=== PATIENT | female | born 1970 | race Caucasian/White ===

== ENCOUNTER 2017-03-28 19:55 | Inpatient (IN) ==
[2017-03-28] MEDS ORDERED: FUROSEMIDE 100 MG/10 ML VIAL IV STA (23:43)
[2017-03-28] MEDS ORDERED: ALBUTEROL/IPRATROPIUM 3 ML NEB RESP TX STA (23:43)
[2017-03-28] MEDS ORDERED: methylPREDNISolone SOD SUC 125 MG/2 ML VIAL IV STA (23:43)
[2017-03-28] MEDS ORDERED: NITROGLYCERIN 2% OINT 1 INCH/GM PACK TOP STA (23:43)
[2017-03-28] MEDS ORDERED: ONDANSETRON 4 MG/2 ML VIAL IV STA (23:43)
[2017-03-28] MEDS ORDERED: VANCOMYCIN INJ 1,000 MG in SODIUM CHLORIDE 0.9% 250 ML IV STA (23:45)
[2017-03-28] MEDS ORDERED: VANCOMYCIN 1,000 MG VIAL ONE (23:50)
--- NOTE | 2017-03-29 00:44 | Emergency Department Note ---
Drew Wiseman [place], am scribing for, and in the presence of, Nolan Madrid MD 00:32. Julius Wiseman Charles R, MD, personally performed the services described in this documentation, ascribed by Sukhdev Russell in my presence, and it is both accurate and complete . Arrival - Arrival Chief Complaint: Chest Pain Stated Complaint: Pneumonia,SOB, chest pain,vomiting ED Nursing Triage Note: patient c/o N/V, dx with flu and PNA yesterday and is now having CP and SOB. patient currrently taking ABX and zofran for nausea without relief. Mode of Arrival: Wheelchair Limitations: No Limitations Source: Patient Time Seen by Provider: 03/28/17 23:39 - History of Present Illness HPI Narrative: This is a 46 y/o white female presenting to the ED with c/o nausea, vomiting, and diarrhea that onset yesterday. The pt was diagnosed with pneumonia and influenza. She is now c/o SOB and chest pain. Pt states she was diagnosed with a new strand of flu called influenza B per Dr. Nobles. She was not swabbed for this strand of flu because Dr. Nobles stated she had all the signs and symptoms of the flu. Pt did receive a chest xray. Pt is currently taking antibiotics and Zofran for nausea with no relief. Pt has ulcerative colitis and states it has been bothering her as well. She has experienced some lightheadedness, watery diarrhea, and states the right side of her chest hurts worse than the left. Pt denies hematochezia, back pain, dysuria, hematuria, and hemataemesis. Consistency: constant Severity: moderate Date of Last Menstrual Period: hyst Allergies/Adverse Reactions: Allergies Allergy/AdvReac Type Severity Reaction Status Date / Time penicillin G Allergy RASH Verified 03/28/17 20:06 Sulfa (Sulfonamide Allergy RASH Verified 03/28/17 20:06 Antibiotics) sulfamethoxazole Allergy RASH Verified 03/28/17 20:06 [From Bactrim] trimethoprim [From Bactrim] Allergy RASH Verified 03/28/17 20:06 oseltamivir [From Tamiflu] AdvReac Severe Vomiting Verified 03/28/17 20:06 levofloxacin [From Levaquin] AdvReac Vomiting Verified 03/28/17 20:06 morphine AdvReac Hallucinati Verified 03/28/17 20:06 ng Home Medications: Home Medications Medication Instructions Recorded Confirmed Type Atorvastatin [Lipitor] 20 mg PO DAILY 01/06/16 03/28/17 History Citalopram [CeleXA] 40 mg PO DAILY 01/06/16 03/28/17 History Furosemide Tab [Lasix Tab] 40 mg PO DAILY 01/06/16 03/28/17 History Glimepiride 2 mg PO BID 01/06/16 03/28/17 History LORazepam TAB [Ativan Tab] 1 mg PO TID PRN 01/06/16 03/28/17 History cloNIDine TAB [Catapres Tab] 0.3 mg PO BEDTIME 01/06/16 03/28/17 History Aspirin [Ecotrin] 81 mg PO DAILY 08/19/16 03/28/17 History Meclizine HCl 25 - 50 mg PO TID PRN 08/19/16 03/28/17 History hydrOXYzine HCL TAB [Atarax Tab] 25 mg PO Q6H PRN 08/19/16 03/28/17 History Zolpidem Tartrate [Ambien] 10 mg PO BEDTIME 01/30/17 03/28/17 History Insulin Regular, Human [Humulin R 75 unit SUBCUT QPM 03/28/17 03/28/17 History U-500 Kwikpen] Insulin Regular, Human [Humulin R 95 unit SUBCUT QAM 03/28/17 03/28/17 History U-500 Kwikpen] Levothyroxine Tab [Synthroid Tab] 25 mcg PO DAILY 03/28/17 03/28/17 History Losartan [Cozaar] 50 mg PO DAILY 03/28/17 03/28/17 History Metformin HCl 500 mg PO BID W/MEALS 03/28/17 03/28/17 History Metoprolol Succinate Xl [Toprol Xl] 50 mg PO DAILY 03/28/17 03/28/17 History Ondansetron Tab [Zofran Tab] 4 mg PO BID PRN 03/28/17 03/28/17 History Promethazine Tab [Phenergan Tab] 25 mg PO Q4H PRN 03/28/17 03/28/17 History Ropinirole HCl 2 mg PO 2000 03/28/17 03/28/17 History cefUROXime axetil [Cefuroxime] 500 mg PO BID 03/28/17 03/28/17 History Review of System - Review of System 12 point system: reviewed and no additional remarkable complaints except as stated - Review of System Constitutional: Present: fever (low grade ). Absent: weakness Eyes: Absent: vision change Head/Ears/Nose/Throat: Absent: nasal drainage, sore throat Respiratory: Present: cough. Absent: wheezing Cardiovascular: Present: chest pain Gastrointestinal: Present: nausea, vomiting, diarrhea (watery ). Absent: abdominal pain Genitourinary female: Absent: dysuria Musculoskeletal: Absent: arm pain, back pain, leg pain, neck pain Skin: Absent: rash Neurological: Present: weakness, other (lightheadedness ). Absent: headache, numbness, paresthesias, confusion, vertigo Psychiatric: Absent: anxiety Endocrine: Absent: fatigue Hematological/Lymphatic: Absent: easy bleeding Allergic/Immunologic: Absent: facial swelling Medical,Surgical,& Family Hx - Medical History Cardio: History of: Hypertension Psychological: No history of: Anxiety Disorders, Bipolar Disorder, Depression, Schizophrenia Neurology: History of: Migraine, Vertigo No history of: Seizures HEENT: History of: Eye Problem (blind left eye) Endocrine: History of: Diabetes Mellitus (IDDM), Dyslipidemia, Thyroid Disorder (Hypothyroid) Respiratory: History of: Bronchitis, Pneumonia Genitourinary: History of: Recurring Urinary Tract Infections (E-coli) Gastrointestinal: History of: Crohn's Disease Hematology: History of: Anemia Reproductive: No history of: Abnormal Pap Smear, Breast Cancer, Reproductive Cancer Other: History of: MRSA - Surgical History Cardiac Surgeries: Patient Denies: Cardiac Catheterization Thoracic Surgeries: Patient denies;: Organ Transplant HEENT Surgeries: Surgical HX of: Eye Surgery (Left) Patient denies: Thyroid Surgery, Tonsilectomy & Adenoidectomy Abdominal Surgeries: Surgical HX of: Abdominal Surgery, Appendectomy, Cholecystectomy, Colonoscopy Patient denies: Gastric Bypass Surgery, EGD, Hernia Repair Reproductive Surgeries: Surgical HX of;: Hysterectomy Patient denies;: Genitourinary Surgery - Family History Family History: Reports;: Family Cancer (Mother, Father), Family Heart Disease ( Mother, Father), Family Hypertension (Father) Denies;: Family Anesthesia Reaction, Family Diabetes, Family Psychiatric Problems, Family Stroke - Social History Smoking Status: Never smoker Frequency of Alcohol Use: None Type of Drug Use: None Exam Vital Signs: Vital Signs Temperature 99.8 F H 03/28/17 22:35 Pulse Rate 95 H 03/28/17 22:35 Respiratory Rate 16 03/29/17 01:39 Blood Pressure 159/87 03/28/17 22:35 O2 Sat by Pulse Oximetry 99 03/28/17 22:35 - General General appearance: alert, in no apparent distress - Head Head exam: Present: atraumatic, normocephalic, normal inspection - Eye Eye exam: Present: normal appearance, PERRL, EOMI - ENT ENT exam: Present: mucous membranes dry, TM's normal bilaterally, normal external ear exam. Absent: normal exam, normal oropharynx, mucous membranes moist - Neck Neck exam: Present: normal inspection, full ROM, trachea midline. Absent: tenderness - Chest Chest inspection: Present: normal inspection, symmetric chest wall rise. Absent : tenderness - Respiratory Respiratory exam: Present: rhonchi (more on the right side than left ). Absent : normal lung sounds bilaterally - Cardiovascular Cardiovascular exam: Present: regular rate, normal rhythm, normal heart sounds - Abdominal Exam Abdominal exam: Present: soft, tenderness (epigastric and midepigastric tenderness), hyperactive bowel sounds. Absent: distention - Rectal Exam Rectal exam: Present: heme (+) stool - Extremities Exam Extremities exam: Present: full ROM, normal capillary refill, pedal edema (+1 BLE ). Absent: normal inspection, tenderness, calf tenderness - Back Exam Back exam: Present: normal inspection, full ROM. Absent: tenderness - Neurological Exam Neurological exam: Present: alert, oriented X3, CN II-XII intact, normal gait, reflexes normal - Psychiatric Psychiatric exam: Present: normal affect, normal mood. Absent: depressed - Skin Skin exam: Present: warm, dry, intact, normal color. Absent: rash, diaphoresis Course - Reevaluation(s) Reevaluation #1: Patient still feeling sick nauseated cough and short of breath. Patient states she has taken Levaquin for IV that does not make her sick only takes by mouth. Patient does have slight anemia and Hemoccult-positive stool will admit patient Time: 01:59 - Consultations Consultation #1: Hospitalist will admit patient Time: 02:00 Results - Labs CBC & BMP: 03/29/17 00:48 03/29/17 00:48 Lab Results: I have reviewed the patients labs Disposition Clinical Impression: Atypical chest pain, Pneumonia, Leukocytosis, Fever, Lower GI bleed, Nausea & vomiting, Fatigue, Malaise and fatigue, Anemia, Bronchitis, Uncontrolled hypertension Case discussed with: patient, patient's family Disposition: Still a Patient Condition: Stable Time of Disposition: 02:01
[2017-03-29 01:03] LABS: Basophils % 0.2 % (0.0-0.8); Eosinophils # 0.1 10*3/uL (0.0-0.87); Eosinophils % 0.9 % (0.00-10.9); Hematocrit 26.8 VOL% (35.7-47.0); Hemoglobin 8.8 GM/DL (12.0-16.0); Immature Granulocytes % 0.6 %; Immature Granulocytes Absolute 0.09 #; Lymphocytes # 4.3 10*3/uL (1.4-4.0); Lymphocytes % 30.5 % (21.3-54.2); Mean Corpuscular HGB Conc 32.8 GM/DL (32-36); Mean Corpuscular Hemoglobin 24 PG (27-34); Mean Platelet Volume 10.2 FL (9.6-12.0); Monocytes # 0.8 10*3/uL (0.11-0.8); Monocytes % 5.9 % (1.7-12.7); Neutrophils # 8.7 10*3/uL (1.4-7.4); Neutrophils % 61.9 % (38.7-73.9); Platelet Count 340 T/CUMM (130-400); Red Blood Count 3.62 MC/CUMM (3.8-5.5); Red Cell Distribution Width 13.2 % (9.3-17.3)
[2017-03-29 01:26] LABS: Alanine Aminotransferase 13 U/L (13-56); Albumin 2.4 G/DL (3.4-5.0); Alkaline Phosphatase 120 U/L (45-117); Amylase 30 U/L (25-115); Aspartate Amino Transferase 11 U/L (0-37); Bilirubin,Total < 0.39 MG/DL (0.2-1.0); Blood Urea Nitrogen 26 MG/DL (7-18); Calcium 7.9 MG/DL (8.5-10.1); Glucose 418 MG/DL (74-106); Magnesium 2.2 MG/DL (1.8-2.4); Osmolality,Calculated 286.5 MOS/KG (273-304); Potassium 4.7 MMOL/L (3.5-5.1); Sodium 132 MMOL/L (136-145); Total Protein 6.3 G/DL (6.4-8.3); Troponin I Only < 0.015 NG/ML (0.00-0.045)
[2017-03-29] MEDS ORDERED: LABETALOL 20 MG/4 ML SYRINGE IV STA (01:30)
[2017-03-29] MEDS ORDERED: LABETALOL 20 MG/4 ML SYRINGE IV ONE (01:31)
[2017-03-29] MEDS ORDERED: FUROSEMIDE 40 MG/4 ML VIAL ONE (02:01)
[2017-03-29] MEDS ORDERED: ONDANSETRON 4 MG/2 ML VIAL ONE (02:01)
[2017-03-29] MEDS ORDERED: FUROSEMIDE 20 MG/2 ML VIAL ONE (02:01)
[2017-03-29] MEDS ORDERED: NITROGLYCERIN 2% OINT 1 INCH/GM PACK TOP ONE (02:01)
[2017-03-29] MEDS ORDERED: methylPREDNISolone SOD SUC 125 MG/2 ML VIAL ONE (02:02)
--- NOTE | 2017-03-29 02:43 | Hospitalist History & Physical ---
Assessment and Plan (1) Pneumonia Status: Acute Current Visit: Yes (2) Nausea & vomiting Status: Acute Current Visit: Yes (3) Malaise and fatigue Status: Acute Current Visit: Yes (4) Anemia Status: Acute Current Visit: Yes (5) Bronchitis Status: Acute Assessment and plan: Our plan for this patient will be admission to our service. She will be placed on IV antibiotics. She does have a history of Crohn's therefore not surprised about her heme positive stool. She says Dr. Gutierrez on outpatient basis. Would schedule breathing treatments continue home meds as appropriate. Robitussin as needed for cough. Current Visit: Yes History of Present Illness Chief complaint: Chest pain History of present illness: Ms. Healy is a 46 year old female with past medical history significant for hypertension diabetes neuropathy and Crohn's disease who was recently diagnosed with pneumonia and flu. She sees [place]. Lehman [place] [facility] She was placed on Ceftin and Zofran. She reports that she has been steadily coughing and make aggravating her chest pain. She decided to come up to our hospital for further evaluation I was consulted to admit her. Home Medications Medication Instructions Recorded Confirmed Type Atorvastatin [Lipitor] 20 mg PO DAILY 01/06/16 03/28/17 History Citalopram [CeleXA] 40 mg PO DAILY 01/06/16 03/28/17 History Furosemide Tab [Lasix Tab] 40 mg PO DAILY 01/06/16 03/28/17 History Glimepiride 2 mg PO BID 01/06/16 03/28/17 History LORazepam TAB [Ativan Tab] 1 mg PO TID PRN 01/06/16 03/28/17 History cloNIDine TAB [Catapres Tab] 0.3 mg PO BEDTIME 01/06/16 03/28/17 History Aspirin [Ecotrin] 81 mg PO DAILY 08/19/16 03/28/17 History Meclizine HCl 25 - 50 mg PO TID PRN 08/19/16 03/28/17 History hydrOXYzine HCL TAB [Atarax Tab] 25 mg PO Q6H PRN 08/19/16 03/28/17 History Zolpidem Tartrate [Ambien] 10 mg PO BEDTIME 01/30/17 03/28/17 History Insulin Regular, Human [Humulin R 75 unit SUBCUT QPM 03/28/17 03/28/17 History U-500 Kwikpen] Insulin Regular, Human [Humulin R 95 unit SUBCUT QAM 03/28/17 03/28/17 History U-500 Kwikpen] Levothyroxine Tab [Synthroid Tab] 25 mcg PO DAILY 03/28/17 03/28/17 History Losartan [Cozaar] 50 mg PO DAILY 03/28/17 03/28/17 History Metformin HCl 500 mg PO BID W/MEALS 03/28/17 03/28/17 History Metoprolol Succinate Xl [Toprol Xl] 50 mg PO DAILY 03/28/17 03/28/17 History Ondansetron Tab [Zofran Tab] 4 mg PO BID PRN 03/28/17 03/28/17 History Promethazine Tab [Phenergan Tab] 25 mg PO Q4H PRN 03/28/17 03/28/17 History Ropinirole HCl 2 mg PO 2000 03/28/17 03/28/17 History cefUROXime axetil [Cefuroxime] 500 mg PO BID 03/28/17 03/28/17 History Allergies Allergy/AdvReac Type Severity Reaction Status Date / Time penicillin G Allergy RASH Verified 03/28/17 20:06 Sulfa (Sulfonamide Allergy RASH Verified 03/28/17 20:06 Antibiotics) sulfamethoxazole Allergy RASH Verified 03/28/17 20:06 [From Bactrim] trimethoprim [From Bactrim] Allergy RASH Verified 03/28/17 20:06 oseltamivir [From Tamiflu] AdvReac Severe Vomiting Verified 03/28/17 20:06 levofloxacin [From Levaquin] AdvReac Vomiting Verified 03/28/17 20:06 morphine AdvReac Hallucinati Verified 03/28/17 20:06 ng Medical,Surgical,& Family Hx - Medical History Cardio: History of: Hypertension Psychological: No history of: Anxiety Disorders, Bipolar Disorder, Depression, Schizophrenia Neurology: History of: Migraine, Vertigo No history of: Seizures HEENT: History of: Eye Problem (blind left eye) Endocrine: History of: Diabetes Mellitus (IDDM), Dyslipidemia, Thyroid Disorder (Hypothyroid) Respiratory: History of: Bronchitis, Pneumonia Genitourinary: History of: Recurring Urinary Tract Infections (E-coli) Gastrointestinal: History of: Crohn's Disease Hematology: History of: Anemia Reproductive: No history of: Abnormal Pap Smear, Breast Cancer, Reproductive Cancer Other: History of: MRSA - Surgical History Cardiac Surgeries: Patient Denies: Cardiac Catheterization Thoracic Surgeries: Patient denies;: Organ Transplant HEENT Surgeries: Surgical HX of: Eye Surgery (Left) Patient denies: Thyroid Surgery, Tonsilectomy & Adenoidectomy Abdominal Surgeries: Surgical HX of: Abdominal Surgery, Appendectomy, Cholecystectomy, Colonoscopy Patient denies: Gastric Bypass Surgery, EGD, Hernia Repair Reproductive Surgeries: Surgical HX of;: Hysterectomy Patient denies;: Genitourinary Surgery - Family History Family History: Reports;: Family Cancer (Mother, Father), Family Heart Disease ( Mother, Father), Family Hypertension (Father) Denies;: Family Anesthesia Reaction, Family Diabetes, Family Psychiatric Problems, Family Stroke - Social History Smoking Status: Never smoker Frequency of Alcohol Use: None Type of Drug Use: None 12 point system: reviewed and no additional remarkable complaints except as stated Exam - Constitutional Vitals: - General General appearance: alert, in no apparent distress - Head Head exam: Present: atraumatic, normocephalic, normal inspection - Eye Eye exam: Present: normal appearance, PERRL, EOMI - ENT ENT exam: Present: mucous membranes dry, TM's normal bilaterally, normal external ear exam. - Neck Neck exam: Present: normal inspection, full ROM, trachea midline. - Chest Chest inspection: Present: normal inspection, symmetric chest wall rise. - Respiratory Respiratory exam: Present: rhonchi - Cardiovascular Cardiovascular exam: Present: regular rate, normal rhythm, normal heart sounds - Abdominal Exam Abdominal exam: Present: soft, tenderness (epigastric and midepigastric tenderness), hyperactive bowel sounds. Absent: distention - Rectal Exam Rectal exam: Present: heme (+) stool patient has history of Crohn's - Extremities Exam Extremities exam: Present: full ROM, normal capillary refill, pedal edema (+1 BLE ). Absent: normal inspection, tenderness, calf tenderness - Back Exam Back exam: Present: normal inspection, full ROM. Absent: tenderness - Neurological Exam Neurological exam: Present: alert, oriented X3, CN II-XII intact, normal gait, reflexes normal - Psychiatric Psychiatric exam: Present: normal affect, normal mood. Absent: depressed - Skin Skin exam: Present: warm, dry, intact, normal color. Absent: rash, diaphoresis Results - Labs CBC & BMP: 03/29/17 00:48 03/29/17 00:48
[2017-03-29] MEDS ORDERED: GLUCAGON 1 MG VIAL IM PRN (02:54)
[2017-03-29] MEDS ORDERED: LORazepam 1 MG TABLET PO PRN (02:54)
[2017-03-29] MEDS ORDERED: ONDANSETRON 4 MG TABLET PO PRN (02:54)
[2017-03-29] MEDS ORDERED: ACETAMINOPHEN 325 MG TABLET PO PRN (02:54)
[2017-03-29] MEDS ORDERED: ALBUTEROL/IPRATROPIUM 3 ML NEB RESP TX PRN (02:54)
[2017-03-29] MEDS ORDERED: PROMETHAZINE 25 MG TABLET PO PRN (02:54)
[2017-03-29] MEDS ORDERED: hydrOXYzine HCL 25 MG TABLET PO PRN (02:54)
[2017-03-29] MEDS ORDERED: ONDANSETRON 4 MG/2 ML VIAL IV PRN (02:54)
[2017-03-29] MEDS: SODIUM CHLORIDE 0.9% 1,000 ML IV SCH ×3 (03:09→20:42)
[2017-03-29] MEDS: INSULIN REGULAR 100 UNIT/ML SUBCUT SCH ×5 (03:25→21:34)
[2017-03-29] MEDS: DOXYCYCLINE HYCLATE INJ 100 MG in SODIUM CHLORIDE 0.9% 100 ML IV SCH ×2 (03:26→17:44)
[2017-03-29] MEDS: LEVOTHYROXINE 25 MCG TABLET PO SCH (06:46)
--- NOTE | 2017-03-29 06:57 | XRay Report ---
XR chest 1V portable Indication: SOB Comparison: Chest x-ray dated May 17, 2016 Technique: Single frontal view of the chest Findings: Cardiomediastinal silhouette is stable in configuration. Mild right basilar atelectasis. Osseous and surrounding soft tissue structures appear grossly unchanged. IMPRESSION: Mild right basilar atelectasis. Underlying infection would be difficult to exclude. PROCEDURE INTERPRETED AT [facility] DEPARTMENT OF RADIOLOGY Final Report Signed by: Dr Roland Szymanski
[2017-03-29 07:26] LABS: Basophils % 0.2 % (0.0-0.8); Eosinophils % 0.2 % (0.00-10.9); Hematocrit 25.4 VOL% (35.7-47.0); Hemoglobin 8.3 GM/DL (12.0-16.0); Immature Granulocytes % 1.1 %; Immature Granulocytes Absolute 0.13 #; Lymphocytes # 1.3 10*3/uL (1.4-4.0); Lymphocytes % 11.5 % (21.3-54.2); Mean Corpuscular HGB Conc 32.7 GM/DL (32-36); Mean Corpuscular Hemoglobin 24 PG (27-34); Mean Corpuscular Volume 74.1 FL (87-102); Mean Platelet Volume 10.4 FL (9.6-12.0); Monocytes # 0.1 10*3/uL (0.11-0.8); Monocytes % 1.2 % (1.7-12.7); Neutrophils # 9.8 10*3/uL (1.4-7.4); Neutrophils % 85.8 % (38.7-73.9); Platelet Count 329 T/CUMM (130-400); Red Blood Count 3.43 MC/CUMM (3.8-5.5); Red Cell Distribution Width 13.3 % (9.3-17.3); White Blood Count 11.5 T/CUMM (4-12)
--- NOTE | 2017-03-29 07:54 | XRay Report ---
XR chest 1V portable Indication: SOB Comparison: Chest x-ray dated March 28, 2017 Technique: Single frontal view of the chest Findings: Cardiomediastinal silhouette is stable in configuration. Interval improved right basilar atelectasis. No new focal consolidation, pleural effusion, or pneumothorax. Osseous and surrounding soft tissue structures appear grossly unchanged. IMPRESSION: As above. PROCEDURE INTERPRETED AT [facility] DEPARTMENT OF RADIOLOGY Final Report Signed by: Dr Roland Szymanski
[2017-03-29] MEDS ORDERED: INSULIN REGULAR ** CONC 500 UNIT/ML ** 20 ML VIAL SUBCUT SCH ×5 (08:00→19:00)
[2017-03-29 08:15] LABS: Albumin 2.4 G/DL (3.4-5.0); Bilirubin,Total 0.5 MG/DL (0.2-1.0); Calcium 8.2 MG/DL (8.5-10.1); Magnesium 2.3 MG/DL (1.8-2.4); Osmolality,Calculated 286.4 MOS/KG (273-304); Potassium 4.7 MMOL/L (3.5-5.1); Risk Ratio 2.8; Thyroid Stimulating Hormone 1.42 uIU/ml (0.358-3.74); Total Protein 6.3 G/DL (6.4-8.3)
--- NOTE | 2017-03-29 08:47 | EKG Report ---
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
[2017-03-29] MEDS: ATORVASTATIN 20 MG TABLET PO SCH (09:44)
[2017-03-29] MEDS: CITALOPRAM 40 MG TABLET PO SCH (09:44)
[2017-03-29] MEDS: LOSARTAN 50 MG TABLET PO SCH (09:44)
[2017-03-29] MEDS: METOPROLOL SUCCINATE XL 50 MG TABLET PO SCH (09:45)
[2017-03-29] MEDS: GLIMEPIRIDE 2 MG TABLET PO SCH ×2 (09:45→20:43)
[2017-03-29] MEDS: FUROSEMIDE 40 MG TABLET PO SCH (09:45)
[2017-03-29] MEDS: PANTOPRAZOLE 40 MG TABLET PO SCH (09:45)
[2017-03-29] MEDS: metFORMIN 500 MG TABLET PO SCH ×2 (09:45→17:44)
[2017-03-29] MEDS: ASPIRIN EC 81 MG TABLET PO SCH (09:45)
[2017-03-29] MEDS: CEFUROXIME 500 MG TABLET PO SCH ×2 (09:45→20:43)
[2017-03-29 18:26] LABS: Basophils % 0.1 % (0.0-0.8); Hemoglobin 8.3 GM/DL (12.0-16.0); Immature Granulocytes % 1.9 %; Immature Granulocytes Absolute 0.31 #; Lymphocytes # 1.8 10*3/uL (1.4-4.0); Lymphocytes % 11.5 % (21.3-54.2); Mean Corpuscular HGB Conc 33.2 GM/DL (32-36); Mean Corpuscular Hemoglobin 25 PG (27-34); Mean Corpuscular Volume 75.3 FL (87-102); Mean Platelet Volume 10.1 FL (9.6-12.0); Monocytes # 0.4 10*3/uL (0.11-0.8); Monocytes % 2.7 % (1.7-12.7); Neutrophils # 13.3 10*3/uL (1.4-7.4); Neutrophils % 83.8 % (38.7-73.9); Platelet Count 364 T/CUMM (130-400); Red Blood Count 3.32 MC/CUMM (3.8-5.5); Red Cell Distribution Width 13.2 % (9.3-17.3); White Blood Count 15.9 T/CUMM (4-12)
[2017-03-29 19:01] LABS: Folate 15.6 NG/ML (5.4-24.0); Vitamin B12 528 PG/ML (211-911)
[2017-03-29 19:31] LABS: Sedimentation Rate-Westergren 121 MM/HR (0-20)
[2017-03-29] MEDS: ZALEPLON 5 MG CAPSULE PO SCH (20:43)
[2017-03-29] MEDS: rOPINIRole 1 MG TABLET PO SCH (20:43)
[2017-03-30] MEDS: SODIUM CHLORIDE 0.9% 1,000 ML IV SCH ×4 (02:27→18:27)
[2017-03-30] MEDS: DOXYCYCLINE HYCLATE INJ 100 MG in SODIUM CHLORIDE 0.9% 100 ML IV SCH ×2 (03:50→16:01)
[2017-03-30] MEDS: LEVOTHYROXINE 25 MCG TABLET PO SCH (06:12)
[2017-03-30 07:11] LABS: Basophils % 0.1 % (0.0-0.8); Eosinophils % 0.2 % (0.00-10.9); Hematocrit 24.6 VOL% (35.7-47.0); Hemoglobin 7.9 GM/DL (12.0-16.0); Immature Granulocytes % 1.4 %; Immature Granulocytes Absolute 0.21 #; Lymphocytes # 3.1 10*3/uL (1.4-4.0); Lymphocytes % 21.6 % (21.3-54.2); Mean Corpuscular HGB Conc 32.1 GM/DL (32-36); Mean Corpuscular Hemoglobin 24 PG (27-34); Mean Corpuscular Volume 74.5 FL (87-102); Mean Platelet Volume 10.3 FL (9.6-12.0); Monocytes # 0.9 10*3/uL (0.11-0.8); Monocytes % 5.9 % (1.7-12.7); Neutrophils # 10.3 10*3/uL (1.4-7.4); Neutrophils % 70.8 % (38.7-73.9); Platelet Count 356 T/CUMM (130-400); Red Cell Distribution Width 13.2 % (9.3-17.3); White Blood Count 14.5 T/CUMM (4-12)
[2017-03-30 07:39] LABS: Calcium 8.3 MG/DL (8.5-10.1); Osmolality,Calculated 282.3 MOS/KG (273-304); Potassium 4.6 MMOL/L (3.5-5.1)
[2017-03-30] MEDS ORDERED: INSULIN REGULAR ** CONC 500 UNIT/ML ** 20 ML VIAL SUBCUT SCH (08:00)
[2017-03-30] MEDS: PANTOPRAZOLE 40 MG TABLET PO SCH (09:47)
[2017-03-30] MEDS: CITALOPRAM 40 MG TABLET PO SCH (09:47)
[2017-03-30] MEDS: CEFUROXIME 500 MG TABLET PO SCH ×2 (09:47→20:31)
[2017-03-30] MEDS: ATORVASTATIN 20 MG TABLET PO SCH (09:47)
[2017-03-30] MEDS: metFORMIN 500 MG TABLET PO SCH ×2 (09:47→17:25)
[2017-03-30] MEDS: ASPIRIN EC 81 MG TABLET PO SCH (09:47)
[2017-03-30] MEDS: LOSARTAN 50 MG TABLET PO SCH (09:47)
[2017-03-30] MEDS: GLIMEPIRIDE 2 MG TABLET PO SCH (09:47)
[2017-03-30] MEDS: METOPROLOL SUCCINATE XL 50 MG TABLET PO SCH (09:47)
[2017-03-30] MEDS: FUROSEMIDE 40 MG TABLET PO SCH (09:47)
[2017-03-30] MEDS: INSULIN REGULAR 100 UNIT/ML SUBCUT SCH ×4 (09:48→20:31)
[2017-03-30] MEDS: INSULIN REGULAR ** CONC 500 UNIT/ML ** 20 ML VIAL SUBCUT SCH ×2 (09:51→16:00)
[2017-03-30] MEDS: ENOXAPARIN 40 MG/0.4 ML SYRINGE SUBCUT SCH (11:49)
[2017-03-30 12:15] LABS: Apearance,Urine CLEAR (Clear); Bilirubin,Urine Negative (Negative); Blood, Urine Negative (Negative); Glucose,Urine (UA) 150 mg/dL (Negative); Ketones,Urine Negative (Negative); Nitrite,Urine Negative (Negative); Protein,Urine 100 MG/DL; RBC,Urine 2 /HPF (0-4); Squamous Epithelial Cell,Urine Occasional /HPF (0-10); Urine Color Straw (Yellow); Urine Specific Gravity 1.008 (1.001-1.035); Urine Urobilinogen < 2.0 EU/DL (0.2-1.0); WBC,Urine 1 /HPF (0-6)
[2017-03-30] MEDS: DEXTROSE 50% 25 GM/50 ML VIAL IV PRN ×2 (16:16→17:37)
--- NOTE | 2017-03-30 16:33 | Hospitalist Progress Note ---
Assessment and Plan (1) Pneumonia Status: Acute Assessment and plan: continue with IV antibiotics Current Visit: Yes (2) Nausea & vomiting Status: Acute Assessment and plan: has resolved Current Visit: Yes (3) Diabetes mellitus Status: Acute Assessment and plan: with hypoglycemic episodes. Will hold glimepiride for now, continue other regime HbA1c level Current Visit: Yes (4) HTN (hypertension) Status: Acute Assessment and plan: stable on current meds Current Visit: Yes (5) Hyperlipidemia Status: Acute Assessment and plan: continue with statins Current Visit: Yes (6) Hypothyroidism Status: Acute Assessment and plan: will get a TSH and continue with supplements. Current Visit: Yes Hospitalist: Subjective Interval history: Patient seen.She feels better. Her nausea and vomiting have resolved. Exam - Constitutional Vitals: Period Temp Pulse Resp BP Sys/Burgess Pulse Ox Last 24 Hr 96.5 F-98.2 F 70-98 16-20 133-150/65-79 92-99 General appearance: no acute distress - Head Head exam: Present: normal inspection - Respiratory Respiratory exam: Present: clear to auscultation bilaterally - Cardiovascular Cardiovascular exam: Present: regular rate and rhythm - GI/Abdominal GI/Abdominal exam: Present: normal bowel sounds - Extremities Exam Extremities exam: Present: normal inspection Results - Labs CBC & BMP: 03/30/17 06:38 03/30/17 06:38 Lab Results: I have reviewed the past 24 hour labs
[2017-03-30 17:05] LABS: Free T4 (Free Thyroxine) 1.3 NG/DL (0.76-1.46); Thyroid Stimulating Hormone 0.577 uIU/ml (0.358-3.74)
[2017-03-30] MEDS: rOPINIRole 1 MG TABLET PO SCH (20:31)
[2017-03-30] MEDS: ZALEPLON 5 MG CAPSULE PO SCH (20:31)
[2017-03-31] MEDS: SODIUM CHLORIDE 0.9% 1,000 ML IV SCH ×3 (02:54→11:10)
[2017-03-31] MEDS: DOXYCYCLINE HYCLATE INJ 100 MG in SODIUM CHLORIDE 0.9% 100 ML IV SCH ×2 (03:49→17:12)
[2017-03-31] MEDS: LEVOTHYROXINE 25 MCG TABLET PO SCH (06:02)
[2017-03-31] MEDS: INSULIN REGULAR 100 UNIT/ML SUBCUT SCH ×4 (07:57→21:47)
[2017-03-31] MEDS: LOSARTAN 50 MG TABLET PO SCH (08:18)
[2017-03-31] MEDS: ASPIRIN EC 81 MG TABLET PO SCH (08:18)
[2017-03-31] MEDS: PANTOPRAZOLE 40 MG TABLET PO SCH (08:18)
[2017-03-31] MEDS: CITALOPRAM 40 MG TABLET PO SCH (08:18)
[2017-03-31] MEDS: metFORMIN 500 MG TABLET PO SCH ×2 (08:19→18:10)
[2017-03-31] MEDS: CEFUROXIME 500 MG TABLET PO SCH ×2 (08:19→21:46)
[2017-03-31] MEDS: FUROSEMIDE 40 MG TABLET PO SCH (08:19)
[2017-03-31] MEDS: METOPROLOL SUCCINATE XL 50 MG TABLET PO SCH ×2 (08:19→21:46)
[2017-03-31] MEDS: ATORVASTATIN 20 MG TABLET PO SCH (08:19)
[2017-03-31] MEDS: INSULIN REGULAR ** CONC 500 UNIT/ML ** 20 ML VIAL SUBCUT SCH ×2 (08:24→18:10)
[2017-03-31] MEDS ORDERED: SODIUM CHLORIDE 0.9% 250 ML IV PRN (09:43)
[2017-03-31 10:06] LABS: Hematocrit 24.3 VOL% (35.7-47.0); Hemoglobin 7.7 GM/DL (12.0-16.0)
[2017-03-31] MEDS: ENOXAPARIN 40 MG/0.4 ML SYRINGE SUBCUT SCH (11:23)
[2017-03-31] MEDS: DEXTROSE 50% 25 GM/50 ML VIAL IV PRN (14:20)
--- NOTE | 2017-03-31 15:17 | Hospitalist Progress Note ---
Assessment and Plan (1) Pneumonia Status: Acute Assessment and plan: continue with IV antibiotics BC, Infleunza -negative Hopefully dc in am Current Visit: Yes (2) Nausea & vomiting Status: Acute Assessment and plan: resolved Current Visit: Yes (3) Diabetes mellitus Status: Acute Assessment and plan: with hypoglycemic episodes. continue to hold glimepiride for now, continue other regime HbA1c level-12.4 Current Visit: Yes (4) HTN (hypertension) Status: Acute Assessment and plan: increase metoprolol to 50mg bid, follow response. Current Visit: Yes (5) Hyperlipidemia Status: Acute Assessment and plan: continue with statins Current Visit: Yes (6) Hypothyroidism Status: Acute Assessment and plan: TSH- 0.5, continue with supplements. Current Visit: Yes Hospitalist: Subjective Interval history: Patient looked better, her H/H had dropped so she will be getting 2units of packed cells today. Exam - Constitutional Vitals: Period Temp Pulse Resp BP Sys/Burgess Pulse Ox Last 24 Hr 97.3 F-98.8 F 67-82 15-20 114-174/58-92 96-100 General appearance: no acute distress - Head Head exam: Present: normal inspection - Respiratory Respiratory exam: Present: clear to auscultation bilaterally - Cardiovascular Cardiovascular exam: Present: regular rate and rhythm - GI/Abdominal GI/Abdominal exam: Present: normal bowel sounds - Extremities Exam Extremities exam: Present: normal inspection Results - Labs CBC & BMP: 03/31/17 09:57 03/30/17 06:38 Lab Results: I have reviewed the past 24 hour labs
[2017-03-31 17:59] LABS: Hematocrit 30.8 VOL% (35.7-47.0); Hemoglobin 9.9 GM/DL (12.0-16.0)
[2017-03-31] MEDS: LEVOFLOXACIN 750 MG TABLET PO SCH (21:46)
[2017-03-31] MEDS: rOPINIRole 1 MG TABLET PO SCH (21:46)
[2017-03-31] MEDS: ZALEPLON 5 MG CAPSULE PO SCH (21:46)
[2017-04-01] MEDS: LEVOTHYROXINE 25 MCG TABLET PO SCH (06:04)
--- NOTE | 2017-04-01 06:43 | Physician Query Form ---
CLICK EDIT DOCUMENT TO SELECT QUERY ANSWER --> OK --> SIGN Nanette Lorenz RN, CCDS Certified Clinical Student Development Coordinator W) [phone] (f) [phone] [email or web address] PROVIDERS: Make your selection(s) from the choices in EACH section by typing an "x" and enter comments in the comment section. Please use your independent medical judgment in providing your response. This request does not imply that any particular answer is desired or expected. CLINICAL INDICATORS: (Providers should not edit this section) The medical record indicates that the patient was admitted with pneumonia, lower GI bleeding (hx of Crohn's disease), HH dropped to 7.7/ 24.3 and the patient was given blood. Based on the above, could you clarify which of the following conditions you are evaluating, treating, and/or monitoring? (x ) Blood loss anemia ( x) acute ( ) chronic ( ) acute on chronic ( ) Acute blood loss anemia on baseline chronic anemia ( ) Acute blood loss anemia as a complication of a procedure ( ) Iron deficiency anemia not associated with blood loss ( ) Dilutional anemia due to IV fluids ( ) Anemia due to chemotherapy ( ) Anemia due to neoplastic disease ( ) Anemia due to chronic kidney disease ( ) Pernicious anemia ( ) Aplastic anemia ( ) Hemolytic anemia ( ) immune ( ) non-immune - please specify cause: ( ) Anemia due to other condition, please specify: ( ) Clinically unable to determine COMMENTS: PLEASE ALSO DOCUMENT RESPONSE IN PROGRESS NOTES AND/OR DISCHARGE SUMMARY Use of terms such as suspected, likely, or probable (associated with a specific diagnosis that is being evaluated, monitored, or treated as if it exists) are acceptable and can be restated in the discharge summary if not ruled out. MTDD
[2017-04-01 07:02] LABS: Basophils % 0.2 % (0.0-0.8); Eosinophils # 0.2 10*3/uL (0.0-0.87); Eosinophils % 1.9 % (0.00-10.9); Hematocrit 27.5 VOL% (35.7-47.0); Hemoglobin 8.9 GM/DL (12.0-16.0); Immature Granulocytes Absolute 0.33 #; Lymphocytes # 3.3 10*3/uL (1.4-4.0); Lymphocytes % 29.9 % (21.3-54.2); Mean Corpuscular HGB Conc 32.4 GM/DL (32-36); Mean Corpuscular Hemoglobin 25 PG (27-34); Mean Corpuscular Volume 76.2 FL (87-102); Mean Platelet Volume 9.7 FL (9.6-12.0); Monocytes # 0.7 10*3/uL (0.11-0.8); Monocytes % 6.1 % (1.7-12.7); Neutrophils # 6.5 10*3/uL (1.4-7.4); Neutrophils % 58.9 % (38.7-73.9); Platelet Count 326 T/CUMM (130-400); Red Blood Count 3.61 MC/CUMM (3.8-5.5); Red Cell Distribution Width 13.5 % (9.3-17.3)
[2017-04-01 07:28] LABS: Calcium 7.9 MG/DL (8.5-10.1); Osmolality,Calculated 289.4 MOS/KG (273-304); Potassium 4.3 MMOL/L (3.5-5.1)
--- NOTE | 2017-04-01 09:10 | Discharge Summary ---
<Ivonne Callejasda - Last Filed: 04/01/17 09:24> Hospital Course - Hospital Course Hospital Course: This a very unfortunate 46 year old female that presented to the ED at [facility] on 03/29 for with a chief compliant of nausea, vomiting, and diarrhea. The patient has a very significant medical history positive for hypertension, hypothyroidism, Crohn's disease, hypertension, insulin-dependent diabetes mellitus, diabetic neuropathy, vision loss of left eye, dysplipidemia, bronchitis, and methicillin-resistant staphylococcus aureus. The patient is generally followed by Dr. Lehman at the [facility]. The patient was recently seen at the clinic and she was told that she had pneumonia and influenza. At the time of admission, the patient reported a continuous cough with chest pain that was very concerning to her. The patient was subsequently admitted to the hospitalist service for continuation of care. The patient was admitted and aggressive antibiotic therapy was initiated. Stools specimens were obtained; which were essentially negative. On 03/31; the patient experience a significant decline in her blood levels; her H/H was noted at 7.7/24.3. Blood products were administered and her blood levels improved to 8.9/27.5. Today, her condition is stable and we feel that she is appropriate for discharge home to follow-up with her PCP as directed. M Discharge Plan - Discharge Data Disposition: Disch To Home/Self Care - Discharge Medications New Acetaminophen Tab [Tylenol Tab] 325 mg PO Q4H PRN #0 tablet PRN Reason: fever, headache/body aches Levofloxacin Tab [Levaquin Tab] 750 mg PO DAILY #7 tablet Pantoprazole Tab [Protonix Tab] 40 mg PO DAILY #30 tablet guaiFENesin/DM LIQUID [Robitussin Dm] 10 ml PO Q4H PRN #7 PRN Reason: Cough Continue Atorvastatin [Lipitor] 20 mg PO DAILY LORazepam TAB [Ativan Tab] 1 mg PO TID PRN PRN Reason: Anxiety Citalopram [CeleXA] 40 mg PO DAILY cloNIDine TAB [Catapres Tab] 0.3 mg PO BEDTIME Furosemide Tab [Lasix Tab] 40 mg PO DAILY Aspirin [Ecotrin] 81 mg PO DAILY hydrOXYzine HCL TAB [Atarax Tab] 25 mg PO Q6H PRN PRN Reason: Itching Meclizine HCl 25 - 50 mg PO TID PRN PRN Reason: Dizziness Insulin Regular, Human [Humulin R U-500 Kwikpen] 75 unit SUBCUT QPM Insulin Regular, Human [Humulin R U-500 Kwikpen] 83 unit SUBCUT QAM Levothyroxine Tab [Synthroid Tab] 25 mcg PO DAILY Metformin HCl 500 mg PO BID W/MEALS Metoprolol Succinate Xl [Toprol Xl] 50 mg PO DAILY Ondansetron Tab [Zofran Tab] 4 mg PO BID PRN PRN Reason: Nausea/Vomiting Promethazine Tab [Phenergan Tab] 25 mg PO Q4H PRN PRN Reason: Nausea Zolpidem Tartrate [Ambien] 10 mg PO BEDTIME Losartan [Cozaar] 50 mg PO DAILY Ropinirole HCl 2 mg PO 1999 Discontinued Glimepiride 2 mg PO BID cefUROXime axetil [Cefuroxime] 500 mg PO BID Ketorolac Tab [Toradol Tab] 10 mg PO Q6H PRN PRN Reason: Pain Mild To Moderate (1-7) - Follow Up or Referral - Forms/Instructions Exam - Constitutional Vitals: Period Temp Pulse Resp BP Sys/Burgess Pulse Ox Last 24 Hr 97 F-98.3 F 65-77 16-20 130-174/66-97 93-98 Discharge Results Procedures and tests throughout hospitalization: Pending Orders 03/29/17 18:15 Anemia Profile Routine 03/30/17 11:30 Sputum Culture and Gram Stain Routine 03/30/17 17:42 Occult Blood, Stool Stat Labs on day of discharge: Labs from last 24 hours 04/01/17 04/01/17 04/01/17 07:15 06:46 06:46 WBC 11.0 RBC 3.61 L Hgb 8.9 L Hct 27.5 L MCV 76.2 L MCH 25 L MCHC 32.4 RDW 13.5 Plt Count 326 MPV 9.7 Neut % (Auto) 58.9 Lymph % (Auto) 29.9 [place] % (Auto) 6.1 Eos % (Auto) 1.9 Baso % (Auto) 0.2 Neut # (Auto) 6.5 Lymph # (Auto) 3.3 [place] # (Auto) 0.7 Eos # (Auto) 0.2 Baso # (Auto) 0.0 Immature Gran % 3.0 Nucleated RBC % 0.0 Immature Gran # 0.33 Nucleated RBCs # 0.00 Sodium 140 Potassium 4.3 Chloride 107 Carbon Dioxide 27 Anion Gap 10.3 BUN 17 Creatinine 0.90 GFR Calculation 95 BUN/Creatinine Ratio 18.00 Glucose 259 H POC Glucose 249 H Calculated Osmolality 289.4 Calcium 7.9 L Blood Type Antibody Screen Crossmatch 03/31/17 03/31/17 03/31/17 21:06 17:46 17:32 WBC RBC Hgb 9.9 L D Hct 30.8 L MCV MCH MCHC RDW Plt Count MPV Neut % (Auto) Lymph % (Auto) [place] % (Auto) Eos % (Auto) Baso % (Auto) Neut # (Auto) Lymph # (Auto) [place] # (Auto) Eos # (Auto) Baso # (Auto) Immature Gran % Nucleated RBC % Immature Gran # Nucleated RBCs # Sodium Potassium Chloride Carbon Dioxide Anion Gap BUN Creatinine GFR Calculation BUN/Creatinine Ratio Glucose POC Glucose 167 H 117 H Calculated Osmolality Calcium Blood Type Antibody Screen Crossmatch 03/31/17 03/31/17 03/31/17 14:19 14:11 13:44 WBC RBC Hgb Hct MCV MCH MCHC RDW Plt Count MPV Neut % (Auto) Lymph % (Auto) [place] % (Auto) Eos % (Auto) Baso % (Auto) Neut # (Auto) Lymph # (Auto) [place] # (Auto) Eos # (Auto) Baso # (Auto) Immature Gran % Nucleated RBC % Immature Gran # Nucleated RBCs # Sodium Potassium Chloride Carbon Dioxide Anion Gap BUN Creatinine GFR Calculation BUN/Creatinine Ratio Glucose POC Glucose 115 H 47 L* 76 Calculated Osmolality Calcium Blood Type Antibody Screen Crossmatch 03/31/17 03/31/17 13:16 09:57 WBC RBC Hgb Hct MCV MCH MCHC RDW Plt Count MPV Neut % (Auto) Lymph % (Auto) [place] % (Auto) Eos % (Auto) Baso % (Auto) Neut # (Auto) Lymph # (Auto) [place] # (Auto) Eos # (Auto) Baso # (Auto) Immature Gran % Nucleated RBC % Immature Gran # Nucleated RBCs # Sodium Potassium Chloride Carbon Dioxide Anion Gap BUN Creatinine GFR Calculation BUN/Creatinine Ratio Glucose POC Glucose 54 L Calculated Osmolality Calcium Blood Type O POSITIVE Antibody Screen Negative Crossmatch See Detail DS: Provider Date of admission: 03/29/17 02:02 Primary care physician: Keny Schwartz, Attending physician on admission: Jamie Aguilera MD Consults: 03/29/17 02:54 Consult to Case Mgmt/Social Srvs [CONS] Routine Reason for Case Mgmt/Social Srvs: Rehab Consult to [facility], Educator [CONS] Routine Reason for Workers' Compensation Hearings Officer: Diabetes Education 03/29/17 03:53 Consult to Dietitian [CONS] Routine Reason for Dietitian: Dietary Consult Discharging clinician: Eliza Callejas CNP <Kathy Byrnes - Last Filed: 04/01/17 11:23> Hospital Course - Hospital Course Hospital Course: Her repeat flu test was negative.Her vitals are stable and her symptoms have improved. Her Glimepiride was held due to episodes of hypoglycemia. This should be re-evaluated by her PCP. - Time spent with patient Time with patient DS: Greater than 30 minutes (Time spent-40mins) Diagnosis - Discharge Diagnosis (1) Pneumonia Status: Acute (2) Nausea & vomiting Status: Acute (3) Diabetes mellitus Status: Acute (4) HTN (hypertension) Status: Acute (5) Hyperlipidemia Status: Acute (6) Hypothyroidism Status: Acute Discharge Plan - Discharge Data Condition at Discharge: Stable Discharge Diet: diabetic diet Activity: resume usual activities as tolerated Exam - Constitutional General appearance: no acute distress - Head Head exam: Present: normal inspection - Respiratory Respiratory exam: Present: clear to auscultation bilaterally - Cardiovascular Cardiovascular exam: Present: regular rate and rhythm - GI/Abdominal GI/Abdominal exam: Present: normal bowel sounds - Extremities Exam Extremities exam: Present: normal inspection
[2017-04-01] MEDS: CEFUROXIME 500 MG TABLET PO SCH (09:40)
[2017-04-01] MEDS: CITALOPRAM 40 MG TABLET PO SCH (09:40)
[2017-04-01] MEDS: metFORMIN 500 MG TABLET PO SCH (09:40)
[2017-04-01] MEDS: INSULIN REGULAR 100 UNIT/ML SUBCUT SCH ×2 (09:40→11:49)
[2017-04-01] MEDS: ASPIRIN EC 81 MG TABLET PO SCH (09:41)
[2017-04-01] MEDS: LEVOFLOXACIN 750 MG TABLET PO SCH (09:41)
[2017-04-01] MEDS: METOPROLOL SUCCINATE XL 50 MG TABLET PO SCH (09:41)
[2017-04-01] MEDS: LOSARTAN 50 MG TABLET PO SCH (09:41)
[2017-04-01] MEDS: PANTOPRAZOLE 40 MG TABLET PO SCH (09:41)
[2017-04-01] MEDS: ATORVASTATIN 20 MG TABLET PO SCH (09:42)
[2017-04-01] MEDS: FUROSEMIDE 40 MG TABLET PO SCH (09:42)
[2017-04-01] MEDS: INSULIN REGULAR ** CONC 500 UNIT/ML ** 20 ML VIAL SUBCUT SCH (09:42)
[2017-04-01 11:06] LABS: Hemoglobin A1 (Alkaline) 97.4 % (96.5-98.5); Hemoglobin A2 (Alkaline) 2.6 % (1.5-3.5)
[2017-04-01] MEDS: ENOXAPARIN 40 MG/0.4 ML SYRINGE SUBCUT SCH (11:49)
[2017-04-01 12:19] VITALS: BP 157/82
== END 2017-04-01 14:55 | disposition home health service (06) | DRG 194 ==
LOC: N.ED 19:55 → N.EDINP 03-29 02:02 → SUATTDRO 03-29 02:02 → N.5E 03-29 02:30
PROVIDERS: ADMIT Internal Medicine; ATTEND Internal Medicine

== ENCOUNTER 2017-04-29 10:14 | Inpatient (IN) ==
--- NOTE | 2017-04-29 12:22 | Hospitalist History & Physical ---
Assessment and Plan - Time spent with patient Time spent with patient: Greater than 30 minutes (1) Nausea & vomiting Status: Acute Assessment and plan: Ms. Membreno is a 46-year-old white female with history of diabetes, hypertension, Crohn's disease, left eye blindness, hyperlipidemia, and hypothyroidism admitted by hospital medicine with 3 day history of nausea, vomiting, and cough. She was recently treated for pneumonia and discharged from the hospital approximately 3 weeks ago. We will go ahead and treat her symptoms and await chest x-ray and labs that are pending. We will go ahead and restart her home medicines and give her clear liquid diet since she has been nauseated. Dr. Madden to see and examine patient and further recommendations to follow. Current Visit: No (2) Fatigue Status: Acute Current Visit: No (3) Anemia Status: Acute Current Visit: No (4) Diabetes mellitus Status: Acute Current Visit: No (5) HTN (hypertension) Status: Acute Current Visit: No (6) Hyperlipidemia Status: Acute Current Visit: No (7) Hypothyroidism Status: Acute Current Visit: No History of Present Illness Chief complaint: Cough, nausea, vomiting History of present illness: Ms. Healy is a 46 year old white female with history of diabetes, hypertension, hypothyroidism, left eye blindness, dyslipidemia, and Crohn's disease admitted from Dr. Lehman's office with 3 day history of cough, congestion, and fever up to 101. Patient also states she has been nauseous and throwing up since yesterday and has not been able to take any of her medicines. Patient states she was discharged on 04/01/2017 after blood transfusion and treatment for pneumonia. Patient states she just has not felt well since then. Patient saw her tonsorial artist and some of her medicines were adjusted. She is also to see Dr. Albert at some time for iron transfusion. Patient denies headache, chest pain, abdominal pain, constipation or diarrhea, or lower extremity edema. Patient's blood sugar at Dr. Lehman's office was 483, UA was negative, WBCs mildly elevated at 12.6 with her H&H stable at 10.4/32.1. Patient's chest x-ray and further labs are pending at this time. Dr. Madden has admitted patient for further evaluation. Home Medications Medication Instructions Recorded Confirmed Type Atorvastatin [Lipitor] 20 mg PO DAILY 01/06/16 03/29/17 History Citalopram [CeleXA] 40 mg PO DAILY 01/06/16 03/29/17 History Furosemide Tab [Lasix Tab] 40 mg PO DAILY 01/06/16 03/29/17 History LORazepam TAB [Ativan Tab] 1 mg PO TID PRN 01/06/16 03/29/17 History cloNIDine TAB [Catapres Tab] 0.3 mg PO BEDTIME 01/06/16 03/29/17 History Aspirin [Ecotrin] 81 mg PO DAILY 08/19/16 03/29/17 History Meclizine HCl 25 - 50 mg PO TID PRN 08/19/16 03/29/17 History hydrOXYzine HCL TAB [Atarax Tab] 25 mg PO Q6H PRN 08/19/16 03/29/17 History Zolpidem Tartrate [Ambien] 10 mg PO BEDTIME 01/30/17 03/29/17 History Insulin Regular, Human [Humulin R 75 unit SUBCUT QPM 03/28/17 03/28/17 History U-500 Kwikpen] Insulin Regular, Human [Humulin R 83 unit SUBCUT QAM 03/28/17 03/29/17 History U-500 Kwikpen] Levothyroxine Tab [Synthroid Tab] 25 mcg PO DAILY 03/28/17 03/29/17 History Losartan [Cozaar] 50 mg PO DAILY 03/28/17 03/29/17 History Metformin HCl 500 mg PO BID W/MEALS 03/28/17 03/29/17 History Metoprolol Succinate Xl [Toprol Xl] 50 mg PO DAILY 03/28/17 03/29/17 History Ondansetron Tab [Zofran Tab] 4 mg PO BID PRN 03/28/17 03/29/17 History Promethazine Tab [Phenergan Tab] 25 mg PO Q4H PRN 03/28/17 03/29/17 History Ropinirole HCl 2 mg PO 2000 03/28/17 03/29/17 History Acetaminophen Tab [Tylenol Tab] 325 mg PO Q4H PRN #0 tablet 04/01/17 Rx Levofloxacin Tab [Levaquin Tab] 750 mg PO DAILY #7 tablet 04/01/17 Rx Pantoprazole Tab [Protonix Tab] 40 mg PO DAILY #30 tablet 04/01/17 Rx guaiFENesin/DM LIQUID [Robitussin 10 ml PO Q4H PRN #7 04/01/17 Rx Dm] Allergies Allergy/AdvReac Type Severity Reaction Status Date / Time penicillin G Allergy RASH Verified 04/29/17 10:56 Sulfa (Sulfonamide Allergy RASH Verified 04/29/17 10:56 Antibiotics) sulfamethoxazole Allergy RASH Verified 04/29/17 10:56 [From Bactrim] trimethoprim [From Bactrim] Allergy RASH Verified 04/29/17 10:56 oseltamivir [From Tamiflu] AdvReac Severe Vomiting Verified 04/29/17 10:56 levofloxacin [From Levaquin] AdvReac Vomiting Verified 04/29/17 10:56 morphine AdvReac Hallucinati Verified 04/29/17 10:56 ng Medical,Surgical,& Family Hx - Medical History Cardio: History of: Hypertension Psychological: No history of: Anxiety Disorders, Bipolar Disorder, Depression, Schizophrenia Neurology: History of: Migraine, Vertigo No history of: Seizures HEENT: History of: Eye Problem (blind left eye) Endocrine: History of: Diabetes Mellitus (IDDM), Dyslipidemia, Thyroid Disorder (Hypothyroid) Respiratory: History of: Bronchitis, Pneumonia Genitourinary: History of: Recurring Urinary Tract Infections (E-coli) Gastrointestinal: History of: Crohn's Disease Hematology: History of: Anemia Reproductive: No history of: Abnormal Pap Smear, Breast Cancer, Reproductive Cancer Other: History of: MRSA - Surgical History Cardiac Surgeries: Patient Denies: Cardiac Catheterization Thoracic Surgeries: Patient denies;: Organ Transplant HEENT Surgeries: Surgical HX of: Eye Surgery (Left) Patient denies: Thyroid Surgery, Tonsilectomy & Adenoidectomy Abdominal Surgeries: Surgical HX of: Abdominal Surgery, Appendectomy, Cholecystectomy, Colonoscopy Patient denies: Gastric Bypass Surgery, EGD, Hernia Repair Reproductive Surgeries: Surgical HX of;: Hysterectomy Patient denies;: Genitourinary Surgery - Family History Family History: Reports;: Family Cancer (Mother, Father), Family Heart Disease ( Mother, Father), Family Hypertension (Father) Denies;: Family Anesthesia Reaction, Family Diabetes, Family Psychiatric Problems, Family Stroke - Social History Smoking Status: Never smoker Frequency of Alcohol Use: None Type of Drug Use: None Marital Status: Single Lives With:: Alone Functional capacity: independent ambulation Review of systems: A complete 10 system review of systems was obtained and pertinent positives and negatives per HPI Exam - Constitutional Vitals: Period Temp Pulse Resp BP Sys/Burgess Pulse Ox Last 24 Hr 97.8 F 80 19-20 145/76 96 Exam: Constitutional System: No distress. No tremulousness. Head: Normocephalic, atraumatic. Ears, Nose and Throat System: No evidence of Otitis or Mastoiditis. No epistaxis or discharge Eyes System: Extraocular muscles intact, people on the right equal and reactive to light, left pupil cloudy Neck: Supple, without adenopathy, No jugular venous distention. No thyromegaly, neck mass, or prior surgery apparent. Respiratory System: Chest clear to auscultation. Cardiovascular System: Heart with regular rate and rhythm. No murmur. GI System: Abdomen soft, nontender. Normo active bowel sounds present. Musculoskeletal System: limbs with no pedal edema. Full distal pulses. Neurological System: No discernable sensory deficit. No aphasia Psychiatric System: Conversation is rational Results - Labs Lab Results: I have reviewed the past 24 hour labs - Diagnostic Findings Procedure: Chest x-ray: pending
[2017-04-29] MEDS ORDERED: guaiFENesin/DM ER 600-30 MG TABLET PO PRN (12:26)
[2017-04-29] MEDS ORDERED: ONDANSETRON 4 MG/2 ML VIAL IV PRN (12:26)
[2017-04-29] MEDS ORDERED: ACETAMINOPHEN 325 MG TABLET PO PRN ×2 (12:26)
[2017-04-29] MEDS ORDERED: diphenhydrAMINE CAP 25 MG CAPSULE PO PRN (12:26)
[2017-04-29] MEDS ORDERED: MORPHINE 2 MG/1 ML SYRINGE IV PRN (12:26)
[2017-04-29] MEDS ORDERED: PROMETHAZINE 25 MG/1 ML VIAL IM PRN (12:26)
[2017-04-29] MEDS ORDERED: DOCUSATE SODIUM 100 MG CAPSULE PO PRN (12:26)
[2017-04-29] MEDS: PANTOPRAZOLE 40 MG TABLET PO SCH (13:48)
[2017-04-29 14:07] LABS: Albumin 2.6 G/DL (3.4-5.0); Bilirubin,Total 0.4 MG/DL (0.2-1.0); Calcium 8.7 MG/DL (8.5-10.1); Total Protein 6.3 G/DL (6.4-8.3)
[2017-04-29 14:08] LABS: Osmolality,Calculated 278.7 MOS/KG (273-304); Potassium 4.7 MMOL/L (3.5-5.1)
[2017-04-29] MEDS: SODIUM CHLORIDE 0.9% 1,000 ML IV SCH ×2 (14:28→20:47)
[2017-04-29] MEDS: ENOXAPARIN 40 MG/0.4 ML SYRINGE SUBCUT SCH (14:28)
--- NOTE | 2017-04-29 15:34 | XRay Report ---
XR chest 2V Indication: Shortness of breath and cough. Chest 2 views: Comparison 03/29/2017. Borderline cardiomegaly, normal mediastinal contour and clear left lung are again shown. Patchy infiltrate is developing at the lateral right lung base somewhat posteriorly. Impression: Developing right basilar pneumonia. PROCEDURE INTERPRETED AT [facility] DEPARTMENT OF RADIOLOGY Final Report Signed by: Jamie Talavera M.D.
[2017-04-29] MEDS ORDERED: INSULIN REGULAR ** CONC 500 UNIT/ML ** 20 ML VIAL SUBCUT SCH (17:30)
[2017-04-29] MEDS: INSULIN REGULAR ** CONC 500 UNIT/ML ** 20 ML VIAL SUBCUT SCH (17:53)
[2017-04-29] MEDS: rOPINIRole 1 MG TABLET PO SCH (20:21)
[2017-04-30] MEDS: SODIUM CHLORIDE 0.9% 1,000 ML IV SCH ×2 (03:13→11:28)
[2017-04-30 07:10] LABS: Basophils % 0.3 % (0.0-0.8); Eosinophils # 0.1 10*3/uL (0.0-0.87); Hematocrit 30.1 VOL% (35.7-47.0); Hemoglobin 9.9 GM/DL (12.0-16.0); Immature Granulocytes % 0.6 %; Immature Granulocytes Absolute 0.06 #; Lymphocytes # 2.9 10*3/uL (1.4-4.0); Lymphocytes % 26.5 % (21.3-54.2); Mean Corpuscular HGB Conc 32.9 GM/DL (32-36); Mean Corpuscular Hemoglobin 24 PG (27-34); Mean Platelet Volume 10.8 FL (9.6-12.0); Monocytes # 0.6 10*3/uL (0.11-0.8); Monocytes % 5.4 % (1.7-12.7); Neutrophils # 7.2 10*3/uL (1.4-7.4); Neutrophils % 66.2 % (38.7-73.9); Platelet Count 270 T/CUMM (130-400); Red Blood Count 4.07 MC/CUMM (3.8-5.5); White Blood Count 10.9 T/CUMM (4-12)
[2017-04-30 07:40] LABS: Alanine Aminotransferase 15 U/L (13-56); Albumin 2.3 G/DL (3.4-5.0); Alkaline Phosphatase 85 U/L (45-117); Aspartate Amino Transferase 10 U/L (0-37); Bilirubin,Total < 0.39 MG/DL (0.2-1.0); Blood Urea Nitrogen 12 MG/DL (7-18); Calcium 8.2 MG/DL (8.5-10.1); Glucose 118 MG/DL (74-106); Magnesium 2.4 MG/DL (1.8-2.4); Osmolality,Calculated 277.5 MOS/KG (273-304); Platelet Estimate Adequate; Potassium 4.3 MMOL/L (3.5-5.1); Sodium 139 MMOL/L (136-145); Total Protein 5.9 G/DL (6.4-8.3)
[2017-04-30] MEDS: cefTRIAXone 1,000 MG in SODIUM CHLORIDE 0.9% 100 ML IV SCH (08:16)
[2017-04-30] MEDS: PANTOPRAZOLE 40 MG TABLET PO SCH (08:18)
[2017-04-30] MEDS: ATORVASTATIN 20 MG TABLET PO SCH (08:18)
[2017-04-30] MEDS: CITALOPRAM 40 MG TABLET PO SCH (08:18)
[2017-04-30] MEDS: ASPIRIN EC 81 MG TABLET PO SCH (08:18)
[2017-04-30] MEDS: LOSARTAN 50 MG TABLET PO SCH (08:18)
[2017-04-30] MEDS: LEVOTHYROXINE 25 MCG TABLET PO SCH (08:18)
[2017-04-30] MEDS: INSULIN REGULAR ** CONC 500 UNIT/ML ** 20 ML VIAL SUBCUT SCH ×4 (08:18→16:29)
--- NOTE | 2017-04-30 08:59 | Gastrointestinal Consult Note ---
Assessment and Plan (1) Nausea & vomiting Status: Acute Assessment and plan: 04/30-3 day history of vomiting with coughing episodes without abdominal pain. No coffee-ground or hematemesis. History of Crohn's reported to be well controlled at present time. Continue to monitor at this time. Plan an addendum to follow Dr. Brenda garcía Current Visit: No History of Present Illness Chief complaint: Vomiting History of present illness: Ms. Healy is a 46 year old female who was admitted to the hospital with complaints of 3 day history of cough, congestion, fever and vomiting episodes. Patient has a history of diabetes, hypertension, and Crohn's disease. Patient was admitted to the hospital last month with an episode of pneumonia and was discharged 3 weeks ago. She states since discharge she has had a chronic cough and has had days series of good days and bad days since this time. She also is noted to received a blood transfusion during that admission as well as treatment for her pneumonia. She was admitted with a hemoglobin of 8.8 last month and dropped to 7.7 and was transfused 2 units. Her stools were negative for blood and there was no overt bleeding during that time. She also had an anemia profile done which was unremarkable during that time. Patient states over the last 3 days she has felt increasingly worse and began running a fever of 101.3. She also states that every time that she coughs she would have a vomiting episode however this is basically dry heaves because she is not eating anything at present. She denies any coffee-ground emesis or hematemesis. She denies any melena or hematochezia. She denies any weight loss associated with this. She states that she feels like the vomiting episode is more of a trigger of her gag reflex than anything else at this time. She has a history of Crohn' s disease which is well controlled and managed at this time. Her last colonoscopy was done in January of this year for complaints of constipation with normal findings. Biopsy was taken at that time as well with reconfirmation of her diagnosis of Crohn's. On admission her hemoglobin was noted 9.9 with no reports of overt bleeding. Patient states that this close to her baseline reading. She denies any dysphagia, odynophagia, epigastric pain, NSAID use, or GERD symptoms. She states that her Crohn's symptoms have been managed well with no recent flares. Chest x-ray on admission shows developing right basilar pneumonia. Home Medications Medication Instructions Recorded Confirmed Type Atorvastatin [Lipitor] 20 mg PO DAILY 01/06/16 04/29/17 History Citalopram [CeleXA] 40 mg PO DAILY 01/06/16 04/29/17 History Furosemide Tab [Lasix Tab] 40 mg PO DAILY 01/06/16 04/29/17 History LORazepam TAB [Ativan Tab] 1 mg PO TID PRN 01/06/16 04/29/17 History cloNIDine TAB [Catapres Tab] 0.3 mg PO BEDTIME 01/06/16 04/29/17 History Aspirin [Ecotrin] 81 mg PO DAILY 08/19/16 04/29/17 History Meclizine HCl 25 - 50 mg PO TID PRN 08/19/16 04/29/17 History hydrOXYzine HCL TAB [Atarax Tab] 25 mg PO Q6H PRN 08/19/16 04/29/17 History Zolpidem Tartrate [Ambien] 10 mg PO BEDTIME 01/30/17 04/29/17 History Insulin Regular, Human [Humulin R 75 unit SUBCUT QPM 03/28/17 04/29/17 History U-500 Kwikpen] Insulin Regular, Human [Humulin R 83 unit SUBCUT QAM 03/28/17 04/29/17 History U-500 Kwikpen] Levothyroxine Tab [Synthroid Tab] 25 mcg PO DAILY 03/28/17 04/29/17 History Losartan [Cozaar] 50 mg PO DAILY 03/28/17 04/29/17 History Metformin HCl 500 mg PO BID W/MEALS 03/28/17 04/29/17 History Ondansetron Tab [Zofran Tab] 4 mg PO BID PRN 03/28/17 04/29/17 History Ropinirole HCl 2 mg PO 2000 03/28/17 04/29/17 History Acetaminophen Tab [Tylenol Tab] 325 mg PO Q4H PRN #0 tablet 04/01/17 04/29/17 Rx Metoprolol Succinate Xl [Toprol Xl] 50 mg PO DAILY 04/29/17 04/29/17 History Allergies Allergy/AdvReac Type Severity Reaction Status Date / Time penicillin G Allergy RASH Verified 04/29/17 10:56 Sulfa (Sulfonamide Allergy RASH Verified 04/29/17 10:56 Antibiotics) sulfamethoxazole Allergy RASH Verified 04/29/17 10:56 [From Bactrim] trimethoprim [From Bactrim] Allergy RASH Verified 04/29/17 10:56 oseltamivir [From Tamiflu] AdvReac Severe Vomiting Verified 04/29/17 10:56 levofloxacin [From Levaquin] AdvReac Vomiting Verified 04/29/17 10:56 morphine AdvReac Hallucinati Verified 04/29/17 10:56 ng Medical,Surgical,& Family Hx - Medical History Cardio: History of: Hypertension Psychological: No history of: Anxiety Disorders, Bipolar Disorder, Depression, Schizophrenia Neurology: History of: Migraine, Vertigo No history of: Seizures HEENT: History of: Eye Problem (blind left eye) Endocrine: History of: Diabetes Mellitus (IDDM), Dyslipidemia, Thyroid Disorder (Hypothyroid) Respiratory: History of: Bronchitis, Pneumonia Genitourinary: History of: Recurring Urinary Tract Infections (E-coli) Gastrointestinal: History of: Crohn's Disease Hematology: History of: Anemia Reproductive: No history of: Abnormal Pap Smear, Breast Cancer, Reproductive Cancer Other: History of: MRSA - Surgical History Cardiac Surgeries: Patient Denies: Cardiac Catheterization Thoracic Surgeries: Patient denies;: Organ Transplant HEENT Surgeries: Surgical HX of: Eye Surgery (Left) Patient denies: Thyroid Surgery, Tonsilectomy & Adenoidectomy Abdominal Surgeries: Surgical HX of: Abdominal Surgery, Appendectomy, Cholecystectomy, Colonoscopy Patient denies: Gastric Bypass Surgery, EGD, Hernia Repair Reproductive Surgeries: Surgical HX of;: Hysterectomy Patient denies;: Genitourinary Surgery - Family History Family History: Reports;: Family Cancer (Mother, Father), Family Heart Disease ( Mother, Father), Family Hypertension (Father) Denies;: Family Anesthesia Reaction, Family Diabetes, Family Psychiatric Problems, Family Stroke - Social History Smoking Status: Never smoker Frequency of Alcohol Use: None Type of Drug Use: None 12 point system: reviewed and no additional remarkable complaints except as stated - Constitutional Constitutional: Present: as per HPI - EENT Eyes: Present: as per HPI Ears: Present: as per HPI Nose, mouth and throat: Present: as per HPI - Cardiovascular Cardiovascular: Present: as per HPI - Respiratory Respiratory: Present: as per HPI, cough - Gastrointestinal Gastrointestinal: Present: as per HPI, vomiting - Genitourinary Genitourinary: Present: as per HPI - Musculoskeletal Musculoskeletal: Present: as per HPI - Neurological Neurological: Present: as per HPI - Psychiatric Psychiatric: Present: as per HPI - Endocrine Endocrine: Present: as per HPI - Hematologic/Lymphatic Hematologic/Lymphatic: Present: as per HPI Exam - Constitutional Vitals: Period Temp Pulse Resp BP Sys/Burgess Pulse Ox Last 24 Hr 97.8 F-99.0 F 79-95 18-20 132-160/63-86 95-98 General appearance: no acute distress, over weight - Head Head exam: Present: normal inspection, normocephalic - Eye Eye exam: Present: other (Lids and conjunctive are unremarkable). Absent: scleral icterus - ENT ENT exam: Present: normal exam, normal oropharynx - Neck Neck exam: Present: normal inspection - Respiratory Respiratory exam: Present: clear to auscultation bilaterally. Absent: rales, rhonchi, wheezes - Cardiovascular Cardiovascular exam: Present: regular rate and rhythm. Absent: diastolic murmur , JVD, systolic murmur - GI/Abdominal GI/Abdominal exam: Present: normal bowel sounds, soft. Absent: ascites, distended, mass, organomegaly, tenderness - Extremities Exam Extremities exam: Present: normal inspection, full ROM - Back Exam Back exam: Present: normal inspection - Neurological Exam Neurological exam: Present: alert, oriented X3 - Psychiatric Psychiatric exam: Present: normal affect, normal mood - Skin Skin exam: Present: normal color, warm, dry Results - Labs CBC & BMP: 04/30/17 06:59 04/30/17 06:59 Lab Results: I have reviewed the past 24 hour labs
[2017-04-30] MEDS ORDERED: METOPROLOL SUCCINATE XL 50 MG TABLET PO SCH (09:00)
--- NOTE | 2017-04-30 09:54 | Hospitalist Progress Note ---
Assessment and Plan (1) Pneumonia Status: Acute Assessment and plan: Right basilar pneumonia; afebrile; no leukocytosis; continue rocephin; check qtc ; if okay, azithromycin; continue current regimen; add nebs Current Visit: No (2) Nausea & vomiting Status: Acute Assessment and plan: resolving; continue to monitor; advance diet; appreciate help by GI Current Visit: No (3) Anemia Status: Acute Assessment and plan: patient with history of iron deficiency; check iron stores; monitor HCT Current Visit: No (4) Uncontrolled hypertension Status: Acute Assessment and plan: controlled; continue current therapy Current Visit: No (5) Diabetes mellitus Status: Acute Assessment and plan: sugars controlled; continue current regimen Current Visit: No Hospitalist: Subjective Interval history: Patient admitted for pneumonia. She states that her cough and SOB are better. She has not had any vomitting episodes. She continues to have nausea. She tolerated her clear diet today. She wants to advance her diet today. She denies any constipation/chest pain/diarrhea/fevers/chills. Exam - Constitutional Vitals: Period Temp Pulse Resp BP Sys/Burgess Pulse Ox Last 24 Hr 97.8 F-99.0 F 79-95 18-20 132-160/63-86 95-98 General appearance: no acute distress - Eye Eye exam: Present: EOMI Pupils: Present: MACIEJ - Respiratory Respiratory exam: Present: clear to auscultation bilaterally, decreased breath sounds (decreased breath sounds in the right base, otherwise clear) - Cardiovascular Cardiovascular exam: Present: regular rate and rhythm - GI/Abdominal GI/Abdominal exam: Present: normal bowel sounds - Extremities Exam Extremities exam: Present: edema (no edema) - Neurological Exam Neurological exam: Present: oriented X3 Results - Labs CBC & BMP: 04/30/17 06:59 04/30/17 06:59
[2017-04-30] MEDS ORDERED: ALBUTEROL/IPRATROPIUM 3 ML NEB RESP TX PRN (10:06)
--- NOTE | 2017-04-30 10:18 | EKG Report ---
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
[2017-04-30] MEDS: ENOXAPARIN 40 MG/0.4 ML SYRINGE SUBCUT SCH (13:33)
[2017-04-30] MEDS: rOPINIRole 1 MG TABLET PO SCH (20:53)
[2017-04-30] MEDS: DOXYCYCLINE HYCLATE INJ 100 MG in SODIUM CHLORIDE 0.9% 100 ML IV SCH (20:55)
[2017-05-01] MEDS: SODIUM CHLORIDE 0.9% 1,000 ML IV SCH ×2 (01:49→11:01)
[2017-05-01 05:46] LABS: Basophils % 0.3 % (0.0-0.8); Eosinophils # 0.2 10*3/uL (0.0-0.87); Eosinophils % 1.4 % (0.00-10.9); Hemoglobin 9.6 GM/DL (12.0-16.0); Immature Granulocytes % 0.9 %; Lymphocytes # 2.6 10*3/uL (1.4-4.0); Lymphocytes % 22.7 % (21.3-54.2); Mean Corpuscular Hemoglobin 24 PG (27-34); Mean Corpuscular Volume 74.8 FL (87-102); Mean Platelet Volume 10.6 FL (9.6-12.0); Monocytes # 0.8 10*3/uL (0.11-0.8); Monocytes % 6.6 % (1.7-12.7); Neutrophils # 7.8 10*3/uL (1.4-7.4); Neutrophils % 68.1 % (38.7-73.9); Platelet Count 369 T/CUMM (130-400); Red Blood Count 4.01 MC/CUMM (3.8-5.5); White Blood Count 11.5 T/CUMM (4-12)
[2017-05-01 06:26] LABS: % Iron Saturation 9.3 % (18-50); Calcium 8.1 MG/DL (8.5-10.1); Ferritin 46.3 ng/ml (8-252); Magnesium 2.2 MG/DL (1.8-2.4); Osmolality,Calculated 290.4 MOS/KG (273-304); Potassium 4.3 MMOL/L (3.5-5.1)
[2017-05-01] MEDS: CITALOPRAM 40 MG TABLET PO SCH (09:10)
[2017-05-01] MEDS: LOSARTAN 50 MG TABLET PO SCH (09:10)
[2017-05-01] MEDS: PANTOPRAZOLE 40 MG TABLET PO SCH (09:11)
[2017-05-01] MEDS: cefTRIAXone 1,000 MG in SODIUM CHLORIDE 0.9% 100 ML IV SCH (09:11)
[2017-05-01] MEDS: ASPIRIN EC 81 MG TABLET PO SCH (09:11)
[2017-05-01] MEDS: METOPROLOL TARTRATE 25 MG TABLET PO SCH ×2 (09:11→20:48)
[2017-05-01] MEDS: ATORVASTATIN 20 MG TABLET PO SCH (09:11)
[2017-05-01] MEDS: LEVOTHYROXINE 25 MCG TABLET PO SCH (09:11)
[2017-05-01] MEDS: INSULIN REGULAR ** CONC 500 UNIT/ML ** 20 ML VIAL SUBCUT SCH ×2 (09:12→16:54)
[2017-05-01] MEDS: DOXYCYCLINE HYCLATE INJ 100 MG in SODIUM CHLORIDE 0.9% 100 ML IV SCH ×2 (10:09→20:49)
[2017-05-01] MEDS: ENOXAPARIN 40 MG/0.4 ML SYRINGE SUBCUT SCH (14:33)
[2017-05-01] MEDS: BACITRACIN OINT 0.9 GM PACK TOP SCH (14:33)
--- NOTE | 2017-05-01 15:32 | Hospitalist Progress Note ---
Assessment and Plan (1) Pneumonia Status: Acute Assessment and plan: Right basilar pneumonia; continue with Rocephin, Doxycycline and nebs. Current Visit: No (2) Nausea & vomiting Status: Acute Assessment and plan: with a history of Crohn's. Resolving. GI has seen. No coffee-ground or hematemesis. Current Visit: No (3) Uncontrolled hypertension Status: Acute Assessment and plan: will resume home clonidine, continue with other regime Current Visit: No (4) Diabetes mellitus Status: Acute Assessment and plan: will resume her metformin, continue with Insulin therapy -will get HbA1c level Current Visit: No (5) Hyperlipidemia Status: Acute Assessment and plan: continue with meds Current Visit: No (6) Hypothyroidism Status: Acute Assessment and plan: will get TSH level, continue with supplements. Current Visit: No Hospitalist: Subjective Interval history: Patient seen, her blood pressure was high, patient staes she takes clonidine at home.She had some bruises on her right knee. Exam - Constitutional Vitals: Period Temp Pulse Resp BP Sys/Burgess Pulse Ox Last 24 Hr 97.6 F-98.7 F 82-100 18-20 156-204/75-93 94-98 General appearance: no acute distress - Head Head exam: Present: normal inspection - Respiratory Respiratory exam: Present: clear to auscultation bilaterally - Cardiovascular Cardiovascular exam: Present: regular rate and rhythm - GI/Abdominal GI/Abdominal exam: Present: normal bowel sounds - Extremities Exam Extremities exam: Present: other (bruises on her right knee) - Neurological Exam Neurological exam: Present: alert Results - Labs CBC & BMP: 05/01/17 05:06 05/01/17 05:06 Lab Results: I have reviewed the past 24 hour labs
[2017-05-01 16:45] LABS: Free T4 (Free Thyroxine) 1.27 NG/DL (0.76-1.46); Thyroid Stimulating Hormone 1.94 uIU/ml (0.358-3.74)
[2017-05-01] MEDS: metFORMIN 500 MG TABLET PO SCH (16:53)
[2017-05-01] MEDS: rOPINIRole 1 MG TABLET PO SCH (20:48)
[2017-05-02 00:28] LABS: Apearance,Urine CLEAR (Clear); Bilirubin,Urine Negative (Negative); Blood, Urine Small mg/dL (Negative); Glucose,Urine (UA) 50 mg/dL (Negative); Ketones,Urine Negative (Negative); Mucus,Urine Occasional /LPF (Occasional); Nitrite,Urine Negative (Negative); Protein,Urine >=500 MG/DL; RBC,Urine 4 /HPF (0-4); Urine Color Yellow (Yellow); Urine Specific Gravity 1.007 (1.001-1.035); Urine Urobilinogen < 2.0 EU/DL (0.2-1.0); WBC,Urine 1 /HPF (0-6)
--- NOTE | 2017-05-02 08:30 | Discharge Summary ---
<Preethi Jenkins - Last Filed: 05/02/17 08:27> Hospital Course - Hospital Course Hospital Course: Ms. Healy is a 46-year-old white female with history of diabetes, hypertension, Crohn's disease, left eye blindness, hyperlipidemia, and hypothyroidism admitted by hospital medicine on 04/29/2017 with a 3 day history of nausea, vomiting, and cough. She had recently been treated for pneumonia and discharged from the hospital 3 weeks prior to admission. Chest x-ray did show a right lobe pneumonia. She received antibiotics and breathing treatments. Dr. Gutierrez from GI was consulted for her nausea and vomiting with Crohn's. He felt this was unrelated to her GI tract and stated it should improve with her symptoms. Her nausea and vomiting has resolved and she is tolerating a regular diet. Her cough is improved and overall she is feeling much better. She is being discharged to home with antibiotics to finish out her course. Patient's case has been discussed with Dr. Byrnes the hospitalist , nursing and the patient. Case coordination, chart review, and discharge paperwork all took approximately 32 minutes Patient seen this am,vitals are stable, she will be dcd today - Time spent with patient Time with patient DS: Greater than 30 minutes Diagnosis - Discharge Diagnosis (1) Nausea & vomiting Status: Acute (2) Fatigue Status: Acute (3) Anemia Status: Acute (4) Diabetes mellitus Status: Acute (5) HTN (hypertension) Status: Acute (6) Hyperlipidemia Status: Acute (7) Hypothyroidism Status: Acute Discharge Plan - Discharge Data Disposition: Home Health Service - Discharge Medications New Albuterol/Ipratropium Neb [Duoneb] 3 ml RESP TX RT Q4H PRN PRN Reason: Shortness Of Breath/Wheezing Docusate Sodium Cap [Colace Cap] 100 mg PO BID PRN capsule PRN Reason: Constipation guaiFENesin/DM ER 600-30 [Mucinex Dm 600-30 MG] 1 tablet PO BID PRN #10 tablet PRN Reason: Congestion Metoprolol Tartrate Tab [Lopressor Tab] 25 mg PO BID #60 tablet Acetaminophen Tab [Tylenol Tab] 650 mg PO Q4H PRN tablet PRN Reason: Fever, Headache, Mild Pain cloNIDine TAB [Catapres Tab] 0.3 mg PO BEDTIME tablet Pantoprazole Tab [Protonix Tab] 40 mg PO DAILY #30 tablet Levofloxacin Tab [Levaquin Tab] 750 mg PO DAILY #7 tablet Continue Atorvastatin [Lipitor] 20 mg PO DAILY LORazepam TAB [Ativan Tab] 1 mg PO TID PRN PRN Reason: Anxiety Citalopram [CeleXA] 40 mg PO DAILY cloNIDine TAB [Catapres Tab] 0.3 mg PO BEDTIME Furosemide Tab [Lasix Tab] 40 mg PO DAILY Aspirin [Ecotrin] 81 mg PO DAILY hydrOXYzine HCL TAB [Atarax Tab] 25 mg PO Q6H PRN PRN Reason: Itching Meclizine HCl 25 - 50 mg PO TID PRN PRN Reason: Dizziness Insulin Regular, Human [Humulin R U-500 Kwikpen] 75 unit SUBCUT QPM Insulin Regular, Human [Humulin R U-500 Kwikpen] 83 unit SUBCUT QAM Levothyroxine Tab [Synthroid Tab] 25 mcg PO DAILY Metformin HCl 500 mg PO BID W/MEALS Ondansetron Tab [Zofran Tab] 4 mg PO BID PRN PRN Reason: Nausea/Vomiting Acetaminophen Tab [Tylenol Tab] 325 mg PO Q4H PRN #0 tablet PRN Reason: fever, headache/body aches Zolpidem Tartrate [Ambien] 10 mg PO BEDTIME Losartan [Cozaar] 50 mg PO DAILY Ropinirole HCl 2 mg PO 1999 Discontinued Metoprolol Succinate Xl [Toprol Xl] 50 mg PO DAILY - Follow Up or Referral - Forms/Instructions Exam - Constitutional Vitals: Period Temp Pulse Resp BP Sys/Burgess Pulse Ox Last 24 Hr 98.0 F-98.9 F 79-90 17-20 145-181/70-93 94-99 Discharge Results Labs on day of discharge: Labs from last 24 hours 05/01/17 05/01/17 05/01/17 22:30 19:56 16:42 POC Glucose 182 H 182 H Hemoglobin A1c Free T4 TSH 3rd Generation Urine Color Yellow Urine Appearance Clear Urine pH 5.0 Ur Specific [place] 1.007 Urine Protein >=500 Urine Glucose (UA) 50 Urine Ketones Negative Urine Blood Small Urine Nitrate Negative Urine Bilirubin Negative Urine Urobilinogen < 2.0 H Urine Leukocytes Negative Urine RBC 4 Urine WBC 1 Urine Mucus Occasional Ur Culture Indicated? Not indicated 05/01/17 05/01/17 05/01/17 16:24 16:24 10:56 POC Glucose 298 H Hemoglobin A1c 11.1 H Free T4 1.27 TSH 3rd Generation 1.940 Urine Color Urine Appearance Urine pH Ur Specific [place] Urine Protein Urine Glucose (UA) Urine Ketones Urine Blood Urine Nitrate Urine Bilirubin Urine Urobilinogen Urine Leukocytes Urine RBC Urine WBC Urine Mucus Ur Culture Indicated? 05/01/17 07:25 POC Glucose 338 H Hemoglobin A1c Free T4 TSH 3rd Generation Urine Color Urine Appearance Urine pH Ur Specific [place] Urine Protein Urine Glucose (UA) Urine Ketones Urine Blood Urine Nitrate Urine Bilirubin Urine Urobilinogen Urine Leukocytes Urine RBC Urine WBC Urine Mucus Ur Culture Indicated? 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 04/29/17 15:27 Consult to Physician [CONS] Routine Comment: Intractable nausea and vomiting-known to you Consulting Provider: Keny Gutierrez Consult to Specialist Group: Gastroenterology When should Consulting Provider be notified: In am Person Notified: Shirin Date Notified: 04/29/17 Time Notified: 15:58 Discharging clinician: KARSTEN English Expected date of discharge: 05/02/17 <Kathy Byrnes - Last Filed: 05/02/17 11:04> Hospital Course - Time spent with patient Time with patient DS: Greater than 30 minutes (time >32mins) Diagnosis - Discharge Diagnosis (1) Pneumonia Status: Acute (2) Nausea & vomiting Status: Acute (3) Uncontrolled hypertension Status: Acute (4) Diabetes mellitus Status: Acute (5) Hyperlipidemia Status: Acute (6) Hypothyroidism Status: Acute Discharge Plan - Discharge Data Condition at Discharge: Stable Discharge Diet: diabetic diet Activity: resume usual activities as tolerated - Forms/Instructions Additional Discharge Instructions: Follow with PCP in 1week Exam - Constitutional General appearance: no acute distress - Head Head exam: Present: normal inspection - Eye Eye exam: Present: EOMI - Respiratory Respiratory exam: Present: clear to auscultation bilaterally - Cardiovascular Cardiovascular exam: Present: regular rate and rhythm - GI/Abdominal GI/Abdominal exam: Present: normal bowel sounds - Extremities Exam Extremities exam: Present: normal inspection
[2017-05-02] MEDS: METOPROLOL TARTRATE 25 MG TABLET PO SCH (09:39)
[2017-05-02] MEDS: CITALOPRAM 40 MG TABLET PO SCH (09:39)
[2017-05-02] MEDS: cefTRIAXone 1,000 MG in SODIUM CHLORIDE 0.9% 100 ML IV SCH (09:39)
[2017-05-02] MEDS: ATORVASTATIN 20 MG TABLET PO SCH (09:39)
[2017-05-02] MEDS: LOSARTAN 50 MG TABLET PO SCH (09:39)
[2017-05-02] MEDS: INSULIN REGULAR ** CONC 500 UNIT/ML ** 20 ML VIAL SUBCUT SCH (09:39)
[2017-05-02] MEDS: ASPIRIN EC 81 MG TABLET PO SCH (09:39)
[2017-05-02] MEDS: metFORMIN 500 MG TABLET PO SCH (09:39)
[2017-05-02] MEDS: LEVOTHYROXINE 25 MCG TABLET PO SCH (09:39)
[2017-05-02] MEDS: BACITRACIN OINT 0.9 GM PACK TOP SCH (09:39)
[2017-05-02] MEDS: PANTOPRAZOLE 40 MG TABLET PO SCH (09:39)
[2017-05-02] MEDS: DOXYCYCLINE HYCLATE INJ 100 MG in SODIUM CHLORIDE 0.9% 100 ML IV SCH (09:43)
[2017-05-02 11:39] VITALS: BP 157/76
[2017-05-02] MEDS: ENOXAPARIN 40 MG/0.4 ML SYRINGE SUBCUT SCH (13:57)
[2017-05-02 15:15] LABS: HIV Antigen/Antibody Result Nonreactive (Nonreactive); Hepatitis B Surface Ag Quant < 0.10 Index; Hepatitis B Surface Ag Result Negative (Negative); Hepatitis C Virus Ab Quant < 0.02 Index; Hepatitis C Virus Ab Result Negative (Negative)
== END 2017-05-02 15:50 | disposition home health service (06) | DRG 194 ==
LOC: SUATTDRO 10:51 → N.5E 10:51
PROVIDERS: ADMIT Internal Medicine; ATTEND Internal Medicine

== ENCOUNTER 2017-06-18 16:28 | Inpatient (IN) ==
[2017-06-18] MEDS ORDERED: PANTOPRAZOLE 40 MG VIAL IV STA (16:52)
[2017-06-18] MEDS ORDERED: METOCLOPRAMIDE 10 MG/2 ML VIAL IV STA ×2 (16:52→18:55)
[2017-06-18] MEDS ORDERED: ONDANSETRON 4 MG/2 ML VIAL IV STA ×2 (16:52→18:55)
[2017-06-18] MEDS ORDERED: SODIUM CHLORIDE 0.9% 2,000 ML IV STA (16:52)
--- NOTE | 2017-06-18 16:59 | Emergency Department Note ---
Arrival - Arrival Chief Complaint: Non-Specific Stated Complaint: SENT BY DOCTOR FOR HIGH BLOOD SUGAR ED Nursing Triage Note: pt had labs drawn at pcp and was told blood sugar was 570 and bun and creatine are increaed. pt blood sugar is greater than 428 Mode of Arrival: Ambulatory Limitations: No Limitations Source: Patient Time Seen by Provider: 06/18/17 16:52 - History of Present Illness HPI Narrative: This 47-year-old white female presents with a history of several days of progressive nausea, vomiting, loose stools, and labile blood sugars. She denies chills, fever, dysuria, urgency, frequency current, chest pain, or shortness of breath. She does have a history of gastroparesis and does complain bitterly of heartburn, belching, and water brash. She presents on referral from her primary care office for elevated blood sugar and renal azotemia. Although nauseated, currently she is in no acute medical distress. Onset (ago): day(s) (Patient presents several days post onset of symptoms) Allergies/Adverse Reactions: Allergies Allergy/AdvReac Type Severity Reaction Status Date / Time levofloxacin [From Levaquin] Allergy Verified 06/05/17 10:49 penicillin G Allergy RASH Verified 05/14/17 22:38 Sulfa (Sulfonamide Allergy RASH Verified 05/14/17 22:38 Antibiotics) sulfamethoxazole Allergy RASH Verified 05/14/17 22:38 [From Bactrim] trimethoprim [From Bactrim] Allergy RASH Verified 05/14/17 22:38 oseltamivir [From Tamiflu] AdvReac Severe Vomiting Verified 05/14/17 22:38 morphine AdvReac Hallucinati Verified 05/14/17 22:38 ng Home Medications: Home Medications Medication Instructions Recorded Confirmed Type Atorvastatin [Lipitor] 20 mg PO DAILY 01/06/16 06/05/17 History Citalopram [CeleXA] 40 mg PO DAILY 01/06/16 06/05/17 History Furosemide Tab [Lasix Tab] 40 mg PO DAILY 01/06/16 06/05/17 History cloNIDine TAB [Catapres Tab] 0.3 mg PO BEDTIME 01/06/16 06/05/17 History Insulin Regular, Human [Humulin R 75 unit SUBCUT QPM 03/28/17 06/05/17 History U-500 Kwikpen] Insulin Regular, Human [Humulin R 140 unit SUBCUT QAM 03/28/17 06/05/17 History U-500 Kwikpen] Levothyroxine Tab [Synthroid Tab] 50 mcg PO DAILY 03/28/17 06/05/17 History Losartan [Cozaar] 50 mg PO DAILY 03/28/17 06/05/17 History Metformin HCl 500 mg PO BID W/MEALS 03/28/17 06/05/17 History Metoprolol Tartrate Tab [Lopressor 25 mg PO BID #60 tablet 05/02/17 06/05/17 Rx Tab] Aspirin EC Tab 81 mg PO DAILY 05/24/17 06/05/17 History Cranberry Conc/C/Bacill Coag 2 each PO DAILY 06/05/17 06/05/17 History [Cranberry Tablet] Linaclotide [Linzess] 145 mcg PO AC BREAKFAST 06/05/17 06/05/17 History LORazepam [Ativan] 1 mg PO BID 06/07/17 06/07/17 History Ropinirole HCl [Requip] 2 mg PO BEDTIME 06/07/17 06/07/17 History Zolpidem Tartrate [Ambien] 10 mg PO BEDTIME 06/07/17 06/07/17 History Review of System - Review of System 12 point system: reviewed and no additional remarkable complaints except as stated - Review of System Constitutional: Present: as per HPI Respiratory: Present: as per HPI Cardiovascular: Present: as per HPI Gastrointestinal: Present: as per HPI Genitourinary female: Present: as per HPI Medical,Surgical,& Family Hx - Medical History Cardio: History of: Hypertension No history of: MA, Pacemaker Psychological: No history of: Anxiety Disorders, Bipolar Disorder, Depression, Schizophrenia Neurology: History of: Migraine, Vertigo No history of: Seizures HEENT: History of: Eye Problem (blind left eye) Endocrine: History of: Diabetes Mellitus (IDDM), Dyslipidemia, Thyroid Disorder (Hypothyroid) Respiratory: History of: Bronchitis, Pneumonia (IN THE PAST) No history of: Obstructive Sleep Apnea Renal: No history of: Renal Problems Genitourinary: History of: Bladder Problem (RETENTION), Recurring Urinary Tract Infections (E-coli) No history of: Kidney Stones Gastrointestinal: History of: Crohn's Disease, Ulcerative Colitis, GI Problems ( GASTROPARESIS) Hematology: History of: Anemia Reproductive: No history of: Abnormal Pap Smear, Breast Cancer, Reproductive Cancer Other: History of: MRSA No history of: Anesthesia Reactions, Cancer - Surgical History Cardiac Surgeries: Patient Denies: Cardiac Catheterization Thoracic Surgeries: Patient denies;: Organ Transplant HEENT Surgeries: Surgical HX of: Eye Surgery (Left) Patient denies: Thyroid Surgery, Tonsilectomy & Adenoidectomy Abdominal Surgeries: Surgical HX of: Abdominal Surgery (C/S), Appendectomy, Cholecystectomy, Colonoscopy Patient denies: Gastric Bypass Surgery, EGD, Hernia Repair Reproductive Surgeries: Surgical HX of;: Hysterectomy Patient denies;: Genitourinary Surgery Orthopedic Surgeries: Patient denies;: Orthopedic Surgery - Family History Family History: Reports;: Family Cancer (Mother, Father), Family Heart Disease ( Mother, Father), Family Hypertension (Father) Denies;: Family Anesthesia Reaction, Family Diabetes, Family Psychiatric Problems, Family Stroke - Social History Smoking Status: Never smoker Frequency of Alcohol Use: None Type of Drug Use: None Exam Physical Examination: GENERAL: Obese white female in no acute distress. HEENT: Normocephalic. No trauma. Moist mucous membranes. EOMI. PERRLA. ENT NML NECK: Supple. No adenopathy. CARDIAC: Regular. No murmurs. Heart rate 75 CHEST: Clear to auscultation. No respiratory distress. O2 sat 90% ABDOMEN: Soft. Midepigastric tenderness with hyperactive bowel sounds. EXTREMITIES: No trauma. Normal ROM. No pedal edema. SKIN: No diaphoresis. No rash. NEURO: Alert. Neuro intact. No focal deficits. Vital Signs: Vital Signs Temperature 98.5 F 06/18/17 16:34 Pulse Rate 75 06/18/17 16:34 Respiratory Rate 18 06/18/17 16:34 Blood Pressure 107/73 06/18/17 16:34 O2 Sat by Pulse Oximetry 98 06/18/17 16:34 Results - Diagnostic Findings Procedure: Abdominal x-ray: image reviewed by me, report reviewed by me (Benign- appearing abdominal films.)
[2017-06-18] MEDS ORDERED: INSULIN REGULAR 100 UNIT/ML IV STA (17:00)
--- NOTE | 2017-06-18 17:12 | XRay Report ---
XR abdomen 2V Indication: Nausea vomiting and diarrhea. Comparison: None. Technique: Flat and erect images of the abdomen were performed. Findings: Lung bases are clear. No organomegaly suggested. The bowel gas pattern demonstrates no significant abnormality. Bony structures as well as soft tissues demonstrate no evidence of significant pathology. Prior cholecystectomy is demonstrated. Multiple injection granulomas are suggested bilaterally within the flanks. Impression: 1. No active process is suggested within the abdomen or pelvis. 06/18/2017 5:09 PM PROCEDURE INTERPRETED AT [facility] DEPARTMENT OF RADIOLOGY Final Report Signed by: Dr. Brent Lorenz
[2017-06-18] MEDS ORDERED: PANTOPRAZOLE 40 MG VIAL IV ONE (17:32)
[2017-06-18] MEDS ORDERED: METOCLOPRAMIDE 10 MG/2 ML VIAL ONE (17:32)
[2017-06-18] MEDS ORDERED: ONDANSETRON 4 MG/2 ML VIAL ONE (17:33)
[2017-06-18] MEDS ORDERED: INSULIN REGULAR 100 UNIT/ML ONE (17:34)
[2017-06-18 18:00] LABS: Basophils # 0.1 10*3/uL (0.0-0.2); Basophils % 0.4 % (0.0-0.8); Eosinophils # 0.2 10*3/uL (0.0-0.87); Eosinophils % 1.3 % (0.00-10.9); Hemoglobin 10.7 GM/DL (12.0-16.0); Immature Granulocytes Absolute 0.12 #; Lymphocytes # 3.7 10*3/uL (1.4-4.0); Lymphocytes % 31.3 % (21.3-54.2); Mean Corpuscular HGB Conc 34.5 GM/DL (32-36); Mean Corpuscular Hemoglobin 25 PG (27-34); Mean Corpuscular Volume 73.5 FL (87-102); Mean Platelet Volume 10.7 FL (9.6-12.0); Monocytes # 0.5 10*3/uL (0.11-0.8); Monocytes % 4.2 % (1.7-12.7); Neutrophils # 7.2 10*3/uL (1.4-7.4); Neutrophils % 61.8 % (38.7-73.9); Platelet Count 367 T/CUMM (130-400); Red Blood Count 4.22 MC/CUMM (3.8-5.5); Red Cell Distribution Width 14.1 % (9.3-17.3); White Blood Count 11.7 T/CUMM (4-12)
[2017-06-18 18:06] LABS: Apearance,Urine Slightly Hazy (Clear); Bacteria,Urine Occasional /HPF (Few); Bilirubin,Urine Negative (Negative); Blood, Urine Small mg/dL (Negative); Glucose,Urine (UA) >=500 mg/dL (Negative); Hyaline Casts,Urine 1 /LPF (0-3); Ketones,Urine Negative (Negative); Nitrite,Urine Negative (Negative); Protein,Urine 100 MG/DL; RBC,Urine 7 /HPF (0-4); Squamous Epithelial Cell,Urine Occasional /HPF (0-10); Urine Color Straw (Yellow); Urine Specific Gravity 1.018 (1.001-1.035); Urine Urobilinogen < 2.0 EU/DL (0.2-1.0); WBC,Urine 34 /HPF (0-6)
[2017-06-18 18:24] LABS: Alanine Aminotransferase 18 U/L (13-56); Alkaline Phosphatase 111 U/L (45-117); Amylase 29 U/L (25-115); Aspartate Amino Transferase 14 U/L (0-37); Blood Urea Nitrogen 25 MG/DL (7-18); Calcium 9.5 MG/DL (8.5-10.1); Glucose 269 MG/DL (74-106); Osmolality,Calculated 276.5 MOS/KG (273-304); Potassium 4.2 MMOL/L (3.5-5.1); Sodium 132 MMOL/L (136-145); Total Protein 6.8 G/DL (6.4-8.3); Troponin I Only < 0.015 NG/ML (0.00-0.045)
[2017-06-18] MEDS ORDERED: DOXYCYCLINE HYCLATE INJ 100 MG in SODIUM CHLORIDE 0.9% 100 ML IV STA (18:48)
[2017-06-18] MEDS ORDERED: DOXYCYCLINE HYCLATE 100 MG VIAL ONE (18:55)
[2017-06-18] MEDS ORDERED: DEXTROSE 50% 25 GM/50 ML SYRINGE IV PRN (21:52)
[2017-06-18] MEDS ORDERED: ONDANSETRON 4 MG/2 ML VIAL IV PRN (21:52)
[2017-06-18] MEDS ORDERED: ZALEPLON 5 MG CAPSULE PO PRN (21:52)
[2017-06-18] MEDS ORDERED: GLUCAGON 1 MG VIAL IM PRN (21:52)
[2017-06-18] MEDS ORDERED: ACETAMINOPHEN 325 MG TABLET PO PRN (21:52)
[2017-06-18] MEDS ORDERED: METOCLOPRAMIDE 10 MG/2 ML VIAL IV PRN (23:14)
[2017-06-18] MEDS: INSULIN REGULAR 100 UNIT/ML SUBCUT SCH (23:19)
[2017-06-18] MEDS: SODIUM CHLORIDE 0.9% 1,000 ML IV SCH (23:38)
[2017-06-18] MEDS: ZALEPLON 5 MG CAPSULE PO SCH (23:38)
--- NOTE | 2017-06-19 01:16 | Hospitalist History & Physical ---
Assessment and Plan (1) Gastroenteritis Status: Acute Current Visit: Yes (2) Hyperglycemia Status: Acute Current Visit: Yes (3) HTN (hypertension) Status: Acute Assessment and plan: Our plan for this patient will be admitting her to our service.. Going to need to monitor her Accu-Cheks. She has been given adequate fluids resuscitation in the emergency room. We need to recheck labs in the morning. We will continue home meds as appropriate. Will have to hold her morning insulin secondary to her being mildly hypoglycemic in the emergency room but this might need to be restarted in the morning I left a message to caregiver. Current Visit: No History of Present Illness Chief complaint: Nausea vomiting History of present illness: Ms. Healy is a 47 year old female with past medical history significant for diabetes, gastroparesis, anemia, hypertension and left eye blindness he went to Dr. Lehman's office today. They wilfred labs and found her sugar to be accelerated 570. They said her sodium was low and her creatinine was increased. She was given 100 units of Humulin R at home and was given 10 units IV in the ER. She sees small business consultant in [place] for her diabetes controlled is on a heavy insulin doses. Patient reports that she had been previously having nausea vomiting diarrhea. Labs drawn in the emergency room and I was consulted to admit her. Patient's currently having a little hypoglycemia. Home Medications Medication Instructions Recorded Confirmed Type Atorvastatin [Lipitor] 20 mg PO DAILY 01/06/16 06/18/17 History Citalopram [CeleXA] 40 mg PO DAILY 01/06/16 06/18/17 History Furosemide Tab [Lasix Tab] 40 mg PO DAILY 01/06/16 06/18/17 History cloNIDine TAB [Catapres Tab] 0.3 mg PO BEDTIME 01/06/16 06/18/17 History Insulin Regular, Human [Humulin R 75 unit SUBCUT QPM 03/28/17 06/18/17 History U-500 Kwikpen] Insulin Regular, Human [Humulin R 100 unit SUBCUT QAM 03/28/17 06/18/17 History U-500 Kwikpen] Levothyroxine Tab [Synthroid Tab] 50 mcg PO DAILY 03/28/17 06/18/17 History Losartan [Cozaar] 50 mg PO DAILY 03/28/17 06/18/17 History Metoprolol Tartrate Tab [Lopressor 25 mg PO BID #60 tablet 05/02/17 06/18/17 Rx Tab] Aspirin EC Tab 81 mg PO DAILY 05/24/17 06/18/17 History Cranberry Conc/C/Bacill Coag 2 each PO DAILY 06/05/17 06/18/17 History [Cranberry Tablet] Linaclotide [Linzess] 145 mcg PO AC BREAKFAST 06/05/17 06/18/17 History Ropinirole HCl [Requip] 2 mg PO BEDTIME 06/07/17 06/18/17 History Zolpidem Tartrate [Ambien] 10 mg PO BEDTIME 06/07/17 06/18/17 History Cyanocobalamin Inj [Vitamin B12 1,000 mcg IM Q14D 06/18/17 06/18/17 History Inj] LORazepam TAB [Ativan Tab] 1 mg PO BID 06/18/17 06/18/17 History Allergies Allergy/AdvReac Type Severity Reaction Status Date / Time levofloxacin [From Levaquin] Allergy Verified 06/05/17 10:49 penicillin G Allergy RASH Verified 05/14/17 22:38 Sulfa (Sulfonamide Allergy RASH Verified 05/14/17 22:38 Antibiotics) sulfamethoxazole Allergy RASH Verified 05/14/17 22:38 [From Bactrim] trimethoprim [From Bactrim] Allergy RASH Verified 05/14/17 22:38 oseltamivir [From Tamiflu] AdvReac Severe Vomiting Verified 05/14/17 22:38 morphine AdvReac Hallucinati Verified 05/14/17 22:38 ng Medical,Surgical,& Family Hx - Medical History Cardio: History of: Hypertension No history of: ID, Pacemaker Psychological: No history of: Anxiety Disorders, Bipolar Disorder, Depression, Schizophrenia Neurology: History of: Migraine, Vertigo No history of: Seizures HEENT: History of: Eye Problem (blind left eye) Endocrine: History of: Diabetes Mellitus (IDDM), Dyslipidemia, Thyroid Disorder (Hypothyroid) Respiratory: History of: Bronchitis, Pneumonia (IN THE PAST) No history of: Obstructive Sleep Apnea Renal: No history of: Renal Problems Genitourinary: History of: Bladder Problem (RETENTION), Recurring Urinary Tract Infections (E-coli) No history of: Kidney Stones Gastrointestinal: History of: Crohn's Disease, Ulcerative Colitis, GI Problems ( GASTROPARESIS) Hematology: History of: Anemia Reproductive: No history of: Abnormal Pap Smear, Breast Cancer, Reproductive Cancer Other: History of: MRSA No history of: Anesthesia Reactions, Cancer - Surgical History Cardiac Surgeries: Patient Denies: Cardiac Catheterization Thoracic Surgeries: Patient denies;: Organ Transplant HEENT Surgeries: Surgical HX of: Eye Surgery (Left) Patient denies: Thyroid Surgery, Tonsilectomy & Adenoidectomy Abdominal Surgeries: Surgical HX of: Abdominal Surgery (C/S), Appendectomy, Cholecystectomy, Colonoscopy Patient denies: Gastric Bypass Surgery, EGD, Hernia Repair Reproductive Surgeries: Surgical HX of;: Hysterectomy Patient denies;: Genitourinary Surgery Orthopedic Surgeries: Patient denies;: Orthopedic Surgery - Family History Family History: Reports;: Family Cancer (Mother, Father), Family Heart Disease ( Mother, Father), Family Hypertension (Father) Denies;: Family Anesthesia Reaction, Family Diabetes, Family Hematology, Family Psychiatric Problems, Family Stroke, Additional Family History - Social History Smoking Status: Never smoker Frequency of Alcohol Use: None Type of Drug Use: None 12 point system: reviewed and no additional remarkable complaints except as stated Exam - Constitutional Vitals: Period Temp Pulse Resp BP Sys/Burgess Pulse Ox Last 24 Hr 97.6 F-98.5 F 70-75 18-20 93-161/48-80 97-99 General appearance: morbidly obese - Head Head exam: Present: normal inspection - Eye Eye exam: Present: EOMI Pupils: Present: MACIEJ - ENT ENT exam: Present: normal exam - Neck Neck exam: Present: normal inspection - Respiratory Respiratory exam: Present: clear to auscultation bilaterally - Cardiovascular Cardiovascular exam: Present: regular rate and rhythm - GI/Abdominal GI/Abdominal exam: Present: normal bowel sounds - Extremities Exam Extremities exam: Present: normal inspection - Back Exam Back exam: Present: normal inspection - Neurological Exam Neurological exam: Present: alert - Psychiatric Psychiatric exam: Present: depressed - Skin Skin exam: Present: normal color Results - Labs CBC & BMP: 06/18/17 17:44 06/18/17 17:44
[2017-06-19] MEDS: INSULIN REGULAR 100 UNIT/ML SUBCUT SCH ×5 (01:54→20:14)
[2017-06-19] MEDS: LEVOTHYROXINE 50 MCG TABLET PO SCH (06:06)
[2017-06-19 07:08] LABS: Basophils % 0.3 % (0.0-0.8); Eosinophils # 0.1 10*3/uL (0.0-0.87); Hematocrit 31.2 VOL% (35.7-47.0); Hemoglobin 10.5 GM/DL (12.0-16.0); Immature Granulocytes % 0.6 %; Immature Granulocytes Absolute 0.07 #; Lymphocytes # 3.2 10*3/uL (1.4-4.0); Lymphocytes % 28.3 % (21.3-54.2); Mean Corpuscular HGB Conc 33.7 GM/DL (32-36); Mean Corpuscular Hemoglobin 25 PG (27-34); Mean Corpuscular Volume 74.1 FL (87-102); Mean Platelet Volume 11.1 FL (9.6-12.0); Monocytes # 0.4 10*3/uL (0.11-0.8); Monocytes % 3.7 % (1.7-12.7); Neutrophils # 7.5 10*3/uL (1.4-7.4); Neutrophils % 66.1 % (38.7-73.9); Platelet Count 288 T/CUMM (130-400); Red Blood Count 4.21 MC/CUMM (3.8-5.5); Red Cell Distribution Width 14.3 % (9.3-17.3); White Blood Count 11.4 T/CUMM (4-12)
[2017-06-19 07:37] LABS: Calcium 8.3 MG/DL (8.5-10.1); Osmolality,Calculated 278.7 MOS/KG (273-304); Potassium 4.4 MMOL/L (3.5-5.1)
[2017-06-19 07:47] LABS: Hypochromasia 1+
[2017-06-19] MEDS: LORazepam 1 MG TABLET PO SCH ×2 (08:08→21:16)
[2017-06-19] MEDS: CITALOPRAM 40 MG TABLET PO SCH (08:08)
[2017-06-19] MEDS: SODIUM CHLORIDE 0.9% 1,000 ML IV SCH ×2 (08:09→17:59)
[2017-06-19] MEDS: LINACLOTIDE 145 MCG CAPSULE PO SCH (08:09)
[2017-06-19] MEDS: PANTOPRAZOLE 40 MG TABLET PO SCH (08:09)
[2017-06-19] MEDS: ASPIRIN EC 81 MG TABLET PO SCH (08:09)
[2017-06-19] MEDS: FUROSEMIDE 40 MG TABLET PO SCH (08:09)
[2017-06-19] MEDS: ATORVASTATIN 20 MG TABLET PO SCH (08:09)
[2017-06-19] MEDS: ENOXAPARIN 40 MG/0.4 ML SYRINGE SUBCUT SCH (08:10)
[2017-06-19] MEDS: DOXYCYCLINE HYCLATE INJ 100 MG in SODIUM CHLORIDE 0.9% 100 ML IV SCH ×2 (08:10→21:15)
[2017-06-19] MEDS ORDERED: [UNRECOGNIZED DRUG - OTHER] PO SCH (09:00)
[2017-06-19] MEDS ORDERED: INSULIN REGULAR 100 UNIT/ML SUBCUT SCH ×2 (12:15→19:00)
[2017-06-19] MEDS ORDERED: INSULIN REGULAR ** CONC 500 UNIT/ML ** 20 ML VIAL SUBCUT SCH (16:30)
[2017-06-19] MEDS ORDERED: [UNRECOGNIZED DRUG - OTHER] SUBCUT SCH (19:00)
[2017-06-19] MEDS ORDERED: HUMULIN U SUBCUT SCH (19:00)
[2017-06-19] MEDS ORDERED: rOPINIRole 1 MG TABLET PO SCH (21:00)
[2017-06-19] MEDS: ZALEPLON 5 MG CAPSULE PO SCH (21:15)
[2017-06-19] MEDS: METOPROLOL TARTRATE 25 MG TABLET PO SCH (21:16)
[2017-06-20] MEDS: INSULIN REGULAR 100 UNIT/ML SUBCUT SCH ×4 (00:43→12:33)
[2017-06-20] MEDS: SODIUM CHLORIDE 0.9% 1,000 ML IV SCH ×2 (01:28→10:07)
[2017-06-20] MEDS: LEVOTHYROXINE 50 MCG TABLET PO SCH (06:44)
[2017-06-20] MEDS: LINACLOTIDE 145 MCG CAPSULE PO SCH (06:44)
--- NOTE | 2017-06-20 06:52 | Physician Query Form ---
CLICK EDIT DOCUMENT TO SELECT QUERY ANSWER --> OK --> SIGN Nanette Lorenz RN, CCDS Certified Clinical Tack Cleaner W) [phone] (f) [phone] [email or web address] PROVIDERS: Make your selection(s) from the choices in EACH section by typing an "x" and enter comments in the comment section. Please use your independent medical judgment in providing your response. This request does not imply that any particular answer is desired or expected. CLINICAL INDICATORS: (Providers should not edit this section) The medical record indicates that the patient was admitted with hyperglycemia, Urine Leukocytes "Moderate H", Urine WBC of 34# and the patient is on Doxycycline. Urine CS is only 20,000-30,000 gram negative rods Based on the above, could you clarify the appropriate diagnosis, if significant , that supports the above abnormalities and additional evaluation, monitoring, and/or treatment rendered: ( x) Patient is being treated or monitored for an UTI ( ) Patient is not being treated or monitored for an UTI ( ) Other, please specify: ( ) Clinically unable to determine COMMENTS: PLEASE ALSO DOCUMENT RESPONSE IN PROGRESS NOTES AND/OR DISCHARGE SUMMARY Use of terms such as suspected, likely, or probable (associated with a specific diagnosis that is being evaluated, monitored, or treated as if it exists) are acceptable and can be restated in the discharge summary if not ruled out. MTDD
[2017-06-20 07:46] LABS: Calcium 7.5 MG/DL (8.5-10.1); Osmolality,Calculated 284.7 MOS/KG (273-304); Potassium 4.6 MMOL/L (3.5-5.1)
[2017-06-20] MEDS: ATORVASTATIN 20 MG TABLET PO SCH (08:20)
[2017-06-20] MEDS: ASPIRIN EC 81 MG TABLET PO SCH (08:20)
[2017-06-20] MEDS: CITALOPRAM 40 MG TABLET PO SCH (08:20)
[2017-06-20] MEDS: FUROSEMIDE 40 MG TABLET PO SCH (08:20)
[2017-06-20] MEDS: PANTOPRAZOLE 40 MG TABLET PO SCH (08:21)
[2017-06-20] MEDS: LORazepam 1 MG TABLET PO SCH (08:21)
[2017-06-20] MEDS: METOPROLOL TARTRATE 25 MG TABLET PO SCH (08:21)
[2017-06-20] MEDS: ENOXAPARIN 40 MG/0.4 ML SYRINGE SUBCUT SCH (08:23)
[2017-06-20] MEDS: DOXYCYCLINE HYCLATE INJ 100 MG in SODIUM CHLORIDE 0.9% 100 ML IV SCH (08:25)
[2017-06-20] MEDS ORDERED: LOSARTAN 50 MG TABLET PO SCH (09:00)
[2017-06-20] MEDS ORDERED: INSULIN REGULAR ** CONC 500 UNIT/ML ** 20 ML VIAL SUBCUT SCH (09:00)
[2017-06-20] MEDS ORDERED: INSULIN REGULAR SUBCUT SCH (09:00)
--- NOTE | 2017-06-20 10:55 | Discharge Summary ---
<Jose Angel Eason - Last Filed: 06/20/17 10:40> Hospital Course - Hospital Course Hospital Course: Ms. Membreno is a 47 year old female who was admitted to our service on 2016 with gastroenteritis and hyperglycemia in DM. Her hospital course was uncomplicated as it was highlighted by management of her diabetes. She continued her home medications with scheduled Accu-cheks. Lab values remain stable this morning. Patient did have a urinalysis that showed infection and a UCx which grew gram negative rods. Patient has been treated with doxycycline. At this time she has reached maximum benefit from hospitalization and is stable for discharge. 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 - Time spent with patient Time with patient DS: Greater than 30 minutes Discharge Plan - Discharge Data Disposition: Disch To Home/Self Care - Discharge Medications New Cefdinir 300 mg PO BID #10 capsule Continue Atorvastatin [Lipitor] 20 mg PO DAILY Citalopram [CeleXA] 40 mg PO DAILY cloNIDine TAB [Catapres Tab] 0.3 mg PO BEDTIME Furosemide Tab [Lasix Tab] 40 mg PO DAILY Insulin Regular, Human [Humulin R U-500 Kwikpen] 75 unit SUBCUT QPM Insulin Regular, Human [Humulin R U-500 Kwikpen] 100 unit SUBCUT QAM Levothyroxine Tab [Synthroid Tab] 50 mcg PO DAILY Metoprolol Tartrate Tab [Lopressor Tab] 25 mg PO BID #60 tablet Aspirin EC Tab 81 mg PO DAILY Linaclotide [Linzess] 145 mcg PO AC BREAKFAST Cranberry Conc/C/Bacill Coag [Cranberry Tablet] 2 each PO DAILY LORazepam TAB [Ativan Tab] 1 mg PO BID Losartan [Cozaar] 50 mg PO DAILY Zolpidem Tartrate [Ambien] 10 mg PO BEDTIME Ropinirole HCl [Requip] 2 mg PO BEDTIME Cyanocobalamin Inj [Vitamin B12 Inj] 1,000 mcg IM Q14D - Follow Up or Referral - Forms/Instructions Exam - Constitutional Vitals: Period Temp Pulse Resp BP Sys/Burgess Pulse Ox Last 24 Hr 96.8 F-98.9 F 73-90 16-20 126-171/55-92 95-99 Discharge Results Procedures and tests throughout hospitalization: Pending Orders 06/18/17 17:32 Blood Culture Stat Labs on day of discharge: Labs from last 24 hours 06/20/17 06/20/17 06/20/17 11:20 06:58 05:49 Sodium 138 Potassium 4.6 Chloride 107 Carbon Dioxide 27 Anion Gap 8.6 BUN 15 Creatinine 0.80 GFR Calculation 112 BUN/Creatinine Ratio 18.00 Glucose 266 H POC Glucose 102 298 H Calculated Osmolality 284.7 Calcium 7.5 L 06/20/17 06/20/17 06/19/17 04:56 00:42 19:36 Sodium Potassium Chloride Carbon Dioxide Anion Gap BUN Creatinine GFR Calculation BUN/Creatinine Ratio Glucose POC Glucose 270 H 277 H 203 H Calculated Osmolality Calcium 06/19/17 16:15 Sodium Potassium Chloride Carbon Dioxide Anion Gap BUN Creatinine GFR Calculation BUN/Creatinine Ratio Glucose POC Glucose 78 Calculated Osmolality Calcium Preliminary micro results at discharge 06/18/17 17:32 Blood Culture - Preliminary Blood No growth at 1 day 06/18/17 17:32 Blood Culture - Preliminary Blood No growth at 1 day DS: Provider Date of admission: 06/18/17 21:52 Primary care physician: Keny Schwartz, Attending physician on admission: Jamie Aguilera MD Discharging clinician: Jose Angel SHELLEY Expected date of discharge: 06/20/17 <Bianka Gonzalez - Last Filed: 06/20/17 13:37> Hospital Course - Time spent with patient Time with patient DS: Greater than 30 minutes (35) Diagnosis - Discharge Diagnosis (1) Urinary tract infection Status: Resolved (2) Diabetes mellitus Status: Chronic (3) HTN (hypertension) Status: Chronic (4) Hyperglycemia Status: Resolved Discharge Plan - Discharge Data Condition at Discharge: Stable Discharge Diet: diabetic diet Activity: increase activity as tolerated Hygiene: no restrictions Weight Bearing at Discharge: weight bear as tolerated Contact your physician if you experience:: Nausea/Vomiting Exam - Constitutional General appearance: over weight - Head Head exam: Present: normocephalic, atraumatic - Eye Eye exam: Present: EOMI Pupils: Present: MACIEJ - ENT ENT exam: Present: normal exam - Neck Neck exam: Present: normal inspection - Respiratory Respiratory exam: Present: clear to auscultation bilaterally. Absent: rhonchi, wheezes - Cardiovascular Cardiovascular exam: Present: regular rate and rhythm - GI/Abdominal GI/Abdominal exam: Present: normal bowel sounds, soft. Absent: tenderness, rebound - Extremities Exam Extremities exam: Present: normal inspection - Back Exam Back exam: Present: normal inspection - Neurological Exam Neurological exam: Present: alert, oriented X3 - Psychiatric Psychiatric exam: Present: normal affect, normal mood - Skin Skin exam: Present: warm, intact
[2017-06-20 12:06] VITALS: BP 126/67
[2017-06-22] MEDS ORDERED: CYANOCOBALAMIN 1000 MCG/1 ML VIAL IM SCH (09:00)
== END 2017-06-20 14:58 | disposition home health service (06) | DRG 638 ==
LOC: N.ED 16:28 → SUATTDRO 21:52 → N.EDINP 21:52 → N.5E 22:50
PROVIDERS: ADMIT Internal Medicine; ATTEND Internal Medicine

== ENCOUNTER 2017-12-21 19:08 | Inpatient (IN) ==
[2017-12-21] MEDS ORDERED: IBUPROFEN 100 MG/5 ML UDCUP PO STA (20:16)
[2017-12-21] MEDS ORDERED: IBUPROFEN 100 MG/5 ML UDCUP ONE (20:22)
[2017-12-21] MEDS ORDERED: VANCOMYCIN INJ 1,500 MG in SODIUM CHLORIDE 0.9% 250 ML IV STA (22:46)
[2017-12-21] MEDS ORDERED: CEFEPIME 2,000 MG in SODIUM CHLORIDE 0.9% 100 ML IV STA (22:46)
[2017-12-21] MEDS ORDERED: SODIUM CHLORIDE 0.9% 2,000 ML IV STA (22:46)
[2017-12-21] MEDS ORDERED: KETOROLAC 30 MG/1 ML VIAL IV STA (22:48)
[2017-12-21] MEDS ORDERED: LIDOCAINE 1%/EPI INJ 20 ML VIAL INFILTRAT STA (22:57)
[2017-12-21] MEDS ORDERED: LIDOCAINE 2%/EPI 20 ML VIAL ONE (22:59)
[2017-12-21] MEDS ORDERED: CEFEPIME 2,000 MG VIAL ONE (23:35)
[2017-12-21] MEDS ORDERED: KETOROLAC 30 MG/1 ML VIAL ONE (23:35)
[2017-12-21] MEDS ORDERED: VANCOMYCIN 1,000 MG VIAL ONE (23:35)
[2017-12-21 23:43] LABS: Basophils % 0.2 % (0.0-0.8); Eosinophils % 0.1 % (0.00-10.9); Hemoglobin 11.8 GM/DL (12.0-16.0); Immature Granulocytes % 0.4 %; Immature Granulocytes Absolute 0.06 #; Lymphocytes # 2.2 10*3/uL (1.4-4.0); Lymphocytes % 15.5 % (21.3-54.2); Mean Corpuscular HGB Conc 33.7 GM/DL (32-36); Mean Corpuscular Hemoglobin 28 PG (27-34); Mean Corpuscular Volume 82.4 FL (87-102); Mean Platelet Volume 11.1 FL (9.6-12.0); Monocytes # 1.3 10*3/uL (0.11-0.8); Monocytes % 9.2 % (1.7-12.7); Neutrophils # 10.4 10*3/uL (1.4-7.4); Neutrophils % 74.6 % (38.7-73.9); Platelet Count 256 T/CUMM (130-400); Red Blood Count 4.25 MC/CUMM (3.8-5.5); Red Cell Distribution Width 12.5 % (9.3-17.3)
[2017-12-22 00:01] LABS: Alanine Aminotransferase 20 U/L (13-56); Albumin 2.1 G/DL (3.4-5.0); Alkaline Phosphatase 84 U/L (45-117); Aspartate Amino Transferase 18 U/L (0-37); Bilirubin,Total < 0.39 MG/DL (0.2-1.0); Blood Urea Nitrogen 25 MG/DL (7-18); Calcium 8.2 MG/DL (8.5-10.1); Glucose 123 MG/DL (74-106); Osmolality,Calculated 277.8 MOS/KG (273-304); Potassium 3.5 MMOL/L (3.5-5.1); Sodium 137 MMOL/L (136-145); Total Protein 5.5 G/DL (6.4-8.3)
[2017-12-22 00:06] LABS: Band Neutrophils 5 % (0-10); Lymphocytes 24 % (20-55); Platelet Estimate Normal; Segmented Neutrophils 66 % (50-85); Total Cells Counted 100
[2017-12-22 00:39] LABS: Sedimentation Rate-Westergren 107 MM/HR (0-20)
[2017-12-22] MEDS ORDERED: DEXTROSE 50% 25 GM/50 ML VIAL IV PRN (01:59)
[2017-12-22] MEDS ORDERED: ONDANSETRON 4 MG/2 ML VIAL IV PRN (01:59)
[2017-12-22] MEDS ORDERED: GLUCAGON 1 MG VIAL IM PRN (01:59)
[2017-12-22] MEDS ORDERED: ALBUTEROL 2.5 MG/3 ML NEB RESP TX PRN (01:59)
[2017-12-22] MEDS ORDERED: ACETAMINOPHEN 325 MG TABLET PO PRN (01:59)
[2017-12-22 02:57] LABS: VBG Base Excess 0.4 MEQ/L (0-4); VBG HCO3 24.6 MEQ/L (24-28); VBG Oxygen Saturation 98.8 %; VBG PCO2 38.1 MMHG (41-51); VBG PH 7.428; VBG PO2 217.3 MMHG (17-40)
[2017-12-22] MEDS: SODIUM CHLORIDE 0.9% 1,000 ML IV SCH ×3 (04:41→20:15)
[2017-12-22 07:00] LABS: Basophils % 0.3 % (0.0-0.8); Eosinophils % 0.2 % (0.00-10.9); Hemoglobin 10.3 GM/DL (12.0-16.0); Immature Granulocytes % 0.5 %; Immature Granulocytes Absolute 0.05 #; Lymphocytes # 2.7 10*3/uL (1.4-4.0); Lymphocytes % 25.1 % (21.3-54.2); Mean Corpuscular HGB Conc 33.2 GM/DL (32-36); Mean Corpuscular Hemoglobin 28 PG (27-34); Mean Corpuscular Volume 83.6 FL (87-102); Mean Platelet Volume 11.4 FL (9.6-12.0); Monocytes % 9.1 % (1.7-12.7); Neutrophils % 64.8 % (38.7-73.9); Platelet Count 230 T/CUMM (130-400); Red Blood Count 3.71 MC/CUMM (3.8-5.5); Red Cell Distribution Width 12.7 % (9.3-17.3); White Blood Count 10.7 T/CUMM (4-12)
[2017-12-22 07:08] LABS: INR 0.9; PT Patient Result 9.9 SECS
[2017-12-22] MEDS: ALBUTEROL/IPRATROPIUM 3 ML NEB RESP TX SCH ×3 (07:38→20:31)
[2017-12-22 07:42] LABS: Calcium 7.3 MG/DL (8.5-10.1); Osmolality,Calculated 280.5 MOS/KG (273-304); Potassium 3.5 MMOL/L (3.5-5.1)
[2017-12-22] MEDS: INSULIN LISPRO 100 UNIT/ML SUBCUT SCH ×4 (07:56→21:18)
[2017-12-22 08:06] LABS: Band Neutrophils 6 % (0-10); Giant Platelets Few; Hypochromasia 1+; Lymphocytes 14 % (20-55); Microcytosis Slight; Platelet Estimate Adequate; Segmented Neutrophils 74 % (50-85); Total Cells Counted 100
[2017-12-22] MEDS ORDERED: LORazepam 0.5 MG TABLET PO PRN (08:42)
[2017-12-22] MEDS: ENOXAPARIN 40 MG/0.4 ML SYRINGE SUBCUT SCH (09:44)
[2017-12-22] MEDS: LEVOTHYROXINE 75 MCG TABLET PO SCH (09:44)
[2017-12-22] MEDS: PANTOPRAZOLE 40 MG TABLET PO SCH (09:44)
[2017-12-22] MEDS: CITALOPRAM 40 MG TABLET PO SCH (09:44)
[2017-12-22] MEDS: CEFEPIME 2,000 MG in SYRINGE 1 EACH IV SCH ×2 (09:45→21:14)
[2017-12-22] MEDS: rOPINIRole 1 MG TABLET PO SCH (22:57)
[2017-12-22] MEDS: VANCOMYCIN INJ 1,500 MG in SODIUM CHLORIDE 0.9% 500 ML IV SCH (22:58)
[2017-12-22] MEDS: ZALEPLON 5 MG CAPSULE PO SCH (22:58)
[2017-12-23] MEDS: ALBUTEROL/IPRATROPIUM 3 ML NEB RESP TX SCH ×4 (01:03→20:56)
[2017-12-23 05:52] LABS: Basophils % 0.4 % (0.0-0.8); Eosinophils % 0.2 % (0.00-10.9); Hematocrit 31.3 VOL% (35.7-47.0); Hemoglobin 10.1 GM/DL (12.0-16.0); Immature Granulocytes % 1.5 %; Immature Granulocytes Absolute 0.16 #; Lymphocytes # 1.9 10*3/uL (1.4-4.0); Lymphocytes % 17.1 % (21.3-54.2); Mean Corpuscular HGB Conc 32.3 GM/DL (32-36); Mean Corpuscular Hemoglobin 27 PG (27-34); Mean Corpuscular Volume 84.8 FL (87-102); Mean Platelet Volume 10.7 FL (9.6-12.0); Monocytes # 0.7 10*3/uL (0.11-0.8); Monocytes % 6.8 % (1.7-12.7); Neutrophils # 8.1 10*3/uL (1.4-7.4); Platelet Count 235 T/CUMM (130-400); Red Blood Count 3.69 MC/CUMM (3.8-5.5); Red Cell Distribution Width 12.7 % (9.3-17.3); White Blood Count 10.9 T/CUMM (4-12)
[2017-12-23] MEDS: hydrALAZINE 20 MG/1 ML VIAL IV PRN (06:00)
[2017-12-23] MEDS: SODIUM CHLORIDE 0.9% 1,000 ML IV SCH ×2 (06:04→12:06)
[2017-12-23 06:23] LABS: Albumin 1.6 G/DL (3.4-5.0); Bilirubin,Total 0.4 MG/DL (0.2-1.0); Calcium 7.5 MG/DL (8.5-10.1); Osmolality,Calculated 291.4 MOS/KG (273-304); Potassium 3.7 MMOL/L (3.5-5.1); Total Protein 4.8 G/DL (6.4-8.3)
[2017-12-23 06:39] LABS: Hypochromasia 2+; Microcytosis 2+
[2017-12-23] MEDS: METOPROLOL TARTRATE 50 MG TABLET PO SCH (09:07)
[2017-12-23] MEDS: PANTOPRAZOLE 40 MG TABLET PO SCH (09:07)
[2017-12-23] MEDS: LEVOTHYROXINE 75 MCG TABLET PO SCH (09:07)
[2017-12-23] MEDS: ENOXAPARIN 40 MG/0.4 ML SYRINGE SUBCUT SCH (09:07)
[2017-12-23] MEDS: CITALOPRAM 40 MG TABLET PO SCH (09:07)
[2017-12-23] MEDS: CEFEPIME 2,000 MG in SYRINGE 1 EACH IV SCH ×2 (09:07→21:52)
[2017-12-23] MEDS: INSULIN LISPRO 100 UNIT/ML SUBCUT SCH ×4 (09:48→20:28)
[2017-12-23] MEDS: INSULIN REGULAR 100 UNIT/ML SUBCUT SCH ×2 (16:54→17:20)
[2017-12-23] MEDS: LOSARTAN 50 MG TABLET PO SCH (16:54)
[2017-12-23] MEDS: ZALEPLON 5 MG CAPSULE PO SCH (20:43)
[2017-12-23] MEDS: rOPINIRole 1 MG TABLET PO SCH (20:44)
[2017-12-23] MEDS: guaiFENesin/CODEINE 5 ML LIQUID PO PRN (20:47)
[2017-12-23] MEDS: VANCOMYCIN INJ 1,500 MG in SODIUM CHLORIDE 0.9% 500 ML IV SCH (21:56)
[2017-12-24] MEDS: ALBUTEROL/IPRATROPIUM 3 ML NEB RESP TX SCH ×4 (01:19→21:01)
[2017-12-24] MEDS: SODIUM CHLORIDE 0.9% 1,000 ML IV SCH ×3 (03:00→16:27)
[2017-12-24 07:17] LABS: Basophils % 0.4 % (0.0-0.8); Eosinophils # 0.2 10*3/uL (0.0-0.87); Eosinophils % 1.6 % (0.00-10.9); Hematocrit 28.5 VOL% (35.7-47.0); Hemoglobin 9.5 GM/DL (12.0-16.0); Immature Granulocytes % 3.3 %; Immature Granulocytes Absolute 0.34 #; Lymphocytes # 2.6 10*3/uL (1.4-4.0); Lymphocytes % 25.9 % (21.3-54.2); Mean Corpuscular HGB Conc 33.3 GM/DL (32-36); Mean Corpuscular Hemoglobin 28 PG (27-34); Mean Corpuscular Volume 82.8 FL (87-102); Mean Platelet Volume 10.4 FL (9.6-12.0); Monocytes # 0.8 10*3/uL (0.11-0.8); Neutrophils # 6.2 10*3/uL (1.4-7.4); Neutrophils % 60.8 % (38.7-73.9); Platelet Count 249 T/CUMM (130-400); Red Blood Count 3.44 MC/CUMM (3.8-5.5); White Blood Count 10.2 T/CUMM (4-12)
[2017-12-24] MEDS ORDERED: LINACLOTIDE 145 MCG CAPSULE PO SCH (07:30)
[2017-12-24] MEDS: INSULIN LISPRO 100 UNIT/ML SUBCUT SCH ×4 (07:36→20:26)
[2017-12-24 07:42] LABS: Lymphocytes 26 % (20-55); Segmented Neutrophils 71 % (50-85); Total Cells Counted 100
[2017-12-24 07:43] LABS: Hypochromasia 2+; Microcytosis 1+; Platelet Estimate Adequate
[2017-12-24 07:45] LABS: Calcium 7.4 MG/DL (8.5-10.1); Potassium 3.3 MMOL/L (3.5-5.1)
[2017-12-24] MEDS: METOPROLOL TARTRATE 50 MG TABLET PO SCH (08:09)
[2017-12-24] MEDS: LOSARTAN 50 MG TABLET PO SCH (08:09)
[2017-12-24] MEDS: LEVOTHYROXINE 75 MCG TABLET PO SCH (08:09)
[2017-12-24] MEDS: CITALOPRAM 40 MG TABLET PO SCH (08:09)
[2017-12-24] MEDS: FUROSEMIDE 40 MG TABLET PO SCH (08:10)
[2017-12-24] MEDS: PANTOPRAZOLE 40 MG TABLET PO SCH (08:10)
[2017-12-24] MEDS: CEFEPIME 2,000 MG in SYRINGE 1 EACH IV SCH ×2 (08:50→20:26)
[2017-12-24] MEDS: ENOXAPARIN 40 MG/0.4 ML SYRINGE SUBCUT SCH (08:51)
[2017-12-24] MEDS ORDERED: CYANOCOBALAMIN 1000 MCG/1 ML VIAL IM SCH (09:00)
[2017-12-24] MEDS ORDERED: LINZESS 72 MCG PO SCH (09:00)
[2017-12-24] MEDS ORDERED: POTASSIUM CHLORIDE 20 MEQ TABLET PO PRN (13:16)
[2017-12-24] MEDS ORDERED: INSULIN REGULAR HUMAN SUBCUT SCH (17:00)
[2017-12-24] MEDS: hydrALAZINE 20 MG/1 ML VIAL IV PRN (20:26)
[2017-12-24] MEDS: guaiFENesin/CODEINE 5 ML LIQUID PO PRN (21:42)
[2017-12-24] MEDS: rOPINIRole 1 MG TABLET PO SCH (21:43)
[2017-12-24] MEDS: ZALEPLON 5 MG CAPSULE PO SCH (21:43)
[2017-12-24] MEDS: VANCOMYCIN INJ 1,500 MG in SODIUM CHLORIDE 0.9% 500 ML IV SCH (23:40)
[2017-12-25] MEDS: ALBUTEROL/IPRATROPIUM 3 ML NEB RESP TX SCH ×2 (01:53→07:35)
[2017-12-25 06:50] LABS: Basophils % 0.4 % (0.0-0.8); Eosinophils # 0.2 10*3/uL (0.0-0.87); Eosinophils % 1.8 % (0.00-10.9); Hematocrit 26.9 VOL% (35.7-47.0); Hemoglobin 9.3 GM/DL (12.0-16.0); Immature Granulocytes % 4.8 %; Immature Granulocytes Absolute 0.49 #; Lymphocytes # 1.8 10*3/uL (1.4-4.0); Lymphocytes % 17.3 % (21.3-54.2); Mean Corpuscular HGB Conc 34.6 GM/DL (32-36); Mean Corpuscular Hemoglobin 28 PG (27-34); Mean Platelet Volume 10.1 FL (9.6-12.0); Monocytes # 0.6 10*3/uL (0.11-0.8); Monocytes % 5.8 % (1.7-12.7); NRBC # 0.02 10*3/uL; Neutrophils # 7.1 10*3/uL (1.4-7.4); Neutrophils % 69.9 % (38.7-73.9); Platelet Count 245 T/CUMM (130-400); Red Blood Count 3.28 MC/CUMM (3.8-5.5); Red Cell Distribution Width 12.9 % (9.3-17.3); White Blood Count 10.2 T/CUMM (4-12)
[2017-12-25 07:19] LABS: Calcium 7.5 MG/DL (8.5-10.1); Osmolality,Calculated 282.1 MOS/KG (273-304); Potassium 3.2 MMOL/L (3.5-5.1)
[2017-12-25 08:12] VITALS: BP 192/99
[2017-12-25] MEDS: SODIUM CHLORIDE 0.9% 1,000 ML IV SCH (08:48)
[2017-12-25] MEDS: ENOXAPARIN 40 MG/0.4 ML SYRINGE SUBCUT SCH (08:49)
[2017-12-25] MEDS: PANTOPRAZOLE 40 MG TABLET PO SCH (08:50)
[2017-12-25] MEDS: CITALOPRAM 40 MG TABLET PO SCH (08:50)
[2017-12-25] MEDS: LOSARTAN 50 MG TABLET PO SCH (08:50)
[2017-12-25] MEDS: METOPROLOL TARTRATE 50 MG TABLET PO SCH (08:50)
[2017-12-25] MEDS: LEVOTHYROXINE 75 MCG TABLET PO SCH (08:50)
[2017-12-25] MEDS: FUROSEMIDE 40 MG TABLET PO SCH (08:51)
[2017-12-25] MEDS: CEFEPIME 2,000 MG in SYRINGE 1 EACH IV SCH (08:51)
[2017-12-25] MEDS ORDERED: POTASSIUM CHLORIDE 20 MEQ TABLET PO ONE (09:00)
[2017-12-25] MEDS ORDERED: VANCOMYCIN INJ 1,500 MG in SODIUM CHLORIDE 0.9% 500 ML IV SCH (10:00)
[2017-12-25] MEDS: INSULIN LISPRO 100 UNIT/ML SUBCUT SCH (10:18)
== END 2017-12-25 11:25 | disposition home health service (06) | DRG 871 ==
LOC: N.ED 19:08 → SUATTDRO 12-22 01:39 → N.EDINP 12-22 01:39 → N.2E 12-22 04:00
PROVIDERS: ADMIT Internal Medicine; ATTEND Internal Medicine

== ENCOUNTER 2018-02-06 10:41 | Inpatient (IN) ==
[2018-02-06] MEDS ORDERED: GLUCAGON 1 MG VIAL IM PRN ×2 (10:54)
[2018-02-06] MEDS ORDERED: ALBUTEROL/IPRATROPIUM 3 ML NEB RESP TX PRN (10:54)
[2018-02-06] MEDS ORDERED: DEXTROSE 50% 25 GM/50 ML VIAL IV PRN ×2 (10:54)
[2018-02-06] MEDS ORDERED: BENZONATATE 100 MG CAPSULE PO PRN (10:59)
[2018-02-06] MEDS: ALBUTEROL/IPRATROPIUM 3 ML NEB RESP TX SCH ×3 (11:26→19:16)
[2018-02-06] MEDS ORDERED: INSULIN LISPRO 100 UNIT/ML SUBCUT SCH (11:30)
[2018-02-06] MEDS: MEROPENEM 500 MG in SYRINGE 1 EACH IV SCH ×2 (13:00→20:05)
[2018-02-06] MEDS: CLINDAMYCIN INJ 300 MG in PREMIX 1 EACH IV SCH ×2 (13:02→20:09)
[2018-02-06] MEDS: INSULIN LISPRO 100 UNIT/ML SUBCUT SCH ×3 (14:11→21:10)
[2018-02-06 14:31] LABS: Thyroid Stimulating Hormone 2.47 uIU/ml (0.358-3.74)
[2018-02-06] MEDS ORDERED: PROMETHAZINE 25 MG/1 ML VIAL IM ONE (14:58)
[2018-02-06] MEDS ORDERED: PROMETHAZINE 25 MG TABLET PO PRN (15:01)
[2018-02-06 16:03] LABS: Apearance,Urine CLOUDY (Clear); Bacteria,Urine Few /HPF (Few); Bilirubin,Urine Negative (Negative); Blood, Urine Small mg/dL (Negative); Glucose,Urine (UA) >=500 mg/dL (Negative); Hyaline Casts,Urine 3 /LPF (0-3); Ketones,Urine Negative (Negative); Mucus,Urine Occasional /LPF (Occasional); Nitrite,Urine Positive (Negative); Protein,Urine >=500 MG/DL; RBC,Urine 11 /HPF (0-4); Squamous Epithelial Cell,Urine Occasional /HPF (0-10); Urine Color Yellow (Yellow); Urine Specific Gravity 1.014 (1.001-1.035); Urine Urobilinogen < 2.0 EU/DL (0.2-1.0); WBC,Urine 542 /HPF (0-6)
[2018-02-06] MEDS ORDERED: LORazepam 1 MG TABLET PO PRN (16:08)
[2018-02-06] MEDS ORDERED: CYANOCOBALAMIN 1000 MCG/1 ML VIAL IM SCH (16:30)
[2018-02-06] MEDS: INSULIN REGULAR HUMAN 30 UNIT SUBCUT SCH (17:42)
[2018-02-06] MEDS: DORNASE ALFA 2.5 MG/2.5 ML VIAL RESP TX SCH (19:16)
[2018-02-06 19:22] LABS: Basophils % 0.3 % (0.0-0.8); Eosinophils # 0.1 10*3/uL (0.0-0.87); Eosinophils % 0.5 % (0.00-10.9); Hematocrit 29.3 VOL% (35.7-47.0); Hemoglobin 9.9 GM/DL (12.0-16.0); Immature Granulocytes % 0.6 %; Immature Granulocytes Absolute 0.09 #; Lymphocytes # 2.2 10*3/uL (1.4-4.0); Lymphocytes % 15.3 % (21.3-54.2); Mean Corpuscular HGB Conc 33.8 GM/DL (32-36); Mean Corpuscular Hemoglobin 28 PG (27-34); Mean Corpuscular Volume 82.5 FL (87-102); Monocytes # 1.1 10*3/uL (0.11-0.8); Monocytes % 7.5 % (1.7-12.7); Neutrophils % 75.8 % (38.7-73.9); Platelet Count 242 T/CUMM (130-400); Red Blood Count 3.55 MC/CUMM (3.8-5.5); White Blood Count 14.5 T/CUMM (4-12)
[2018-02-06 19:43] LABS: Alanine Aminotransferase 15 U/L (13-56); Albumin 1.8 G/DL (3.4-5.0); Alkaline Phosphatase 85 U/L (45-117); Aspartate Amino Transferase 11 U/L (0-37); Bilirubin,Total < 0.39 MG/DL (0.2-1.0); Blood Urea Nitrogen 30 MG/DL (7-18); Glucose 223 MG/DL (74-106); Osmolality,Calculated 270.9 MOS/KG (273-304); Potassium 3.5 MMOL/L (3.5-5.1); Sodium 129 MMOL/L (136-145); Total Protein 5.1 G/DL (6.4-8.3)
[2018-02-06] MEDS ORDERED: AMINOPHYLLINE 250 MG in SODIUM CHLORIDE 0.9% 100 ML IV ONE (20:00)
[2018-02-06] MEDS ORDERED: SODIUM CHLORIDE 0.9% 1,000 ML IV SCH (20:00)
[2018-02-06] MEDS: MECLIZINE 25 MG TABLET PO PRN (20:04)
[2018-02-06] MEDS: rOPINIRole 1 MG TABLET PO SCH (21:06)
[2018-02-06] MEDS: MONTELUKAST 10 MG TABLET PO SCH (21:07)
[2018-02-06] MEDS: ZALEPLON 5 MG CAPSULE PO SCH (21:07)
[2018-02-06] MEDS: SODIUM CHLOR 0.9% KCL 20 MEQ 20 MEQ/1,000 ML BAG IV SCH (21:39)
[2018-02-07] MEDS: AMINOPHYLLINE 500 MG in SODIUM CHLORIDE 0.9% 480 ML IV SCH (00:45)
[2018-02-07] MEDS: MEROPENEM 500 MG in SYRINGE 1 EACH IV SCH ×3 (03:35→21:12)
[2018-02-07] MEDS: CLINDAMYCIN INJ 300 MG in PREMIX 1 EACH IV SCH ×3 (03:38→21:16)
[2018-02-07] MEDS: LEVOTHYROXINE 75 MCG TABLET PO SCH (06:27)
[2018-02-07 06:41] LABS: Basophils % 0.2 % (0.0-0.8); Eosinophils # 0.1 10*3/uL (0.0-0.87); Eosinophils % 1.1 % (0.00-10.9); Hematocrit 27.3 VOL% (35.7-47.0); Hemoglobin 9.3 GM/DL (12.0-16.0); Immature Granulocytes % 0.5 %; Immature Granulocytes Absolute 0.06 #; Lymphocytes # 3.1 10*3/uL (1.4-4.0); Lymphocytes % 25.8 % (21.3-54.2); Mean Corpuscular HGB Conc 34.1 GM/DL (32-36); Mean Corpuscular Hemoglobin 28 PG (27-34); Mean Corpuscular Volume 81.3 FL (87-102); Mean Platelet Volume 11.6 FL (9.6-12.0); Monocytes # 0.9 10*3/uL (0.11-0.8); Monocytes % 7.5 % (1.7-12.7); Neutrophils # 7.8 10*3/uL (1.4-7.4); Neutrophils % 64.9 % (38.7-73.9); Platelet Count 235 T/CUMM (130-400); Red Blood Count 3.36 MC/CUMM (3.8-5.5); Red Cell Distribution Width 12.9 % (9.3-17.3); White Blood Count 11.9 T/CUMM (4-12)
[2018-02-07] MEDS: ALBUTEROL/IPRATROPIUM 3 ML NEB RESP TX SCH ×4 (07:07→19:05)
[2018-02-07] MEDS: DORNASE ALFA 2.5 MG/2.5 ML VIAL RESP TX SCH ×2 (07:07→19:05)
[2018-02-07 07:20] LABS: Albumin 1.7 G/DL (3.4-5.0); Bilirubin,Total 0.7 MG/DL (0.2-1.0); Calcium 7.8 MG/DL (8.5-10.1); Osmolality,Calculated 278.5 MOS/KG (273-304); Potassium 3.5 MMOL/L (3.5-5.1); Total Protein 4.8 G/DL (6.4-8.3)
[2018-02-07] MEDS ORDERED: NON-FORMULARY MEDICATION (Linaclotide [Linzess] 72 MCG) PO SCH (09:00)
[2018-02-07] MEDS: CITALOPRAM 40 MG TABLET PO SCH (09:23)
[2018-02-07] MEDS: METOPROLOL TARTRATE 50 MG TABLET PO SCH (09:23)
[2018-02-07] MEDS: INSULIN REGULAR HUMAN SUBCUT SCH (09:23)
[2018-02-07] MEDS: PANTOPRAZOLE 40 MG TABLET PO SCH (09:24)
[2018-02-07] MEDS: FUROSEMIDE 40 MG TABLET PO SCH (09:24)
[2018-02-07] MEDS: LOSARTAN 50 MG TABLET PO SCH (09:25)
[2018-02-07] MEDS: ATORVASTATIN 40 MG TABLET PO SCH (09:25)
[2018-02-07] MEDS: MONTELUKAST 10 MG TABLET PO SCH ×2 (09:25→21:12)
[2018-02-07] MEDS: INSULIN LISPRO 100 UNIT/ML SUBCUT SCH ×4 (09:26→21:13)
[2018-02-07] MEDS: MECLIZINE 25 MG TABLET PO PRN (11:26)
[2018-02-07] MEDS: SODIUM CHLOR 0.9% KCL 20 MEQ 20 MEQ/1,000 ML BAG IV SCH (11:29)
[2018-02-07] MEDS: INSULIN REGULAR HUMAN 30 UNIT SUBCUT SCH (17:03)
[2018-02-07] MEDS: ZALEPLON 5 MG CAPSULE PO SCH (21:12)
[2018-02-07] MEDS: rOPINIRole 1 MG TABLET PO SCH (21:12)
[2018-02-08] MEDS: SODIUM CHLOR 0.9% KCL 20 MEQ 20 MEQ/1,000 ML BAG IV SCH ×3 (01:52→18:39)
[2018-02-08] MEDS: AMINOPHYLLINE 500 MG in SODIUM CHLORIDE 0.9% 480 ML IV SCH (01:53)
[2018-02-08] MEDS: MEROPENEM 500 MG in SYRINGE 1 EACH IV SCH ×3 (04:30→20:51)
[2018-02-08] MEDS: CLINDAMYCIN INJ 300 MG in PREMIX 1 EACH IV SCH ×3 (04:32→20:52)
[2018-02-08 05:35] LABS: Basophils % 0.4 % (0.0-0.8); Eosinophils # 0.2 10*3/uL (0.0-0.87); Eosinophils % 1.8 % (0.00-10.9); Hematocrit 29.4 VOL% (35.7-47.0); Hemoglobin 9.5 GM/DL (12.0-16.0); Immature Granulocytes % 0.4 %; Immature Granulocytes Absolute 0.04 #; Lymphocytes # 2.2 10*3/uL (1.4-4.0); Lymphocytes % 22.3 % (21.3-54.2); Mean Corpuscular HGB Conc 32.3 GM/DL (32-36); Mean Corpuscular Hemoglobin 27 PG (27-34); Mean Corpuscular Volume 83.5 FL (87-102); Mean Platelet Volume 10.8 FL (9.6-12.0); Monocytes # 0.6 10*3/uL (0.11-0.8); Monocytes % 6.1 % (1.7-12.7); Neutrophils # 6.6 10*3/uL (1.4-7.4); Platelet Count 240 T/CUMM (130-400); Red Blood Count 3.52 MC/CUMM (3.8-5.5); White Blood Count 9.6 T/CUMM (4-12)
[2018-02-08 06:09] LABS: Calcium 7.6 MG/DL (8.5-10.1); Osmolality,Calculated 282.7 MOS/KG (273-304); Potassium 3.8 MMOL/L (3.5-5.1)
[2018-02-08] MEDS: LEVOTHYROXINE 75 MCG TABLET PO SCH (06:20)
[2018-02-08] MEDS: DORNASE ALFA 2.5 MG/2.5 ML VIAL RESP TX SCH ×2 (07:13→19:29)
[2018-02-08] MEDS: ALBUTEROL/IPRATROPIUM 3 ML NEB RESP TX SCH ×4 (07:13→19:29)
[2018-02-08] MEDS: INSULIN REGULAR HUMAN SUBCUT SCH (10:56)
[2018-02-08] MEDS: LOSARTAN 50 MG TABLET PO SCH (10:57)
[2018-02-08] MEDS: MONTELUKAST 10 MG TABLET PO SCH ×2 (10:58→20:53)
[2018-02-08] MEDS: METOPROLOL TARTRATE 50 MG TABLET PO SCH (10:58)
[2018-02-08] MEDS: CITALOPRAM 40 MG TABLET PO SCH (10:58)
[2018-02-08] MEDS: FUROSEMIDE 40 MG TABLET PO SCH (10:58)
[2018-02-08] MEDS: PANTOPRAZOLE 40 MG TABLET PO SCH (10:58)
[2018-02-08] MEDS: INSULIN LISPRO 100 UNIT/ML SUBCUT SCH ×4 (10:59→20:54)
[2018-02-08] MEDS: ATORVASTATIN 40 MG TABLET PO SCH (10:59)
[2018-02-08] MEDS: INSULIN REGULAR HUMAN 30 UNIT SUBCUT SCH (17:50)
[2018-02-08] MEDS: MECLIZINE 25 MG TABLET PO PRN (20:52)
[2018-02-08] MEDS: ZALEPLON 5 MG CAPSULE PO SCH (20:53)
[2018-02-08] MEDS: rOPINIRole 1 MG TABLET PO SCH (20:53)
[2018-02-09] MEDS: AMINOPHYLLINE 500 MG in SODIUM CHLORIDE 0.9% 480 ML IV SCH ×3 (00:37→23:06)
[2018-02-09] MEDS: CLINDAMYCIN INJ 300 MG in PREMIX 1 EACH IV SCH ×3 (03:19→20:28)
[2018-02-09] MEDS: MEROPENEM 500 MG in SYRINGE 1 EACH IV SCH ×3 (03:19→20:28)
[2018-02-09 05:58] LABS: Basophils % 0.3 % (0.0-0.8); Eosinophils # 0.2 10*3/uL (0.0-0.87); Eosinophils % 2.4 % (0.00-10.9); Hematocrit 26.8 VOL% (35.7-47.0); Immature Granulocytes % 0.9 %; Immature Granulocytes Absolute 0.08 #; Lymphocytes # 2.4 10*3/uL (1.4-4.0); Lymphocytes % 26.6 % (21.3-54.2); Mean Corpuscular HGB Conc 33.6 GM/DL (32-36); Mean Corpuscular Hemoglobin 28 PG (27-34); Mean Platelet Volume 10.5 FL (9.6-12.0); Monocytes # 0.7 10*3/uL (0.11-0.8); Monocytes % 8.2 % (1.7-12.7); Neutrophils # 5.5 10*3/uL (1.4-7.4); Neutrophils % 61.6 % (38.7-73.9); Platelet Count 316 T/CUMM (130-400); Red Blood Count 3.27 MC/CUMM (3.8-5.5); White Blood Count 8.9 T/CUMM (4-12)
[2018-02-09] MEDS: LEVOTHYROXINE 75 MCG TABLET PO SCH (06:14)
[2018-02-09 06:28] LABS: Calcium 7.6 MG/DL (8.5-10.1); Osmolality,Calculated 284.7 MOS/KG (273-304); Potassium 4.6 MMOL/L (3.5-5.1)
[2018-02-09] MEDS: ALBUTEROL/IPRATROPIUM 3 ML NEB RESP TX SCH ×4 (07:23→19:55)
[2018-02-09] MEDS: DORNASE ALFA 2.5 MG/2.5 ML VIAL RESP TX SCH ×2 (07:23→19:55)
[2018-02-09] MEDS: INSULIN REGULAR HUMAN SUBCUT SCH ×2 (09:19→20:39)
[2018-02-09] MEDS: SODIUM CHLOR 0.9% KCL 20 MEQ 20 MEQ/1,000 ML BAG IV SCH ×2 (09:19→20:29)
[2018-02-09] MEDS: INSULIN LISPRO 100 UNIT/ML SUBCUT SCH ×4 (09:20→20:30)
[2018-02-09] MEDS: PANTOPRAZOLE 40 MG TABLET PO SCH (09:21)
[2018-02-09] MEDS: CITALOPRAM 40 MG TABLET PO SCH (09:21)
[2018-02-09] MEDS: LOSARTAN 50 MG TABLET PO SCH (09:21)
[2018-02-09] MEDS: METOPROLOL TARTRATE 50 MG TABLET PO SCH (09:21)
[2018-02-09] MEDS: MONTELUKAST 10 MG TABLET PO SCH ×2 (09:21→20:30)
[2018-02-09] MEDS: FUROSEMIDE 40 MG TABLET PO SCH (09:21)
[2018-02-09] MEDS: ATORVASTATIN 40 MG TABLET PO SCH (09:22)
[2018-02-09] MEDS: INSULIN REGULAR HUMAN 30 UNIT SUBCUT SCH (16:56)
[2018-02-09] MEDS: ZALEPLON 5 MG CAPSULE PO SCH (20:30)
[2018-02-09] MEDS: rOPINIRole 1 MG TABLET PO SCH (20:30)
[2018-02-10] MEDS: MEROPENEM 500 MG in SYRINGE 1 EACH IV SCH ×3 (05:38→22:22)
[2018-02-10] MEDS: LEVOTHYROXINE 75 MCG TABLET PO SCH (05:38)
[2018-02-10] MEDS: CLINDAMYCIN INJ 300 MG in PREMIX 1 EACH IV SCH ×3 (05:39→22:19)
[2018-02-10 07:10] LABS: Calcium 7.6 MG/DL (8.5-10.1); Osmolality,Calculated 283.3 MOS/KG (273-304); Potassium 4.7 MMOL/L (3.5-5.1)
[2018-02-10] MEDS: ALBUTEROL/IPRATROPIUM 3 ML NEB RESP TX SCH ×4 (07:52→19:48)
[2018-02-10] MEDS: DORNASE ALFA 2.5 MG/2.5 ML VIAL RESP TX SCH ×2 (07:56→19:58)
[2018-02-10] MEDS: INSULIN LISPRO 100 UNIT/ML SUBCUT SCH ×5 (08:44→22:33)
[2018-02-10] MEDS: LOSARTAN 50 MG TABLET PO SCH (08:49)
[2018-02-10] MEDS: CITALOPRAM 40 MG TABLET PO SCH (08:50)
[2018-02-10] MEDS: ATORVASTATIN 40 MG TABLET PO SCH (08:50)
[2018-02-10] MEDS: PANTOPRAZOLE 40 MG TABLET PO SCH (08:50)
[2018-02-10] MEDS: MONTELUKAST 10 MG TABLET PO SCH ×2 (08:50→22:23)
[2018-02-10] MEDS: FUROSEMIDE 40 MG TABLET PO SCH (08:50)
[2018-02-10] MEDS: METOPROLOL TARTRATE 50 MG TABLET PO SCH (08:50)
[2018-02-10] MEDS: INSULIN REGULAR HUMAN SUBCUT SCH (08:52)
[2018-02-10 10:26] LABS: % Iron Saturation 15.2 % (18-50)
[2018-02-10 11:34] LABS: Folate 5.9 NG/ML (5.4-24.0)
[2018-02-10 12:38] LABS: Apearance,Urine CLEAR (Clear); Bilirubin,Urine Negative (Negative); Blood, Urine Small mg/dL (Negative); Glucose,Urine (UA) >=500 mg/dL (Negative); Ketones,Urine Negative (Negative); Mucus,Urine Occasional /LPF (Occasional); Nitrite,Urine Negative (Negative); Protein,Urine >=500 MG/DL; RBC,Urine 2 /HPF (0-4); Urine Color Amber (Yellow); Urine Specific Gravity 1.005 (1.001-1.035); Urine Urobilinogen < 2.0 EU/DL (0.2-1.0); WBC,Urine 3 /HPF (0-6)
[2018-02-10] MEDS: SODIUM CHLOR 0.9% KCL 20 MEQ 20 MEQ/1,000 ML BAG IV SCH (13:53)
[2018-02-10] MEDS: INSULIN REGULAR HUMAN 30 UNIT SUBCUT SCH (17:42)
[2018-02-10] MEDS: rOPINIRole 1 MG TABLET PO SCH (22:21)
[2018-02-10] MEDS: ZALEPLON 5 MG CAPSULE PO SCH (22:23)
[2018-02-11] MEDS: AMINOPHYLLINE 500 MG in SODIUM CHLORIDE 0.9% 480 ML IV SCH (00:46)
[2018-02-11] MEDS: SODIUM CHLOR 0.9% KCL 20 MEQ 20 MEQ/1,000 ML BAG IV SCH (00:47)
[2018-02-11] MEDS: CLINDAMYCIN INJ 300 MG in PREMIX 1 EACH IV SCH (04:48)
[2018-02-11] MEDS: MEROPENEM 500 MG in SYRINGE 1 EACH IV SCH (04:49)
[2018-02-11] MEDS: LEVOTHYROXINE 75 MCG TABLET PO SCH (06:16)
[2018-02-11] MEDS: DORNASE ALFA 2.5 MG/2.5 ML VIAL RESP TX SCH (07:46)
[2018-02-11] MEDS: ALBUTEROL/IPRATROPIUM 3 ML NEB RESP TX SCH (07:46)
[2018-02-11] MEDS: INSULIN REGULAR HUMAN SUBCUT SCH (09:53)
[2018-02-11] MEDS: INSULIN LISPRO 100 UNIT/ML SUBCUT SCH ×2 (09:53→12:49)
[2018-02-11] MEDS: CITALOPRAM 40 MG TABLET PO SCH (09:54)
[2018-02-11] MEDS: FUROSEMIDE 40 MG TABLET PO SCH (09:54)
[2018-02-11] MEDS: MONTELUKAST 10 MG TABLET PO SCH (09:54)
[2018-02-11] MEDS: METOPROLOL TARTRATE 50 MG TABLET PO SCH (09:54)
[2018-02-11] MEDS: PANTOPRAZOLE 40 MG TABLET PO SCH (09:54)
[2018-02-11] MEDS: LOSARTAN 50 MG TABLET PO SCH (09:54)
[2018-02-11] MEDS: ATORVASTATIN 40 MG TABLET PO SCH (09:55)
[2018-02-11 11:10] VITALS: BP 150/80
[2018-02-11] MEDS ORDERED: THEOPHYLLINE ER (24 HR) 200 MG CAPSULE PO SCH (12:03)
[2018-02-11] MEDS ORDERED: FOLIC ACID 0.4 MG TABLET PO SCH (12:30)
[2018-02-11] MEDS ORDERED: FERROUS SULFATE 325 MG TABLET PO SCH (12:30)
== END 2018-02-11 14:32 | disposition home or self-care (01) | DRG 178 ==
LOC: N.5E 11:08
PROVIDERS: ADMIT Internal Medicine Pulmonary Disease; ATTEND Internal Medicine Pulmonary Disease

== ENCOUNTER 2018-04-22 10:05 | Inpatient (IN) ==
[2018-04-22 11:12] LABS: Basophils % 0.3 % (0.0-0.8); Eosinophils # 0.1 10*3/uL (0.0-0.87); Eosinophils % 0.7 % (0.00-10.9); Hematocrit 34.5 VOL% (35.7-47.0); Hemoglobin 11.8 GM/DL (12.0-16.0); Immature Granulocytes % 0.5 %; Immature Granulocytes Absolute 0.07 #; Lymphocytes # 1.8 10*3/uL (1.4-4.0); Lymphocytes % 13.1 % (21.3-54.2); Mean Corpuscular HGB Conc 34.2 GM/DL (32-36); Mean Corpuscular Hemoglobin 28 PG (27-34); Mean Corpuscular Volume 80.6 FL (87-102); Mean Platelet Volume 11.5 FL (9.6-12.0); Monocytes # 0.8 10*3/uL (0.11-0.8); Monocytes % 5.8 % (1.7-12.7); Neutrophils % 79.6 % (38.7-73.9); Platelet Count 234 T/CUMM (130-400); Red Blood Count 4.28 MC/CUMM (3.8-5.5); Red Cell Distribution Width 13.2 % (9.3-17.3); White Blood Count 13.8 T/CUMM (4-12)
[2018-04-22 11:48] LABS: Albumin 2.1 G/DL (3.4-5.0); Bilirubin,Total 0.6 MG/DL (0.2-1.0); Calcium 8.7 MG/DL (8.5-10.1); Osmolality,Calculated 283.5 MOS/KG (273-304); Potassium 3.3 MMOL/L (3.5-5.1); Total Protein 6.7 G/DL (6.4-8.3)
[2018-04-22] MEDS ORDERED: SODIUM CHLORIDE 0.9% 1,000 ML IV STA (11:59)
[2018-04-22 12:49] LABS: Apearance,Urine CLEAR (Clear); Bacteria,Urine Occasional /HPF (Few); Bilirubin,Urine Negative (Negative); Blood, Urine Small mg/dL (Negative); Glucose,Urine (UA) >=500 mg/dL (Negative); Granular Casts,Urine 3 /LPF (0-1); Hyaline Casts,Urine 3 /LPF (0-3); Ketones,Urine 5 mg/dL (Negative); Nitrite,Urine Negative (Negative); Protein,Urine >=500 MG/DL; RBC,Urine 3 /HPF (0-4); Squamous Epithelial Cell,Urine Occasional /HPF (0-10); Urine Color Yellow (Yellow); Urine Specific Gravity 1.014 (1.001-1.035); Urine Urobilinogen < 2.0 EU/DL (0.2-1.0); WBC,Urine 2 /HPF (0-6)
[2018-04-22] MEDS ORDERED: ONDANSETRON 4 MG/2 ML VIAL IV STA (14:25)
[2018-04-22] MEDS ORDERED: ONDANSETRON 4 MG/2 ML VIAL ONE (14:27)
[2018-04-22] MEDS ORDERED: ACETAMINOPHEN 325 MG TABLET PO PRN (16:46)
[2018-04-22] MEDS ORDERED: LACTULOSE 20 GM/30 ML UDCUP PO PRN (16:46)
[2018-04-22] MEDS ORDERED: DEXTROSE 50% 25 GM/50 ML VIAL IV PRN (16:46)
[2018-04-22] MEDS ORDERED: DOCUSATE SODIUM 100 MG CAPSULE PO PRN (16:46)
[2018-04-22] MEDS ORDERED: ALBUTEROL/IPRATROPIUM 3 ML NEB RESP TX PRN (16:46)
[2018-04-22] MEDS ORDERED: GLUCAGON 1 MG VIAL IM PRN ×2 (16:46)
[2018-04-22] MEDS ORDERED: CYANOCOBALAMIN 1000 MCG/1 ML VIAL IM SCH (17:00)
[2018-04-22] MEDS: SODIUM CHLORIDE 0.9% 1,000 ML IV SCH (18:26)
[2018-04-22] MEDS: AZTREONAM 2,000 MG in SYRINGE 1 EACH IV SCH ×2 (18:49→23:37)
[2018-04-22] MEDS: THEOPHYLLINE ER 100 MG TABLET PO SCH (19:05)
[2018-04-22] MEDS: ATORVASTATIN 20 MG TABLET PO SCH (20:47)
[2018-04-22] MEDS: CITALOPRAM 40 MG TABLET PO SCH (20:47)
[2018-04-22] MEDS: INSULIN LISPRO 100 UNIT/ML SUBCUT SCH (20:51)
[2018-04-22] MEDS: guaiFENesin/DM ER 600-30 MG TABLET PO SCH (20:51)
[2018-04-22] MEDS: INSULIN REGULAR HUMAN SUBCUT SCH (21:27)
[2018-04-22] MEDS: ZALEPLON 5 MG CAPSULE PO PRN (22:42)
[2018-04-22] MEDS: rOPINIRole 1 MG TABLET PO SCH (23:37)
[2018-04-23] MEDS: SODIUM CHLORIDE 0.9% 1,000 ML IV SCH ×2 (03:25→12:34)
[2018-04-23] MEDS: AZTREONAM 2,000 MG in SYRINGE 1 EACH IV SCH ×3 (06:08→17:04)
[2018-04-23] MEDS: LEVOTHYROXINE 75 MCG TABLET PO SCH (06:09)
[2018-04-23 06:45] LABS: Basophils % 0.2 % (0.0-0.8); Eosinophils # 0.2 10*3/uL (0.0-0.87); Eosinophils % 1.4 % (0.00-10.9); Hematocrit 28.9 VOL% (35.7-47.0); Hemoglobin 10.1 GM/DL (12.0-16.0); Immature Granulocytes % 0.5 %; Immature Granulocytes Absolute 0.06 #; Lymphocytes # 2.7 10*3/uL (1.4-4.0); Lymphocytes % 21.9 % (21.3-54.2); Mean Corpuscular HGB Conc 34.9 GM/DL (32-36); Mean Corpuscular Hemoglobin 28 PG (27-34); Mean Corpuscular Volume 80.5 FL (87-102); Monocytes # 1.1 10*3/uL (0.11-0.8); Monocytes % 9.1 % (1.7-12.7); Neutrophils # 8.2 10*3/uL (1.4-7.4); Neutrophils % 66.9 % (38.7-73.9); Platelet Count 220 T/CUMM (130-400); Red Blood Count 3.59 MC/CUMM (3.8-5.5); Red Cell Distribution Width 13.2 % (9.3-17.3); White Blood Count 12.3 T/CUMM (4-12)
[2018-04-23 07:19] LABS: Calcium 7.7 MG/DL (8.5-10.1); Potassium 3.4 MMOL/L (3.5-5.1); Risk Ratio 3.4; Thyroid Stimulating Hormone 2.24 uIU/ml (0.358-3.74); VLDL CHOLESTEROL 36.6 MG/DL
[2018-04-23] MEDS: INSULIN LISPRO 100 UNIT/ML SUBCUT SCH ×4 (08:13→21:02)
[2018-04-23] MEDS: THEOPHYLLINE ER 100 MG TABLET PO SCH (08:13)
[2018-04-23] MEDS: INSULIN REGULAR HUMAN SUBCUT SCH ×3 (08:13→16:54)
[2018-04-23] MEDS ORDERED: CYANOCOBALAMIN 1000 MCG/1 ML VIAL IM SCH (09:00)
[2018-04-23] MEDS: FOLIC ACID 0.4 MG TABLET PO SCH (09:40)
[2018-04-23] MEDS: LOSARTAN 50 MG TABLET PO SCH (09:40)
[2018-04-23] MEDS: LINACLOTIDE 145 MCG CAPSULE PO SCH (09:40)
[2018-04-23] MEDS: amLODIPine 5 MG TABLET PO SCH (09:41)
[2018-04-23] MEDS: PANTOPRAZOLE 40 MG TABLET PO SCH (09:41)
[2018-04-23] MEDS: guaiFENesin/DM ER 600-30 MG TABLET PO SCH ×2 (09:41→21:00)
[2018-04-23] MEDS: METOPROLOL SUCCINATE XL 50 MG TABLET PO SCH (09:41)
[2018-04-23] MEDS: FUROSEMIDE 40 MG TABLET PO SCH (09:41)
[2018-04-23] MEDS: ONDANSETRON 4 MG/2 ML VIAL IV PRN (16:54)
[2018-04-23] MEDS: ATORVASTATIN 20 MG TABLET PO SCH (20:29)
[2018-04-23] MEDS: CITALOPRAM 40 MG TABLET PO SCH (20:29)
[2018-04-23] MEDS: rOPINIRole 1 MG TABLET PO SCH (20:29)
[2018-04-23] MEDS: ZALEPLON 5 MG CAPSULE PO PRN (20:34)
[2018-04-23] MEDS: DEXTROSE 50% 25 GM/50 ML VIAL IV PRN (21:12)
[2018-04-24] MEDS: AZTREONAM 2,000 MG in SYRINGE 1 EACH IV SCH ×5 (00:20→23:24)
[2018-04-24] MEDS: SODIUM CHLORIDE 0.9% 1,000 ML IV SCH ×2 (03:39→18:42)
[2018-04-24 06:08] LABS: Basophils % 0.3 % (0.0-0.8); Eosinophils # 0.2 10*3/uL (0.0-0.87); Eosinophils % 1.9 % (0.00-10.9); Hematocrit 28.5 VOL% (35.7-47.0); Immature Granulocytes % 0.6 %; Immature Granulocytes Absolute 0.06 #; Lymphocytes # 2.2 10*3/uL (1.4-4.0); Lymphocytes % 20.9 % (21.3-54.2); Mean Corpuscular HGB Conc 35.1 GM/DL (32-36); Mean Corpuscular Hemoglobin 28 PG (27-34); Mean Corpuscular Volume 80.5 FL (87-102); Mean Platelet Volume 11.4 FL (9.6-12.0); Monocytes # 0.8 10*3/uL (0.11-0.8); Monocytes % 7.9 % (1.7-12.7); Neutrophils # 7.1 10*3/uL (1.4-7.4); Neutrophils % 68.4 % (38.7-73.9); Platelet Count 243 T/CUMM (130-400); Red Blood Count 3.54 MC/CUMM (3.8-5.5); Red Cell Distribution Width 13.1 % (9.3-17.3); White Blood Count 10.4 T/CUMM (4-12)
[2018-04-24] MEDS: LEVOTHYROXINE 75 MCG TABLET PO SCH (06:15)
[2018-04-24 06:20] LABS: Calcium 7.7 MG/DL (8.5-10.1); Osmolality,Calculated 277.8 MOS/KG (273-304); Potassium 3.6 MMOL/L (3.5-5.1)
[2018-04-24] MEDS: INSULIN LISPRO 100 UNIT/ML SUBCUT SCH ×4 (07:34→19:13)
[2018-04-24] MEDS: INSULIN REGULAR HUMAN SUBCUT SCH ×3 (07:35→16:39)
[2018-04-24] MEDS: THEOPHYLLINE ER (24 HR) 200 MG CAPSULE PO SCH (08:13)
[2018-04-24] MEDS: PANTOPRAZOLE 40 MG TABLET PO SCH (08:13)
[2018-04-24] MEDS: LOSARTAN 50 MG TABLET PO SCH (08:13)
[2018-04-24] MEDS: LINACLOTIDE 145 MCG CAPSULE PO SCH (08:14)
[2018-04-24] MEDS: FUROSEMIDE 40 MG TABLET PO SCH (08:14)
[2018-04-24] MEDS: amLODIPine 5 MG TABLET PO SCH (08:14)
[2018-04-24] MEDS: FOLIC ACID 0.4 MG TABLET PO SCH (08:14)
[2018-04-24] MEDS: METOPROLOL SUCCINATE XL 50 MG TABLET PO SCH (08:14)
[2018-04-24] MEDS: guaiFENesin/DM ER 600-30 MG TABLET PO SCH ×2 (08:15→20:44)
[2018-04-24] MEDS: AZITHROMYCIN INJ 250 MG in SODIUM CHLORIDE 0.9% 250 ML IV SCH (12:27)
[2018-04-24] MEDS: rOPINIRole 1 MG TABLET PO SCH (20:38)
[2018-04-24] MEDS: ZALEPLON 5 MG CAPSULE PO PRN (20:38)
[2018-04-24] MEDS: ATORVASTATIN 20 MG TABLET PO SCH (20:44)
[2018-04-24] MEDS: CITALOPRAM 40 MG TABLET PO SCH (20:44)
[2018-04-24] MEDS: ONDANSETRON 4 MG/2 ML VIAL IV PRN (21:34)
[2018-04-25] MEDS: ONDANSETRON 4 MG/2 ML VIAL IV PRN ×3 (01:55→21:19)
[2018-04-25] MEDS: DEXTROSE 50% 25 GM/50 ML VIAL IV PRN (02:00)
[2018-04-25] MEDS: LEVOTHYROXINE 75 MCG TABLET PO SCH (05:50)
[2018-04-25] MEDS: AZTREONAM 2,000 MG in SYRINGE 1 EACH IV SCH ×4 (05:58→23:44)
[2018-04-25] MEDS: SODIUM CHLORIDE 0.9% 1,000 ML IV SCH ×2 (05:58→19:21)
[2018-04-25] MEDS: LINACLOTIDE 145 MCG CAPSULE PO SCH (08:09)
[2018-04-25] MEDS: INSULIN LISPRO 100 UNIT/ML SUBCUT SCH ×4 (08:09→20:17)
[2018-04-25] MEDS: FUROSEMIDE 40 MG TABLET PO SCH (08:10)
[2018-04-25] MEDS: LOSARTAN 50 MG TABLET PO SCH (08:11)
[2018-04-25] MEDS: METOPROLOL SUCCINATE XL 50 MG TABLET PO SCH (08:11)
[2018-04-25] MEDS: FOLIC ACID 0.4 MG TABLET PO SCH (08:11)
[2018-04-25] MEDS: amLODIPine 5 MG TABLET PO SCH (08:11)
[2018-04-25] MEDS: THEOPHYLLINE ER (24 HR) 200 MG CAPSULE PO SCH (08:11)
[2018-04-25] MEDS: PANTOPRAZOLE 40 MG TABLET PO SCH (08:11)
[2018-04-25] MEDS: INSULIN REGULAR HUMAN SUBCUT SCH ×3 (08:12→16:17)
[2018-04-25] MEDS: guaiFENesin/DM ER 600-30 MG TABLET PO SCH (08:13)
[2018-04-25 08:54] LABS: Basophils % 0.3 % (0.0-0.8); Eosinophils # 0.3 10*3/uL (0.0-0.87); Eosinophils % 2.5 % (0.00-10.9); Hematocrit 28.9 VOL% (35.7-47.0); Hemoglobin 9.6 GM/DL (12.0-16.0); Immature Granulocytes % 0.9 %; Immature Granulocytes Absolute 0.09 #; Lymphocytes # 2.2 10*3/uL (1.4-4.0); Lymphocytes % 21.9 % (21.3-54.2); Mean Corpuscular HGB Conc 33.2 GM/DL (32-36); Mean Corpuscular Hemoglobin 28 PG (27-34); Mean Corpuscular Volume 83.5 FL (87-102); Mean Platelet Volume 11.6 FL (9.6-12.0); Monocytes # 0.7 10*3/uL (0.11-0.8); Monocytes % 6.5 % (1.7-12.7); Neutrophils # 6.7 10*3/uL (1.4-7.4); Neutrophils % 67.9 % (38.7-73.9); Platelet Count 269 T/CUMM (130-400); Red Blood Count 3.46 MC/CUMM (3.8-5.5); Red Cell Distribution Width 13.2 % (9.3-17.3); White Blood Count 9.9 T/CUMM (4-12)
[2018-04-25 09:25] LABS: Calcium 7.6 MG/DL (8.5-10.1); Osmolality,Calculated 283.7 MOS/KG (273-304); T4 (Thyroxine) 6.8 UG/DL (4.7-13.3)
[2018-04-25] MEDS: AZITHROMYCIN INJ 250 MG in SODIUM CHLORIDE 0.9% 250 ML IV SCH (11:09)
[2018-04-25] MEDS ORDERED: guaiFENesin 200 MG/10 ML UDCUP PO PRN (17:50)
[2018-04-25] MEDS: rOPINIRole 1 MG TABLET PO SCH (20:17)
[2018-04-25] MEDS: CITALOPRAM 40 MG TABLET PO SCH (20:18)
[2018-04-25] MEDS: ATORVASTATIN 20 MG TABLET PO SCH (20:18)
[2018-04-25] MEDS: ZALEPLON 5 MG CAPSULE PO PRN (22:45)
[2018-04-26 06:27] LABS: Calcium 7.5 MG/DL (8.5-10.1); Osmolality,Calculated 283.8 MOS/KG (273-304); Potassium 3.9 MMOL/L (3.5-5.1)
[2018-04-26] MEDS: AZTREONAM 2,000 MG in SYRINGE 1 EACH IV SCH ×2 (06:49→12:34)
[2018-04-26] MEDS: LEVOTHYROXINE 75 MCG TABLET PO SCH (06:49)
[2018-04-26] MEDS: SODIUM CHLORIDE 0.9% 1,000 ML IV SCH ×2 (06:55→09:13)
[2018-04-26 08:27] VITALS: BP 157/81
[2018-04-26] MEDS: FUROSEMIDE 40 MG TABLET PO SCH (09:09)
[2018-04-26] MEDS: METOPROLOL SUCCINATE XL 50 MG TABLET PO SCH (09:09)
[2018-04-26] MEDS: PANTOPRAZOLE 40 MG TABLET PO SCH (09:09)
[2018-04-26] MEDS: amLODIPine 5 MG TABLET PO SCH (09:09)
[2018-04-26] MEDS: FOLIC ACID 0.4 MG TABLET PO SCH (09:09)
[2018-04-26] MEDS: LINACLOTIDE 145 MCG CAPSULE PO SCH (09:09)
[2018-04-26] MEDS: THEOPHYLLINE ER (24 HR) 200 MG CAPSULE PO SCH (09:09)
[2018-04-26] MEDS: LOSARTAN 50 MG TABLET PO SCH (09:09)
[2018-04-26] MEDS: INSULIN LISPRO 100 UNIT/ML SUBCUT SCH ×2 (09:10→12:33)
[2018-04-26] MEDS: INSULIN REGULAR HUMAN SUBCUT SCH ×2 (09:12→12:36)
[2018-04-26] MEDS ORDERED: HEPARIN LOCK FLUSH 500 UNIT/5 ML SYRINGE IV PRN (12:18)
[2018-04-26] MEDS ORDERED: HEPARIN LOCK FLUSH 500 UNIT/5 ML SYRINGE IV SCH (12:30)
[2018-04-26] MEDS: AZITHROMYCIN INJ 250 MG in SODIUM CHLORIDE 0.9% 250 ML IV SCH (12:33)
== END 2018-04-26 12:37 | disposition home or self-care (01) | DRG 194 ==
LOC: N.EDINP 10:05 → N.ED 10:05 → N.2E 16:20

== ENCOUNTER 2018-11-24 16:05 | Observation (INO) ==
[2018-11-24] MEDS ORDERED: ONDANSETRON 4 MG/2 ML VIAL IV STA (17:41)
[2018-11-24] MEDS ORDERED: VANCOMYCIN INJ 1,000 MG in SODIUM CHLORIDE 0.9% 250 ML IV STA (17:41)
[2018-11-24] MEDS ORDERED: METOCLOPRAMIDE 10 MG/2 ML VIAL IV STA (17:41)
[2018-11-24] MEDS ORDERED: SODIUM CHLORIDE 0.9% 1,000 ML IV STA (17:41)
[2018-11-24] MEDS ORDERED: PANTOPRAZOLE 40 MG VIAL IV STA (17:41)
[2018-11-24 19:10] LABS: Basophils # 0.1 10*3/uL (0.0-0.2); Basophils % 0.4 % (0.0-0.8); Eosinophils # 0.5 10*3/uL (0.0-0.87); Eosinophils % 4.1 % (0.00-10.9); Hematocrit 29.8 VOL% (35.7-47.0); Hemoglobin 10.1 GM/DL (12.0-16.0); Immature Granulocytes % 0.7 %; Immature Granulocytes Absolute 0.08 #; Lymphocytes # 2.6 10*3/uL (1.4-4.0); Lymphocytes % 22.8 % (21.3-54.2); Mean Corpuscular HGB Conc 33.9 GM/DL (32-36); Mean Corpuscular Hemoglobin 27 PG (27-34); Monocytes # 0.9 10*3/uL (0.11-0.8); Monocytes % 7.4 % (1.7-12.7); Neutrophils # 7.5 10*3/uL (1.4-7.4); Neutrophils % 64.6 % (38.7-73.9); Platelet Count 272 T/CUMM (130-400); Red Blood Count 3.77 MC/CUMM (3.8-5.5); Red Cell Distribution Width 12.5 % (9.3-17.3); White Blood Count 11.6 T/CUMM (4-12)
[2018-11-24 19:30] LABS: INR 0.9; PT Patient Result 10.3 SECS; Partial Thromboplastin Time 32.2 SECS (0-40)
[2018-11-24 19:34] LABS: Alanine Aminotransferase 27 U/L (13-56); Albumin 2.1 G/DL (3.4-5.0); Alkaline Phosphatase 82 U/L (45-117); Aspartate Amino Transferase 24 U/L (0-37); Bilirubin,Total < 0.39 MG/DL (0.2-1.0); Blood Urea Nitrogen 22 MG/DL (7-18); Calcium 7.7 MG/DL (8.5-10.1); Glucose 115 MG/DL (74-106); Osmolality,Calculated 273.1 MOS/KG (273-304); Potassium 2.9 MMOL/L (3.5-5.1); Sodium 135 MMOL/L (136-145); Total Protein 6.3 G/DL (6.4-8.3)
[2018-11-24 20:56] LABS: Apearance,Urine Slightly Hazy (Clear); Bacteria,Urine Occasional /HPF (Few); Bilirubin,Urine Negative (Negative); Blood, Urine Moderate mg/dL (Negative); Glucose,Urine (UA) >=500 mg/dL (Negative); Hyaline Casts,Urine 7 /LPF (0-3); Ketones,Urine Negative (Negative); Mucus,Urine Occasional /LPF (Occasional); Nitrite,Urine Negative (Negative); Protein,Urine >=500 MG/DL; RBC,Urine 1 /HPF (0-4); Squamous Epithelial Cell,Urine Occasional /HPF (0-10); Urine Color Yellow (Yellow); Urine Specific Gravity 1.008 (1.001-1.035); Urine Urobilinogen < 2.0 EU/DL (0.2-1.0); WBC,Urine 2 /HPF (0-6)
[2018-11-24] MEDS ORDERED: MORPHINE 4 MG/1 ML VIAL IV PRN (22:12)
[2018-11-24] MEDS ORDERED: diphenhydrAMINE CAP 25 MG CAPSULE PO PRN (22:12)
[2018-11-24] MEDS ORDERED: ACETAMINOPHEN 325 MG TABLET PO PRN (22:12)
[2018-11-24] MEDS ORDERED: ONDANSETRON 4 MG/2 ML VIAL IV PRN (22:12)
[2018-11-24] MEDS ORDERED: BISACODYL 5 MG TABLET PO PRN (22:12)
[2018-11-24] MEDS ORDERED: GLUCAGON 1 MG VIAL IM PRN (22:12)
[2018-11-24] MEDS ORDERED: DEXTROSE 50% 25 GM/50 ML VIAL IV ONE (22:19)
[2018-11-24] MEDS ORDERED: LORazepam 1 MG TABLET PO PRN (22:35)
[2018-11-25] MEDS: KETOCONAZOLE 2% CREAM 30 GM TUBE TOP SCH ×2 (00:24→09:30)
[2018-11-25] MEDS ORDERED: INSULIN REGULAR 100 UNIT/ML SUBCUT SCH ×2 (02:00→08:00)
[2018-11-25] MEDS ORDERED: LEVOTHYROXINE 75 MCG TABLET PO SCH (06:30)
[2018-11-25 06:38] LABS: Basophils % 0.3 % (0.0-0.8); Eosinophils # 0.2 10*3/uL (0.0-0.87); Eosinophils % 1.4 % (0.00-10.9); Hematocrit 32.1 VOL% (35.7-47.0); Hemoglobin 10.5 GM/DL (12.0-16.0); Immature Granulocytes % 0.6 %; Immature Granulocytes Absolute 0.07 #; Lymphocytes # 2.5 10*3/uL (1.4-4.0); Lymphocytes % 21.4 % (21.3-54.2); Mean Corpuscular HGB Conc 32.7 GM/DL (32-36); Mean Corpuscular Hemoglobin 26 PG (27-34); Mean Corpuscular Volume 79.5 FL (87-102); Mean Platelet Volume 12.2 FL (9.6-12.0); Monocytes # 0.5 10*3/uL (0.11-0.8); Monocytes % 3.8 % (1.7-12.7); Neutrophils # 8.6 10*3/uL (1.4-7.4); Neutrophils % 72.5 % (38.7-73.9); Platelet Count 286 T/CUMM (130-400); Red Blood Count 4.04 MC/CUMM (3.8-5.5); Red Cell Distribution Width 12.6 % (9.3-17.3); White Blood Count 11.9 T/CUMM (4-12)
[2018-11-25 06:57] LABS: Alanine Aminotransferase 23 U/L (13-56); Alkaline Phosphatase 64 U/L (45-117); Aspartate Amino Transferase 20 U/L (0-37); Bilirubin,Total < 0.39 MG/DL (0.2-1.0); Blood Urea Nitrogen 20 MG/DL (7-18); Calcium 7.7 MG/DL (8.5-10.1); Glucose 141 MG/DL (74-106); Potassium 3.3 MMOL/L (3.5-5.1); Sodium 136 MMOL/L (136-145); Total Protein 5.9 G/DL (6.4-8.3)
[2018-11-25] MEDS ORDERED: THEOPHYLLINE ER 100 MG TABLET PO SCH (08:00)
[2018-11-25] MEDS ORDERED: CARVEDILOL 25 MG TABLET PO SCH (08:00)
[2018-11-25] MEDS ORDERED: FUROSEMIDE 40 MG TABLET PO SCH (09:00)
[2018-11-25] MEDS ORDERED: NON-FORMULARY MEDICATION (Linaclotide [Linzess] 72 MCG) PO SCH (09:00)
[2018-11-25] MEDS ORDERED: LOSARTAN 50 MG TABLET PO SCH (09:00)
[2018-11-25] MEDS ORDERED: ECONAZOLE NITRATE TOP SCH (09:00)
[2018-11-25] MEDS ORDERED: FERROUS SULFATE 325 MG TABLET PO SCH (09:00)
[2018-11-25] MEDS ORDERED: VILAZODONE HCL 20 MG PO SCH (09:00)
[2018-11-25] MEDS ORDERED: PANTOPRAZOLE 40 MG TABLET PO SCH (09:00)
[2018-11-25] MEDS ORDERED: FOLIC ACID 0.4 MG TABLET PO SCH (09:00)
[2018-11-25] MEDS ORDERED: ROSUVASTATIN 20 MG TABLET PO SCH (09:00)
[2018-11-25 11:25] VITALS: BP 148/79
[2018-11-25] MEDS ORDERED: CITALOPRAM 20 MG TABLET PO SCH (21:00)
[2018-11-25] MEDS ORDERED: HydrOXYzine PAMOATE 25 MG CAPSULE PO SCH (21:00)
[2018-11-25] MEDS ORDERED: EZETIMIBE 10 MG TABLET PO SCH (21:00)
[2018-11-25] MEDS ORDERED: rOPINIRole 1 MG TABLET PO SCH (21:00)
== END 2018-11-25 12:21 | disposition home or self-care (01) ==
LOC: N.ED 16:05 → N.EDINP 16:05 → N.2E 22:17
PROVIDERS: ADMIT Internal Medicine; ATTEND Internal Medicine

== ENCOUNTER 2018-11-27 05:49 | Inpatient (IN) ==
[2018-11-24 11:44] LABS: Basophils # 0.1 10*3/uL (0.0-0.2); Basophils % 0.6 % (0.0-0.8); Eosinophils # 0.4 10*3/uL (0.0-0.87); Eosinophils % 3.4 % (0.00-10.9); Hematocrit 37.1 VOL% (35.7-47.0); Hemoglobin 12.1 GM/DL (12.0-16.0); Immature Granulocytes % 0.5 %; Immature Granulocytes Absolute 0.06 #; Lymphocytes # 2.4 10*3/uL (1.4-4.0); Lymphocytes % 19.5 % (21.3-54.2); Mean Corpuscular HGB Conc 32.6 GM/DL (32-36); Mean Corpuscular Hemoglobin 27 PG (27-34); Mean Corpuscular Volume 81.2 FL (87-102); Mean Platelet Volume 11.4 FL (9.6-12.0); Monocytes # 0.7 10*3/uL (0.11-0.8); Monocytes % 5.5 % (1.7-12.7); Neutrophils # 8.5 10*3/uL (1.4-7.4); Neutrophils % 70.5 % (38.7-73.9); Platelet Count 311 T/CUMM (130-400); Red Blood Count 4.57 MC/CUMM (3.8-5.5); Red Cell Distribution Width 12.7 % (9.3-17.3); White Blood Count 12.1 T/CUMM (4-12)
[2018-11-24 12:02] LABS: Osmolality,Calculated 293.8 MOS/KG (273-304); Potassium 3.9 MMOL/L (3.5-5.1)
[2018-11-27] MEDS ORDERED: ceFAZolin 1,000 MG VIAL ONE (06:29)
[2018-11-27] MEDS ORDERED: LIDOCAINE 1%/EPI INJ 20 ML VIAL ONE (06:38)
[2018-11-27] MEDS: LACTATED RINGERS 1,000 ML IV SCH ×4 (06:55→22:17)
[2018-11-27] MEDS ORDERED: PROPOFOL 200 MG/20 ML VIAL IV ONE (09:16)
[2018-11-27] MEDS ORDERED: GLYCOPYRROLATE 0.4 MG/2 ML VIAL ONE ×2 (09:17)
[2018-11-27] MEDS ORDERED: ROCURONIUM 100 MG/10 ML VIAL IV ONE (09:17)
[2018-11-27] MEDS ORDERED: ONDANSETRON 4 MG/2 ML VIAL ONE (09:17)
[2018-11-27] MEDS ORDERED: PHENYLEPHRINE 1 MG/10 ML SYRINGE IV ONE (09:17)
[2018-11-27] MEDS ORDERED: NEOSTIGMINE 10 MG/10 ML VIAL ONE (09:18)
[2018-11-27] MEDS ORDERED: MIDAZOLAM 2 MG/2 ML VIAL ONE (09:19)
[2018-11-27] MEDS ORDERED: SEVOFLURANE 1 UNIT/15 MINUTE INH ONE (09:19)
[2018-11-27] MEDS ORDERED: ACETAMINOPHEN 325 MG TABLET PO PRN (09:24)
[2018-11-27] MEDS ORDERED: ALBUTEROL/IPRATROPIUM 3 ML NEB RESP TX PRN (09:24)
[2018-11-27] MEDS ORDERED: PROMETHAZINE 25 MG/1 ML VIAL IM PRN (09:24)
[2018-11-27] MEDS ORDERED: ONDANSETRON 4 MG/2 ML VIAL IV PRN ×2 (09:24)
[2018-11-27] MEDS ORDERED: MEPERIDINE 50 MG TABLET PO PRN (09:28)
[2018-11-27] MEDS ORDERED: MEPERIDINE 25 MG/1 ML VIAL IV PRN (09:28)
[2018-11-27] MEDS ORDERED: MEPERIDINE 50 MG/1 ML VIAL IV PRN (09:28)
[2018-11-27] MEDS ORDERED: LORazepam 1 MG TABLET PO PRN (09:29)
[2018-11-27] MEDS ORDERED: CYANOCOBALAMIN 1000 MCG/1 ML VIAL IM SCH (09:30)
[2018-11-27] MEDS ORDERED: DEXTROSE 50% 25 GM/50 ML VIAL IV PRN (09:30)
[2018-11-27] MEDS ORDERED: GLUCAGON 1 MG VIAL IM PRN (09:30)
[2018-11-27] MEDS: MEPERIDINE 50 MG TABLET PO PRN ×2 (10:28→18:03)
[2018-11-27] MEDS: INSULIN LISPRO 100 UNIT/ML SUBCUT SCH ×2 (12:39→18:03)
[2018-11-27] MEDS: VANCOMYCIN INJ 1,000 MG in SODIUM CHLORIDE 0.9% 250 ML IV SCH ×2 (12:39→22:16)
[2018-11-27] MEDS ORDERED: ECONAZOLE NITRATE TOP SCH (21:00)
[2018-11-27] MEDS ORDERED: rOPINIRole 1 MG TABLET PO SCH (21:00)
[2018-11-27] MEDS ORDERED: EZETIMIBE 10 MG TABLET PO SCH (21:00)
[2018-11-27] MEDS ORDERED: CITALOPRAM 40 MG TABLET PO SCH (21:00)
[2018-11-27] MEDS ORDERED: HydrOXYzine PAMOATE 50 MG CAPSULE PO SCH (21:00)
[2018-11-27] MEDS: CARVEDILOL 25 MG TABLET PO SCH (22:15)
[2018-11-27] MEDS: MUPIROCIN 2% OINT 22 GM TUBE TOP SCH (22:20)
[2018-11-27] MEDS: KETOCONAZOLE 2% CREAM 30 GM TUBE TOP SCH (22:20)
[2018-11-28 01:52] LABS: Basophils % 0.3 % (0.0-0.8); Eosinophils # 0.5 10*3/uL (0.0-0.87); Eosinophils % 3.4 % (0.00-10.9); Hematocrit 28.6 VOL% (35.7-47.0); Hemoglobin 9.2 GM/DL (12.0-16.0); Immature Granulocytes % 0.5 %; Immature Granulocytes Absolute 0.06 #; Lymphocytes # 3.2 10*3/uL (1.4-4.0); Lymphocytes % 24.3 % (21.3-54.2); Mean Corpuscular HGB Conc 32.2 GM/DL (32-36); Mean Corpuscular Hemoglobin 27 PG (27-34); Mean Corpuscular Volume 83.1 FL (87-102); Mean Platelet Volume 11.5 FL (9.6-12.0); Monocytes % 7.7 % (1.7-12.7); Neutrophils # 8.4 10*3/uL (1.4-7.4); Neutrophils % 63.8 % (38.7-73.9); Platelet Count 251 T/CUMM (130-400); Red Blood Count 3.44 MC/CUMM (3.8-5.5); Red Cell Distribution Width 13.6 % (9.3-17.3); White Blood Count 13.2 T/CUMM (4-12)
[2018-11-28 02:18] LABS: Calcium 7.5 MG/DL (8.5-10.1); Osmolality,Calculated 283.7 MOS/KG (273-304); Potassium 3.5 MMOL/L (3.5-5.1)
[2018-11-28] MEDS ORDERED: LEVOTHYROXINE 75 MCG TABLET PO SCH (07:00)
[2018-11-28] MEDS ORDERED: CHOLECALCIFEROL 1,000 UNIT TABLET PO SCH (09:00)
[2018-11-28] MEDS ORDERED: FOLIC ACID 0.4 MG TABLET PO SCH (09:00)
[2018-11-28] MEDS ORDERED: ROSUVASTATIN 20 MG TABLET PO SCH (09:00)
[2018-11-28] MEDS ORDERED: NON-FORMULARY MEDICATION (Linaclotide [Linzess] 72 MCG) PO SCH (09:00)
[2018-11-28] MEDS ORDERED: LOSARTAN 50 MG TABLET PO SCH (09:00)
[2018-11-28] MEDS ORDERED: PANTOPRAZOLE 40 MG TABLET PO SCH (09:00)
[2018-11-28] MEDS ORDERED: VILAZODONE HCL 20 MG PO SCH (09:00)
[2018-11-28] MEDS: INSULIN LISPRO 100 UNIT/ML SUBCUT SCH ×2 (09:21→12:27)
[2018-11-28] MEDS: MUPIROCIN 2% OINT 22 GM TUBE TOP SCH (09:22)
[2018-11-28] MEDS: CARVEDILOL 25 MG TABLET PO SCH (09:22)
[2018-11-28] MEDS: KETOCONAZOLE 2% CREAM 30 GM TUBE TOP SCH (09:23)
[2018-11-28 11:51] VITALS: BP 133/93
== END 2018-11-28 12:30 | disposition home or self-care (01) | DRG 41 ==
LOC: N.OR 05:49 → N.SDSINP 05:49 → N.3E 09:24
PROVIDERS: ADMIT Surgery; ATTEND Surgery

== ENCOUNTER 2019-08-31 21:01 | Inpatient (IN) ==
[2019-08-31] MEDS ORDERED: cefTRIAXone 1,000 MG in SODIUM CHLORIDE 0.9% 100 ML IV STA (21:36)
[2019-08-31] MEDS ORDERED: SODIUM CHLORIDE 0.9% 500 ML IV STA (21:36)
[2019-08-31 22:39] LABS: Basophils # 0.1 10*3/uL (0.0-0.2); Basophils % 0.5 % (0.0-0.8); Eosinophils # 0.6 10*3/uL (0.0-0.87); Eosinophils % 4.9 % (0.00-10.9); Hematocrit 27.4 VOL% (35.7-47.0); Hemoglobin 8.8 GM/DL (12.0-16.0); Immature Granulocytes % 1.3 %; Immature Granulocytes Absolute 0.17 #; Lymphocytes % 22.9 % (21.3-54.2); Mean Corpuscular HGB Conc 32.1 GM/DL (32-36); Mean Corpuscular Volume 81.1 FL (87-102); Mean Platelet Volume 10.8 FL (9.6-12.0); Monocytes % 5.8 % (1.7-12.7); Neutrophils % 64.6 % (38.7-73.9); Platelet Count 375 T/CUMM (130-400); Red Blood Count 3.38 MC/CUMM (3.8-5.5); Red Cell Distribution Width 13.8 % (9.3-17.3); White Blood Count 13.1 T/CUMM (4-12)
[2019-08-31 22:46] LABS: INR 0.9; PT Patient Result 9.6 SECS (9.6-12.2)
[2019-08-31 23:08] LABS: Alanine Aminotransferase 14 U/L (13-56); Albumin 1.5 G/DL (3.4-5.0); Alkaline Phosphatase 84 U/L (45-117); Aspartate Amino Transferase 20 U/L (0-37); Bilirubin,Total < 0.39 MG/DL (0.2-1.0); Blood Urea Nitrogen 42 MG/DL (7-18); Calcium 7.9 MG/DL (8.5-10.1); Estimated Glom Filtration Rate 18 ML/MIN; Glucose 58 MG/DL (74-106); Osmolality,Calculated 289.3 MOS/KG (273-304); Total Protein 5.9 G/DL (6.4-8.3); Troponin I < 0.015 NG/ML (0.00-0.045)
[2019-08-31] MEDS ORDERED: DEXTROSE 50% 25 GM/50 ML VIAL IV STA ×2 (23:11→23:55)
[2019-08-31] MEDS ORDERED: DEXTROSE 50% 25 GM/50 ML SYRINGE IV ONE ×2 (23:12→23:53)
[2019-08-31] MEDS ORDERED: hydrALAZINE 20 MG/1 ML VIAL IV STA (23:42)
[2019-09-01 00:31] LABS: Apearance,Urine CLOUDY (Clear); Bacteria,Urine Few /HPF (Few); Bilirubin,Urine Negative (Negative); Blood, Urine Small mg/dL (Negative); Glucose,Urine (UA) >=500 mg/dL (Negative); Ketones,Urine Negative (Negative); Nitrite,Urine Negative (Negative); Protein,Urine >=500 MG/DL; Squamous Epithelial Cell,Urine Occasional /HPF (0-10); Urine Color Yellow (Yellow); Urine Specific Gravity 1.012 (1.001-1.035); Urine Urobilinogen < 2.0 EU/DL (0.2-1.0); WBC,Urine 30 /HPF (0-6)
[2019-09-01] MEDS ORDERED: hydrALAZINE 20 MG/1 ML VIAL IV STA (00:58)
[2019-09-01] MEDS ORDERED: PROMETHAZINE 25 MG TABLET PO PRN (01:42)
[2019-09-01] MEDS ORDERED: DEXTROSE 50% 25 GM/50 ML VIAL IV PRN (01:42)
[2019-09-01] MEDS ORDERED: ACETAMINOPHEN 325 MG TABLET PO PRN (01:42)
[2019-09-01] MEDS ORDERED: NITROGLYCERIN SL 0.4 MG TABLET SL PRN (01:42)
[2019-09-01] MEDS ORDERED: LORazepam 1 MG TABLET PO PRN (01:42)
[2019-09-01] MEDS ORDERED: ONDANSETRON 4 MG/2 ML VIAL IV PRN (01:42)
[2019-09-01] MEDS ORDERED: MECLIZINE 25 MG TABLET PO PRN (01:42)
[2019-09-01] MEDS ORDERED: GLUCAGON 1 MG VIAL IM PRN (01:42)
[2019-09-01] MEDS: SODIUM CHLORIDE 0.9% 1,000 ML IV SCH ×2 (02:28→17:41)
[2019-09-01] MEDS ORDERED: BUTALBITAL/ACETAMIN/CAFFEINE 50-325-40 MG TABLET PO SCH (06:00)
[2019-09-01 06:55] LABS: Basophils # 0.1 10*3/uL (0.0-0.2); Basophils % 0.4 % (0.0-0.8); Eosinophils # 0.5 10*3/uL (0.0-0.87); Eosinophils % 3.4 % (0.00-10.9); Hematocrit 24.8 VOL% (35.7-47.0); Hemoglobin 7.9 GM/DL (12.0-16.0); Immature Granulocytes Absolute 0.29 #; Lymphocytes # 2.7 10*3/uL (1.4-4.0); Lymphocytes % 19.2 % (21.3-54.2); Mean Corpuscular HGB Conc 31.9 GM/DL (32-36); Mean Corpuscular Volume 82.1 FL (87-102); Mean Platelet Volume 11.3 FL (9.6-12.0); Monocytes % 5.4 % (1.7-12.7); Neutrophils % 69.6 % (38.7-73.9); Platelet Count 347 T/CUMM (130-400); Red Blood Count 3.02 MC/CUMM (3.8-5.5); White Blood Count 14.2 T/CUMM (4-12)
[2019-09-01] MEDS: INSULIN REGULAR 100 UNIT/ML SUBCUT SCH ×3 (06:57→18:04)
[2019-09-01] MEDS: LEVOTHYROXINE 100 MCG TABLET PO SCH (07:01)
[2019-09-01 07:24] LABS: Alanine Aminotransferase 11 U/L (13-56); Albumin 1.5 G/DL (3.4-5.0); Alkaline Phosphatase 71 U/L (45-117); Aspartate Amino Transferase 15 U/L (0-37); Bilirubin,Total < 0.39 MG/DL (0.2-1.0); Blood Urea Nitrogen 43 MG/DL (7-18); Calcium 7.9 MG/DL (8.5-10.1); Estimated Glom Filtration Rate 19 ML/MIN; Glucose 172 MG/DL (74-106); HDL Cholesterol 39 MG/DL (40-60); Osmolality,Calculated 297.1 MOS/KG (273-304); Risk Ratio 8.13; Total Protein 5.6 G/DL (6.4-8.3); Triglycerides 242 MG/DL (2-150); VLDL CHOLESTEROL 48.4 MG/DL
[2019-09-01] MEDS: DOCUSATE SODIUM 100 MG CAPSULE PO SCH ×2 (08:36→21:42)
[2019-09-01] MEDS: GABAPENTIN 300 MG CAPSULE PO SCH ×3 (08:36→21:42)
[2019-09-01] MEDS: ASPIRIN 325 MG TABLET PO SCH (08:36)
[2019-09-01] MEDS: FERROUS SULFATE 325 MG TABLET PO SCH ×2 (08:37→21:42)
[2019-09-01] MEDS: FOLIC ACID 0.4 MG TABLET PO SCH (08:37)
[2019-09-01] MEDS: PANTOPRAZOLE 40 MG TABLET PO SCH (08:37)
[2019-09-01] MEDS: carvediloL 25 MG TABLET PO SCH ×2 (08:37→21:42)
[2019-09-01] MEDS: CHOLECALCIFEROL 1,000 UNIT TABLET PO SCH (08:37)
[2019-09-01] MEDS: VILAZODONE 20 MG PO SCH (08:38)
[2019-09-01] MEDS ORDERED: INSULIN REGULAR HUM U SUBCUT SCH (09:00)
[2019-09-01 12:42] LABS: Basophils # 0.1 10*3/uL (0.0-0.2); Basophils % 0.5 % (0.0-0.8); Eosinophils # 0.5 10*3/uL (0.0-0.87); Eosinophils % 3.8 % (0.00-10.9); Hemoglobin 7.8 GM/DL (12.0-16.0); Immature Granulocytes % 1.8 %; Immature Granulocytes Absolute 0.22 #; Lymphocytes # 2.6 10*3/uL (1.4-4.0); Lymphocytes % 22.2 % (21.3-54.2); Mean Corpuscular HGB Conc 31.2 GM/DL (32-36); Mean Corpuscular Volume 83.6 FL (87-102); Mean Platelet Volume 11.1 FL (9.6-12.0); Monocytes % 5.6 % (1.7-12.7); Neutrophils % 66.1 % (38.7-73.9); Platelet Count 324 T/CUMM (130-400); Red Blood Count 2.99 MC/CUMM (3.8-5.5); Red Cell Distribution Width 14.2 % (9.3-17.3); White Blood Count 11.9 T/CUMM (4-12)
[2019-09-01 13:09] LABS: % Iron Saturation 18.2 % (18-50)
[2019-09-01 13:32] LABS: Folate 11.4 NG/ML (5.4-24.0); Vitamin B12 1511 PG/ML (211-911)
[2019-09-01 13:46] LABS: Sedimentation Rate-Westergren 127 MM/HR (0-20)
[2019-09-01] MEDS ORDERED: INSULIN DEGLUDEC 15 UNIT SUBCUT SCH (21:00)
[2019-09-01] MEDS: rOPINIRole 1 MG TABLET PO SCH (21:42)
[2019-09-01] MEDS: HydrOXYzine PAMOATE 50 MG CAPSULE PO SCH (21:42)
[2019-09-01] MEDS: ROSUVASTATIN 20 MG TABLET PO SCH (21:42)
[2019-09-01] MEDS ORDERED: cefTRIAXone 1,000 MG in SYRINGE 1 EACH IV SCH (23:00)
[2019-09-02] MEDS: INSULIN REGULAR 100 UNIT/ML SUBCUT SCH ×5 (00:15→23:33)
[2019-09-02] MEDS: LEVOTHYROXINE 100 MCG TABLET PO SCH (05:49)
[2019-09-02 06:08] LABS: Basophils # 0.1 10*3/uL (0.0-0.2); Basophils % 0.4 % (0.0-0.8); Eosinophils # 0.5 10*3/uL (0.0-0.87); Eosinophils % 4.5 % (0.00-10.9); Hematocrit 25.1 VOL% (35.7-47.0); Hemoglobin 7.8 GM/DL (12.0-16.0); Immature Granulocytes % 2.1 %; Immature Granulocytes Absolute 0.24 #; Lymphocytes # 2.8 10*3/uL (1.4-4.0); Lymphocytes % 24.3 % (21.3-54.2); Mean Corpuscular HGB Conc 31.1 GM/DL (32-36); Mean Corpuscular Volume 83.1 FL (87-102); Mean Platelet Volume 11.2 FL (9.6-12.0); Monocytes % 5.9 % (1.7-12.7); Neutrophils % 62.8 % (38.7-73.9); Platelet Count 323 T/CUMM (130-400); Red Blood Count 3.02 MC/CUMM (3.8-5.5); Red Cell Distribution Width 14.1 % (9.3-17.3); White Blood Count 11.3 T/CUMM (4-12)
[2019-09-02 06:42] LABS: Calcium 7.7 MG/DL (8.5-10.1); Osmolality,Calculated 293.7 MOS/KG (273-304)
[2019-09-02 07:22] LABS: Hemoglobin A1 (Alkaline) 97.2 % (96.5-98.5); Hemoglobin A2 (Alkaline) 2.8 % (1.5-3.5)
[2019-09-02] MEDS: DOCUSATE SODIUM 100 MG CAPSULE PO SCH ×2 (08:19→21:16)
[2019-09-02] MEDS: carvediloL 25 MG TABLET PO SCH ×2 (08:19→21:16)
[2019-09-02] MEDS: ASPIRIN 325 MG TABLET PO SCH (08:19)
[2019-09-02] MEDS: CHOLECALCIFEROL 1,000 UNIT TABLET PO SCH (08:19)
[2019-09-02] MEDS: FOLIC ACID 0.4 MG TABLET PO SCH (08:19)
[2019-09-02] MEDS: PANTOPRAZOLE 40 MG TABLET PO SCH (08:19)
[2019-09-02] MEDS: FERROUS SULFATE 325 MG TABLET PO SCH ×2 (08:19→21:16)
[2019-09-02] MEDS: GABAPENTIN 300 MG CAPSULE PO SCH ×3 (08:19→21:16)
[2019-09-02] MEDS: VILAZODONE 20 MG PO SCH (08:19)
[2019-09-02] MEDS: IRON SUCROSE 200 MG in SODIUM CHLORIDE 0.9% 100 ML IV SCH (08:58)
[2019-09-02] MEDS: SODIUM CHLORIDE 0.9% 1,000 ML IV SCH (10:54)
[2019-09-02] MEDS ORDERED: ceFAZolin 2,000 MG in PREMIX 1 EACH IV SCH (15:00)
[2019-09-02] MEDS: FUROSEMIDE 40 MG TABLET PO SCH (16:27)
[2019-09-02] MEDS: ROSUVASTATIN 20 MG TABLET PO SCH (21:16)
[2019-09-02] MEDS: HydrOXYzine PAMOATE 50 MG CAPSULE PO SCH (21:16)
[2019-09-02] MEDS: rOPINIRole 1 MG TABLET PO SCH (21:16)
[2019-09-02] MEDS: INSULIN GLARGINE 100 UNIT/ML SUBCUT SCH (21:16)
[2019-09-02] MEDS: HEPARIN 5,000 UNIT/1 ML VIAL SUBCUT SCH (21:21)
[2019-09-03] MEDS ORDERED: ceFAZolin 1,000 MG in SYRINGE 1 EACH IV SCH (03:00)
[2019-09-03] MEDS: LEVOTHYROXINE 100 MCG TABLET PO SCH (05:40)
[2019-09-03] MEDS: HEPARIN 5,000 UNIT/1 ML VIAL SUBCUT SCH ×3 (05:41→22:02)
[2019-09-03] MEDS: INSULIN REGULAR 100 UNIT/ML SUBCUT SCH ×3 (05:46→17:15)
[2019-09-03] MEDS: SODIUM CHLORIDE 0.9% 1,000 ML IV SCH ×2 (05:47→20:20)
[2019-09-03] MEDS: FERROUS SULFATE 325 MG TABLET PO SCH ×2 (08:37→20:31)
[2019-09-03] MEDS: DOCUSATE SODIUM 100 MG CAPSULE PO SCH ×2 (08:37→20:32)
[2019-09-03] MEDS: FUROSEMIDE 40 MG TABLET PO SCH ×2 (08:37→17:10)
[2019-09-03] MEDS: PANTOPRAZOLE 40 MG TABLET PO SCH (08:37)
[2019-09-03] MEDS: FOLIC ACID 0.4 MG TABLET PO SCH (08:37)
[2019-09-03] MEDS: carvediloL 25 MG TABLET PO SCH ×2 (08:38→20:32)
[2019-09-03] MEDS: GABAPENTIN 300 MG CAPSULE PO SCH ×3 (08:38→20:32)
[2019-09-03] MEDS: VILAZODONE 20 MG PO SCH (08:38)
[2019-09-03] MEDS: ASPIRIN 325 MG TABLET PO SCH (08:38)
[2019-09-03] MEDS: CHOLECALCIFEROL 1,000 UNIT TABLET PO SCH (08:38)
[2019-09-03] MEDS: IRON SUCROSE 200 MG in SODIUM CHLORIDE 0.9% 100 ML IV SCH (08:42)
[2019-09-03] MEDS ORDERED: EPOETIN ALFA 10,000 UNIT/1 ML VIAL SUBCUT ONE (09:13)
[2019-09-03] MEDS ORDERED: ERGOCALCIFEROL 50,000 UNIT CAPSULE PO ONE (09:19)
[2019-09-03] MEDS: CLINDAMYCIN INJ 600 MG in PREMIX 1 EACH IV SCH ×2 (17:10→22:02)
[2019-09-03] MEDS: ROSUVASTATIN 20 MG TABLET PO SCH (20:31)
[2019-09-03] MEDS: rOPINIRole 1 MG TABLET PO SCH (20:31)
[2019-09-03] MEDS: INSULIN GLARGINE 100 UNIT/ML SUBCUT SCH (20:32)
[2019-09-03] MEDS: HydrOXYzine PAMOATE 50 MG CAPSULE PO SCH (20:32)
[2019-09-04] MEDS: INSULIN REGULAR 100 UNIT/ML SUBCUT SCH ×2 (00:26→06:13)
[2019-09-04 04:50] LABS: Basophils # 0.1 10*3/uL (0.0-0.2); Basophils % 0.4 % (0.0-0.8); Eosinophils # 0.6 10*3/uL (0.0-0.87); Hematocrit 24.6 VOL% (35.7-47.0); Hemoglobin 7.6 GM/DL (12.0-16.0); Immature Granulocytes % 3.3 %; Immature Granulocytes Absolute 0.37 #; Lymphocytes # 2.5 10*3/uL (1.4-4.0); Lymphocytes % 22.1 % (21.3-54.2); Mean Corpuscular HGB Conc 30.9 GM/DL (32-36); Mean Corpuscular Volume 84.5 FL (87-102); Mean Platelet Volume 11.6 FL (9.6-12.0); Neutrophils % 64.2 % (38.7-73.9); Platelet Count 302 T/CUMM (130-400); Red Blood Count 2.91 MC/CUMM (3.8-5.5); Red Cell Distribution Width 14.2 % (9.3-17.3); White Blood Count 11.2 T/CUMM (4-12)
[2019-09-04 05:07] LABS: Calcium 7.9 MG/DL (8.5-10.1)
[2019-09-04] MEDS: HEPARIN 5,000 UNIT/1 ML VIAL SUBCUT SCH (06:10)
[2019-09-04] MEDS: CLINDAMYCIN INJ 600 MG in PREMIX 1 EACH IV SCH (06:10)
[2019-09-04] MEDS: LEVOTHYROXINE 100 MCG TABLET PO SCH (06:26)
[2019-09-04] MEDS ORDERED: CHOLECALCIFEROL 1,000 UNIT TABLET PO SCH (09:00)
[2019-09-04] MEDS: FOLIC ACID 0.4 MG TABLET PO SCH (09:04)
[2019-09-04] MEDS: VILAZODONE 20 MG PO SCH (09:04)
[2019-09-04] MEDS: ASPIRIN 325 MG TABLET PO SCH (09:04)
[2019-09-04] MEDS: PANTOPRAZOLE 40 MG TABLET PO SCH (09:04)
[2019-09-04] MEDS: FERROUS SULFATE 325 MG TABLET PO SCH (09:04)
[2019-09-04] MEDS: DOCUSATE SODIUM 100 MG CAPSULE PO SCH (09:04)
[2019-09-04] MEDS: GABAPENTIN 300 MG CAPSULE PO SCH (09:04)
[2019-09-04] MEDS: FUROSEMIDE 40 MG TABLET PO SCH (09:04)
[2019-09-04] MEDS: carvediloL 25 MG TABLET PO SCH (09:04)
[2019-09-04] MEDS: IRON SUCROSE 200 MG in SODIUM CHLORIDE 0.9% 100 ML IV SCH (09:09)
[2019-09-04 10:43] VITALS: BP 128/61
[2019-09-04] MEDS ORDERED: HEPARIN LOCK FLUSH 500 UNIT/5 ML SYRINGE IV ONE (11:13)
[2019-09-04] MEDS ORDERED: CLINDAMYCIN 150 MG CAPSULE PO SCH (14:00)
[2019-09-22] MEDS ORDERED: CYANOCOBALAMIN 1000 MCG/1 ML VIAL IM SCH (09:00)
== END 2019-09-04 11:45 | disposition home health service (06) | DRG 602 ==
LOC: N.EDINP 21:01 → N.ED 21:01 → SUATTDRO 09-01 00:33 → N.5E 09-01 01:07
PROVIDERS: ADMIT Internal Medicine; ATTEND Hospitalist

== ENCOUNTER 2019-09-05 16:19 | Inpatient (IN) ==
[2019-09-05] MEDS ORDERED: CLINDAMYCIN INJ 900 MG in PREMIX 1 EACH IV STA (17:27)
[2019-09-05 18:19] LABS: Basophils # 0.1 10*3/uL (0.0-0.2); Basophils % 0.5 % (0.0-0.8); Eosinophils # 0.6 10*3/uL (0.0-0.87); Eosinophils % 3.1 % (0.00-10.9); Hematocrit 24.9 VOL% (35.7-47.0); Hemoglobin 7.5 GM/DL (12.0-16.0); Immature Granulocytes % 4.6 %; Immature Granulocytes Absolute 0.82 #; Lymphocytes # 3.9 10*3/uL (1.4-4.0); Lymphocytes % 21.7 % (21.3-54.2); Mean Corpuscular HGB Conc 30.1 GM/DL (32-36); Mean Corpuscular Volume 86.2 FL (87-102); Mean Platelet Volume 10.8 FL (9.6-12.0); Monocytes % 5.8 % (1.7-12.7); NRBC # 0.03 10*3/uL; Neutrophils % 64.3 % (38.7-73.9); Platelet Count 306 T/CUMM (130-400); Red Blood Count 2.89 MC/CUMM (3.8-5.5); White Blood Count 17.9 T/CUMM (4-12)
[2019-09-05 18:29] LABS: INR 0.9; PT Patient Result 9.8 SECS (9.6-12.2); Partial Thromboplastin Time 28.2 SECS (20.8-36.0)
[2019-09-05 18:38] LABS: Apearance,Urine CLOUDY (Clear); Bilirubin,Urine Negative (Negative); Blood, Urine Small mg/dL (Negative); Glucose,Urine (UA) >=500 mg/dL (Negative); Ketones,Urine Negative (Negative); Nitrite,Urine Negative (Negative); Protein,Urine >=500 MG/DL; Urine Color Yellow (Yellow); Urine Specific Gravity 1.012 (1.001-1.035); Urine Urobilinogen < 2.0 EU/DL (0.2-1.0); WBC,Urine 4 /HPF (0-6)
[2019-09-05 18:39] LABS: Alanine Aminotransferase < 6 U/L (13-56); Albumin 1.8 G/DL (3.4-5.0); Alkaline Phosphatase 78 U/L (45-117); Aspartate Amino Transferase 13 U/L (0-37); Bilirubin,Total < 0.39 MG/DL (0.2-1.0); Blood Urea Nitrogen 54 MG/DL (7-18); Estimated Glom Filtration Rate 15 ML/MIN; Glucose 92 MG/DL (74-106); Osmolality,Calculated 302.7 MOS/KG (273-304); Total Protein 5.3 G/DL (6.4-8.3)
[2019-09-05 18:41] LABS: Band Neutrophils 1 % (0-10); Eosinophils 3 % (0-10); Lymphocytes 21 % (20-55); Platelet Estimate Normal; Segmented Neutrophils 70 % (50-85); Total Cells Counted 100
[2019-09-05 18:43] LABS: Anisocytosis 1+; Hypochromasia 1+; Microcytosis 1+; Ovalocytes Slight; Poikilocytosis 1+
[2019-09-05 18:45] LABS: Free T4 (Free Thyroxine) 0.85 NG/DL (0.76-1.46); Troponin I < 0.015 NG/ML (0.00-0.045)
[2019-09-05 19:01] LABS: Barbiturates Screen,Urine Positive (Negative); Benzodiazepines Screen,Urine Negative (Negative); Cannabinoid Screen,Urine Negative (Negative); Opiate Screen,Urine Negative (Negative); Phencyclidine Screen,Urine Negative (Negative)
[2019-09-05] MEDS ORDERED: DOCUSATE SODIUM 100 MG CAPSULE PO PRN (19:32)
[2019-09-05] MEDS ORDERED: DEXTROSE 50% 25 GM/50 ML VIAL IV PRN (19:32)
[2019-09-05] MEDS ORDERED: ONDANSETRON 4 MG/2 ML VIAL IV PRN (19:32)
[2019-09-05] MEDS ORDERED: GLUCAGON 1 MG VIAL IM PRN (19:32)
[2019-09-05] MEDS ORDERED: LACTULOSE 20 GM/30 ML UDCUP PO PRN (19:32)
[2019-09-05] MEDS ORDERED: NITROGLYCERIN SL 0.4 MG TABLET SL PRN (19:46)
[2019-09-05] MEDS: SODIUM CHLORIDE 0.45% 1,000 ML IV SCH (22:25)
[2019-09-05] MEDS: CEFTAROLINE 300 MG in SODIUM CHLORIDE 0.9% 100 ML IV SCH (22:26)
[2019-09-05] MEDS: INSULIN REGULAR 100 UNIT/ML SUBCUT SCH (22:26)
[2019-09-05] MEDS: carvediloL 25 MG TABLET PO SCH (22:26)
[2019-09-05] MEDS: HEPARIN 5,000 UNIT/1 ML VIAL SUBCUT SCH (22:26)
[2019-09-06] MEDS: HEPARIN 5,000 UNIT/1 ML VIAL SUBCUT SCH ×3 (04:32→22:00)
[2019-09-06 04:44] LABS: Basophils # 0.1 10*3/uL (0.0-0.2); Basophils % 0.5 % (0.0-0.8); Eosinophils # 0.5 10*3/uL (0.0-0.87); Eosinophils % 2.8 % (0.00-10.9); Hematocrit 26.2 VOL% (35.7-47.0); Immature Granulocytes % 4.9 %; Lymphocytes # 3.2 10*3/uL (1.4-4.0); Lymphocytes % 17.2 % (21.3-54.2); Mean Corpuscular HGB Conc 30.5 GM/DL (32-36); Mean Corpuscular Volume 84.5 FL (87-102); Mean Platelet Volume 11.5 FL (9.6-12.0); Monocytes % 4.7 % (1.7-12.7); NRBC # 0.03 10*3/uL; Neutrophils % 69.9 % (38.7-73.9); Platelet Count 317 T/CUMM (130-400); White Blood Count 18.3 T/CUMM (4-12)
[2019-09-06 04:56] LABS: Calcium 8.3 MG/DL (8.5-10.1); Osmolality,Calculated 303.1 MOS/KG (273-304)
[2019-09-06] MEDS: LEVOTHYROXINE 100 MCG TABLET PO SCH (06:39)
[2019-09-06 07:21] LABS: Eosinophils 4 % (0-10); Lymphocytes 16 % (20-55); Metamyelocytes 2 %; Myelocytes 2 %; Segmented Neutrophils 72 % (50-85); Total Cells Counted 100
[2019-09-06 07:29] LABS: Platelet Estimate Normal
[2019-09-06] MEDS ORDERED: HUMULIN R U-500 KWIKPEN SUBCUT SCH (09:00)
[2019-09-06] MEDS: INSULIN REGULAR 100 UNIT/ML SUBCUT SCH ×4 (09:09→21:33)
[2019-09-06] MEDS: PANTOPRAZOLE 40 MG TABLET PO SCH (09:10)
[2019-09-06] MEDS: CEFTAROLINE 300 MG in SODIUM CHLORIDE 0.9% 100 ML IV SCH ×2 (09:10→22:18)
[2019-09-06] MEDS: carvediloL 25 MG TABLET PO SCH ×2 (09:10→17:02)
[2019-09-06] MEDS: CHOLECALCIFEROL 1,000 UNIT TABLET PO SCH (13:08)
[2019-09-06] MEDS: ROSUVASTATIN 20 MG TABLET PO SCH (13:08)
[2019-09-06] MEDS: DOCUSATE SODIUM 100 MG CAPSULE PO SCH ×2 (13:09→22:01)
[2019-09-06] MEDS: SODIUM CHLORIDE 0.45% 1,000 ML IV SCH (13:09)
[2019-09-06] MEDS: HUMULIN R U-500 KWIKPEN SUBCUT SCH (16:46)
[2019-09-06] MEDS ORDERED: GABAPENTIN 300 MG CAPSULE PO ONE (21:43)
[2019-09-06] MEDS: FOLIC ACID 1 MG TABLET PO SCH (22:00)
[2019-09-06] MEDS: rOPINIRole 1 MG TABLET PO SCH (22:00)
[2019-09-07] MEDS: SODIUM CHLORIDE 0.45% 1,000 ML IV SCH ×2 (04:26→20:21)
[2019-09-07] MEDS: HEPARIN 5,000 UNIT/1 ML VIAL SUBCUT SCH ×3 (04:27→20:22)
[2019-09-07 05:02] LABS: Basophils # 0.1 10*3/uL (0.0-0.2); Basophils % 0.5 % (0.0-0.8); Eosinophils # 0.6 10*3/uL (0.0-0.87); Eosinophils % 3.7 % (0.00-10.9); Hematocrit 24.7 VOL% (35.7-47.0); Hemoglobin 7.4 GM/DL (12.0-16.0); Immature Granulocytes % 4.9 %; Immature Granulocytes Absolute 0.77 #; Lymphocytes # 3.2 10*3/uL (1.4-4.0); Lymphocytes % 20.4 % (21.3-54.2); Mean Corpuscular Volume 84.9 FL (87-102); Mean Platelet Volume 11.4 FL (9.6-12.0); NRBC # 0.06 10*3/uL; Neutrophils % 64.5 % (38.7-73.9); Platelet Count 299 T/CUMM (130-400); Red Blood Count 2.91 MC/CUMM (3.8-5.5); Red Cell Distribution Width 14.8 % (9.3-17.3); White Blood Count 15.7 T/CUMM (4-12)
[2019-09-07 05:19] LABS: Calcium 8.3 MG/DL (8.5-10.1); Osmolality,Calculated 302.8 MOS/KG (273-304)
[2019-09-07 05:32] LABS: Eosinophils 3 % (0-10); Hypochromasia 1+; Lymphocytes 17 % (20-55); Metamyelocytes 1 %; Myelocytes 1 %; Segmented Neutrophils 76 % (50-85); Total Cells Counted 100
[2019-09-07 05:33] LABS: Microcytosis 1+; Platelet Estimate Normal
[2019-09-07] MEDS: LEVOTHYROXINE 100 MCG TABLET PO SCH (06:08)
[2019-09-07] MEDS: INSULIN REGULAR 100 UNIT/ML SUBCUT SCH ×4 (08:30→20:23)
[2019-09-07] MEDS: carvediloL 25 MG TABLET PO SCH ×2 (09:27→16:41)
[2019-09-07] MEDS: DOCUSATE SODIUM 100 MG CAPSULE PO SCH ×2 (09:27→20:23)
[2019-09-07] MEDS: ROSUVASTATIN 20 MG TABLET PO SCH (09:27)
[2019-09-07] MEDS: GABAPENTIN 100 MG CAPSULE PO SCH ×3 (09:27→20:23)
[2019-09-07] MEDS: PANTOPRAZOLE 40 MG TABLET PO SCH (09:27)
[2019-09-07] MEDS: HUMULIN R U-500 KWIKPEN SUBCUT SCH ×2 (09:27→17:52)
[2019-09-07] MEDS: hydrALAZINE 25 MG TABLET PO SCH ×2 (09:28→20:23)
[2019-09-07] MEDS: CEFTAROLINE 300 MG in SODIUM CHLORIDE 0.9% 100 ML IV SCH ×2 (09:28→20:21)
[2019-09-07] MEDS: CHOLECALCIFEROL 1,000 UNIT TABLET PO SCH (11:57)
[2019-09-07] MEDS: rOPINIRole 1 MG TABLET PO SCH (20:22)
[2019-09-07] MEDS: FOLIC ACID 1 MG TABLET PO SCH (20:23)
[2019-09-08] MEDS: HEPARIN 5,000 UNIT/1 ML VIAL SUBCUT SCH ×2 (03:26→12:06)
[2019-09-08 04:53] LABS: Basophils # 0.1 10*3/uL (0.0-0.2); Basophils % 0.4 % (0.0-0.8); Eosinophils # 0.5 10*3/uL (0.0-0.87); Eosinophils % 3.6 % (0.00-10.9); Hematocrit 24.6 VOL% (35.7-47.0); Hemoglobin 7.6 GM/DL (12.0-16.0); Immature Granulocytes % 3.9 %; Immature Granulocytes Absolute 0.57 #; Lymphocytes # 2.6 10*3/uL (1.4-4.0); Lymphocytes % 17.5 % (21.3-54.2); Mean Corpuscular HGB Conc 30.9 GM/DL (32-36); Mean Platelet Volume 11.4 FL (9.6-12.0); Monocytes % 5.6 % (1.7-12.7); NRBC # 0.02 10*3/uL; Platelet Count 307 T/CUMM (130-400); Red Blood Count 2.93 MC/CUMM (3.8-5.5); Red Cell Distribution Width 14.9 % (9.3-17.3); White Blood Count 14.8 T/CUMM (4-12)
[2019-09-08 05:24] LABS: Calcium 8.4 MG/DL (8.5-10.1); Eosinophils 1 % (0-10); Lymphocytes 18 % (20-55); Myelocytes 1 %; Osmolality,Calculated 295.1 MOS/KG (273-304); Platelet Estimate Normal; Polychromasia Slight; Segmented Neutrophils 75 % (50-85); Total Cells Counted 100
[2019-09-08 05:25] LABS: % Iron Saturation 15.2 % (18-50)
[2019-09-08] MEDS: SODIUM CHLORIDE 0.45% 1,000 ML IV SCH ×2 (06:19→15:35)
[2019-09-08] MEDS: LEVOTHYROXINE 100 MCG TABLET PO SCH (06:21)
[2019-09-08 06:50] LABS: Hepatitis B Core IgM Quant 0.08 Index; Hepatitis B Surface Ag Quant < 0.10 Index; Hepatitis B Surface Ag Result Negative (Negative); Hepatitis C Virus Ab Quant < 0.02 Index; Hepatitis C Virus Ab Result Negative (Negative)
[2019-09-08] MEDS: HUMULIN R U-500 KWIKPEN SUBCUT SCH ×2 (07:30→17:05)
[2019-09-08] MEDS: INSULIN REGULAR 100 UNIT/ML SUBCUT SCH ×3 (07:56→17:04)
[2019-09-08] MEDS ORDERED: LACTATED RINGERS 1,000 ML IV SCH (08:00)
[2019-09-08] MEDS ORDERED: PROPOFOL 200 MG/20 ML VIAL IV ONE (10:00)
[2019-09-08] MEDS ORDERED: LIDOCAINE 2% 5 ML VIAL ONE (10:00)
[2019-09-08 10:24] LABS: Double Stranded DNA Antibodies < 25.0 IU/ML
[2019-09-08] MEDS ORDERED: GLUCAGON 1 MG VIAL IM PRN (11:01)
[2019-09-08] MEDS ORDERED: DEXTROSE 50% 25 GM/50 ML VIAL IV PRN (11:01)
[2019-09-08] MEDS: DOCUSATE SODIUM 100 MG CAPSULE PO SCH (12:05)
[2019-09-08] MEDS: GABAPENTIN 100 MG CAPSULE PO SCH ×2 (12:05→15:34)
[2019-09-08] MEDS: hydrALAZINE 25 MG TABLET PO SCH (12:05)
[2019-09-08] MEDS: CHOLECALCIFEROL 1,000 UNIT TABLET PO SCH (12:06)
[2019-09-08] MEDS: carvediloL 25 MG TABLET PO SCH ×2 (12:06→17:06)
[2019-09-08] MEDS: ROSUVASTATIN 20 MG TABLET PO SCH (12:06)
[2019-09-08] MEDS: PANTOPRAZOLE 40 MG TABLET PO SCH (12:06)
[2019-09-08] MEDS: CEFTAROLINE 300 MG in SODIUM CHLORIDE 0.9% 100 ML IV SCH (12:07)
[2019-09-08] MEDS ORDERED: VILAZODONE 20 MG PO SCH (15:00)
[2019-09-08 15:36] VITALS: BP 151/61
[2019-09-09 14:07] LABS: Glomerular Basement Membrane A < 0.2 U; Myeloperoxidase Antibody < 0.2 U
== END 2019-09-08 17:25 | disposition home or self-care (01) | DRG 71 ==
LOC: N.ED 16:19 → N.EDINP 19:32 → N.5E 20:02
PROVIDERS: ADMIT Hospitalist; ATTEND Hospitalist

== ENCOUNTER 2019-10-05 11:47 | Observation (INO) ==
[2019-10-05] MEDS ORDERED: DEXTROSE 10% 250 ML BAG IV PRN (16:58)
[2019-10-05] MEDS ORDERED: GLUCAGON 1 MG VIAL IM PRN (16:58)
[2019-10-05 19:34] LABS: Basophils % 0.3 % (0.0-0.8); Eosinophils # 0.3 10*3/uL (0.0-0.87); Eosinophils % 2.9 % (0.00-10.9); Hematocrit 27.9 VOL% (35.7-47.0); Hemoglobin 8.7 GM/DL (12.0-16.0); Immature Granulocytes % 1.2 %; Immature Granulocytes Absolute 0.12 #; Lymphocytes # 2.2 10*3/uL (1.4-4.0); Lymphocytes % 23.2 % (21.3-54.2); Mean Corpuscular HGB Conc 31.2 GM/DL (32-36); Mean Corpuscular Volume 82.3 FL (87-102); Mean Platelet Volume 11.5 FL (9.6-12.0); Monocytes % 7.5 % (1.7-12.7); Neutrophils % 64.9 % (38.7-73.9); Platelet Count 262 T/CUMM (130-400); Red Blood Count 3.39 MC/CUMM (3.8-5.5); Red Cell Distribution Width 14.7 % (9.3-17.3); White Blood Count 9.6 T/CUMM (4-12)
[2019-10-05 19:57] LABS: Alanine Aminotransferase 15 U/L (13-56); Albumin 2.1 G/DL (3.4-5.0); Alkaline Phosphatase 62 U/L (45-117); Aspartate Amino Transferase 21 U/L (0-37); Bilirubin,Total < 0.39 MG/DL (0.2-1.0); Blood Urea Nitrogen 34 MG/DL (7-18); Calcium 8.2 MG/DL (8.5-10.1); Estimated Glom Filtration Rate 15 ML/MIN; Glucose 142 MG/DL (74-106); Osmolality,Calculated 288.4 MOS/KG (273-304)
[2019-10-05] MEDS: FERROUS SULFATE 325 MG TABLET PO SCH (20:49)
[2019-10-05] MEDS: INSULIN LISPRO 100 UNIT/ML SUBCUT SCH (20:49)
[2019-10-05] MEDS: hydrALAZINE 25 MG TABLET PO SCH (20:49)
[2019-10-05] MEDS: carvediloL 25 MG TABLET PO SCH (20:49)
[2019-10-05] MEDS: guaiFENesin/DM ER 600-30 MG TABLET PO SCH (20:58)
[2019-10-05] MEDS ORDERED: rOPINIRole 1 MG TABLET PO SCH (21:00)
[2019-10-05] MEDS: ALBUTEROL/IPRATROPIUM 3 ML NEB RESP TX PRN (21:28)
[2019-10-06] MEDS: ALBUTEROL/IPRATROPIUM 3 ML NEB RESP TX PRN (03:41)
[2019-10-06 03:42] LABS: Calcium 7.8 MG/DL (8.5-10.1); Osmolality,Calculated 283.7 MOS/KG (273-304)
[2019-10-06 03:43] LABS: Basophils # 0.1 10*3/uL (0.0-0.2); Basophils % 0.5 % (0.0-0.8); Eosinophils # 0.3 10*3/uL (0.0-0.87); Eosinophils % 3.1 % (0.00-10.9); Hematocrit 25.7 VOL% (35.7-47.0); Hemoglobin 7.9 GM/DL (12.0-16.0); Immature Granulocytes % 0.8 %; Immature Granulocytes Absolute 0.08 #; Lymphocytes # 3.2 10*3/uL (1.4-4.0); Lymphocytes % 31.8 % (21.3-54.2); Mean Corpuscular HGB Conc 30.7 GM/DL (32-36); Mean Corpuscular Volume 83.7 FL (87-102); Monocytes % 7.7 % (1.7-12.7); Neutrophils % 56.1 % (38.7-73.9); Platelet Count 248 T/CUMM (130-400); Red Blood Count 3.07 MC/CUMM (3.8-5.5); Red Cell Distribution Width 14.8 % (9.3-17.3)
[2019-10-06] MEDS ORDERED: LEVOTHYROXINE 100 MCG TABLET PO SCH (06:30)
[2019-10-06] MEDS: INSULIN LISPRO 100 UNIT/ML SUBCUT SCH ×2 (08:13→11:17)
[2019-10-06] MEDS: hydrALAZINE 25 MG TABLET PO SCH (08:59)
[2019-10-06] MEDS: FERROUS SULFATE 325 MG TABLET PO SCH (08:59)
[2019-10-06] MEDS: carvediloL 25 MG TABLET PO SCH (08:59)
[2019-10-06] MEDS ORDERED: FUROSEMIDE 40 MG TABLET PO SCH (09:00)
[2019-10-06] MEDS: guaiFENesin/DM ER 600-30 MG TABLET PO SCH (09:00)
[2019-10-06 11:31] VITALS: BP 173/71
== END 2019-10-06 14:25 | disposition home or self-care (01) ==
LOC: N.2W → SUATTDRO 12:19
PROVIDERS: ADMIT Internal Medicine; ATTEND Internal Medicine

== ENCOUNTER 2020-01-14 12:08 | Inpatient (IN) ==
[2020-01-14] MEDS ORDERED: ONDANSETRON 4 MG/2 ML VIAL IV PRN (15:18)
[2020-01-14] MEDS ORDERED: ACETAMINOPHEN 325 MG TABLET PO PRN (15:18)
[2020-01-14] MEDS ORDERED: GABAPENTIN 100 MG CAPSULE PO PRN (15:20)
[2020-01-14] MEDS ORDERED: NITROGLYCERIN SL 0.4 MG TABLET SL PRN (15:20)
[2020-01-14] MEDS ORDERED: DEXTROSE 10% 250 ML BAG IV PRN (15:24)
[2020-01-14] MEDS ORDERED: GLUCAGON 1 MG VIAL IM PRN (15:24)
[2020-01-14 16:50] LABS: Basophils % 0.4 % (0.0-0.8); Eosinophils # 0.5 10*3/uL (0.0-0.87); Eosinophils % 4.6 % (0.00-10.9); Hematocrit 22.4 VOL% (35.7-47.0); Hemoglobin 6.6 GM/DL (12.0-16.0); Immature Granulocytes % 0.6 %; Immature Granulocytes Absolute 0.06 #; Lymphocytes # 1.5 10*3/uL (1.4-4.0); Lymphocytes % 14.6 % (21.3-54.2); Mean Corpuscular HGB Conc 29.5 GM/DL (32-36); Mean Corpuscular Volume 82.7 FL (87-102); Monocytes % 6.1 % (1.7-12.7); Neutrophils % 73.7 % (38.7-73.9); Platelet Count 199 T/CUMM (130-400); Red Blood Count 2.71 MC/CUMM (3.8-5.5); Red Cell Distribution Width 14.9 % (9.3-17.3)
[2020-01-14 17:10] LABS: Partial Thromboplastin Time 30.1 SECS (20.8-36.0)
[2020-01-14 17:14] LABS: Alanine Aminotransferase 14 U/L (13-56); Albumin 2.2 G/DL (3.4-5.0); Alkaline Phosphatase 70 U/L (45-117); Aspartate Amino Transferase 18 U/L (0-37); Bilirubin,Total < 0.39 MG/DL (0.2-1.0); Blood Urea Nitrogen 81 MG/DL (7-18); Calcium 7.7 MG/DL (8.5-10.1); Estimated Glom Filtration Rate 5 ML/MIN; Glucose 107 MG/DL (74-106); Osmolality,Calculated 302.4 MOS/KG (273-304); Total Protein 6.4 G/DL (6.4-8.3)
[2020-01-14 17:19] LABS: Risk Ratio 2.9; Thyroid Stimulating Hormone 4.36 uIU/ml (0.358-3.74); VLDL CHOLESTEROL 30.8 MG/DL
[2020-01-14] MEDS: INSULIN REGULAR 100 UNIT/ML SUBCUT SCH ×2 (18:02→20:44)
[2020-01-14 18:23] LABS: % Iron Saturation 7.6 % (18-50)
[2020-01-14 19:31] LABS: Hepatitis B Core IgM Quant 0.08 Index; Hepatitis B Surface Ag Quant < 0.10 Index; Hepatitis B Surface Ag Result Negative (Negative); Hepatitis C Virus Ab Quant 0.07 Index; Hepatitis C Virus Ab Result Negative (Negative)
[2020-01-14] MEDS: hydrALAZINE 25 MG TABLET PO SCH (20:35)
[2020-01-14] MEDS: traZODone 50 MG TABLET PO SCH (20:35)
[2020-01-14] MEDS: carvediloL 25 MG TABLET PO SCH (20:35)
[2020-01-14] MEDS ORDERED: INSULIN GLARGINE 100 UNIT/ML SUBCUT SCH (21:00)
[2020-01-15] MEDS: LEVOTHYROXINE 100 MCG TABLET PO SCH (05:40)
[2020-01-15] MEDS ORDERED: HEPARIN 5,000 UNIT/1 ML VIAL ONE (06:34)
[2020-01-15] MEDS ORDERED: BUPIVACAINE MPF 0.25% 30 ML VIAL ONE (06:34)
[2020-01-15] MEDS ORDERED: LIDOCAINE 1%/EPI INJ 20 ML VIAL ONE (06:34)
[2020-01-15] MEDS ORDERED: SODIUM CHLORIDE 0.9% 250 ML IV SCH (07:00)
[2020-01-15] MEDS: carvediloL 25 MG TABLET PO SCH ×2 (07:59→21:28)
[2020-01-15] MEDS: FERROUS SULFATE 325 MG TABLET PO SCH (07:59)
[2020-01-15] MEDS: hydrALAZINE 25 MG TABLET PO SCH ×2 (07:59→21:28)
[2020-01-15] MEDS: INSULIN REGULAR 100 UNIT/ML SUBCUT SCH ×4 (07:59→21:29)
[2020-01-15] MEDS: DOXAZOSIN 4 MG TABLET PO SCH (07:59)
[2020-01-15] MEDS: CHOLECALCIFEROL 1,000 UNIT TABLET PO SCH (08:00)
[2020-01-15] MEDS ORDERED: CLINDAMYCIN INJ 50 ML IV ONE (08:12)
[2020-01-15] MEDS ORDERED: SODIUM CHLORIDE 0.9% 1,000 ML IV PRN (08:41)
[2020-01-15] MEDS ORDERED: propofoL 200 MG/20 ML VIAL IV ONE (08:44)
[2020-01-15] MEDS ORDERED: LIDOCAINE 2% 5 ML VIAL ONE (08:44)
[2020-01-15] MEDS ORDERED: fentaNYL 100 MCG/2 ML VIAL ONE (08:45)
[2020-01-15] MEDS ORDERED: KETAMINE 500 MG/10 ML VIAL ONE (08:45)
[2020-01-15] MEDS ORDERED: MIDAZOLAM 2 MG/2 ML VIAL ONE (08:45)
[2020-01-15] MEDS ORDERED: VILAZODONE 20 MG PO SCH (09:00)
[2020-01-15] MEDS ORDERED: VILAZODONE 40 MG PO SCH (09:00)
[2020-01-15] MEDS: Vilazodone [Viibryd] 40 MG PO SCH (10:36)
[2020-01-15] MEDS ORDERED: EPOETIN ALFA 10,000 UNIT/1 ML VIAL IV PRN (13:06)
[2020-01-15 13:18] LABS: Basophils % 0.3 % (0.0-0.8); Eosinophils # 0.2 10*3/uL (0.0-0.87); Eosinophils % 2.3 % (0.00-10.9); Hematocrit 22.1 VOL% (35.7-47.0); Hemoglobin 6.7 GM/DL (12.0-16.0); Immature Granulocytes % 0.6 %; Immature Granulocytes Absolute 0.05 #; Lymphocytes % 12.2 % (21.3-54.2); Mean Corpuscular HGB Conc 30.3 GM/DL (32-36); Mean Corpuscular Volume 81.9 FL (87-102); Mean Platelet Volume 11.7 FL (9.6-12.0); Monocytes % 3.9 % (1.7-12.7); Neutrophils % 80.7 % (38.7-73.9); Platelet Count 208 T/CUMM (130-400); Red Cell Distribution Width 15.3 % (9.3-17.3); White Blood Count 7.8 T/CUMM (4-12)
[2020-01-15 13:45] LABS: Calcium 7.6 MG/DL (8.5-10.1); Osmolality,Calculated 294.5 MOS/KG (273-304)
[2020-01-15] MEDS ORDERED: HEPARIN 10,000 UNIT/10 ML VIAL IV SCH (14:00)
[2020-01-15] MEDS: FERRIC GLUCONATE COMPLEX 125 MG in SODIUM CHLORIDE 0.9% 100 ML IV SCH (16:43)
[2020-01-15] MEDS: traZODone 50 MG TABLET PO SCH (21:28)
[2020-01-15] MEDS: LEVEMIR 100 UNIT/ML SUBCUT SCH (21:29)
[2020-01-16 06:13] LABS: Basophils # 0.1 10*3/uL (0.0-0.2); Basophils % 0.5 % (0.0-0.8); Eosinophils # 0.3 10*3/uL (0.0-0.87); Eosinophils % 3.3 % (0.00-10.9); Hemoglobin 8.5 GM/DL (12.0-16.0); Immature Granulocytes % 1.1 %; Immature Granulocytes Absolute 0.11 #; Lymphocytes # 1.5 10*3/uL (1.4-4.0); Lymphocytes % 14.7 % (21.3-54.2); Mean Corpuscular HGB Conc 31.5 GM/DL (32-36); Mean Corpuscular Volume 81.6 FL (87-102); Mean Platelet Volume 11.5 FL (9.6-12.0); Monocytes % 7.7 % (1.7-12.7); Neutrophils % 72.7 % (38.7-73.9); Platelet Count 204 T/CUMM (130-400); Red Blood Count 3.31 MC/CUMM (3.8-5.5); Red Cell Distribution Width 15.7 % (9.3-17.3); White Blood Count 10.4 T/CUMM (4-12)
[2020-01-16] MEDS: LEVOTHYROXINE 100 MCG TABLET PO SCH (06:25)
[2020-01-16 06:33] LABS: Calcium 7.6 MG/DL (8.5-10.1); Osmolality,Calculated 293.5 MOS/KG (273-304)
[2020-01-16] MEDS: INSULIN REGULAR 100 UNIT/ML SUBCUT SCH ×5 (07:50→21:15)
[2020-01-16] MEDS: Vilazodone [Viibryd] 40 MG PO SCH ×2 (07:50→09:00)
[2020-01-16] MEDS: DOXAZOSIN 4 MG TABLET PO SCH ×2 (07:50→09:00)
[2020-01-16] MEDS: CHOLECALCIFEROL 1,000 UNIT TABLET PO SCH ×2 (07:51→09:00)
[2020-01-16] MEDS: hydrALAZINE 25 MG TABLET PO SCH ×2 (07:51→09:00)
[2020-01-16] MEDS: carvediloL 25 MG TABLET PO SCH ×3 (07:51→21:14)
[2020-01-16] MEDS ORDERED: hydrALAZINE 20 MG/1 ML VIAL IV PRN (12:29)
[2020-01-16] MEDS: FERRIC GLUCONATE COMPLEX 125 MG in SODIUM CHLORIDE 0.9% 100 ML IV SCH (17:35)
[2020-01-16] MEDS: traZODone 50 MG TABLET PO SCH (21:14)
[2020-01-16] MEDS: LEVEMIR 100 UNIT/ML SUBCUT SCH (21:15)
[2020-01-17] MEDS: LEVOTHYROXINE 100 MCG TABLET PO SCH (05:53)
[2020-01-17 06:23] LABS: Basophils # 0.1 10*3/uL (0.0-0.2); Basophils % 0.5 % (0.0-0.8); Eosinophils # 0.4 10*3/uL (0.0-0.87); Eosinophils % 3.4 % (0.00-10.9); Hematocrit 28.2 VOL% (35.7-47.0); Hemoglobin 8.5 GM/DL (12.0-16.0); Immature Granulocytes % 2.2 %; Immature Granulocytes Absolute 0.24 #; Lymphocytes # 1.6 10*3/uL (1.4-4.0); Lymphocytes % 14.2 % (21.3-54.2); Mean Corpuscular HGB Conc 30.1 GM/DL (32-36); Mean Corpuscular Volume 84.9 FL (87-102); Mean Platelet Volume 10.8 FL (9.6-12.0); Monocytes % 7.8 % (1.7-12.7); Neutrophils % 71.9 % (38.7-73.9); Platelet Count 206 T/CUMM (130-400); Red Blood Count 3.32 MC/CUMM (3.8-5.5); Red Cell Distribution Width 15.4 % (9.3-17.3)
[2020-01-17 06:35] LABS: Calcium 7.7 MG/DL (8.5-10.1); Osmolality,Calculated 289.3 MOS/KG (273-304)
[2020-01-17] MEDS: INSULIN REGULAR 100 UNIT/ML SUBCUT SCH ×4 (08:27→22:44)
[2020-01-17] MEDS ORDERED: POTASSIUM CHLORIDE 20 MEQ/15 ML UDCUP PO ONE (08:30)
[2020-01-17] MEDS: carvediloL 25 MG TABLET PO SCH ×2 (09:53→22:43)
[2020-01-17] MEDS: Vilazodone [Viibryd] 40 MG PO SCH (09:53)
[2020-01-17] MEDS: DOXAZOSIN 4 MG TABLET PO SCH (09:53)
[2020-01-17] MEDS: CHOLECALCIFEROL 1,000 UNIT TABLET PO SCH (09:54)
[2020-01-17] MEDS ORDERED: hydrALAZINE 25 MG TABLET ONE (22:38)
[2020-01-17] MEDS: traZODone 50 MG TABLET PO SCH (22:43)
[2020-01-17] MEDS: LEVEMIR 100 UNIT/ML SUBCUT SCH (22:44)
[2020-01-18] MEDS: LEVOTHYROXINE 100 MCG TABLET PO SCH (05:33)
[2020-01-18 06:07] LABS: Basophils % 0.4 % (0.0-0.8); Eosinophils # 0.5 10*3/uL (0.0-0.87); Eosinophils % 4.2 % (0.00-10.9); Hematocrit 28.3 VOL% (35.7-47.0); Hemoglobin 8.4 GM/DL (12.0-16.0); Immature Granulocytes % 1.7 %; Immature Granulocytes Absolute 0.19 #; Lymphocytes # 1.9 10*3/uL (1.4-4.0); Mean Corpuscular HGB Conc 29.7 GM/DL (32-36); Mean Corpuscular Volume 85.5 FL (87-102); Mean Platelet Volume 11.3 FL (9.6-12.0); Monocytes % 6.9 % (1.7-12.7); Neutrophils % 69.8 % (38.7-73.9); Platelet Count 215 T/CUMM (130-400); Red Blood Count 3.31 MC/CUMM (3.8-5.5); Red Cell Distribution Width 15.7 % (9.3-17.3)
[2020-01-18 06:34] LABS: Calcium 7.9 MG/DL (8.5-10.1); Osmolality,Calculated 289.3 MOS/KG (273-304)
[2020-01-18] MEDS ORDERED: EPOETIN ALFA-EPBX 10,000 UNIT/ML VIAL IV ONE (09:00)
[2020-01-18] MEDS ORDERED: HEPARIN LOCK FLUSH 500 UNIT/5 ML SYRINGE IV PRN (13:45)
[2020-01-18] MEDS: FERRIC GLUCONATE COMPLEX 125 MG in SODIUM CHLORIDE 0.9% 100 ML IV SCH (14:23)
[2020-01-18] MEDS: FERROUS SULFATE 325 MG TABLET PO SCH (14:24)
[2020-01-18] MEDS: Vilazodone [Viibryd] 40 MG PO SCH (14:24)
[2020-01-18] MEDS: carvediloL 25 MG TABLET PO SCH (14:26)
[2020-01-18] MEDS: DOXAZOSIN 4 MG TABLET PO SCH (14:26)
[2020-01-18] MEDS: INSULIN REGULAR 100 UNIT/ML SUBCUT SCH ×2 (14:26→14:27)
[2020-01-18] MEDS: CHOLECALCIFEROL 1,000 UNIT TABLET PO SCH (14:30)
[2020-01-18 14:40] VITALS: BP 152/65
== END 2020-01-18 15:45 | disposition home or self-care (01) | DRG 673 ==
LOC: N.5E → OBSVTOIN 13:29
PROVIDERS: ADMIT Internal Medicine; ATTEND Internal Medicine

== ENCOUNTER 2020-01-21 10:05 | Observation (INO) ==
[2020-01-21] MEDS ORDERED: SODIUM CHLORIDE 0.9% 500 ML IV STA (10:43)
[2020-01-21] MEDS ORDERED: ONDANSETRON 4 MG/2 ML VIAL IV STA ×2 (10:43→12:50)
[2020-01-21 11:15] LABS: Basophils % 0.4 % (0.0-0.8); Eosinophils # 0.3 10*3/uL (0.0-0.87); Eosinophils % 2.9 % (0.00-10.9); Hematocrit 32.9 VOL% (35.7-47.0); Hemoglobin 9.9 GM/DL (12.0-16.0); Immature Granulocytes % 0.8 %; Immature Granulocytes Absolute 0.09 #; Lymphocytes # 1.9 10*3/uL (1.4-4.0); Lymphocytes % 17.2 % (21.3-54.2); Mean Corpuscular HGB Conc 30.1 GM/DL (32-36); Mean Corpuscular Volume 85.9 FL (87-102); Mean Platelet Volume 10.4 FL (9.6-12.0); Monocytes % 7.3 % (1.7-12.7); Neutrophils % 71.4 % (38.7-73.9); Platelet Count 256 T/CUMM (130-400); Red Blood Count 3.83 MC/CUMM (3.8-5.5); Red Cell Distribution Width 15.7 % (9.3-17.3); White Blood Count 11.1 T/CUMM (4-12)
[2020-01-21 11:40] LABS: Albumin 2.2 G/DL (3.4-5.0); Bilirubin,Total 0.5 MG/DL (0.2-1.0); Calcium 8.5 MG/DL (8.5-10.1); Osmolality,Calculated 280.5 MOS/KG (273-304); Total Protein 6.8 G/DL (6.4-8.3)
[2020-01-21] MEDS ORDERED: PROMETHAZINE 25 MG/1 ML VIAL IM STA (13:12)
[2020-01-21] MEDS ORDERED: POTASSIUM CHLORIDE 20 MEQ TABLET PO STA (13:12)
[2020-01-21] MEDS ORDERED: hydrALAZINE 20 MG/1 ML VIAL IV STA (13:15)
[2020-01-21] MEDS ORDERED: PROCHLORPERAZINE 10 MG TABLET PO STA (13:16)
[2020-01-21] MEDS ORDERED: ACETAMINOPHEN 325 MG TABLET PO PRN (13:50)
[2020-01-21] MEDS ORDERED: GLUCAGON 1 MG VIAL IM PRN (14:51)
[2020-01-21] MEDS ORDERED: DEXTROSE 50% 25 GM/50 ML VIAL IV PRN (14:51)
[2020-01-21] MEDS ORDERED: MECLIZINE 25 MG TABLET PO PRN (14:52)
[2020-01-21] MEDS ORDERED: NITROGLYCERIN SL 0.4 MG TABLET SL PRN (14:52)
[2020-01-21] MEDS ORDERED: NON-FORMULARY MEDICATION (Insulin Regular Hum U-500 Conc [Humulin R U-500 (Conc) Kwikpen] SUBCUT PRN (14:52)
[2020-01-21] MEDS ORDERED: LORazepam 0.5 MG TABLET PO PRN (14:52)
[2020-01-21] MEDS: INSULIN REGULAR 100 UNIT/ML SUBCUT SCH ×2 (18:09→23:31)
[2020-01-21] MEDS ORDERED: GABAPENTIN 100 MG CAPSULE PO SCH (21:00)
[2020-01-21] MEDS ORDERED: traZODone 50 MG TABLET PO SCH (21:00)
[2020-01-21] MEDS ORDERED: rOPINIRole 4 MG TABLET PO SCH (21:00)
[2020-01-21] MEDS ORDERED: INSULIN GLARGINE 100 UNIT/ML SUBCUT SCH (21:00)
[2020-01-21] MEDS: FERROUS SULFATE 325 MG TABLET PO SCH (21:49)
[2020-01-21] MEDS: PROMETHAZINE 25 MG/1 ML VIAL IM PRN (23:08)
[2020-01-22] MEDS: INSULIN REGULAR 100 UNIT/ML SUBCUT SCH (06:05)
[2020-01-22 06:12] LABS: Calcium 8.2 MG/DL (8.5-10.1); Osmolality,Calculated 272.1 MOS/KG (273-304)
[2020-01-22] MEDS ORDERED: LEVOTHYROXINE 100 MCG TABLET PO SCH (06:30)
[2020-01-22] MEDS: FERROUS SULFATE 325 MG TABLET PO SCH (08:35)
[2020-01-22] MEDS: PROMETHAZINE 25 MG/1 ML VIAL IM PRN (08:36)
[2020-01-22] MEDS ORDERED: PANTOPRAZOLE 40 MG TABLET PO SCH (09:00)
[2020-01-22] MEDS ORDERED: CHOLECALCIFEROL 1,000 UNIT TABLET PO SCH (09:00)
[2020-01-22] MEDS ORDERED: ROSUVASTATIN 20 MG TABLET PO SCH (09:00)
[2020-01-22] MEDS ORDERED: CYANOCOBALAMIN 1000 MCG/1 ML VIAL IM SCH (09:00)
[2020-01-22] MEDS ORDERED: VILAZODONE 40 MG PO SCH (09:00)
[2020-01-22 12:50] VITALS: BP 132/88
== END 2020-01-22 13:24 | disposition home or self-care (01) ==
LOC: N.EDINP 10:05 → N.ED 10:05 → N.2W 16:49
PROVIDERS: ADMIT Internal Medicine; ATTEND Internal Medicine

== ENCOUNTER 2020-07-04 09:08 | Inpatient (IN) ==
[2020-07-04 11:07] LABS: Basophils # 0.1 10*3/uL (0.0-0.2); Basophils % 0.5 % (0.0-0.8); Eosinophils # 0.4 10*3/uL (0.0-0.87); Eosinophils % 3.2 % (0.00-10.9); Hematocrit 31.3 VOL% (35.7-47.0); Hemoglobin 10.3 GM/DL (12.0-16.0); Immature Granulocytes Absolute 0.12 #; Lymphocytes # 2.8 10*3/uL (1.4-4.0); Lymphocytes % 22.5 % (21.3-54.2); Mean Corpuscular HGB Conc 32.9 GM/DL (32-36); Mean Corpuscular Volume 90.5 FL (87-102); Mean Platelet Volume 10.3 FL (9.6-12.0); Monocytes % 4.6 % (1.7-12.7); Neutrophils % 68.2 % (38.7-73.9); Platelet Count 272 T/CUMM (130-400); Red Blood Count 3.46 MC/CUMM (3.8-5.5); Red Cell Distribution Width 13.8 % (9.3-17.3); White Blood Count 12.5 T/CUMM (4-12)
[2020-07-04] MEDS ORDERED: ONDANSETRON 4 MG/2 ML VIAL IV PRN (11:14)
[2020-07-04] MEDS ORDERED: ALBUTEROL/IPRATROPIUM 3 ML NEB RESP TX PRN (11:14)
[2020-07-04] MEDS ORDERED: HYDROmorphone 2 MG/1 ML VIAL IV PRN (11:14)
[2020-07-04] MEDS ORDERED: BISACODYL 5 MG TABLET PO PRN (11:14)
[2020-07-04] MEDS ORDERED: KETOROLAC 15 MG/1 ML VIAL IV PRN (11:14)
[2020-07-04] MEDS ORDERED: ACETAMINOPHEN 325 MG TABLET PO PRN (11:14)
[2020-07-04] MEDS ORDERED: DEXTROSE 50% 25 GM/50 ML VIAL IV PRN (11:18)
[2020-07-04] MEDS ORDERED: GLUCAGON 1 MG VIAL IM PRN (11:18)
[2020-07-04 11:21] LABS: Calcium 9.3 MG/DL (8.5-10.1); Osmolality,Calculated 294.2 MOS/KG (273-304)
[2020-07-04] MEDS ORDERED: VANCOMYCIN INJ 750 MG in SODIUM CHLORIDE 0.9% 250 ML IV PRN (11:33)
[2020-07-04] MEDS: COLLAGENASE OINT 30 GM TUBE TOP SCH (11:51)
[2020-07-04] MEDS: SODIUM HYPOCHLORITE 0.25% IRRIG 473 ML BOTTLE TOP SCH (11:51)
[2020-07-04] MEDS: INSULIN LISPRO 100 UNIT/ML SUBCUT SCH ×2 (13:03→17:48)
[2020-07-04] MEDS ORDERED: NITROGLYCERIN SL 0.4 MG TABLET SL PRN (14:59)
[2020-07-04] MEDS ORDERED: LORazepam 0.5 MG TABLET PO PRN (14:59)
[2020-07-04] MEDS ORDERED: SEVELAMER CARBONATE 800 MG TABLET PO SCH (15:00)
[2020-07-04] MEDS ORDERED: HEPARIN 10,000 UNIT/10 ML VIAL IV SCH (15:30)
[2020-07-04] MEDS ORDERED: INSULIN REGULAR ** CONC 500 UNIT/ML ** 20 ML VIAL SUBCUT SCH (17:00)
[2020-07-04] MEDS ORDERED: VANCOMYCIN INJ 2,000 MG in SODIUM CHLORIDE 0.9% 500 ML IV ONE (17:00)
[2020-07-04] MEDS: SEVELAMER CARBONATE 800 MG TABLET PO SCH (18:11)
[2020-07-04] MEDS ORDERED: HUMULIN R U-500 KWIKPEN SUBCUT SCH (19:00)
[2020-07-04] MEDS: rOPINIRole 1 MG TABLET PO SCH (20:24)
[2020-07-04] MEDS: carvediloL 25 MG TABLET PO SCH (20:24)
[2020-07-04] MEDS: INSULIN GLARGINE 100 UNIT/ML SUBCUT SCH (20:24)
[2020-07-04] MEDS: GABAPENTIN 100 MG CAPSULE PO SCH (20:24)
[2020-07-05] MEDS: LEVOTHYROXINE 100 MCG TABLET PO SCH (05:47)
[2020-07-05] MEDS ORDERED: ENOXAPARIN 40 MG/0.4 ML SYRINGE SUBCUT SCH (06:00)
[2020-07-05] MEDS ORDERED: INSULIN REGULAR ** CONC 500 UNIT/ML ** 20 ML VIAL SUBCUT SCH (07:30)
[2020-07-05] MEDS: MULTIVITAMIN (BEROCCA) TABLET PO SCH (08:48)
[2020-07-05] MEDS: CHOLECALCIFEROL 1,000 UNIT TABLET PO SCH (08:49)
[2020-07-05] MEDS: carvediloL 25 MG TABLET PO SCH ×2 (08:49→20:50)
[2020-07-05] MEDS: PANTOPRAZOLE 40 MG TABLET PO SCH (08:49)
[2020-07-05] MEDS: ROSUVASTATIN 20 MG TABLET PO SCH (08:49)
[2020-07-05] MEDS: SEVELAMER CARBONATE 800 MG TABLET PO SCH ×3 (08:57→17:04)
[2020-07-05] MEDS ORDERED: COLLAGENASE OINT 30 GM TUBE TOP SCH (09:00)
[2020-07-05] MEDS ORDERED: SODIUM HYPOCHLORITE 0.25% IRRIG 473 ML BOTTLE TOP SCH (09:00)
[2020-07-05] MEDS: INSULIN LISPRO 100 UNIT/ML SUBCUT SCH ×3 (09:25→17:04)
[2020-07-05] MEDS: SODIUM HYPOCHLORITE 0.25% IRRIG 473 ML BOTTLE TOP SCH (11:04)
[2020-07-05] MEDS: COLLAGENASE OINT 30 GM TUBE TOP SCH (11:05)
[2020-07-05] MEDS: HUMULIN R U-500 KWIKPEN SUBCUT SCH ×2 (12:50→18:02)
[2020-07-05] MEDS: VILAZODONE 40 MG PO SCH (13:20)
[2020-07-05] MEDS: GABAPENTIN 100 MG CAPSULE PO SCH (20:50)
[2020-07-05] MEDS: rOPINIRole 1 MG TABLET PO SCH (20:50)
[2020-07-05] MEDS: INSULIN GLARGINE 100 UNIT/ML SUBCUT SCH (20:50)
[2020-07-06 05:34] LABS: Basophils % 0.4 % (0.0-0.8); Eosinophils # 0.4 10*3/uL (0.0-0.87); Hematocrit 26.2 VOL% (35.7-47.0); Hemoglobin 8.3 GM/DL (12.0-16.0); Immature Granulocytes Absolute 0.09 #; Lymphocytes # 3.1 10*3/uL (1.4-4.0); Lymphocytes % 32.9 % (21.3-54.2); Mean Corpuscular HGB Conc 31.7 GM/DL (32-36); Mean Corpuscular Volume 92.9 FL (87-102); Mean Platelet Volume 10.4 FL (9.6-12.0); Monocytes % 5.6 % (1.7-12.7); Neutrophils % 56.1 % (38.7-73.9); Platelet Count 224 T/CUMM (130-400); Red Blood Count 2.82 MC/CUMM (3.8-5.5); Red Cell Distribution Width 13.8 % (9.3-17.3); White Blood Count 9.3 T/CUMM (4-12)
[2020-07-06] MEDS: LEVOTHYROXINE 100 MCG TABLET PO SCH (05:42)
[2020-07-06 05:57] LABS: Calcium 8.2 MG/DL (8.5-10.1); Osmolality,Calculated 290.2 MOS/KG (273-304)
[2020-07-06] MEDS ORDERED: SODIUM CHLORIDE 0.9% 250 ML IV SCH (07:30)
[2020-07-06] MEDS ORDERED: LIDOCAINE 1%/EPI INJ 20 ML VIAL ONE (07:43)
[2020-07-06] MEDS: SEVELAMER CARBONATE 800 MG TABLET PO SCH ×3 (08:00→17:29)
[2020-07-06] MEDS: HUMULIN R U-500 KWIKPEN SUBCUT SCH ×2 (08:00→16:58)
[2020-07-06] MEDS ORDERED: COLLAGENASE OINT 30 GM TUBE TOP ONE (08:19)
[2020-07-06] MEDS ORDERED: MIDAZOLAM 2 MG/2 ML VIAL ONE (08:36)
[2020-07-06] MEDS ORDERED: fentaNYL 100 MCG/2 ML VIAL ONE (08:36)
[2020-07-06] MEDS ORDERED: ONDANSETRON 4 MG/2 ML VIAL ONE (08:36)
[2020-07-06] MEDS ORDERED: DEXMEDETOMIDINE 200 MCG/2 ML VIAL ONE (08:36)
[2020-07-06] MEDS ORDERED: hydrALAZINE 20 MG/1 ML VIAL ONE (08:36)
[2020-07-06] MEDS ORDERED: LABETALOL 100 MG/20 ML VIAL IV ONE (08:36)
[2020-07-06] MEDS: INSULIN LISPRO 100 UNIT/ML SUBCUT SCH ×3 (10:43→17:00)
[2020-07-06] MEDS: SODIUM HYPOCHLORITE 0.25% IRRIG 473 ML BOTTLE TOP SCH (10:44)
[2020-07-06] MEDS: COLLAGENASE OINT 30 GM TUBE TOP SCH (10:44)
[2020-07-06] MEDS: ROSUVASTATIN 20 MG TABLET PO SCH (14:34)
[2020-07-06] MEDS: CHOLECALCIFEROL 1,000 UNIT TABLET PO SCH (14:34)
[2020-07-06] MEDS: PANTOPRAZOLE 40 MG TABLET PO SCH (14:35)
[2020-07-06] MEDS: MULTIVITAMIN (BEROCCA) TABLET PO SCH (14:35)
[2020-07-06] MEDS: carvediloL 25 MG TABLET PO SCH ×2 (14:35→20:45)
[2020-07-06] MEDS: VILAZODONE 40 MG PO SCH (14:38)
[2020-07-06] MEDS ORDERED: VANCOMYCIN INJ 750 MG in SODIUM CHLORIDE 0.9% 250 ML IV ONE (17:00)
[2020-07-06] MEDS: rOPINIRole 1 MG TABLET PO SCH (20:45)
[2020-07-06] MEDS: GABAPENTIN 100 MG CAPSULE PO SCH (20:45)
[2020-07-06] MEDS: INSULIN GLARGINE 100 UNIT/ML SUBCUT SCH (20:45)
[2020-07-07] MEDS: LEVOTHYROXINE 100 MCG TABLET PO SCH (05:43)
[2020-07-07 08:34] VITALS: BP 163/57
[2020-07-07] MEDS: MULTIVITAMIN (BEROCCA) TABLET PO SCH (09:05)
[2020-07-07] MEDS: SEVELAMER CARBONATE 800 MG TABLET PO SCH (09:06)
[2020-07-07] MEDS: ROSUVASTATIN 20 MG TABLET PO SCH (09:06)
[2020-07-07] MEDS: carvediloL 25 MG TABLET PO SCH (09:06)
[2020-07-07] MEDS: PANTOPRAZOLE 40 MG TABLET PO SCH (09:06)
[2020-07-07] MEDS: HUMULIN R U-500 KWIKPEN SUBCUT SCH (09:40)
[2020-07-07] MEDS: INSULIN LISPRO 100 UNIT/ML SUBCUT SCH (09:40)
[2020-07-07] MEDS: VILAZODONE 40 MG PO SCH (09:47)
[2020-07-07] MEDS: CHOLECALCIFEROL 1,000 UNIT TABLET PO SCH (09:55)
[2020-07-07] MEDS: SODIUM HYPOCHLORITE 0.25% IRRIG 473 ML BOTTLE TOP SCH (10:57)
[2020-07-07] MEDS: COLLAGENASE OINT 30 GM TUBE TOP SCH (10:57)
== END 2020-07-07 11:36 | disposition home health service (06) | DRG 264 ==
LOC: N.3E 09:35
PROVIDERS: ADMIT Surgery; ATTEND Surgery

== ENCOUNTER 2021-05-16 10:36 | Inpatient (IN) ==
[2021-05-16] MEDS ORDERED: PROMETHAZINE 25 MG/1 ML VIAL IM PRN (12:40)
[2021-05-16] MEDS ORDERED: ONDANSETRON 4 MG/2 ML VIAL IV PRN (12:40)
[2021-05-16] MEDS ORDERED: GLUCAGON 1 MG VIAL IM PRN (12:45)
[2021-05-16] MEDS ORDERED: DEXTROSE 50% 25 GM/50 ML VIAL IV PRN (12:45)
[2021-05-16] MEDS ORDERED: ERYTHROMYCIN INJ 250 MG in SODIUM CHLORIDE 0.9% 100 ML IV SCH (13:00)
[2021-05-16] MEDS: INSULIN LISPRO 100 UNIT/ML SUBCUT SCH ×2 (18:34→21:21)
[2021-05-16] MEDS: SODIUM CHLORIDE 0.9% 1,000 ML IV SCH (18:36)
[2021-05-16] MEDS ORDERED: cloNIDine 0.1 MG TABLET PO ONE (19:08)
[2021-05-16] MEDS: DOCUSATE SODIUM 100 MG CAPSULE PO SCH (21:20)
[2021-05-16 22:44] LABS: Bacteria,Urine Occasional /HPF (Few); Bilirubin,Urine Negative (Negative); Blood, Urine Negative (Negative); Glucose,Urine (UA) >=500 mg/dL (Negative); Ketones,Urine Negative (Negative); Mucus,Urine Occasional /LPF (Occasional); Nitrite,Urine Negative (Negative); Protein,Urine >=500 MG/DL; RBC,Urine 2 /HPF (0-4); Squamous Epithelial Cell,Urine Occasional /HPF (0-10); Urine Appearance CLEAR (Clear); Urine Color Yellow (Yellow); Urine Specific Gravity 1.014 (1.001-1.035); Urine Urobilinogen < 2.0 EU/DL (0.2-1.0)
[2021-05-17] MEDS: ENOXAPARIN 30 MG/0.3 ML SYRINGE SUBCUT SCH (00:18)
[2021-05-17] MEDS: SODIUM CHLORIDE 0.9% 1,000 ML IV SCH ×2 (00:26→08:35)
[2021-05-17 05:30] LABS: Basophils % 0.3 % (0.0-0.8); Eosinophils # 0.3 10*3/uL (0.0-0.87); Eosinophils % 4.2 % (0.00-10.9); Hematocrit 28.1 VOL% (35.7-47.0); Hemoglobin 8.8 GM/DL (12.0-16.0); Immature Granulocytes % 0.4 %; Immature Granulocytes Absolute 0.03 #; Lymphocytes # 1.6 10*3/uL (1.4-4.0); Lymphocytes % 23.1 % (21.3-54.2); Mean Corpuscular HGB Conc 31.3 GM/DL (32-36); Mean Corpuscular Volume 88.4 FL (87-102); Mean Platelet Volume 11.1 FL (9.6-12.0); Monocytes % 4.7 % (1.7-12.7); Neutrophils % 67.3 % (38.7-73.9); Platelet Count 237 T/CUMM (130-400); Red Blood Count 3.18 MC/CUMM (3.8-5.5); Red Cell Distribution Width 16.2 % (9.3-17.3)
[2021-05-17 05:42] LABS: Calcium 8.1 MG/DL (8.5-10.1); Osmolality,Calculated 283.7 MOS/KG (273-304); Potassium 3.2 MMOL/L (3.5-5.1)
[2021-05-17] MEDS: PANTOPRAZOLE 40 MG TABLET PO SCH (06:00)
[2021-05-17] MEDS: INSULIN LISPRO 100 UNIT/ML SUBCUT SCH ×4 (07:30→20:26)
[2021-05-17] MEDS: DOCUSATE SODIUM 100 MG CAPSULE PO SCH ×2 (08:18→20:25)
[2021-05-17] MEDS: ACETAMINOPHEN 325 MG TABLET PO PRN ×2 (08:18→20:28)
[2021-05-17] MEDS ORDERED: HEPARIN LOCK FLUSH 500 UNIT/5 ML SYRINGE IV PRN (13:40)
[2021-05-17] MEDS: HEPARIN LOCK FLUSH 500 UNIT/5 ML SYRINGE IV SCH (17:24)
[2021-05-18] MEDS: ENOXAPARIN 30 MG/0.3 ML SYRINGE SUBCUT SCH ×2 (00:03→22:35)
[2021-05-18] MEDS: HEPARIN LOCK FLUSH 500 UNIT/5 ML SYRINGE IV SCH ×2 (02:02→22:35)
[2021-05-18 04:34] LABS: Basophils % 0.3 % (0.0-0.8); Eosinophils # 0.4 10*3/uL (0.0-0.87); Eosinophils % 7.1 % (0.00-10.9); Hematocrit 29.9 VOL% (35.7-47.0); Hemoglobin 9.3 GM/DL (12.0-16.0); Immature Granulocytes % 0.2 %; Immature Granulocytes Absolute 0.01 #; Lymphocytes # 2.4 10*3/uL (1.4-4.0); Lymphocytes % 40.1 % (21.3-54.2); Mean Corpuscular HGB Conc 31.1 GM/DL (32-36); Mean Corpuscular Volume 89.3 FL (87-102); Mean Platelet Volume 10.8 FL (9.6-12.0); Monocytes % 6.1 % (1.7-12.7); Neutrophils % 46.2 % (38.7-73.9); Platelet Count 245 T/CUMM (130-400); Red Blood Count 3.35 MC/CUMM (3.8-5.5); Red Cell Distribution Width 16.1 % (9.3-17.3); White Blood Count 5.9 T/CUMM (4-12)
[2021-05-18 04:57] LABS: Calcium 7.8 MG/DL (8.5-10.1); Potassium 3.1 MMOL/L (3.5-5.1)
[2021-05-18] MEDS: PANTOPRAZOLE 40 MG TABLET PO SCH (05:49)
[2021-05-18] MEDS: INSULIN LISPRO 100 UNIT/ML SUBCUT SCH ×4 (07:00→22:36)
[2021-05-18] MEDS: DOCUSATE SODIUM 100 MG CAPSULE PO SCH ×2 (08:37→22:35)
[2021-05-18] MEDS: ACETAMINOPHEN 325 MG TABLET PO PRN (08:37)
[2021-05-19 06:57] LABS: Basophils % 0.5 % (0.0-0.8); Eosinophils # 0.4 10*3/uL (0.0-0.87); Eosinophils % 6.7 % (0.00-10.9); Hemoglobin 9.4 GM/DL (12.0-16.0); Immature Granulocytes % 0.3 %; Immature Granulocytes Absolute 0.02 #; Lymphocytes # 1.7 10*3/uL (1.4-4.0); Lymphocytes % 28.4 % (21.3-54.2); Mean Corpuscular HGB Conc 31.3 GM/DL (32-36); Mean Corpuscular Volume 87.7 FL (87-102); Mean Platelet Volume 10.8 FL (9.6-12.0); Monocytes % 7.4 % (1.7-12.7); Neutrophils % 56.7 % (38.7-73.9); Platelet Count 254 T/CUMM (130-400); Red Blood Count 3.42 MC/CUMM (3.8-5.5); Red Cell Distribution Width 15.9 % (9.3-17.3); White Blood Count 5.8 T/CUMM (4-12)
[2021-05-19] MEDS: PANTOPRAZOLE 40 MG TABLET PO SCH (07:19)
[2021-05-19 07:32] LABS: Osmolality,Calculated 276.4 MOS/KG (273-304); Potassium 3.3 MMOL/L (3.5-5.1)
[2021-05-19] MEDS: INSULIN LISPRO 100 UNIT/ML SUBCUT SCH ×4 (10:21→21:53)
[2021-05-19] MEDS: DOCUSATE SODIUM 100 MG CAPSULE PO SCH ×2 (10:22→21:51)
[2021-05-19] MEDS: HEPARIN LOCK FLUSH 500 UNIT/5 ML SYRINGE IV SCH ×3 (10:22→21:53)
[2021-05-19] MEDS ORDERED: LORazepam 0.5 MG TABLET PO PRN (11:53)
[2021-05-19] MEDS ORDERED: ONDANSETRON 4 MG TABLET PO PRN (11:53)
[2021-05-19] MEDS ORDERED: PROMETHAZINE 25 MG TABLET PO PRN (11:53)
[2021-05-19] MEDS ORDERED: MECLIZINE 25 MG TABLET PO PRN (11:53)
[2021-05-19] MEDS ORDERED: NITROGLYCERIN SL 0.4 MG TABLET SL PRN (11:53)
[2021-05-19] MEDS ORDERED: INSULIN REGULAR ** CONC 500 UNIT/ML ** 20 ML VIAL SUBCUT PRN ×2 (11:53)
[2021-05-19] MEDS ORDERED: amLODIPine 5 MG TABLET PO ONE (12:00)
[2021-05-19] MEDS ORDERED: cloNIDine 0.1 MG TABLET PO SCH (13:00)
[2021-05-19] MEDS ORDERED: cloNIDine 0.1 MG TABLET PO PRN (16:00)
[2021-05-19] MEDS: SEVELAMER CARBONATE 800 MG TABLET PO SCH (16:52)
[2021-05-19 19:21] LABS: CDT Result Positive (Negative); CDT Specimen Source STOOL
[2021-05-19] MEDS ORDERED: GABAPENTIN 300 MG CAPSULE PO SCH (21:00)
[2021-05-19] MEDS ORDERED: rOPINIRole 4 MG TABLET PO SCH (21:00)
[2021-05-19] MEDS ORDERED: INSULIN GLARGINE 100 UNIT/ML SUBCUT SCH (21:00)
[2021-05-19] MEDS ORDERED: rOPINIRole 1 MG TABLET PO SCH (21:00)
[2021-05-19] MEDS: ENOXAPARIN 30 MG/0.3 ML SYRINGE SUBCUT SCH (21:52)
[2021-05-20] MEDS: PANTOPRAZOLE 40 MG TABLET PO SCH (05:53)
[2021-05-20] MEDS ORDERED: LEVOTHYROXINE 100 MCG TABLET PO SCH (06:30)
[2021-05-20] MEDS ORDERED: ROSUVASTATIN 20 MG TABLET PO SCH (09:00)
[2021-05-20] MEDS ORDERED: amLODIPine 5 MG TABLET PO SCH (09:00)
[2021-05-20] MEDS ORDERED: VILAZODONE PO SCH (09:00)
[2021-05-20] MEDS: HEPARIN LOCK FLUSH 500 UNIT/5 ML SYRINGE IV SCH (09:22)
[2021-05-20] MEDS: INSULIN LISPRO 100 UNIT/ML SUBCUT SCH ×2 (09:22→12:22)
[2021-05-20] MEDS: SEVELAMER CARBONATE 800 MG TABLET PO SCH ×2 (09:23→12:23)
[2021-05-20] MEDS: DOCUSATE SODIUM 100 MG CAPSULE PO SCH (10:41)
[2021-05-20 12:19] VITALS: BP 169/59
== END 2021-05-20 13:30 | disposition home health service (06) | DRG 73 ==
LOC: N.5E 13:37
PROVIDERS: ADMIT Internal Medicine; ATTEND Internal Medicine

== ENCOUNTER 2021-05-31 13:28 | Observation (INO) ==
[2021-05-31 15:04] LABS: Basophils % 0.4 % (0.0-0.8); Eosinophils # 0.3 10*3/uL (0.0-0.87); Eosinophils % 3.3 % (0.00-10.9); Hematocrit 26.6 VOL% (35.7-47.0); Hemoglobin 8.5 GM/DL (12.0-16.0); Immature Granulocytes % 0.7 %; Immature Granulocytes Absolute 0.06 #; Lymphocytes # 1.8 10*3/uL (1.4-4.0); Lymphocytes % 20.9 % (21.3-54.2); Mean Corpuscular Volume 87.8 FL (87-102); Mean Platelet Volume 10.8 FL (9.6-12.0); Monocytes % 5.2 % (1.7-12.7); Neutrophils % 69.5 % (38.7-73.9); Platelet Count 291 T/CUMM (130-400); Red Blood Count 3.03 MC/CUMM (3.8-5.5); Red Cell Distribution Width 14.9 % (9.3-17.3); White Blood Count 8.5 T/CUMM (4-12)
[2021-05-31 15:26] LABS: % Iron Saturation 24.2 % (18-50); Ferritin 522.9 ng/ml (8-252)
[2021-05-31] MEDS ORDERED: diphenhydrAMINE 50 MG/1 ML VIAL IV STA (16:21)
[2021-05-31 16:41] LABS: Alanine Aminotransferase 15 U/L (13-56); Albumin 2.6 G/DL (3.4-5.0); Alkaline Phosphatase 94 U/L (45-117); Aspartate Amino Transferase 14 U/L (0-37); Bilirubin,Total < 0.39 MG/DL (0.20-1.00); Blood Urea Nitrogen 12 MG/DL (7-18); Carbon Dioxide 29 MMOL/L (21-32); Estimated Glom Filtration Rate 21 ML/MIN; Glucose 427 MG/DL (74-106); Osmolality,Calculated 285.2 MOS/KG (273-304); Potassium 3.7 MMOL/L (3.5-5.1); Sodium 134 MMOL/L (136-145); Total Protein 6.5 G/DL (6.4-8.2)
[2021-05-31] MEDS ORDERED: ONDANSETRON 4 MG/2 ML VIAL IV PRN (16:54)
[2021-05-31] MEDS ORDERED: ACETAMINOPHEN 325 MG TABLET PO PRN (16:54)
[2021-05-31 17:56] LABS: Folate 10.62 NG/ML (5.38-24.0)
[2021-05-31] MEDS: DOCUSATE SODIUM 100 MG CAPSULE PO SCH (21:24)
[2021-06-01] MEDS ORDERED: diphenhydrAMINE CAP 50 MG CAPSULE PO PRN (03:45)
[2021-06-01] MEDS ORDERED: GLUCAGON 1 MG VIAL IM PRN (08:03)
[2021-06-01] MEDS ORDERED: DEXTROSE 50% 25 GM/50 ML VIAL IV PRN (08:03)
[2021-06-01] MEDS: PANTOPRAZOLE 40 MG TABLET PO SCH (08:07)
[2021-06-01] MEDS: DOCUSATE SODIUM 100 MG CAPSULE PO SCH ×2 (08:07→21:37)
[2021-06-01] MEDS ORDERED: ONDANSETRON 4 MG TABLET PO PRN (08:38)
[2021-06-01] MEDS ORDERED: MECLIZINE 25 MG TABLET PO PRN (08:38)
[2021-06-01] MEDS ORDERED: NITROGLYCERIN SL 0.4 MG TABLET SL PRN (08:38)
[2021-06-01 08:58] LABS: Basophils % 0.3 % (0.0-0.8); Eosinophils # 0.4 10*3/uL (0.0-0.87); Eosinophils % 3.2 % (0.00-10.9); Hematocrit 26.4 VOL% (35.7-47.0); Hemoglobin 8.5 GM/DL (12.0-16.0); Immature Granulocytes % 0.7 %; Immature Granulocytes Absolute 0.08 #; Lymphocytes % 18.5 % (21.3-54.2); Mean Corpuscular HGB Conc 32.2 GM/DL (32-36); Mean Corpuscular Volume 88.3 FL (87-102); Mean Platelet Volume 10.9 FL (9.6-12.0); Monocytes % 5.6 % (1.7-12.7); Neutrophils % 71.7 % (38.7-73.9); Platelet Count 291 T/CUMM (130-400); Red Blood Count 2.99 MC/CUMM (3.8-5.5); Red Cell Distribution Width 14.9 % (9.3-17.3); White Blood Count 10.9 T/CUMM (4-12)
[2021-06-01 09:15] LABS: Calcium 7.8 MG/DL (8.5-10.1); Osmolality,Calculated 285.1 MOS/KG (273-304); Potassium 4.1 MMOL/L (3.5-5.1)
[2021-06-01] MEDS: LORazepam 0.5 MG TABLET PO SCH ×3 (10:02→21:37)
[2021-06-01] MEDS: MULTIVITAMIN (BEROCCA) TABLET PO SCH (10:02)
[2021-06-01] MEDS: amLODIPine 5 MG TABLET PO SCH (10:02)
[2021-06-01] MEDS: ROSUVASTATIN 20 MG TABLET PO SCH (10:02)
[2021-06-01] MEDS: CHOLECALCIFEROL 1,000 UNIT TABLET PO SCH (10:02)
[2021-06-01] MEDS: INSULIN LISPRO 100 UNIT/ML SUBCUT SCH ×3 (11:52→21:38)
[2021-06-01] MEDS ORDERED: INSULIN REGULAR ** CONC 500 UNIT/ML ** 20 ML VIAL SUBCUT SCH (12:00)
[2021-06-01] MEDS: INSULIN REGULAR ** CONC 500 UNIT/ML ** 20 ML VIAL SUBCUT SCH (16:43)
[2021-06-01] MEDS ORDERED: INSULIN GLARGINE 100 UNIT/ML SUBCUT SCH (21:00)
[2021-06-01] MEDS ORDERED: rOPINIRole 1 MG TABLET PO SCH (21:00)
[2021-06-01] MEDS ORDERED: traZODone 50 MG TABLET PO SCH (21:00)
[2021-06-01] MEDS ORDERED: GABAPENTIN 300 MG CAPSULE PO SCH (21:00)
[2021-06-02 06:06] LABS: Basophils % 0.5 % (0.0-0.8); Eosinophils # 0.4 10*3/uL (0.0-0.87); Eosinophils % 4.6 % (0.00-10.9); Hematocrit 24.2 VOL% (35.7-47.0); Immature Granulocytes % 1.2 %; Lymphocytes # 2.3 10*3/uL (1.4-4.0); Lymphocytes % 28.7 % (21.3-54.2); Mean Corpuscular HGB Conc 33.1 GM/DL (32-36); Mean Corpuscular Volume 86.4 FL (87-102); Monocytes % 3.7 % (1.7-12.7); Neutrophils % 61.3 % (38.7-73.9); Platelet Count 251 T/CUMM (130-400); Red Cell Distribution Width 14.6 % (9.3-17.3); White Blood Count 8.1 T/CUMM (4-12)
[2021-06-02] MEDS ORDERED: LEVOTHYROXINE 100 MCG TABLET PO SCH (06:30)
[2021-06-02] MEDS ORDERED: SODIUM CHLORIDE 0.9% 1,000 ML IV PRN (07:55)
[2021-06-02] MEDS: PANTOPRAZOLE 40 MG TABLET PO SCH (08:08)
[2021-06-02] MEDS: LORazepam 0.5 MG TABLET PO SCH (08:08)
[2021-06-02] MEDS: ROSUVASTATIN 20 MG TABLET PO SCH (08:08)
[2021-06-02] MEDS: INSULIN REGULAR ** CONC 500 UNIT/ML ** 20 ML VIAL SUBCUT SCH (08:08)
[2021-06-02] MEDS: MULTIVITAMIN (BEROCCA) TABLET PO SCH (08:08)
[2021-06-02] MEDS: INSULIN LISPRO 100 UNIT/ML SUBCUT SCH (08:08)
[2021-06-02] MEDS: DOCUSATE SODIUM 100 MG CAPSULE PO SCH (08:09)
[2021-06-02] MEDS: amLODIPine 5 MG TABLET PO SCH (08:09)
[2021-06-02] MEDS: CHOLECALCIFEROL 1,000 UNIT TABLET PO SCH (08:09)
[2021-06-02 09:18] VITALS: BP 169/57
[2021-06-18] MEDS ORDERED: CYANOCOBALAMIN 1000 MCG/1 ML VIAL IM SCH (09:00)
== END 2021-06-02 17:14 | disposition home health service (06) ==
LOC: N.ED 13:28 → INTOOBSV 16:54 → N.EDINP 16:54 → N.5E 17:28
PROVIDERS: ADMIT Internal Medicine; ATTEND Internal Medicine

== ENCOUNTER 2021-08-07 18:33 | Inpatient (IN) ==
[2021-08-07 20:30] LABS: Basophils % 0.4 % (0.0-0.8); Eosinophils # 0.5 10*3/uL (0.0-0.87); Hematocrit 32.8 VOL% (35.7-47.0); Hemoglobin 10.3 GM/DL (12.0-16.0); Immature Granulocytes % 0.4 %; Immature Granulocytes Absolute 0.03 #; Lymphocytes # 1.5 10*3/uL (1.4-4.0); Lymphocytes % 19.1 % (21.3-54.2); Mean Corpuscular HGB Conc 31.4 GM/DL (32-36); Mean Corpuscular Volume 87.9 FL (87-102); Mean Platelet Volume 11.3 FL (9.6-12.0); Monocytes % 6.1 % (1.7-12.7); Platelet Count 182 T/CUMM (130-400); Red Blood Count 3.73 MC/CUMM (3.8-5.5); White Blood Count 7.7 T/CUMM (4-12)
[2021-08-07] MEDS ORDERED: cloNIDine 0.1 MG TABLET PO STA (20:43)
[2021-08-07 20:48] LABS: Albumin 2.5 G/DL (3.4-5.0); Bilirubin,Total 0.5 MG/DL (0.20-1.00); Calcium 8.1 MG/DL (8.5-10.1); Potassium 3.3 MMOL/L (3.5-5.1); Total Protein 6.9 G/DL (6.4-8.2)
[2021-08-07] MEDS ORDERED: ALBUTEROL/IPRATROPIUM 3 ML NEB RESP TX STA (21:28)
[2021-08-07] MEDS ORDERED: cefTRIAXone 1,000 MG in SODIUM CHLORIDE 0.9% 100 ML IV STA (21:28)
[2021-08-07] MEDS ORDERED: methylPREDNISolone SOD SUC 125 MG/2 ML VIAL IV STA (21:28)
[2021-08-08] MEDS ORDERED: ALBUTEROL/IPRATROPIUM 3 ML NEB RESP TX STA (01:08)
[2021-08-08] MEDS ORDERED: DEXTROSE 50% 25 GM/50 ML VIAL IV PRN (01:08)
[2021-08-08] MEDS ORDERED: ONDANSETRON 4 MG/2 ML VIAL IV PRN (01:08)
[2021-08-08] MEDS ORDERED: GLUCAGON 1 MG VIAL IM PRN (01:08)
[2021-08-08] MEDS ORDERED: amLODIPine 5 MG TABLET PO ONE (04:26)
[2021-08-08] MEDS ORDERED: cloNIDine 0.1 MG TABLET PO ONE (04:26)
[2021-08-08] MEDS ORDERED: hydrALAZINE 10 MG TABLET PO ONE (05:00)
[2021-08-08] MEDS ORDERED: methylPREDNISolone SOD SUC 125 MG/2 ML VIAL IV SCH (06:00)
[2021-08-08] MEDS: ACETAMINOPHEN 325 MG TABLET PO PRN ×2 (07:35→13:36)
[2021-08-08] MEDS ORDERED: ALBUTEROL/IPRATROPIUM 3 ML NEB RESP TX PRN (08:16)
[2021-08-08] MEDS ORDERED: POTASSIUM CHLORIDE 20 MEQ TABLET PO ONE (08:17)
[2021-08-08] MEDS ORDERED: MECLIZINE 25 MG TABLET PO PRN (08:33)
[2021-08-08] MEDS ORDERED: LORazepam 0.5 MG TABLET PO PRN (08:33)
[2021-08-08] MEDS ORDERED: ONDANSETRON 4 MG TABLET PO PRN (08:33)
[2021-08-08] MEDS ORDERED: NITROGLYCERIN SL 0.4 MG TABLET SL PRN (08:33)
[2021-08-08] MEDS ORDERED: INSULIN REGULAR ** CONC 500 UNIT/ML ** 20 ML VIAL SUBCUT PRN ×2 (08:45→08:47)
[2021-08-08] MEDS ORDERED: CYANOCOBALAMIN 1000 MCG/1 ML VIAL IM SCH (09:00)
[2021-08-08] MEDS: ROSUVASTATIN 20 MG TABLET PO SCH (09:04)
[2021-08-08] MEDS: INSULIN REGULAR 100 UNIT/ML SUBCUT SCH ×4 (09:04→21:00)
[2021-08-08] MEDS: MULTIVITAMIN (BEROCCA) TABLET PO SCH (09:05)
[2021-08-08] MEDS: PANTOPRAZOLE 40 MG TABLET PO SCH (09:05)
[2021-08-08] MEDS: DOCUSATE SODIUM 100 MG CAPSULE PO SCH ×2 (09:05→20:59)
[2021-08-08] MEDS: LEVOTHYROXINE 100 MCG TABLET PO SCH (09:05)
[2021-08-08] MEDS: cloNIDine 0.1 MG TABLET PO SCH ×2 (09:05→20:58)
[2021-08-08] MEDS: hydrALAZINE 10 MG TABLET PO SCH ×2 (09:17→20:58)
[2021-08-08] MEDS: VILAZODONE 20 MG PO SCH (09:26)
[2021-08-08] MEDS: INSULIN REGULAR ** CONC 500 UNIT/ML ** 20 ML VIAL SUBCUT SCH ×3 (14:58→17:35)
[2021-08-08] MEDS: cloNIDine 0.1 MG TABLET PO PRN (16:40)
[2021-08-08] MEDS: NYSTATIN POWDER 15 GM BOTTLE TOP SCH ×2 (16:42→21:03)
[2021-08-08] MEDS: methylPREDNISolone SOD SUC 40 MG/1 ML VIAL IV SCH ×2 (17:35→22:59)
[2021-08-08] MEDS: NORTRIPTYLINE 10 MG PO SCH (18:41)
[2021-08-08] MEDS: ALBUTEROL/IPRATROPIUM 3 ML NEB RESP TX SCH (20:25)
[2021-08-08] MEDS: GABAPENTIN 100 MG CAPSULE PO SCH (20:58)
[2021-08-08] MEDS: rOPINIRole 1 MG TABLET PO SCH (20:58)
[2021-08-08] MEDS: traZODone 50 MG TABLET PO SCH (20:59)
[2021-08-08] MEDS: INSULIN GLARGINE 100 UNIT/ML SUBCUT SCH (21:00)
[2021-08-08] MEDS: cefTRIAXone 1,000 MG in SODIUM CHLORIDE 0.9% 100 ML IV SCH (22:59)
[2021-08-09] MEDS: ALBUTEROL/IPRATROPIUM 3 ML NEB RESP TX SCH ×5 (01:37→21:00)
[2021-08-09] MEDS: methylPREDNISolone SOD SUC 40 MG/1 ML VIAL IV SCH ×3 (06:15→21:15)
[2021-08-09] MEDS: INSULIN REGULAR ** CONC 500 UNIT/ML ** 20 ML VIAL SUBCUT SCH ×3 (08:19→17:24)
[2021-08-09] MEDS: NYSTATIN POWDER 15 GM BOTTLE TOP SCH ×2 (08:19→21:14)
[2021-08-09] MEDS: INSULIN REGULAR 100 UNIT/ML SUBCUT SCH ×4 (08:19→21:14)
[2021-08-09] MEDS: cloNIDine 0.1 MG TABLET PO SCH ×2 (08:20→21:13)
[2021-08-09] MEDS: ROSUVASTATIN 20 MG TABLET PO SCH (08:20)
[2021-08-09] MEDS: LEVOTHYROXINE 100 MCG TABLET PO SCH (08:20)
[2021-08-09] MEDS: MULTIVITAMIN (BEROCCA) TABLET PO SCH (08:20)
[2021-08-09] MEDS: amLODIPine 5 MG TABLET PO SCH (08:20)
[2021-08-09] MEDS: PANTOPRAZOLE 40 MG TABLET PO SCH (08:21)
[2021-08-09] MEDS: CHOLECALCIFEROL 1,000 UNIT TABLET PO SCH (08:21)
[2021-08-09] MEDS: hydrALAZINE 10 MG TABLET PO SCH ×2 (08:21→21:13)
[2021-08-09] MEDS: VILAZODONE 20 MG PO SCH (08:21)
[2021-08-09] MEDS: DOCUSATE SODIUM 100 MG CAPSULE PO SCH ×2 (09:44→21:14)
[2021-08-09] MEDS: DOXYCYCLINE HYCLATE 100 MG CAPSULE PO SCH ×2 (09:44→21:15)
[2021-08-09] MEDS: NORTRIPTYLINE 10 MG PO SCH (21:13)
[2021-08-09] MEDS: GABAPENTIN 100 MG CAPSULE PO SCH (21:14)
[2021-08-09] MEDS: traZODone 50 MG TABLET PO SCH (21:14)
[2021-08-09] MEDS: INSULIN GLARGINE 100 UNIT/ML SUBCUT SCH (21:14)
[2021-08-09] MEDS: ENOXAPARIN 30 MG/0.3 ML SYRINGE SUBCUT SCH (21:14)
[2021-08-09] MEDS: cefTRIAXone 1,000 MG in SODIUM CHLORIDE 0.9% 100 ML IV SCH (21:15)
[2021-08-09] MEDS: rOPINIRole 1 MG TABLET PO SCH (21:15)
[2021-08-10] MEDS: methylPREDNISolone SOD SUC 40 MG/1 ML VIAL IV SCH ×3 (06:10→21:07)
[2021-08-10] MEDS: ALBUTEROL/IPRATROPIUM 3 ML NEB RESP TX SCH ×5 (07:05→19:47)
[2021-08-10] MEDS: ROSUVASTATIN 20 MG TABLET PO SCH (08:13)
[2021-08-10] MEDS: hydrALAZINE 10 MG TABLET PO SCH ×4 (08:13→21:08)
[2021-08-10] MEDS: DOCUSATE SODIUM 100 MG CAPSULE PO SCH ×2 (08:13→21:08)
[2021-08-10] MEDS: cloNIDine 0.1 MG TABLET PO SCH ×2 (08:14→21:08)
[2021-08-10] MEDS: DOXYCYCLINE HYCLATE 100 MG CAPSULE PO SCH ×2 (08:14→21:07)
[2021-08-10] MEDS: NYSTATIN POWDER 15 GM BOTTLE TOP SCH ×2 (08:14→21:10)
[2021-08-10] MEDS: MULTIVITAMIN (BEROCCA) TABLET PO SCH (08:14)
[2021-08-10] MEDS: PANTOPRAZOLE 40 MG TABLET PO SCH (08:14)
[2021-08-10] MEDS: INSULIN REGULAR 100 UNIT/ML SUBCUT SCH ×4 (08:15→21:06)
[2021-08-10] MEDS: VILAZODONE 20 MG PO SCH (08:16)
[2021-08-10] MEDS: amLODIPine 5 MG TABLET PO SCH (08:19)
[2021-08-10] MEDS: LEVOTHYROXINE 100 MCG TABLET PO SCH (08:19)
[2021-08-10] MEDS: INSULIN REGULAR ** CONC 500 UNIT/ML ** 20 ML VIAL SUBCUT SCH ×3 (08:37→16:17)
[2021-08-10] MEDS: NORTRIPTYLINE 10 MG PO SCH (18:03)
[2021-08-10] MEDS: ENOXAPARIN 30 MG/0.3 ML SYRINGE SUBCUT SCH (21:05)
[2021-08-10] MEDS: INSULIN GLARGINE 100 UNIT/ML SUBCUT SCH (21:06)
[2021-08-10] MEDS: rOPINIRole 1 MG TABLET PO SCH (21:07)
[2021-08-10] MEDS: GABAPENTIN 100 MG CAPSULE PO SCH (21:08)
[2021-08-10] MEDS: traZODone 50 MG TABLET PO SCH (21:08)
[2021-08-10] MEDS: cefTRIAXone 1,000 MG in SODIUM CHLORIDE 0.9% 100 ML IV SCH (22:38)
[2021-08-11 05:44] LABS: Basophils % 0.2 % (0.0-0.8); Hematocrit 32.5 VOL% (35.7-47.0); Hemoglobin 10.1 GM/DL (12.0-16.0); Immature Granulocytes Absolute 0.43 #; Lymphocytes # 0.8 10*3/uL (1.4-4.0); Lymphocytes % 7.3 % (21.3-54.2); Mean Corpuscular HGB Conc 31.1 GM/DL (32-36); Mean Corpuscular Volume 89.8 FL (87-102); Mean Platelet Volume 11.8 FL (9.6-12.0); Monocytes % 2.8 % (1.7-12.7); Neutrophils % 85.7 % (38.7-73.9); Platelet Count 183 T/CUMM (130-400); Red Blood Count 3.62 MC/CUMM (3.8-5.5); Red Cell Distribution Width 14.4 % (9.3-17.3); White Blood Count 10.8 T/CUMM (4-12)
[2021-08-11 05:46] LABS: Calcium 7.7 MG/DL (8.5-10.1); Osmolality,Calculated 280.2 MOS/KG (273-304); Potassium 4.3 MMOL/L (3.5-5.1)
[2021-08-11] MEDS: ALBUTEROL/IPRATROPIUM 3 ML NEB RESP TX SCH ×4 (07:25→19:23)
[2021-08-11] MEDS: ROSUVASTATIN 20 MG TABLET PO SCH (08:46)
[2021-08-11] MEDS: INSULIN REGULAR 100 UNIT/ML SUBCUT SCH ×4 (08:46→21:16)
[2021-08-11] MEDS: methylPREDNISolone SOD SUC 40 MG/1 ML VIAL IV SCH (08:46)
[2021-08-11] MEDS: hydrALAZINE 10 MG TABLET PO SCH ×3 (08:47→21:18)
[2021-08-11] MEDS: MULTIVITAMIN (BEROCCA) TABLET PO SCH (08:47)
[2021-08-11] MEDS: cloNIDine 0.1 MG TABLET PO SCH ×2 (08:47→21:18)
[2021-08-11] MEDS: PANTOPRAZOLE 40 MG TABLET PO SCH (08:47)
[2021-08-11] MEDS: DOCUSATE SODIUM 100 MG CAPSULE PO SCH ×2 (08:47→21:18)
[2021-08-11] MEDS: DOXYCYCLINE HYCLATE 100 MG CAPSULE PO SCH ×2 (08:47→21:18)
[2021-08-11] MEDS: CHOLECALCIFEROL 1,000 UNIT TABLET PO SCH (08:47)
[2021-08-11] MEDS: LEVOTHYROXINE 100 MCG TABLET PO SCH (08:48)
[2021-08-11] MEDS: amLODIPine 5 MG TABLET PO SCH (08:48)
[2021-08-11] MEDS: NYSTATIN POWDER 15 GM BOTTLE TOP SCH ×2 (08:48→21:22)
[2021-08-11] MEDS: INSULIN REGULAR ** CONC 500 UNIT/ML ** 20 ML VIAL SUBCUT SCH ×3 (08:57→17:48)
[2021-08-11] MEDS: VILAZODONE 20 MG PO SCH (08:57)
[2021-08-11] MEDS: NORTRIPTYLINE 10 MG PO SCH (18:39)
[2021-08-11] MEDS: INSULIN GLARGINE 100 UNIT/ML SUBCUT SCH (21:16)
[2021-08-11] MEDS: ENOXAPARIN 30 MG/0.3 ML SYRINGE SUBCUT SCH (21:17)
[2021-08-11] MEDS: traZODone 50 MG TABLET PO SCH (21:18)
[2021-08-11] MEDS: GABAPENTIN 100 MG CAPSULE PO SCH (21:18)
[2021-08-11] MEDS: rOPINIRole 1 MG TABLET PO SCH (21:22)
[2021-08-11] MEDS: cefTRIAXone 1,000 MG in SODIUM CHLORIDE 0.9% 100 ML IV SCH (21:23)
[2021-08-12] MEDS: ALBUTEROL/IPRATROPIUM 3 ML NEB RESP TX SCH ×4 (07:05→19:50)
[2021-08-12] MEDS: INSULIN REGULAR 100 UNIT/ML SUBCUT SCH ×4 (07:46→21:10)
[2021-08-12] MEDS: methylPREDNISolone SOD SUC 40 MG/1 ML VIAL IV SCH (08:48)
[2021-08-12] MEDS: PANTOPRAZOLE 40 MG TABLET PO SCH (08:49)
[2021-08-12] MEDS: ROSUVASTATIN 20 MG TABLET PO SCH (08:49)
[2021-08-12] MEDS: DOCUSATE SODIUM 100 MG CAPSULE PO SCH ×2 (08:49→21:11)
[2021-08-12] MEDS: MULTIVITAMIN (BEROCCA) TABLET PO SCH (08:49)
[2021-08-12] MEDS: cloNIDine 0.1 MG TABLET PO SCH ×2 (08:49→21:11)
[2021-08-12] MEDS: DOXYCYCLINE HYCLATE 100 MG CAPSULE PO SCH ×2 (08:49→21:11)
[2021-08-12] MEDS: LEVOTHYROXINE 100 MCG TABLET PO SCH (08:50)
[2021-08-12] MEDS: amLODIPine 5 MG TABLET PO SCH (08:50)
[2021-08-12] MEDS: hydrALAZINE 10 MG TABLET PO SCH ×3 (08:50→21:11)
[2021-08-12] MEDS: VILAZODONE 20 MG PO SCH (08:51)
[2021-08-12] MEDS: NYSTATIN POWDER 15 GM BOTTLE TOP SCH ×2 (08:51→21:11)
[2021-08-12] MEDS: INSULIN REGULAR ** CONC 500 UNIT/ML ** 20 ML VIAL SUBCUT SCH ×3 (08:51→16:15)
[2021-08-12] MEDS: cloNIDine 0.1 MG TABLET PO PRN (12:23)
[2021-08-12] MEDS: INSULIN GLARGINE 100 UNIT/ML SUBCUT SCH (21:09)
[2021-08-12] MEDS: ENOXAPARIN 30 MG/0.3 ML SYRINGE SUBCUT SCH (21:09)
[2021-08-12] MEDS: traZODone 50 MG TABLET PO SCH (21:10)
[2021-08-12] MEDS: rOPINIRole 1 MG TABLET PO SCH (21:11)
[2021-08-12] MEDS: GABAPENTIN 100 MG CAPSULE PO SCH (21:11)
[2021-08-12] MEDS: NORTRIPTYLINE 10 MG PO SCH (21:12)
[2021-08-12] MEDS: cefTRIAXone 1,000 MG in SODIUM CHLORIDE 0.9% 100 ML IV SCH (21:59)
[2021-08-13] MEDS: ALBUTEROL/IPRATROPIUM 3 ML NEB RESP TX SCH ×4 (07:22→20:15)
[2021-08-13] MEDS: INSULIN REGULAR ** CONC 500 UNIT/ML ** 20 ML VIAL SUBCUT SCH ×3 (08:25→17:01)
[2021-08-13] MEDS: INSULIN REGULAR 100 UNIT/ML SUBCUT SCH ×4 (08:26→21:19)
[2021-08-13] MEDS: hydrALAZINE 10 MG TABLET PO SCH ×3 (09:56→21:18)
[2021-08-13] MEDS: cloNIDine 0.1 MG TABLET PO SCH ×2 (09:56→21:17)
[2021-08-13] MEDS: amLODIPine 5 MG TABLET PO SCH (09:57)
[2021-08-13] MEDS: DOXYCYCLINE HYCLATE 100 MG CAPSULE PO SCH ×2 (09:57→21:17)
[2021-08-13] MEDS: PANTOPRAZOLE 40 MG TABLET PO SCH (09:57)
[2021-08-13] MEDS: DOCUSATE SODIUM 100 MG CAPSULE PO SCH ×2 (09:57→21:18)
[2021-08-13] MEDS: ROSUVASTATIN 20 MG TABLET PO SCH (09:57)
[2021-08-13] MEDS: MULTIVITAMIN (BEROCCA) TABLET PO SCH (09:57)
[2021-08-13] MEDS: methylPREDNISolone SOD SUC 40 MG/1 ML VIAL IV SCH (10:00)
[2021-08-13] MEDS: NYSTATIN POWDER 15 GM BOTTLE TOP SCH ×2 (10:01→21:19)
[2021-08-13] MEDS: VILAZODONE 20 MG PO SCH (10:01)
[2021-08-13] MEDS: LEVOTHYROXINE 100 MCG TABLET PO SCH (10:04)
[2021-08-13] MEDS ORDERED: POLYETHYLENE GLYCOL POWDER 17 GM PACK PO PRN (15:45)
[2021-08-13] MEDS ORDERED: POLYETHYLENE GLYCOL POWDER 17 GM PACK PO SCH (15:50)
[2021-08-13] MEDS: NORTRIPTYLINE 10 MG PO SCH (19:02)
[2021-08-13] MEDS: rOPINIRole 1 MG TABLET PO SCH (21:17)
[2021-08-13] MEDS: traZODone 50 MG TABLET PO SCH (21:18)
[2021-08-13] MEDS: ENOXAPARIN 30 MG/0.3 ML SYRINGE SUBCUT SCH (21:18)
[2021-08-13] MEDS: GABAPENTIN 100 MG CAPSULE PO SCH (21:18)
[2021-08-13] MEDS: INSULIN GLARGINE 100 UNIT/ML SUBCUT SCH (21:19)
[2021-08-13] MEDS: cefTRIAXone 1,000 MG in SODIUM CHLORIDE 0.9% 100 ML IV SCH (21:31)
[2021-08-14] MEDS: ALBUTEROL/IPRATROPIUM 3 ML NEB RESP TX SCH ×4 (07:31→20:45)
[2021-08-14] MEDS: INSULIN REGULAR 100 UNIT/ML SUBCUT SCH ×4 (07:42→21:55)
[2021-08-14] MEDS: CHOLECALCIFEROL 1,000 UNIT TABLET PO SCH (08:49)
[2021-08-14] MEDS: LEVOTHYROXINE 100 MCG TABLET PO SCH (08:49)
[2021-08-14] MEDS: methylPREDNISolone SOD SUC 40 MG/1 ML VIAL IV SCH (08:49)
[2021-08-14] MEDS: amLODIPine 5 MG TABLET PO SCH (08:49)
[2021-08-14] MEDS: ROSUVASTATIN 20 MG TABLET PO SCH (08:49)
[2021-08-14] MEDS: PANTOPRAZOLE 40 MG TABLET PO SCH (08:49)
[2021-08-14] MEDS: cloNIDine 0.1 MG TABLET PO SCH ×2 (08:49→21:11)
[2021-08-14] MEDS: DOCUSATE SODIUM 100 MG CAPSULE PO SCH ×2 (08:49→21:12)
[2021-08-14] MEDS: DOXYCYCLINE HYCLATE 100 MG CAPSULE PO SCH ×2 (08:49→21:11)
[2021-08-14] MEDS: hydrALAZINE 10 MG TABLET PO SCH ×3 (08:49→21:10)
[2021-08-14] MEDS: INSULIN REGULAR ** CONC 500 UNIT/ML ** 20 ML VIAL SUBCUT SCH ×3 (08:50→16:54)
[2021-08-14] MEDS: NYSTATIN POWDER 15 GM BOTTLE TOP SCH ×2 (09:07→21:56)
[2021-08-14] MEDS: MULTIVITAMIN (BEROCCA) TABLET PO SCH (09:31)
[2021-08-14] MEDS: traZODone 50 MG TABLET PO SCH (21:11)
[2021-08-14] MEDS: rOPINIRole 1 MG TABLET PO SCH (21:11)
[2021-08-14] MEDS: ENOXAPARIN 30 MG/0.3 ML SYRINGE SUBCUT SCH (21:14)
[2021-08-14] MEDS: cefTRIAXone 1,000 MG in SODIUM CHLORIDE 0.9% 100 ML IV SCH (21:14)
[2021-08-14] MEDS: NORTRIPTYLINE 10 MG PO SCH (21:21)
[2021-08-14] MEDS: INSULIN GLARGINE 100 UNIT/ML SUBCUT SCH (21:55)
[2021-08-14] MEDS: GABAPENTIN 100 MG CAPSULE PO SCH (22:06)
[2021-08-15] MEDS: cloNIDine 0.1 MG TABLET PO PRN (04:14)
[2021-08-15 07:38] VITALS: BP 173/74
[2021-08-15] MEDS: ALBUTEROL/IPRATROPIUM 3 ML NEB RESP TX SCH ×2 (08:00→12:00)
[2021-08-15] MEDS: INSULIN REGULAR 100 UNIT/ML SUBCUT SCH (08:14)
[2021-08-15] MEDS: PANTOPRAZOLE 40 MG TABLET PO SCH (08:41)
[2021-08-15] MEDS: DOCUSATE SODIUM 100 MG CAPSULE PO SCH (08:41)
[2021-08-15] MEDS: amLODIPine 5 MG TABLET PO SCH (08:41)
[2021-08-15] MEDS: cloNIDine 0.1 MG TABLET PO SCH (08:41)
[2021-08-15] MEDS: DOXYCYCLINE HYCLATE 100 MG CAPSULE PO SCH (08:41)
[2021-08-15] MEDS: hydrALAZINE 10 MG TABLET PO SCH (08:41)
[2021-08-15] MEDS: LEVOTHYROXINE 100 MCG TABLET PO SCH (08:41)
[2021-08-15] MEDS: ROSUVASTATIN 20 MG TABLET PO SCH (08:41)
[2021-08-15] MEDS: INSULIN REGULAR ** CONC 500 UNIT/ML ** 20 ML VIAL SUBCUT SCH (08:42)
[2021-08-15] MEDS: methylPREDNISolone SOD SUC 40 MG/1 ML VIAL IV SCH (08:42)
[2021-08-15] MEDS: NYSTATIN POWDER 15 GM BOTTLE TOP SCH (08:47)
[2021-08-15] MEDS: MULTIVITAMIN (BEROCCA) TABLET PO SCH (08:49)
== END 2021-08-15 11:26 | disposition home health service (06) | DRG 193 ==
LOC: EDUNIT# → EDBD → N.ED 18:33 → N.EDINP 23:01 → SUATTDRO 23:01 → N.EDINP 08-08 01:00 → N.ICU 08-08 01:11 → N.5E 08-08 16:54
PROVIDERS: ADMIT Internal Medicine; ATTEND Internal Medicine

== ENCOUNTER 2021-10-18 07:42 | Inpatient (IN) ==
[2021-10-18] MEDS ORDERED: ASPIRIN 325 MG TABLET PO STA (08:33)
[2021-10-18] MEDS ORDERED: ALUM/MAG/SIMETH/LIDO VISC 1:1 30 ML BOTTLE PO STA (08:33)
[2021-10-18 08:43] LABS: Basophils % 0.1 % (0.0-0.8); Eosinophils # 0.1 10*3/uL (0.0-0.87); Eosinophils % 0.3 % (0.00-10.9); Hematocrit 29.8 VOL% (35.7-47.0); Hemoglobin 9.5 GM/DL (12.0-16.0); Immature Granulocytes % 0.6 %; Immature Granulocytes Absolute 0.12 #; Lymphocytes # 1.7 10*3/uL (1.4-4.0); Lymphocytes % 8.3 % (21.3-54.2); Mean Corpuscular HGB Conc 31.9 GM/DL (32-36); Mean Corpuscular Volume 87.9 FL (87-102); Mean Platelet Volume 11.6 FL (9.6-12.0); Monocytes % 6.2 % (1.7-12.7); Neutrophils % 84.5 % (38.7-73.9); Platelet Count 229 T/CUMM (130-400); Red Blood Count 3.39 MC/CUMM (3.8-5.5); Red Cell Distribution Width 14.4 % (9.3-17.3)
[2021-10-18 09:02] LABS: Lymphocytes 6 % (20-55); Segmented Neutrophils 86 % (50-85); Total Cells Counted 100
[2021-10-18 09:03] LABS: Hypochromasia 1+; Microcytosis 1+; Platelet Estimate Adequate
[2021-10-18 09:05] LABS: INR 1.1; PT Patient Result 11.9 SECS (10.5-12.0); Partial Thromboplastin Time 26.5 SECS (23.8-32.1)
[2021-10-18 09:06] LABS: Albumin 2.7 G/DL (3.4-5.0); Bilirubin,Total 0.4 MG/DL (0.20-1.00); Calcium 8.7 MG/DL (8.5-10.1); Osmolality,Calculated 277.1 MOS/KG (273-304); Potassium 3.4 MMOL/L (3.5-5.1); Total Protein 7.3 G/DL (6.4-8.2)
[2021-10-18] MEDS ORDERED: ONDANSETRON 4 MG/2 ML VIAL IV STA (10:45)
[2021-10-18] MEDS ORDERED: KETOROLAC 10 MG TABLET PO STA (10:45)
[2021-10-18] MEDS ORDERED: EPOETIN ALFA-EPBX 2,000 UNIT/ML VIAL IV PRN (13:55)
[2021-10-18] MEDS ORDERED: methylPREDNISolone SOD SUC 125 MG/2 ML VIAL IV ONE (14:28)
[2021-10-18] MEDS ORDERED: KETOROLAC 30 MG/1 ML VIAL IV ONE (14:29)
[2021-10-18] MEDS ORDERED: ONDANSETRON 4 MG/2 ML VIAL IV PRN (18:01)
[2021-10-18] MEDS ORDERED: GLUCAGON 1 MG VIAL IM PRN (18:01)
[2021-10-18] MEDS ORDERED: DEXTROSE 50% 25 GM/50 ML SYRINGE IV PRN (18:07)
[2021-10-18] MEDS: cefTRIAXone 1,000 MG in SODIUM CHLORIDE 0.9% 100 ML IV SCH (18:28)
[2021-10-18] MEDS: GABAPENTIN 100 MG CAPSULE PO SCH ×2 (18:28→21:19)
[2021-10-18] MEDS: INSULIN LISPRO 100 UNIT/ML SUBCUT SCH ×2 (18:28→21:20)
[2021-10-18] MEDS: ALBUTEROL/IPRATROPIUM 3 ML NEB RESP TX SCH (19:45)
[2021-10-18] MEDS: DOCUSATE SODIUM 100 MG CAPSULE PO SCH (21:19)
[2021-10-19] MEDS: ALBUTEROL/IPRATROPIUM 3 ML NEB RESP TX SCH ×4 (00:25→19:45)
[2021-10-19 06:00] LABS: Basophils # 0.1 10*3/uL (0.0-0.2); Basophils % 0.2 % (0.0-0.8); Eosinophils # 0.1 10*3/uL (0.0-0.87); Eosinophils % 0.6 % (0.00-10.9); Hematocrit 27.7 VOL% (35.7-47.0); Hemoglobin 8.5 GM/DL (12.0-16.0); Immature Granulocytes % 0.8 %; Immature Granulocytes Absolute 0.19 #; Lymphocytes # 1.6 10*3/uL (1.4-4.0); Mean Corpuscular HGB Conc 30.7 GM/DL (32-36); Mean Corpuscular Volume 91.4 FL (87-102); Mean Platelet Volume 11.8 FL (9.6-12.0); Monocytes % 6.4 % (1.7-12.7); Platelet Count 233 T/CUMM (130-400); Red Blood Count 3.03 MC/CUMM (3.8-5.5); Red Cell Distribution Width 14.5 % (9.3-17.3); White Blood Count 22.5 T/CUMM (4-12)
[2021-10-19 06:12] LABS: Calcium 8.5 MG/DL (8.5-10.1); Osmolality,Calculated 274.2 MOS/KG (273-304); Potassium 3.8 MMOL/L (3.5-5.1)
[2021-10-19 06:24] LABS: Band Neutrophils 1 % (0-10); Hypochromasia 1+; Lymphocytes 8 % (20-55); Microcytosis 1+; Platelet Estimate Adequate; Segmented Neutrophils 89 % (50-85); Total Cells Counted 100
[2021-10-19] MEDS: GABAPENTIN 100 MG CAPSULE PO SCH ×3 (08:17→21:08)
[2021-10-19] MEDS: PANTOPRAZOLE 40 MG TABLET PO SCH (08:17)
[2021-10-19] MEDS: INSULIN LISPRO 100 UNIT/ML SUBCUT SCH ×4 (08:18→21:08)
[2021-10-19] MEDS: DOCUSATE SODIUM 100 MG CAPSULE PO SCH ×2 (08:18→21:08)
[2021-10-19] MEDS: ACETAMINOPHEN 325 MG TABLET PO PRN (08:18)
[2021-10-19] MEDS ORDERED: LORazepam 0.5 MG TABLET PO PRN (09:13)
[2021-10-19] MEDS ORDERED: MECLIZINE 25 MG TABLET PO PRN (09:13)
[2021-10-19] MEDS ORDERED: NITROGLYCERIN SL 0.4 MG TABLET SL PRN (09:13)
[2021-10-19] MEDS: ASPIRIN EC 81 MG TABLET PO SCH (11:02)
[2021-10-19] MEDS: rOPINIRole 0.25 MG TABLET PO SCH (11:02)
[2021-10-19] MEDS: MULTIVITAMIN (BEROCCA) TABLET PO SCH (11:02)
[2021-10-19] MEDS: levETIRAcetam 500 MG TABLET PO SCH ×2 (11:02→21:08)
[2021-10-19] MEDS: amLODIPine 5 MG TABLET PO SCH (11:03)
[2021-10-19] MEDS: cefTRIAXone 1,000 MG in SODIUM CHLORIDE 0.9% 100 ML IV SCH (11:03)
[2021-10-19] MEDS: hydrALAZINE 25 MG TABLET PO SCH ×2 (14:29→21:08)
[2021-10-19] MEDS ORDERED: GABAPENTIN 100 MG CAPSULE PO SCH (21:00)
[2021-10-19] MEDS: INSULIN GLARGINE 100 UNIT/ML SUBCUT SCH (21:08)
[2021-10-19] MEDS: rOPINIRole 1 MG TABLET PO SCH (21:13)
[2021-10-19] MEDS: traZODone 50 MG TABLET PO SCH (21:13)
[2021-10-19] MEDS: ROSUVASTATIN 20 MG TABLET PO SCH (21:13)
[2021-10-20] MEDS: ALBUTEROL/IPRATROPIUM 3 ML NEB RESP TX SCH ×4 (00:35→19:11)
[2021-10-20] MEDS: ACETAMINOPHEN 325 MG TABLET PO PRN ×2 (04:22→08:35)
[2021-10-20 05:15] LABS: Basophils # 0.1 10*3/uL (0.0-0.2); Basophils % 0.3 % (0.0-0.8); Eosinophils # 0.3 10*3/uL (0.0-0.87); Eosinophils % 1.4 % (0.00-10.9); Hemoglobin 8.1 GM/DL (12.0-16.0); Immature Granulocytes % 0.9 %; Lymphocytes # 1.9 10*3/uL (1.4-4.0); Lymphocytes % 9.1 % (21.3-54.2); Mean Corpuscular Volume 93.4 FL (87-102); Mean Platelet Volume 11.6 FL (9.6-12.0); Monocytes % 5.6 % (1.7-12.7); Neutrophils % 82.7 % (38.7-73.9); Platelet Count 260 T/CUMM (130-400); Red Blood Count 2.89 MC/CUMM (3.8-5.5); Red Cell Distribution Width 14.9 % (9.3-17.3); White Blood Count 21.4 T/CUMM (4-12)
[2021-10-20 05:33] LABS: Calcium 8.1 MG/DL (8.5-10.1); Osmolality,Calculated 277.4 MOS/KG (273-304); Potassium 4.1 MMOL/L (3.5-5.1)
[2021-10-20 05:44] LABS: Anisocytosis Slight; Band Neutrophils 4 % (0-10); Eosinophils 1 % (0-10); Hypochromasia 2+; Lymphocytes 5 % (20-55); Metamyelocytes 1 %; Platelet Estimate Adequate; Promyelocytes 1 %; Segmented Neutrophils 85 % (50-85); Total Cells Counted 100
[2021-10-20] MEDS: LEVOTHYROXINE 100 MCG TABLET PO SCH (05:52)
[2021-10-20] MEDS: INSULIN LISPRO 100 UNIT/ML SUBCUT SCH ×4 (08:34→20:53)
[2021-10-20] MEDS: DOCUSATE SODIUM 100 MG CAPSULE PO SCH ×2 (08:35→20:54)
[2021-10-20] MEDS: PANTOPRAZOLE 40 MG TABLET PO SCH (08:35)
[2021-10-20] MEDS: hydrALAZINE 25 MG TABLET PO SCH ×3 (08:36→20:54)
[2021-10-20] MEDS: ASPIRIN EC 81 MG TABLET PO SCH (08:36)
[2021-10-20] MEDS: amLODIPine 5 MG TABLET PO SCH (08:36)
[2021-10-20] MEDS: GABAPENTIN 100 MG CAPSULE PO SCH ×3 (08:36→20:54)
[2021-10-20] MEDS: levETIRAcetam 500 MG TABLET PO SCH ×2 (08:37→20:54)
[2021-10-20] MEDS: rOPINIRole 0.25 MG TABLET PO SCH (08:37)
[2021-10-20] MEDS: MULTIVITAMIN (BEROCCA) TABLET PO SCH (08:37)
[2021-10-20] MEDS: CHOLECALCIFEROL 1,000 UNIT TABLET PO SCH (08:39)
[2021-10-20] MEDS: cefTRIAXone 1,000 MG in SODIUM CHLORIDE 0.9% 100 ML IV SCH (08:41)
[2021-10-20] MEDS ORDERED: VANCOMYCIN INJ 750 MG in SODIUM CHLORIDE 0.9% 250 ML IV PRN (08:52)
[2021-10-20] MEDS ORDERED: VANCOMYCIN INJ 2,500 MG in SODIUM CHLORIDE 0.9% 500 ML IV ONE (17:00)
[2021-10-20] MEDS: INSULIN GLARGINE 100 UNIT/ML SUBCUT SCH (20:52)
[2021-10-20] MEDS: ROSUVASTATIN 20 MG TABLET PO SCH (20:54)
[2021-10-20] MEDS: traZODone 50 MG TABLET PO SCH (20:54)
[2021-10-20] MEDS: rOPINIRole 1 MG TABLET PO SCH (20:59)
[2021-10-21] MEDS: ALBUTEROL/IPRATROPIUM 3 ML NEB RESP TX SCH ×4 (00:38→21:48)
[2021-10-21 05:48] LABS: Basophils # 0.1 10*3/uL (0.0-0.2); Basophils % 0.4 % (0.0-0.8); Eosinophils # 0.2 10*3/uL (0.0-0.87); Eosinophils % 1.3 % (0.00-10.9); Hematocrit 24.9 VOL% (35.7-47.0); Hemoglobin 7.5 GM/DL (12.0-16.0); Immature Granulocytes % 1.5 %; Immature Granulocytes Absolute 0.25 #; Lymphocytes # 1.7 10*3/uL (1.4-4.0); Lymphocytes % 10.1 % (21.3-54.2); Mean Corpuscular HGB Conc 30.1 GM/DL (32-36); Mean Corpuscular Volume 93.3 FL (87-102); Monocytes % 6.3 % (1.7-12.7); Neutrophils % 80.4 % (38.7-73.9); Platelet Count 254 T/CUMM (130-400); Red Blood Count 2.67 MC/CUMM (3.8-5.5); Red Cell Distribution Width 15.1 % (9.3-17.3); White Blood Count 17.1 T/CUMM (4-12)
[2021-10-21 05:53] LABS: Calcium 8.3 MG/DL (8.5-10.1); Osmolality,Calculated 275.8 MOS/KG (273-304); Potassium 4.1 MMOL/L (3.5-5.1)
[2021-10-21] MEDS: LEVOTHYROXINE 100 MCG TABLET PO SCH (06:05)
[2021-10-21] MEDS: INSULIN LISPRO 100 UNIT/ML SUBCUT SCH ×4 (07:16→21:27)
[2021-10-21] MEDS: cefTRIAXone 1,000 MG in SODIUM CHLORIDE 0.9% 100 ML IV SCH (09:49)
[2021-10-21] MEDS: amLODIPine 5 MG TABLET PO SCH (09:50)
[2021-10-21] MEDS: levETIRAcetam 500 MG TABLET PO SCH ×2 (09:50→21:25)
[2021-10-21] MEDS: rOPINIRole 0.25 MG TABLET PO SCH (09:50)
[2021-10-21] MEDS: ASPIRIN EC 81 MG TABLET PO SCH (09:50)
[2021-10-21] MEDS: DOCUSATE SODIUM 100 MG CAPSULE PO SCH ×2 (09:50→21:25)
[2021-10-21] MEDS: MULTIVITAMIN (BEROCCA) TABLET PO SCH (09:50)
[2021-10-21] MEDS: GABAPENTIN 100 MG CAPSULE PO SCH ×3 (09:50→21:24)
[2021-10-21] MEDS: PANTOPRAZOLE 40 MG TABLET PO SCH (09:51)
[2021-10-21] MEDS: hydrALAZINE 25 MG TABLET PO SCH ×3 (09:51→21:25)
[2021-10-21] MEDS: traZODone 50 MG TABLET PO SCH (21:25)
[2021-10-21] MEDS: ROSUVASTATIN 20 MG TABLET PO SCH (21:25)
[2021-10-21] MEDS: rOPINIRole 1 MG TABLET PO SCH (21:25)
[2021-10-21] MEDS: INSULIN GLARGINE 100 UNIT/ML SUBCUT SCH (21:26)
[2021-10-22] MEDS: ALBUTEROL/IPRATROPIUM 3 ML NEB RESP TX SCH ×4 (01:13→19:18)
[2021-10-22] MEDS: LEVOTHYROXINE 100 MCG TABLET PO SCH (13:08)
[2021-10-22] MEDS: hydrALAZINE 25 MG TABLET PO SCH ×3 (13:09→21:38)
[2021-10-22] MEDS: INSULIN LISPRO 100 UNIT/ML SUBCUT SCH ×3 (13:09→21:38)
[2021-10-22] MEDS: ASPIRIN EC 81 MG TABLET PO SCH (13:09)
[2021-10-22] MEDS: levETIRAcetam 500 MG TABLET PO SCH ×2 (13:10→21:38)
[2021-10-22] MEDS: DOCUSATE SODIUM 100 MG CAPSULE PO SCH ×2 (13:10→21:38)
[2021-10-22] MEDS: GABAPENTIN 100 MG CAPSULE PO SCH ×3 (13:10→23:25)
[2021-10-22] MEDS: PANTOPRAZOLE 40 MG TABLET PO SCH (13:10)
[2021-10-22] MEDS: amLODIPine 5 MG TABLET PO SCH (13:10)
[2021-10-22] MEDS: MULTIVITAMIN (BEROCCA) TABLET PO SCH (13:10)
[2021-10-22] MEDS: cefTRIAXone 1,000 MG in SODIUM CHLORIDE 0.9% 100 ML IV SCH (13:11)
[2021-10-22] MEDS: rOPINIRole 0.25 MG TABLET PO SCH (13:11)
[2021-10-22 13:39] LABS: Calcium 8.9 MG/DL (8.5-10.1); Osmolality,Calculated 267.8 MOS/KG (273-304); Potassium 4.5 MMOL/L (3.5-5.1)
[2021-10-22 13:56] LABS: Basophils % 0.2 % (0.0-0.8); Eosinophils # 0.2 10*3/uL (0.0-0.87); Eosinophils % 0.9 % (0.00-10.9); Hematocrit 25.4 VOL% (35.7-47.0); Hemoglobin 7.7 GM/DL (12.0-16.0); Immature Granulocytes Absolute 0.34 #; Lymphocytes # 1.5 10*3/uL (1.4-4.0); Lymphocytes % 8.5 % (21.3-54.2); Mean Corpuscular HGB Conc 30.3 GM/DL (32-36); Mean Platelet Volume 9.9 FL (9.6-12.0); Monocytes % 5.6 % (1.7-12.7); Neutrophils % 82.8 % (38.7-73.9); Platelet Count 286 T/CUMM (130-400); Red Blood Count 2.76 MC/CUMM (3.8-5.5); Red Cell Distribution Width 15.3 % (9.3-17.3); White Blood Count 17.1 T/CUMM (4-12)
[2021-10-22] MEDS ORDERED: HEPARIN LOCK FLUSH 500 UNIT/5 ML SYRINGE IV PRN (17:17)
[2021-10-22] MEDS: HEPARIN LOCK FLUSH 500 UNIT/5 ML SYRINGE IV SCH (17:56)
[2021-10-22] MEDS: ROSUVASTATIN 20 MG TABLET PO SCH (21:38)
[2021-10-22] MEDS: INSULIN GLARGINE 100 UNIT/ML SUBCUT SCH (21:39)
[2021-10-22] MEDS: rOPINIRole 1 MG TABLET PO SCH (21:44)
[2021-10-22] MEDS: traZODone 50 MG TABLET PO SCH (23:25)
[2021-10-23] MEDS: ALBUTEROL/IPRATROPIUM 3 ML NEB RESP TX SCH ×4 (00:32→20:34)
[2021-10-23] MEDS: GABAPENTIN 100 MG CAPSULE PO SCH ×3 (01:28→20:53)
[2021-10-23] MEDS: traZODone 50 MG TABLET PO SCH ×2 (01:28→20:53)
[2021-10-23] MEDS: LEVOTHYROXINE 100 MCG TABLET PO SCH (06:29)
[2021-10-23] MEDS: cefTRIAXone 1,000 MG in SODIUM CHLORIDE 0.9% 100 ML IV SCH (10:33)
[2021-10-23] MEDS: amLODIPine 5 MG TABLET PO SCH (10:33)
[2021-10-23] MEDS: HEPARIN LOCK FLUSH 500 UNIT/5 ML SYRINGE IV SCH ×2 (10:33→20:58)
[2021-10-23] MEDS: hydrALAZINE 25 MG TABLET PO SCH ×3 (10:33→20:53)
[2021-10-23] MEDS: levETIRAcetam 500 MG TABLET PO SCH ×2 (10:33→20:53)
[2021-10-23] MEDS: rOPINIRole 0.25 MG TABLET PO SCH (10:34)
[2021-10-23] MEDS: MULTIVITAMIN (BEROCCA) TABLET PO SCH (10:34)
[2021-10-23] MEDS: CHOLECALCIFEROL 1,000 UNIT TABLET PO SCH (10:34)
[2021-10-23] MEDS: PANTOPRAZOLE 40 MG TABLET PO SCH (10:34)
[2021-10-23] MEDS: ASPIRIN EC 81 MG TABLET PO SCH (10:34)
[2021-10-23] MEDS: DOCUSATE SODIUM 100 MG CAPSULE PO SCH ×2 (10:34→20:54)
[2021-10-23] MEDS: INSULIN LISPRO 100 UNIT/ML SUBCUT SCH ×4 (10:35→20:55)
[2021-10-23] MEDS: DESITIN 4OZ/NYSTATIN 15 GRAM MIXTURE PASTE TOP SCH ×2 (16:48→20:54)
[2021-10-23] MEDS ORDERED: VANCOMYCIN INJ 750 MG in SODIUM CHLORIDE 0.9% 250 ML IV ONE (17:00)
[2021-10-23] MEDS: rOPINIRole 1 MG TABLET PO SCH (20:53)
[2021-10-23] MEDS: ROSUVASTATIN 20 MG TABLET PO SCH (20:53)
[2021-10-23] MEDS: INSULIN GLARGINE 100 UNIT/ML SUBCUT SCH (20:57)
[2021-10-24] MEDS: ALBUTEROL/IPRATROPIUM 3 ML NEB RESP TX SCH (00:47)
[2021-10-24] MEDS: LEVOTHYROXINE 100 MCG TABLET PO SCH (06:31)
[2021-10-24] MEDS ORDERED: TUBERCULIN SKIN TEST 0.1 ML SYRINGE INTRADERM ONE (06:45)
[2021-10-24] MEDS: DOCUSATE SODIUM 100 MG CAPSULE PO SCH (08:43)
[2021-10-24] MEDS: MULTIVITAMIN (BEROCCA) TABLET PO SCH (08:44)
[2021-10-24] MEDS: levETIRAcetam 500 MG TABLET PO SCH (08:44)
[2021-10-24] MEDS: rOPINIRole 0.25 MG TABLET PO SCH (08:44)
[2021-10-24] MEDS: ASPIRIN EC 81 MG TABLET PO SCH (08:44)
[2021-10-24] MEDS: PANTOPRAZOLE 40 MG TABLET PO SCH (08:44)
[2021-10-24] MEDS: GABAPENTIN 100 MG CAPSULE PO SCH (08:44)
[2021-10-24] MEDS: hydrALAZINE 25 MG TABLET PO SCH (08:44)
[2021-10-24] MEDS: amLODIPine 5 MG TABLET PO SCH (08:44)
[2021-10-24] MEDS: HEPARIN LOCK FLUSH 500 UNIT/5 ML SYRINGE IV SCH (08:45)
[2021-10-24] MEDS: INSULIN LISPRO 100 UNIT/ML SUBCUT SCH ×2 (08:45→12:01)
[2021-10-24] MEDS: cefTRIAXone 1,000 MG in SODIUM CHLORIDE 0.9% 100 ML IV SCH (08:54)
[2021-10-24] MEDS: DESITIN 4OZ/NYSTATIN 15 GRAM MIXTURE PASTE TOP SCH (08:55)
[2021-10-24 12:04] VITALS: BP 142/88
[2021-11-18] MEDS ORDERED: CYANOCOBALAMIN 1000 MCG/1 ML VIAL IM SCH (09:00)
== END 2021-10-24 12:46 | DRG 193 ==
LOC: N.ED 07:42 → N.EDINP 07:42 → N.5E 18:01
PROVIDERS: ADMIT Internal Medicine; ATTEND Internal Medicine

== ENCOUNTER 2022-01-05 11:56 | Inpatient (IN) ==
[2022-01-05 16:59] LABS: Basophils % 0.2 % (0.0-0.8); Hemoglobin 11.9 GM/DL (12.0-16.0); Immature Granulocytes % 1.1 %; Immature Granulocytes Absolute 0.24 #; Lymphocytes # 1.1 10*3/uL (1.4-4.0); Lymphocytes % 4.8 % (21.3-54.2); Mean Corpuscular HGB Conc 32.2 GM/DL (32-36); Mean Corpuscular Volume 89.2 FL (87-102); Mean Platelet Volume 10.7 FL (9.6-12.0); Monocytes % 5.5 % (1.7-12.7); Neutrophils % 88.4 % (38.7-73.9); Platelet Count 198 T/CUMM (130-400); Red Blood Count 4.15 MC/CUMM (3.8-5.5); Red Cell Distribution Width 13.9 % (9.3-17.3); White Blood Count 22.6 T/CUMM (4-12)
[2022-01-05 17:25] LABS: Band Neutrophils 7 % (0-10); Hypochromia 1+; Lymphocytes 7 % (20-55); Segmented Neutrophils 83 % (50-85); Stomatocytes Few; Total Cells Counted 100
[2022-01-05 17:26] LABS: Microcytosis Slight; Platelet Estimate Normal
[2022-01-05 17:29] LABS: Albumin 3.4 G/DL (3.4-5.0); Bilirubin,Total 0.4 MG/DL (0.20-1.00); Calcium 8.9 MG/DL (8.5-10.1); Osmolality,Calculated 282.1 MOS/KG (273-304); Total Protein 7.6 G/DL (6.4-8.2)
[2022-01-05] MEDS ORDERED: VANCOMYCIN INJ 1,000 MG in SODIUM CHLORIDE 0.9% 250 ML IV STA (17:59)
[2022-01-05] MEDS ORDERED: ONDANSETRON 4 MG/2 ML VIAL IV PRN (18:00)
[2022-01-05] MEDS: ACETAMINOPHEN 325 MG TABLET PO PRN (19:42)
[2022-01-05] MEDS: DOCUSATE SODIUM 100 MG CAPSULE PO SCH (22:17)
[2022-01-06] MEDS: ACETAMINOPHEN 325 MG TABLET PO PRN ×2 (05:48→10:13)
[2022-01-06 08:04] LABS: Basophils # 0.1 10*3/uL (0.0-0.2); Basophils % 0.3 % (0.0-0.8); Eosinophils % 0.1 % (0.00-10.9); Hemoglobin 10.6 GM/DL (12.0-16.0); Immature Granulocytes % 0.7 %; Immature Granulocytes Absolute 0.13 #; Lymphocytes # 1.1 10*3/uL (1.4-4.0); Lymphocytes % 6.3 % (21.3-54.2); Mean Corpuscular HGB Conc 31.2 GM/DL (32-36); Mean Corpuscular Volume 91.2 FL (87-102); Mean Platelet Volume 10.6 FL (9.6-12.0); Monocytes % 3.9 % (1.7-12.7); Neutrophils % 88.7 % (38.7-73.9); Platelet Count 162 T/CUMM (130-400); Red Blood Count 3.73 MC/CUMM (3.8-5.5); Red Cell Distribution Width 14.2 % (9.3-17.3); White Blood Count 17.4 T/CUMM (4-12)
[2022-01-06 08:23] LABS: Albumin 2.7 G/DL (3.4-5.0); Bilirubin,Total 0.5 MG/DL (0.20-1.00); Calcium 8.7 MG/DL (8.5-10.1); Osmolality,Calculated 269.5 MOS/KG (273-304); Potassium 3.2 MMOL/L (3.5-5.1); Total Protein 6.5 G/DL (6.4-8.2)
[2022-01-06] MEDS: DOCUSATE SODIUM 100 MG CAPSULE PO SCH ×2 (10:13→23:04)
[2022-01-06] MEDS: PANTOPRAZOLE 40 MG TABLET PO SCH (10:14)
[2022-01-06 11:16] LABS: Hepatitis B Core IgM Quant 0.18 Index; Hepatitis B Surface Ag Quant < 0.10 Index; Hepatitis B Surface Ag Result Non-Reactive (NonReactive); Hepatitis C Virus Ab Quant 0.12 Index; Hepatitis C Virus Ab Result Non-Reactive (NonReactive)
[2022-01-06] MEDS ORDERED: HEPARIN 10,000 UNIT/10 ML VIAL IV SCH (11:45)
[2022-01-06] MEDS ORDERED: DEXTROSE 10% 250 ML BAG IV PRN (14:28)
[2022-01-06] MEDS ORDERED: POTASSIUM CHLORIDE 20 MEQ TABLET PO PRN (14:28)
[2022-01-06] MEDS ORDERED: POTASSIUM CHLORIDE RIDER 10 MEQ/100 ML PREMIX IV PRN (14:28)
[2022-01-06] MEDS ORDERED: GLUCAGON 1 MG VIAL IM PRN (14:28)
[2022-01-06] MEDS ORDERED: VANCOMYCIN INJ 750 MG in SODIUM CHLORIDE 0.9% 250 ML IV PRN (14:37)
[2022-01-06] MEDS ORDERED: traMADol 50 MG TABLET PO PRN (15:58)
[2022-01-06] MEDS ORDERED: VANCOMYCIN INJ 2,500 MG in SODIUM CHLORIDE 0.9% 500 ML IV ONE (17:00)
[2022-01-06] MEDS: INSULIN LISPRO 100 UNIT/ML SUBCUT SCH ×2 (18:29→23:04)
[2022-01-07 05:17] LABS: Basophils # 0.1 10*3/uL (0.0-0.2); Basophils % 0.4 % (0.0-0.8); Eosinophils # 0.1 10*3/uL (0.0-0.87); Eosinophils % 0.5 % (0.00-10.9); Hematocrit 34.3 VOL% (35.7-47.0); Hemoglobin 10.7 GM/DL (12.0-16.0); Immature Granulocytes % 0.3 %; Immature Granulocytes Absolute 0.03 #; Lymphocytes # 1.5 10*3/uL (1.4-4.0); Lymphocytes % 12.9 % (21.3-54.2); Mean Corpuscular HGB Conc 31.2 GM/DL (32-36); Mean Platelet Volume 11.6 FL (9.6-12.0); Monocytes % 6.5 % (1.7-12.7); Neutrophils % 79.4 % (38.7-73.9); Platelet Count 131 T/CUMM (130-400); Red Blood Count 3.81 MC/CUMM (3.8-5.5); Red Cell Distribution Width 14.3 % (9.3-17.3)
[2022-01-07 05:35] LABS: Albumin 2.4 G/DL (3.4-5.0); Bilirubin,Total 0.5 MG/DL (0.20-1.00); Calcium 8.2 MG/DL (8.5-10.1); Total Protein 6.3 G/DL (6.4-8.2)
[2022-01-07 05:36] LABS: Osmolality,Calculated 274.1 MOS/KG (273-304); Potassium 3.6 MMOL/L (3.5-5.1); White Blood Count 11.5 T/CUMM (4-12)
[2022-01-07 06:14] LABS: Band Neutrophils 7 % (0-10); Hypochromia 1+; Lymphocytes 10 % (20-55); Microcytosis 1+; Platelet Estimate Adequate; Segmented Neutrophils 74 % (50-85); Total Cells Counted 100
[2022-01-07] MEDS: INSULIN LISPRO 100 UNIT/ML SUBCUT SCH ×4 (10:05→22:19)
[2022-01-07] MEDS: levETIRAcetam 250 MG TABLET PO SCH ×2 (10:06→22:20)
[2022-01-07] MEDS: DOCUSATE SODIUM 100 MG CAPSULE PO SCH ×2 (10:06→22:20)
[2022-01-07] MEDS: hydrALAZINE 25 MG TABLET PO SCH ×2 (10:06→22:21)
[2022-01-07] MEDS: amLODIPine 10 MG TABLET PO SCH (10:06)
[2022-01-07] MEDS: PANTOPRAZOLE 40 MG TABLET PO SCH (10:07)
[2022-01-07] MEDS: LEVOTHYROXINE 100 MCG TABLET PO SCH (10:07)
[2022-01-07] MEDS: ROSUVASTATIN 20 MG TABLET PO SCH (22:20)
[2022-01-07] MEDS: traZODone 50 MG TABLET PO SCH (22:20)
[2022-01-07] MEDS: GABAPENTIN 300 MG CAPSULE PO SCH (22:21)
[2022-01-08 07:47] LABS: Calcium 8.2 MG/DL (8.5-10.1); Osmolality,Calculated 272.5 MOS/KG (273-304); Potassium 3.5 MMOL/L (3.5-5.1)
[2022-01-08 09:02] LABS: Basophils % 0.2 % (0.2-1.0); Eosinophils # 0.2 # (0.0-0.70); Hematocrit 31.5 VOL% (37.0-47.0); Hemoglobin 10.1 GM/DL (12.0-16.0); Lymphocytes # 1.8 # (1.3-2.9); Lymphocytes % 21.1 % (20.5-45.5); Mean Corpuscular HGB Conc 32.1 GM/DL (32-36); Mean Corpuscular Volume 89.7 FL (81-99); Monocytes % 8.2 % (5.5-11.7); Neutrophils % 68.1 % (43.0-65.0); Platelet Count 130 T/CUMM (130-400); Red Blood Count 3.51 MC/CUMM (4.20-5.40); White Blood Count 8.5 T/CUMM (4.8-10.8)
[2022-01-08] MEDS: levETIRAcetam 250 MG TABLET PO SCH ×2 (11:35→21:37)
[2022-01-08] MEDS: DOCUSATE SODIUM 100 MG CAPSULE PO SCH ×2 (11:36→21:36)
[2022-01-08] MEDS: amLODIPine 10 MG TABLET PO SCH (11:36)
[2022-01-08] MEDS: PANTOPRAZOLE 40 MG TABLET PO SCH (11:36)
[2022-01-08] MEDS: hydrALAZINE 25 MG TABLET PO SCH ×3 (11:36→21:40)
[2022-01-08] MEDS: LEVOTHYROXINE 100 MCG TABLET PO SCH (11:36)
[2022-01-08] MEDS: INSULIN LISPRO 100 UNIT/ML SUBCUT SCH ×4 (11:53→21:37)
[2022-01-08] MEDS: GABAPENTIN 300 MG CAPSULE PO SCH (21:36)
[2022-01-08] MEDS: ROSUVASTATIN 20 MG TABLET PO SCH (21:37)
[2022-01-08] MEDS: traZODone 50 MG TABLET PO SCH (21:37)
[2022-01-09 06:19] LABS: Basophils % 0.3 % (0.0-0.8); Eosinophils # 0.2 10*3/uL (0.0-0.87); Eosinophils % 2.4 % (0.00-10.9); Hematocrit 32.6 VOL% (35.7-47.0); Hemoglobin 10.3 GM/DL (12.0-16.0); Lymphocytes # 2.2 10*3/uL (1.4-4.0); Lymphocytes % 27.8 % (21.3-54.2); Mean Corpuscular HGB Conc 31.6 GM/DL (32-36); Mean Corpuscular Volume 88.1 FL (87-102); Mean Platelet Volume 11.6 FL (9.6-12.0); Monocytes % 7.2 % (1.7-12.7); Neutrophils % 61.3 % (38.7-73.9); Platelet Count 161 T/CUMM (130-400); Red Cell Distribution Width 13.6 % (9.3-17.3); White Blood Count 7.8 T/CUMM (4-12)
[2022-01-09 06:21] LABS: Albumin 2.4 G/DL (3.4-5.0); Bilirubin,Total 0.4 MG/DL (0.20-1.00); Calcium 8.4 MG/DL (8.5-10.1); Osmolality,Calculated 272.9 MOS/KG (273-304); Potassium 3.5 MMOL/L (3.5-5.1); Total Protein 6.3 G/DL (6.4-8.2)
[2022-01-09 06:44] LABS: Band Neutrophils 4 % (0-10); Eosinophils 3 % (0-10); Hypochromia 1+; Lymphocytes 30 % (20-55); Microcytosis 1+; Ovalocytes Slight; Platelet Estimate Adequate; Segmented Neutrophils 57 % (50-85)
[2022-01-09] MEDS: INSULIN LISPRO 100 UNIT/ML SUBCUT SCH ×4 (09:37→22:19)
[2022-01-09] MEDS: DOCUSATE SODIUM 100 MG CAPSULE PO SCH ×2 (09:39→22:18)
[2022-01-09] MEDS: amLODIPine 10 MG TABLET PO SCH (09:39)
[2022-01-09] MEDS: hydrALAZINE 25 MG TABLET PO SCH ×3 (09:39→22:18)
[2022-01-09] MEDS: LEVOTHYROXINE 100 MCG TABLET PO SCH (09:39)
[2022-01-09] MEDS: levETIRAcetam 250 MG TABLET PO SCH ×2 (09:40→22:18)
[2022-01-09] MEDS: PANTOPRAZOLE 40 MG TABLET PO SCH (09:40)
[2022-01-09] MEDS ORDERED: cloNIDine 0.1 MG TABLET PO PRN (13:18)
[2022-01-09] MEDS: ROSUVASTATIN 20 MG TABLET PO SCH (22:18)
[2022-01-09] MEDS: traZODone 50 MG TABLET PO SCH (22:18)
[2022-01-09] MEDS: GABAPENTIN 300 MG CAPSULE PO SCH (22:18)
[2022-01-10] MEDS ORDERED: LIDOCAINE 2% 5 ML VIAL ONE (07:55)
[2022-01-10] MEDS ORDERED: ETOMIDATE 40 MG/20 ML VIAL IV ONE (07:55)
[2022-01-10] MEDS ORDERED: SODIUM CHLORIDE 0.9% 100 ML IV ONE (07:55)
[2022-01-10] MEDS ORDERED: propofoL 200 MG/20 ML VIAL IV ONE (07:55)
[2022-01-10] MEDS ORDERED: fentaNYL 100 MCG/2 ML VIAL ONE (07:56)
[2022-01-10] MEDS ORDERED: MIDAZOLAM 2 MG/2 ML VIAL ONE (07:56)
[2022-01-10] MEDS ORDERED: SODIUM CHLORIDE 0.9% 250 ML IV SCH (08:00)
[2022-01-10] MEDS ORDERED: TISSUE ADHESIVE 1 EACH APPLICATOR TOP ONE (08:06)
[2022-01-10] MEDS ORDERED: BUPIVACAINE MPF 0.25% 30 ML VIAL ONE (08:06)
[2022-01-10] MEDS ORDERED: HEPARIN 5,000 UNIT/1 ML VIAL ONE (08:06)
[2022-01-10] MEDS ORDERED: LIDOCAINE 1%/EPI INJ 20 ML VIAL ONE (08:06)
[2022-01-10] MEDS ORDERED: VANCOMYCIN 1,000 MG VIAL ONE (08:41)
[2022-01-10] MEDS: INSULIN LISPRO 100 UNIT/ML SUBCUT SCH ×4 (09:57→21:33)
[2022-01-10] MEDS: PANTOPRAZOLE 40 MG TABLET PO SCH (09:58)
[2022-01-10] MEDS: DOCUSATE SODIUM 100 MG CAPSULE PO SCH ×2 (09:58→21:32)
[2022-01-10] MEDS: levETIRAcetam 250 MG TABLET PO SCH ×2 (09:58→21:33)
[2022-01-10] MEDS: hydrALAZINE 25 MG TABLET PO SCH ×3 (09:58→21:32)
[2022-01-10] MEDS: amLODIPine 10 MG TABLET PO SCH (09:58)
[2022-01-10] MEDS: LEVOTHYROXINE 100 MCG TABLET PO SCH (10:00)
[2022-01-10] MEDS ORDERED: VANCOMYCIN INJ 750 MG in SODIUM CHLORIDE 0.9% 250 ML IV ONE (17:00)
[2022-01-10] MEDS: GABAPENTIN 300 MG CAPSULE PO SCH (21:32)
[2022-01-10] MEDS: ROSUVASTATIN 20 MG TABLET PO SCH (21:32)
[2022-01-10] MEDS: traZODone 50 MG TABLET PO SCH (21:32)
[2022-01-11 06:40] LABS: Basophils % 0.5 % (0.0-0.8); Eosinophils # 0.2 10*3/uL (0.0-0.87); Eosinophils % 2.6 % (0.00-10.9); Hematocrit 32.6 VOL% (35.7-47.0); Hemoglobin 10.5 GM/DL (12.0-16.0); Immature Granulocytes % 3.5 %; Immature Granulocytes Absolute 0.31 #; Lymphocytes # 2.5 10*3/uL (1.4-4.0); Lymphocytes % 28.1 % (21.3-54.2); Mean Corpuscular HGB Conc 32.2 GM/DL (32-36); Mean Corpuscular Volume 88.3 FL (87-102); Monocytes % 8.2 % (1.7-12.7); Neutrophils % 57.1 % (38.7-73.9); Platelet Count 194 T/CUMM (130-400); Red Blood Count 3.69 MC/CUMM (3.8-5.5); Red Cell Distribution Width 13.7 % (9.3-17.3); White Blood Count 8.9 T/CUMM (4-12)
[2022-01-11 06:56] LABS: Calcium 8.1 MG/DL (8.5-10.1); Osmolality,Calculated 273.7 MOS/KG (273-304); Potassium 4.1 MMOL/L (3.5-5.1)
[2022-01-11] MEDS: hydrALAZINE 25 MG TABLET PO SCH ×3 (13:41→21:48)
[2022-01-11] MEDS: INSULIN LISPRO 100 UNIT/ML SUBCUT SCH ×3 (13:41→21:49)
[2022-01-11] MEDS: DOCUSATE SODIUM 100 MG CAPSULE PO SCH ×2 (13:41→21:48)
[2022-01-11] MEDS: levETIRAcetam 250 MG TABLET PO SCH ×2 (13:42→21:48)
[2022-01-11] MEDS: amLODIPine 10 MG TABLET PO SCH (13:42)
[2022-01-11] MEDS: LEVOTHYROXINE 100 MCG TABLET PO SCH (13:42)
[2022-01-11] MEDS: PANTOPRAZOLE 40 MG TABLET PO SCH (13:42)
[2022-01-11] MEDS ORDERED: VANCOMYCIN INJ 750 MG in SODIUM CHLORIDE 0.9% 250 ML IV ONE (17:00)
[2022-01-11] MEDS: GABAPENTIN 300 MG CAPSULE PO SCH (21:48)
[2022-01-11] MEDS: traZODone 50 MG TABLET PO SCH (21:48)
[2022-01-11] MEDS: ROSUVASTATIN 20 MG TABLET PO SCH (22:16)
[2022-01-12] MEDS: amLODIPine 10 MG TABLET PO SCH (09:30)
[2022-01-12] MEDS: hydrALAZINE 25 MG TABLET PO SCH ×3 (09:30→21:35)
[2022-01-12] MEDS: PANTOPRAZOLE 40 MG TABLET PO SCH (09:31)
[2022-01-12] MEDS: INSULIN LISPRO 100 UNIT/ML SUBCUT SCH ×4 (09:31→21:36)
[2022-01-12] MEDS: DOCUSATE SODIUM 100 MG CAPSULE PO SCH ×2 (09:31→21:35)
[2022-01-12] MEDS: levETIRAcetam 250 MG TABLET PO SCH ×2 (09:31→21:35)
[2022-01-12] MEDS: LEVOTHYROXINE 100 MCG TABLET PO SCH (09:31)
[2022-01-12] MEDS ORDERED: VANCOMYCIN INJ 750 MG in SODIUM CHLORIDE 0.9% 250 ML IV ONE (17:00)
[2022-01-12] MEDS: GABAPENTIN 300 MG CAPSULE PO SCH (21:35)
[2022-01-12] MEDS: ROSUVASTATIN 20 MG TABLET PO SCH (21:35)
[2022-01-12] MEDS: traZODone 50 MG TABLET PO SCH (21:35)
[2022-01-13] MEDS: INSULIN LISPRO 100 UNIT/ML SUBCUT SCH ×4 (09:00→20:55)
[2022-01-13] MEDS: DOCUSATE SODIUM 100 MG CAPSULE PO SCH ×2 (10:08→20:52)
[2022-01-13] MEDS: levETIRAcetam 250 MG TABLET PO SCH ×2 (10:08→20:53)
[2022-01-13] MEDS: amLODIPine 10 MG TABLET PO SCH (10:09)
[2022-01-13] MEDS: LEVOTHYROXINE 100 MCG TABLET PO SCH (10:09)
[2022-01-13] MEDS: hydrALAZINE 25 MG TABLET PO SCH ×3 (10:09→20:52)
[2022-01-13] MEDS: PANTOPRAZOLE 40 MG TABLET PO SCH (10:09)
[2022-01-13] MEDS: NEOMYCIN/POLYMYXIN/BACITRACIN OINT 0.9 GM PACK TOP SCH ×2 (13:03→20:58)
[2022-01-13] MEDS: ROSUVASTATIN 20 MG TABLET PO SCH (20:52)
[2022-01-13] MEDS: GABAPENTIN 300 MG CAPSULE PO SCH (20:53)
[2022-01-13] MEDS: traZODone 50 MG TABLET PO SCH (20:56)
[2022-01-14 07:19] LABS: Basophils % 0.5 % (0.0-0.8); Eosinophils # 0.2 10*3/uL (0.0-0.87); Eosinophils % 2.6 % (0.00-10.9); Hematocrit 33.3 VOL% (35.7-47.0); Hemoglobin 10.8 GM/DL (12.0-16.0); Lymphocytes # 2.1 10*3/uL (1.4-4.0); Lymphocytes % 24.4 % (21.3-54.2); Mean Corpuscular HGB Conc 32.4 GM/DL (32-36); Mean Corpuscular Volume 88.3 FL (87-102); Mean Platelet Volume 10.1 FL (9.6-12.0); Monocytes % 8.8 % (1.7-12.7); Neutrophils % 57.7 % (38.7-73.9); Platelet Count 250 T/CUMM (130-400); Red Blood Count 3.77 MC/CUMM (3.8-5.5); White Blood Count 8.4 T/CUMM (4-12)
[2022-01-14 07:28] LABS: Alanine Aminotransferase 17 U/L (13-56); Albumin 2.5 G/DL (3.4-5.0); Alkaline Phosphatase 55 U/L (45-117); Aspartate Amino Transferase 14 U/L (0-37); Bilirubin,Total < 0.39 MG/DL (0.20-1.00); Blood Urea Nitrogen 41 MG/DL (7-18); Calcium 8.7 MG/DL (8.5-10.1); Carbon Dioxide 24 MMOL/L (21-32); Estimated Glom Filtration Rate 9 ML/MIN; Glucose 123 MG/DL (74-106); Osmolality,Calculated 272.7 MOS/KG (273-304); Potassium 4.1 MMOL/L (3.5-5.1); Sodium 131 MMOL/L (136-145); Total Protein 6.4 G/DL (6.4-8.2)
[2022-01-14] MEDS: hydrALAZINE 25 MG TABLET PO SCH ×3 (09:42→21:21)
[2022-01-14] MEDS: amLODIPine 10 MG TABLET PO SCH (09:42)
[2022-01-14] MEDS: DOCUSATE SODIUM 100 MG CAPSULE PO SCH ×2 (09:42→21:21)
[2022-01-14] MEDS: levETIRAcetam 250 MG TABLET PO SCH ×2 (09:42→21:20)
[2022-01-14] MEDS: PANTOPRAZOLE 40 MG TABLET PO SCH (09:42)
[2022-01-14] MEDS: NEOMYCIN/POLYMYXIN/BACITRACIN OINT 0.9 GM PACK TOP SCH ×2 (09:42→21:20)
[2022-01-14] MEDS: LEVOTHYROXINE 100 MCG TABLET PO SCH (09:45)
[2022-01-14] MEDS: INSULIN LISPRO 100 UNIT/ML SUBCUT SCH ×4 (09:49→21:21)
[2022-01-14 10:09] LABS: Hypochromia Slight; Lymphocytes 19 % (20-55); Ovalocytes Few; Platelet Estimate Normal; Segmented Neutrophils 70 % (50-85); Total Cells Counted 100
[2022-01-14] MEDS: MUPIROCIN 2% OINT 22 GM TUBE TOP SCH ×2 (17:12→21:20)
[2022-01-14] MEDS: traZODone 50 MG TABLET PO SCH (21:20)
[2022-01-14] MEDS: ROSUVASTATIN 20 MG TABLET PO SCH (21:20)
[2022-01-14] MEDS: GABAPENTIN 300 MG CAPSULE PO SCH (21:21)
[2022-01-15 06:44] LABS: Basophils # 0.1 10*3/uL (0.0-0.2); Basophils % 0.6 % (0.0-0.8); Eosinophils # 0.2 10*3/uL (0.0-0.87); Eosinophils % 2.5 % (0.00-10.9); Hematocrit 32.2 VOL% (35.7-47.0); Hemoglobin 10.3 GM/DL (12.0-16.0); Immature Granulocytes % 4.2 %; Immature Granulocytes Absolute 0.35 #; Lymphocytes # 2.5 10*3/uL (1.4-4.0); Lymphocytes % 29.8 % (21.3-54.2); Mean Corpuscular Volume 88.5 FL (87-102); Mean Platelet Volume 10.2 FL (9.6-12.0); Monocytes % 8.1 % (1.7-12.7); Neutrophils % 54.8 % (38.7-73.9); Platelet Count 242 T/CUMM (130-400); Red Blood Count 3.64 MC/CUMM (3.8-5.5); Red Cell Distribution Width 13.8 % (9.3-17.3); White Blood Count 8.4 T/CUMM (4-12)
[2022-01-15 07:07] LABS: Alanine Aminotransferase 15 U/L (13-56); Albumin 2.4 G/DL (3.4-5.0); Alkaline Phosphatase 65 U/L (45-117); Aspartate Amino Transferase 13 U/L (0-37); Bilirubin,Total < 0.39 MG/DL (0.20-1.00); Blood Urea Nitrogen 54 MG/DL (7-18); Calcium 8.7 MG/DL (8.5-10.1); Carbon Dioxide 23 MMOL/L (21-32); Estimated Glom Filtration Rate 7 ML/MIN; Glucose 141 MG/DL (74-106); Osmolality,Calculated 269.4 MOS/KG (273-304); Potassium 4.6 MMOL/L (3.5-5.1); Sodium 126 MMOL/L (136-145); Total Protein 6.4 G/DL (6.4-8.2)
[2022-01-15] MEDS: INSULIN LISPRO 100 UNIT/ML SUBCUT SCH ×3 (08:07→16:09)
[2022-01-15] MEDS: LEVOTHYROXINE 100 MCG TABLET PO SCH (08:14)
[2022-01-15] MEDS: DOCUSATE SODIUM 100 MG CAPSULE PO SCH (08:14)
[2022-01-15] MEDS: amLODIPine 10 MG TABLET PO SCH (08:14)
[2022-01-15] MEDS: levETIRAcetam 250 MG TABLET PO SCH (08:14)
[2022-01-15] MEDS: PANTOPRAZOLE 40 MG TABLET PO SCH (08:14)
[2022-01-15] MEDS: hydrALAZINE 25 MG TABLET PO SCH ×2 (08:14→15:43)
[2022-01-15] MEDS: NEOMYCIN/POLYMYXIN/BACITRACIN OINT 0.9 GM PACK TOP SCH (08:15)
[2022-01-15] MEDS: MUPIROCIN 2% OINT 22 GM TUBE TOP SCH (08:15)
[2022-01-15] MEDS ORDERED: HEPARIN 10,000 UNIT/10 ML VIAL IV SCH (12:00)
[2022-01-15] MEDS ORDERED: VANCOMYCIN INJ 750 MG in SODIUM CHLORIDE 0.9% 250 ML IV ONE (12:00)
[2022-01-15 16:07] VITALS: BP 150/48
== END 2022-01-15 16:22 | disposition home health service (06) | DRG 314 ==
LOC: N.ED 11:56 → N.EDINP 11:56 → N.5E 20:35
PROVIDERS: ADMIT Internal Medicine; ATTEND Internal Medicine

== ENCOUNTER 2022-03-19 12:17 | Inpatient (IN) ==
[2022-03-19] MEDS ORDERED: ONDANSETRON 4 MG/2 ML VIAL IV STA (19:04)
[2022-03-19] MEDS ORDERED: PANTOPRAZOLE 40 MG VIAL IV STA (19:04)
[2022-03-19 19:57] LABS: Basophils % 0.5 % (0.0-0.8); Eosinophils # 0.3 10*3/uL (0.0-0.87); Hematocrit 31.7 VOL% (35.7-47.0); Hemoglobin 10.5 GM/DL (12.0-16.0); Immature Granulocytes % 0.9 %; Immature Granulocytes Absolute 0.07 #; Lymphocytes # 2.3 10*3/uL (1.4-4.0); Lymphocytes % 30.3 % (21.3-54.2); Mean Corpuscular HGB Conc 33.1 GM/DL (32-36); Mean Corpuscular Volume 85.4 FL (87-102); Mean Platelet Volume 10.6 FL (9.6-12.0); Monocytes # 0.5 10*3/uL (0.11-0.8); Neutrophils % 58.3 % (38.7-73.9); Platelet Count 209 T/CUMM (130-400); Red Blood Count 3.71 MC/CUMM (3.8-5.5); Red Cell Distribution Width 13.5 % (9.3-17.3); White Blood Count 7.5 T/CUMM (4-12)
[2022-03-19 20:19] LABS: Albumin 3.2 G/DL (3.4-5.0); Bilirubin,Total 0.4 MG/DL (0.20-1.00); Calcium 8.9 MG/DL (8.5-10.1); Osmolality,Calculated 277.2 MOS/KG (273-304); Potassium 3.6 MMOL/L (3.5-5.1); Total Protein 6.6 G/DL (6.4-8.2)
[2022-03-19] MEDS ORDERED: METOCLOPRAMIDE 10 MG/2 ML VIAL IV PRN (21:22)
[2022-03-19] MEDS ORDERED: ACETAMINOPHEN 325 MG TABLET PO PRN (21:22)
[2022-03-19] MEDS ORDERED: GLUCAGON 1 MG VIAL IM PRN (21:22)
[2022-03-19] MEDS ORDERED: ONDANSETRON 4 MG/2 ML VIAL IV PRN (21:22)
[2022-03-19] MEDS ORDERED: DEXTROSE 10% 250 ML BAG IV PRN (21:27)
[2022-03-19] MEDS ORDERED: hydrALAZINE 20 MG/1 ML VIAL ONE (22:30)
[2022-03-19] MEDS ORDERED: hydrALAZINE 20 MG/1 ML VIAL IV STA (22:45)
[2022-03-19] MEDS: SODIUM CHLORIDE 0.9% 1,000 ML IV SCH (22:46)
[2022-03-20] MEDS: INSULIN REGULAR 100 UNIT/ML SUBCUT SCH ×3 (00:24→13:00)
[2022-03-20] MEDS ORDERED: LABETALOL 20 MG/4 ML SYRINGE IV STA (01:13)
[2022-03-20 05:58] LABS: Basophils % 0.4 % (0.0-0.8); Eosinophils # 0.2 10*3/uL (0.0-0.87); Eosinophils % 2.7 % (0.00-10.9); Hematocrit 29.5 VOL% (35.7-47.0); Hemoglobin 9.8 GM/DL (12.0-16.0); Immature Granulocytes % 0.6 %; Immature Granulocytes Absolute 0.05 #; Lymphocytes # 1.7 10*3/uL (1.4-4.0); Lymphocytes % 20.6 % (21.3-54.2); Mean Corpuscular HGB Conc 33.2 GM/DL (32-36); Mean Corpuscular Volume 87.3 FL (87-102); Mean Platelet Volume 10.4 FL (9.6-12.0); Monocytes # 0.4 10*3/uL (0.11-0.8); Monocytes % 5.2 % (1.7-12.7); Neutrophils % 70.5 % (38.7-73.9); Platelet Count 207 T/CUMM (130-400); Red Blood Count 3.38 MC/CUMM (3.8-5.5); Red Cell Distribution Width 13.6 % (9.3-17.3)
[2022-03-20 06:21] LABS: Bilirubin,Total 0.4 MG/DL (0.20-1.00); Calcium 8.8 MG/DL (8.5-10.1); Osmolality,Calculated 273.5 MOS/KG (273-304); Potassium 3.5 MMOL/L (3.5-5.1); Risk Ratio 2.97; Total Protein 6.4 G/DL (6.4-8.2); VLDL Cholesterol 27.6 MG/DL
[2022-03-20] MEDS: HYDROmorphone 1 MG/1 ML SYRINGE IV PRN ×2 (08:10→12:40)
[2022-03-20] MEDS ORDERED: MECLIZINE 25 MG TABLET PO PRN (08:18)
[2022-03-20] MEDS ORDERED: NITROGLYCERIN SL 0.4 MG TABLET SL PRN (08:18)
[2022-03-20] MEDS ORDERED: rOPINIRole 0.25 MG TABLET PO SCH ×2 (09:00→21:00)
[2022-03-20] MEDS: PANTOPRAZOLE 40 MG VIAL IV SCH (09:28)
[2022-03-20] MEDS: levETIRAcetam 500 MG TABLET PO SCH ×2 (09:30→21:11)
[2022-03-20] MEDS: hydrALAZINE 25 MG TABLET PO SCH ×3 (09:30→21:12)
[2022-03-20] MEDS: ASPIRIN EC 81 MG TABLET PO SCH (09:30)
[2022-03-20] MEDS: DOCUSATE SODIUM 100 MG CAPSULE PO SCH ×2 (09:30→21:46)
[2022-03-20] MEDS: rOPINIRole 1 MG TABLET PO SCH ×2 (09:40→21:34)
[2022-03-20] MEDS: LEVOTHYROXINE 100 MCG TABLET PO SCH (11:00)
[2022-03-20] MEDS: TOPIRAMATE 25 MG TABLET PO SCH ×2 (15:30→21:12)
[2022-03-20] MEDS: Ferric Citrate [Auryxia] 210 mg iron Tablet PO SCH (15:30)
[2022-03-20] MEDS: traZODone 50 MG TABLET PO SCH (21:12)
[2022-03-20] MEDS: ROSUVASTATIN 20 MG TABLET PO SCH (21:12)
[2022-03-20] MEDS: hydrOXYzine HCL 25 MG TABLET PO PRN (21:12)
[2022-03-21] MEDS: INSULIN REGULAR 100 UNIT/ML SUBCUT SCH ×5 (00:34→18:37)
[2022-03-21] MEDS: hydrALAZINE 20 MG/1 ML VIAL IV PRN ×2 (04:16→12:14)
[2022-03-21] MEDS: LEVOTHYROXINE 100 MCG TABLET PO SCH (05:48)
[2022-03-21] MEDS: hydrALAZINE 25 MG TABLET PO SCH ×3 (08:42→21:08)
[2022-03-21] MEDS: DOCUSATE SODIUM 100 MG CAPSULE PO SCH ×2 (08:42→22:37)
[2022-03-21] MEDS: rOPINIRole 1 MG TABLET PO SCH ×2 (08:42→21:08)
[2022-03-21] MEDS: TOPIRAMATE 25 MG TABLET PO SCH ×2 (08:43→21:08)
[2022-03-21] MEDS: levETIRAcetam 500 MG TABLET PO SCH ×2 (08:43→21:07)
[2022-03-21] MEDS: ASPIRIN EC 81 MG TABLET PO SCH (08:43)
[2022-03-21] MEDS: Ferric Citrate [Auryxia] 210 mg iron Tablet PO SCH ×4 (08:47→16:43)
[2022-03-21] MEDS: PANTOPRAZOLE 40 MG VIAL IV SCH (08:48)
[2022-03-21] MEDS ORDERED: HEPARIN 10,000 UNIT/10 ML VIAL IV SCH (14:00)
[2022-03-21] MEDS: ROSUVASTATIN 20 MG TABLET PO SCH (21:07)
[2022-03-21] MEDS: hydrOXYzine HCL 25 MG TABLET PO PRN (21:08)
[2022-03-21] MEDS: traZODone 50 MG TABLET PO SCH (21:08)
[2022-03-22] MEDS: INSULIN REGULAR 100 UNIT/ML SUBCUT SCH ×4 (00:58→21:15)
[2022-03-22] MEDS: HYDROmorphone 1 MG/1 ML SYRINGE IV PRN ×3 (02:30→22:03)
[2022-03-22] MEDS: LEVOTHYROXINE 100 MCG TABLET PO SCH (05:49)
[2022-03-22 08:12] LABS: Basophils % 0.3 % (0.0-0.8); Eosinophils # 0.3 10*3/uL (0.0-0.87); Eosinophils % 4.1 % (0.00-10.9); Hematocrit 31.1 VOL% (35.7-47.0); Immature Granulocytes % 0.5 %; Immature Granulocytes Absolute 0.03 #; Lymphocytes # 2.4 10*3/uL (1.4-4.0); Lymphocytes % 36.9 % (21.3-54.2); Mean Corpuscular HGB Conc 32.2 GM/DL (32-36); Mean Corpuscular Volume 88.9 FL (87-102); Mean Platelet Volume 10.8 FL (9.6-12.0); Monocytes # 0.3 10*3/uL (0.11-0.8); Monocytes % 5.2 % (1.7-12.7); Platelet Count 194 T/CUMM (130-400); Red Cell Distribution Width 14.4 % (9.3-17.3); White Blood Count 6.5 T/CUMM (4-12)
[2022-03-22 08:30] LABS: Bilirubin,Total 0.4 MG/DL (0.20-1.00); Calcium 8.4 MG/DL (8.5-10.1); Phosphorous 3.2 MG/DL (2.5-4.9); Total Protein 6.7 G/DL (6.4-8.2)
[2022-03-22] MEDS: TOPIRAMATE 25 MG TABLET PO SCH ×2 (09:07→21:15)
[2022-03-22] MEDS: hydrALAZINE 25 MG TABLET PO SCH ×3 (09:07→21:14)
[2022-03-22] MEDS: PANTOPRAZOLE 40 MG VIAL IV SCH (09:07)
[2022-03-22] MEDS: levETIRAcetam 500 MG TABLET PO SCH ×2 (09:07→21:14)
[2022-03-22] MEDS: ASPIRIN EC 81 MG TABLET PO SCH (09:07)
[2022-03-22] MEDS: DOCUSATE SODIUM 100 MG CAPSULE PO SCH ×2 (09:07→22:34)
[2022-03-22] MEDS: rOPINIRole 1 MG TABLET PO SCH (09:08)
[2022-03-22] MEDS: Ferric Citrate [Auryxia] 210 mg iron Tablet PO SCH ×3 (09:09→19:05)
[2022-03-22] MEDS: traZODone 50 MG TABLET PO SCH (21:14)
[2022-03-22] MEDS: hydrOXYzine HCL 25 MG TABLET PO PRN (21:14)
[2022-03-22] MEDS: ROSUVASTATIN 20 MG TABLET PO SCH (21:14)
[2022-03-23] MEDS: rOPINIRole 1 MG TABLET PO SCH ×3 (00:45→21:00)
[2022-03-23] MEDS: INSULIN REGULAR 100 UNIT/ML SUBCUT SCH ×5 (01:01→23:47)
[2022-03-23] MEDS: LEVOTHYROXINE 100 MCG TABLET PO SCH (05:53)
[2022-03-23] MEDS: HYDROmorphone 1 MG/1 ML SYRINGE IV PRN ×3 (06:16→20:59)
[2022-03-23] MEDS ORDERED: VANCOMYCIN INJ 1,500 MG in SODIUM CHLORIDE 0.9% 500 ML IV ONE (09:30)
[2022-03-23] MEDS ORDERED: HEPARIN 5,000 UNIT/1 ML VIAL ONE (09:54)
[2022-03-23] MEDS ORDERED: LIDOCAINE 1%/EPI INJ 20 ML VIAL ONE (09:54)
[2022-03-23] MEDS ORDERED: BUPIVACAINE MPF 0.25% 30 ML VIAL ONE (09:54)
[2022-03-23] MEDS ORDERED: propofoL 200 MG/20 ML VIAL IV ONE (10:09)
[2022-03-23] MEDS ORDERED: LIDOCAINE 2% 5 ML VIAL ONE (10:09)
[2022-03-23] MEDS ORDERED: fentaNYL 100 MCG/2 ML VIAL ONE (10:09)
[2022-03-23] MEDS ORDERED: MIDAZOLAM 2 MG/2 ML VIAL ONE (10:09)
[2022-03-23] MEDS ORDERED: SODIUM CHLORIDE 0.9% 250 ML IV SCH (10:30)
[2022-03-23] MEDS ORDERED: ONDANSETRON 4 MG/2 ML VIAL ONE (10:39)
[2022-03-23] MEDS ORDERED: HYDROmorphone 1 MG/1 ML SYRINGE IV PRN (12:17)
[2022-03-23] MEDS: TOPIRAMATE 25 MG TABLET PO SCH ×2 (15:02→21:00)
[2022-03-23] MEDS: Ferric Citrate [Auryxia] 210 mg iron Tablet PO SCH ×3 (15:02→19:31)
[2022-03-23] MEDS: hydrALAZINE 25 MG TABLET PO SCH ×3 (15:02→20:59)
[2022-03-23] MEDS: levETIRAcetam 500 MG TABLET PO SCH ×2 (15:02→20:59)
[2022-03-23] MEDS: ASPIRIN EC 81 MG TABLET PO SCH (16:58)
[2022-03-23] MEDS: PANTOPRAZOLE 40 MG VIAL IV SCH (16:58)
[2022-03-23] MEDS: DOCUSATE SODIUM 100 MG CAPSULE PO SCH ×2 (16:58→21:00)
[2022-03-23] MEDS: ROSUVASTATIN 20 MG TABLET PO SCH (21:00)
[2022-03-23] MEDS: traZODone 50 MG TABLET PO SCH (21:05)
[2022-03-24] MEDS: HYDROmorphone 1 MG/1 ML SYRINGE IV PRN ×2 (04:05→10:33)
[2022-03-24] MEDS: SODIUM CHLORIDE 0.9% 1,000 ML IV SCH (04:09)
[2022-03-24] MEDS: INSULIN REGULAR 100 UNIT/ML SUBCUT SCH ×3 (05:50→17:26)
[2022-03-24] MEDS: hydrALAZINE 25 MG TABLET PO SCH ×2 (10:24→17:25)
[2022-03-24] MEDS: DOCUSATE SODIUM 100 MG CAPSULE PO SCH ×2 (10:24→22:04)
[2022-03-24] MEDS: rOPINIRole 1 MG TABLET PO SCH ×2 (10:24→22:03)
[2022-03-24] MEDS: PANTOPRAZOLE 40 MG VIAL IV SCH (10:25)
[2022-03-24] MEDS: TOPIRAMATE 25 MG TABLET PO SCH ×2 (10:25→22:04)
[2022-03-24] MEDS: Ferric Citrate [Auryxia] 210 mg iron Tablet PO SCH ×3 (10:25→17:25)
[2022-03-24] MEDS: ASPIRIN EC 81 MG TABLET PO SCH (10:25)
[2022-03-24] MEDS: levETIRAcetam 500 MG TABLET PO SCH ×2 (10:25→22:04)
[2022-03-24] MEDS: LEVOTHYROXINE 100 MCG TABLET PO SCH (10:26)
[2022-03-24] MEDS ORDERED: traMADol 50 MG TABLET PO PRN (14:10)
[2022-03-24] MEDS: traZODone 50 MG TABLET PO SCH (22:03)
[2022-03-24] MEDS: ROSUVASTATIN 20 MG TABLET PO SCH (22:03)
[2022-03-24] MEDS: traMADol 50 MG TABLET PO SCH (22:05)
[2022-03-25] MEDS: INSULIN REGULAR 100 UNIT/ML SUBCUT SCH ×4 (00:15→18:32)
[2022-03-25] MEDS: SODIUM CHLORIDE 0.9% 1,000 ML IV SCH ×3 (04:54→16:17)
[2022-03-25 05:48] LABS: Basophils % 0.3 % (0.0-0.8); Eosinophils # 0.3 10*3/uL (0.0-0.87); Eosinophils % 3.6 % (0.00-10.9); Hematocrit 28.1 VOL% (35.7-47.0); Hemoglobin 8.8 GM/DL (12.0-16.0); Immature Granulocytes % 0.6 %; Immature Granulocytes Absolute 0.04 #; Lymphocytes # 1.9 10*3/uL (1.4-4.0); Lymphocytes % 26.8 % (21.3-54.2); Mean Corpuscular HGB Conc 31.3 GM/DL (32-36); Mean Corpuscular Volume 93.4 FL (87-102); Monocytes # 0.6 10*3/uL (0.11-0.8); Monocytes % 7.6 % (1.7-12.7); Neutrophils % 61.1 % (38.7-73.9); Platelet Count 143 T/CUMM (130-400); Red Blood Count 3.01 MC/CUMM (3.8-5.5); Red Cell Distribution Width 14.5 % (9.3-17.3); White Blood Count 7.2 T/CUMM (4-12)
[2022-03-25 06:12] LABS: Calcium 8.6 MG/DL (8.5-10.1); Osmolality,Calculated 277.8 MOS/KG (273-304); Potassium 3.9 MMOL/L (3.5-5.1)
[2022-03-25] MEDS: PANTOPRAZOLE 40 MG VIAL IV SCH (09:18)
[2022-03-25] MEDS: PROMETHAZINE 25 MG TABLET PO PRN ×2 (09:18→16:31)
[2022-03-25] MEDS: rOPINIRole 1 MG TABLET PO SCH ×2 (09:18→20:37)
[2022-03-25] MEDS: LEVOTHYROXINE 100 MCG TABLET PO SCH (09:19)
[2022-03-25] MEDS: DOCUSATE SODIUM 100 MG CAPSULE PO SCH ×2 (09:20→20:36)
[2022-03-25] MEDS: ASPIRIN EC 81 MG TABLET PO SCH (09:20)
[2022-03-25] MEDS: TOPIRAMATE 25 MG TABLET PO SCH ×2 (09:21→20:37)
[2022-03-25] MEDS: levETIRAcetam 500 MG TABLET PO SCH ×2 (09:21→20:37)
[2022-03-25] MEDS: traMADol 50 MG TABLET PO SCH ×2 (09:22→16:17)
[2022-03-25] MEDS: Ferric Citrate [Auryxia] 210 mg iron Tablet PO SCH ×3 (09:23→16:33)
[2022-03-25] MEDS ORDERED: traMADol 50 MG TABLET PO PRN (13:35)
[2022-03-25] MEDS: traZODone 50 MG TABLET PO SCH (20:36)
[2022-03-25] MEDS: ROSUVASTATIN 20 MG TABLET PO SCH (20:36)
[2022-03-26] MEDS: INSULIN REGULAR 100 UNIT/ML SUBCUT SCH ×4 (01:31→17:42)
[2022-03-26] MEDS: LEVOTHYROXINE 100 MCG TABLET PO SCH (05:34)
[2022-03-26 06:22] LABS: Basophils % 0.3 % (0.0-0.8); Eosinophils # 0.3 10*3/uL (0.0-0.87); Hematocrit 28.5 VOL% (35.7-47.0); Hemoglobin 8.9 GM/DL (12.0-16.0); Immature Granulocytes % 0.3 %; Immature Granulocytes Absolute 0.02 #; Lymphocytes # 1.9 10*3/uL (1.4-4.0); Lymphocytes % 28.1 % (21.3-54.2); Mean Corpuscular HGB Conc 31.2 GM/DL (32-36); Mean Corpuscular Volume 92.5 FL (87-102); Mean Platelet Volume 11.1 FL (9.6-12.0); Monocytes # 0.4 10*3/uL (0.11-0.8); Monocytes % 6.4 % (1.7-12.7); Neutrophils % 60.9 % (38.7-73.9); Platelet Count 153 T/CUMM (130-400); Red Blood Count 3.08 MC/CUMM (3.8-5.5); Red Cell Distribution Width 14.6 % (9.3-17.3); White Blood Count 6.7 T/CUMM (4-12)
[2022-03-26 07:03] LABS: Albumin 2.7 G/DL (3.4-5.0); Bilirubin,Total 0.4 MG/DL (0.20-1.00); Calcium 9.2 MG/DL (8.5-10.1); Osmolality,Calculated 272.2 MOS/KG (273-304); Phosphorous 3.4 MG/DL (2.5-4.9); Total Protein 6.3 G/DL (6.4-8.2)
[2022-03-26] MEDS: PROMETHAZINE 25 MG TABLET PO PRN (07:42)
[2022-03-26] MEDS: Ferric Citrate [Auryxia] 210 mg iron Tablet PO SCH ×3 (07:45→17:36)
[2022-03-26] MEDS: levETIRAcetam 500 MG TABLET PO SCH ×2 (08:46→21:13)
[2022-03-26] MEDS: TOPIRAMATE 25 MG TABLET PO SCH ×2 (08:46→21:14)
[2022-03-26] MEDS: ASPIRIN EC 81 MG TABLET PO SCH (08:46)
[2022-03-26] MEDS: DOCUSATE SODIUM 100 MG CAPSULE PO SCH ×2 (08:48→21:13)
[2022-03-26] MEDS: PANTOPRAZOLE 40 MG TABLET PO SCH (08:56)
[2022-03-26] MEDS: rOPINIRole 0.25 MG TABLET PO SCH (16:22)
[2022-03-26] MEDS: rOPINIRole 1 MG TABLET PO SCH (21:13)
[2022-03-26] MEDS: traZODone 50 MG TABLET PO SCH (21:13)
[2022-03-26] MEDS: ROSUVASTATIN 20 MG TABLET PO SCH (21:14)
[2022-03-26] MEDS: hydrOXYzine HCL 25 MG TABLET PO PRN (21:14)
[2022-03-27 05:28] LABS: Basophils % 0.5 % (0.0-0.8); Eosinophils # 0.2 10*3/uL (0.0-0.87); Eosinophils % 3.9 % (0.00-10.9); Hematocrit 27.5 VOL% (35.7-47.0); Hemoglobin 8.5 GM/DL (12.0-16.0); Immature Granulocytes % 0.3 %; Immature Granulocytes Absolute 0.02 #; Lymphocytes # 1.8 10*3/uL (1.4-4.0); Lymphocytes % 31.1 % (21.3-54.2); Mean Corpuscular HGB Conc 30.9 GM/DL (32-36); Mean Corpuscular Volume 92.6 FL (87-102); Mean Platelet Volume 11.2 FL (9.6-12.0); Monocytes # 0.5 10*3/uL (0.11-0.8); Monocytes % 8.1 % (1.7-12.7); Neutrophils % 56.1 % (38.7-73.9); Platelet Count 145 T/CUMM (130-400); Red Blood Count 2.97 MC/CUMM (3.8-5.5); Red Cell Distribution Width 14.2 % (9.3-17.3); White Blood Count 5.9 T/CUMM (4-12)
[2022-03-27] MEDS: LEVOTHYROXINE 100 MCG TABLET PO SCH (06:03)
[2022-03-27] MEDS: INSULIN REGULAR 100 UNIT/ML SUBCUT SCH ×2 (07:19)
[2022-03-27 07:52] VITALS: BP 148/52
[2022-03-27] MEDS: rOPINIRole 0.25 MG TABLET PO SCH (09:14)
[2022-03-27] MEDS: levETIRAcetam 500 MG TABLET PO SCH (09:15)
[2022-03-27] MEDS: TOPIRAMATE 25 MG TABLET PO SCH (09:15)
[2022-03-27] MEDS: PANTOPRAZOLE 40 MG TABLET PO SCH (09:15)
[2022-03-27] MEDS: Ferric Citrate [Auryxia] 210 mg iron Tablet PO SCH (09:15)
[2022-03-27] MEDS: DOCUSATE SODIUM 100 MG CAPSULE PO SCH (09:15)
[2022-03-27] MEDS: ASPIRIN EC 81 MG TABLET PO SCH (09:15)
== END 2022-03-27 11:00 | disposition home health service (06) | DRG 73 ==
LOC: N.ED 12:17 → N.EDINP 12:17 → N.5E 03-20 16:22
PROVIDERS: ADMIT Internal Medicine; ATTEND Internal Medicine

== ENCOUNTER 2022-04-06 07:44 | Inpatient (IN) ==
[2022-04-06 08:25] LABS: Basophils % 0.3 % (0.0-0.8); Eosinophils # 0.3 10*3/uL (0.0-0.87); Eosinophils % 3.8 % (0.00-10.9); Hematocrit 25.8 VOL% (35.7-47.0); Hemoglobin 8.3 GM/DL (12.0-16.0); Immature Granulocytes % 0.4 %; Immature Granulocytes Absolute 0.03 #; Lymphocytes # 1.4 10*3/uL (1.4-4.0); Lymphocytes % 18.6 % (21.3-54.2); Mean Corpuscular HGB Conc 32.2 GM/DL (32-36); Mean Platelet Volume 10.5 FL (9.6-12.0); Monocytes # 0.5 10*3/uL (0.11-0.8); Monocytes % 5.9 % (1.7-12.7); Platelet Count 196 T/CUMM (130-400); White Blood Count 7.6 T/CUMM (4-12)
[2022-04-06 08:46] LABS: Alanine Aminotransferase 15 U/L (13-56); Albumin 3.2 G/DL (3.4-5.0); Alkaline Phosphatase 50 U/L (45-117); Aspartate Amino Transferase 15 U/L (0-37); Blood Urea Nitrogen 27 MG/DL (7-18); Calcium 8.4 MG/DL (8.5-10.1); Carbon Dioxide 25 MMOL/L (21-32); Chloride 105 MMOL/L (98-107); Glucose 225 MG/DL (74-106); Osmolality,Calculated 286.7 MOS/KG (273-304); Potassium 3.2 MMOL/L (3.5-5.1); Sodium 138 MMOL/L (136-145); Total Protein 6.6 G/DL (6.4-8.2)
[2022-04-06] MEDS ORDERED: ACETAMINOPHEN 325 MG TABLET PO PRN (08:52)
[2022-04-06] MEDS ORDERED: DEXTROSE 10% 250 ML BAG IV PRN (08:52)
[2022-04-06] MEDS ORDERED: ONDANSETRON 4 MG/2 ML VIAL IV PRN (08:52)
[2022-04-06] MEDS ORDERED: GLUCAGON 1 MG VIAL IM PRN (08:52)
[2022-04-06] MEDS ORDERED: SODIUM CHLORIDE 0.9% 500 ML IV STA (08:54)
[2022-04-06] MEDS: PANTOPRAZOLE 40 MG TABLET PO SCH (09:32)
[2022-04-06] MEDS: DOCUSATE SODIUM 100 MG CAPSULE PO SCH ×2 (09:33→20:24)
[2022-04-06] MEDS ORDERED: NITROGLYCERIN SL 0.4 MG TABLET SL PRN (11:15)
[2022-04-06] MEDS ORDERED: EPOETIN ALFA-EPBX 4,000 UNIT/ML VIAL IV PRN (11:15)
[2022-04-06] MEDS ORDERED: MECLIZINE 25 MG TABLET PO PRN (11:15)
[2022-04-06] MEDS ORDERED: PROMETHAZINE 25 MG TABLET PO PRN (11:15)
[2022-04-06] MEDS: hydrALAZINE 25 MG TABLET PO SCH ×2 (14:08→20:23)
[2022-04-06] MEDS: Ferric Citrate [Auryxia] 210 mg iron Tablet PO SCH ×2 (14:09→16:06)
[2022-04-06] MEDS: INSULIN REGULAR ** CONC 500 UNIT/ML ** 20 ML VIAL SUBCUT SCH (16:07)
[2022-04-06] MEDS: rOPINIRole 1 MG TABLET PO SCH (18:09)
[2022-04-06] MEDS: levETIRAcetam 500 MG TABLET PO SCH (20:22)
[2022-04-06] MEDS: ROSUVASTATIN 20 MG TABLET PO SCH (20:23)
[2022-04-06] MEDS: traZODone 50 MG TABLET PO SCH (20:23)
[2022-04-06] MEDS: TOPIRAMATE 25 MG TABLET PO SCH (20:23)
[2022-04-06] MEDS: GABAPENTIN 300 MG CAPSULE PO SCH (20:23)
[2022-04-06] MEDS: INSULIN GLARGINE 100 UNIT/ML SUBCUT SCH (20:24)
[2022-04-06] MEDS: ZINC OXIDE PASTE 113 GM TUBE TOP SCH (20:25)
[2022-04-07 04:45] LABS: Basophils % 0.3 % (0.0-0.8); Eosinophils # 0.3 10*3/uL (0.0-0.87); Eosinophils % 4.7 % (0.00-10.9); Hematocrit 24.9 VOL% (35.7-47.0); Hemoglobin 7.8 GM/DL (12.0-16.0); Immature Granulocytes % 0.3 %; Immature Granulocytes Absolute 0.02 #; Lymphocytes # 1.6 10*3/uL (1.4-4.0); Lymphocytes % 23.1 % (21.3-54.2); Mean Corpuscular HGB Conc 31.3 GM/DL (32-36); Mean Corpuscular Volume 91.2 FL (87-102); Mean Platelet Volume 10.9 FL (9.6-12.0); Monocytes # 0.4 10*3/uL (0.11-0.8); Monocytes % 6.5 % (1.7-12.7); Neutrophils % 65.1 % (38.7-73.9); Platelet Count 191 T/CUMM (130-400); Red Blood Count 2.73 MC/CUMM (3.8-5.5); Red Cell Distribution Width 13.9 % (9.3-17.3); White Blood Count 6.8 T/CUMM (4-12)
[2022-04-07 05:06] LABS: Calcium 8.3 MG/DL (8.5-10.1); Osmolality,Calculated 286.5 MOS/KG (273-304); Phosphorous 4.6 MG/DL (2.5-4.9); Potassium 3.4 MMOL/L (3.5-5.1)
[2022-04-07] MEDS: cloNIDine 0.1 MG TABLET PO PRN (05:57)
[2022-04-07] MEDS: LEVOTHYROXINE 100 MCG TABLET PO SCH (06:08)
[2022-04-07] MEDS: Ferric Citrate [Auryxia] 210 mg iron Tablet PO SCH ×3 (09:04→17:03)
[2022-04-07] MEDS: PANTOPRAZOLE 40 MG TABLET PO SCH (09:05)
[2022-04-07] MEDS: rOPINIRole 1 MG TABLET PO SCH ×2 (09:05→18:30)
[2022-04-07] MEDS: TOPIRAMATE 25 MG TABLET PO SCH ×2 (09:05→20:59)
[2022-04-07] MEDS: DOCUSATE/SENNA 50-8.6 MG TABLET PO SCH (09:05)
[2022-04-07] MEDS: INSULIN REGULAR ** CONC 500 UNIT/ML ** 20 ML VIAL SUBCUT SCH ×3 (09:05→17:19)
[2022-04-07] MEDS: ZINC OXIDE PASTE 113 GM TUBE TOP SCH ×2 (09:06→21:00)
[2022-04-07] MEDS: hydrALAZINE 25 MG TABLET PO SCH ×3 (09:06→20:58)
[2022-04-07] MEDS: DOCUSATE SODIUM 100 MG CAPSULE PO SCH ×2 (09:06→20:58)
[2022-04-07] MEDS: ASPIRIN EC 81 MG TABLET PO SCH (09:06)
[2022-04-07] MEDS: levETIRAcetam 500 MG TABLET PO SCH ×2 (09:06→20:59)
[2022-04-07] MEDS ORDERED: HEPARIN 10,000 UNIT/10 ML VIAL IV SCH (15:15)
[2022-04-07] MEDS: ROSUVASTATIN 20 MG TABLET PO SCH (20:58)
[2022-04-07] MEDS: GABAPENTIN 300 MG CAPSULE PO SCH (20:59)
[2022-04-07] MEDS: traZODone 50 MG TABLET PO SCH (20:59)
[2022-04-07] MEDS: INSULIN GLARGINE 100 UNIT/ML SUBCUT SCH (21:00)
[2022-04-08 05:41] LABS: Basophils % 0.3 % (0.0-0.8); Eosinophils # 0.2 10*3/uL (0.0-0.87); Eosinophils % 3.9 % (0.00-10.9); Hematocrit 24.1 VOL% (35.7-47.0); Hemoglobin 7.6 GM/DL (12.0-16.0); Immature Granulocytes % 0.8 %; Immature Granulocytes Absolute 0.05 #; Lymphocytes # 1.5 10*3/uL (1.4-4.0); Lymphocytes % 25.1 % (21.3-54.2); Mean Corpuscular HGB Conc 31.5 GM/DL (32-36); Mean Corpuscular Volume 89.6 FL (87-102); Mean Platelet Volume 10.8 FL (9.6-12.0); Monocytes # 0.4 10*3/uL (0.11-0.8); Monocytes % 7.5 % (1.7-12.7); Neutrophils % 62.4 % (38.7-73.9); Platelet Count 171 T/CUMM (130-400); Red Blood Count 2.69 MC/CUMM (3.8-5.5); Red Cell Distribution Width 13.8 % (9.3-17.3); White Blood Count 5.9 T/CUMM (4-12)
[2022-04-08 06:02] LABS: Calcium 8.4 MG/DL (8.5-10.1); Osmolality,Calculated 277.8 MOS/KG (273-304); Potassium 3.7 MMOL/L (3.5-5.1)
[2022-04-08] MEDS: LEVOTHYROXINE 100 MCG TABLET PO SCH (06:09)
[2022-04-08 08:25] LABS: INR 0.9; PT Patient Result 10.2 SECS (10.5-12.0); Partial Thromboplastin Time 25.2 SECS (23.8-32.1)
[2022-04-08] MEDS: hydrALAZINE 25 MG TABLET PO SCH ×2 (08:47→16:07)
[2022-04-08] MEDS: DOCUSATE/SENNA 50-8.6 MG TABLET PO SCH (08:47)
[2022-04-08] MEDS: levETIRAcetam 500 MG TABLET PO SCH ×2 (08:47→21:50)
[2022-04-08] MEDS: PANTOPRAZOLE 40 MG TABLET PO SCH (08:48)
[2022-04-08] MEDS: TOPIRAMATE 25 MG TABLET PO SCH ×2 (08:48→21:50)
[2022-04-08] MEDS: rOPINIRole 1 MG TABLET PO SCH ×2 (08:48→18:02)
[2022-04-08] MEDS: CLOPIDOGREL 75 MG TABLET PO SCH (08:48)
[2022-04-08] MEDS: ASPIRIN EC 81 MG TABLET PO SCH (08:48)
[2022-04-08] MEDS: DOCUSATE SODIUM 100 MG CAPSULE PO SCH ×2 (08:48→21:51)
[2022-04-08] MEDS: ZINC OXIDE PASTE 113 GM TUBE TOP SCH ×2 (08:49→21:51)
[2022-04-08] MEDS: INSULIN REGULAR ** CONC 500 UNIT/ML ** 20 ML VIAL SUBCUT SCH ×3 (08:49→16:08)
[2022-04-08] MEDS: Ferric Citrate [Auryxia] 210 mg iron Tablet PO SCH ×3 (08:49→16:42)
[2022-04-08] MEDS: cloNIDine 0.1 MG TABLET PO PRN (12:40)
[2022-04-08] MEDS: GABAPENTIN 300 MG CAPSULE PO SCH (21:50)
[2022-04-08] MEDS: ROSUVASTATIN 20 MG TABLET PO SCH (21:50)
[2022-04-08] MEDS: traZODone 50 MG TABLET PO SCH (21:50)
[2022-04-08] MEDS: INSULIN GLARGINE 100 UNIT/ML SUBCUT SCH (21:51)
[2022-04-09] MEDS: cloNIDine 0.1 MG TABLET PO PRN ×2 (00:30→05:35)
[2022-04-09] MEDS: LEVOTHYROXINE 100 MCG TABLET PO SCH (05:35)
[2022-04-09] MEDS: CLOPIDOGREL 75 MG TABLET PO SCH (09:35)
[2022-04-09] MEDS: DOCUSATE/SENNA 50-8.6 MG TABLET PO SCH (09:36)
[2022-04-09] MEDS: PANTOPRAZOLE 40 MG TABLET PO SCH (09:36)
[2022-04-09] MEDS: ASPIRIN EC 81 MG TABLET PO SCH (09:36)
[2022-04-09] MEDS: rOPINIRole 1 MG TABLET PO SCH ×2 (09:36→18:11)
[2022-04-09] MEDS: levETIRAcetam 500 MG TABLET PO SCH ×2 (09:36→21:06)
[2022-04-09] MEDS: Ferric Citrate [Auryxia] 210 mg iron Tablet PO SCH ×3 (09:36→16:38)
[2022-04-09] MEDS: DOCUSATE SODIUM 100 MG CAPSULE PO SCH ×2 (09:36→21:06)
[2022-04-09] MEDS: ZINC OXIDE PASTE 113 GM TUBE TOP SCH ×2 (09:37→21:05)
[2022-04-09] MEDS: INSULIN REGULAR ** CONC 500 UNIT/ML ** 20 ML VIAL SUBCUT SCH ×3 (09:37→16:39)
[2022-04-09] MEDS: TOPIRAMATE 25 MG TABLET PO SCH ×2 (09:44→21:06)
[2022-04-09] MEDS: ROSUVASTATIN 20 MG TABLET PO SCH (21:05)
[2022-04-09] MEDS: GABAPENTIN 300 MG CAPSULE PO SCH (21:05)
[2022-04-09] MEDS: traZODone 50 MG TABLET PO SCH (21:06)
[2022-04-09] MEDS: INSULIN GLARGINE 100 UNIT/ML SUBCUT SCH (21:09)
[2022-04-10] MEDS: LEVOTHYROXINE 100 MCG TABLET PO SCH (05:34)
[2022-04-10 05:35] LABS: Risk Ratio 2.45; VLDL Cholesterol 15.6 MG/DL
[2022-04-10] MEDS: DOCUSATE SODIUM 100 MG CAPSULE PO SCH ×2 (08:48→21:26)
[2022-04-10] MEDS: DOCUSATE/SENNA 50-8.6 MG TABLET PO SCH (08:48)
[2022-04-10] MEDS: ASPIRIN EC 81 MG TABLET PO SCH (08:48)
[2022-04-10] MEDS: CLOPIDOGREL 75 MG TABLET PO SCH (08:48)
[2022-04-10] MEDS: levETIRAcetam 500 MG TABLET PO SCH ×2 (08:48→21:26)
[2022-04-10] MEDS: PANTOPRAZOLE 40 MG TABLET PO SCH (08:48)
[2022-04-10] MEDS: INSULIN REGULAR ** CONC 500 UNIT/ML ** 20 ML VIAL SUBCUT SCH ×3 (08:48→16:41)
[2022-04-10] MEDS: TOPIRAMATE 25 MG TABLET PO SCH ×2 (08:48→21:26)
[2022-04-10] MEDS: Ferric Citrate [Auryxia] 210 mg iron Tablet PO SCH ×3 (08:49→16:41)
[2022-04-10] MEDS: rOPINIRole 1 MG TABLET PO SCH ×2 (08:49→18:17)
[2022-04-10] MEDS: ZINC OXIDE PASTE 113 GM TUBE TOP SCH ×2 (09:00→21:28)
[2022-04-10] MEDS: DIPHENOXYLATE/ATROPINE 2.5-0.025 MG TABLET PO PRN (18:17)
[2022-04-10] MEDS: ROSUVASTATIN 20 MG TABLET PO SCH (21:26)
[2022-04-10] MEDS: traZODone 50 MG TABLET PO SCH (21:26)
[2022-04-10] MEDS: GABAPENTIN 300 MG CAPSULE PO SCH (21:27)
[2022-04-10] MEDS: INSULIN GLARGINE 100 UNIT/ML SUBCUT SCH (21:29)
[2022-04-11] MEDS: LEVOTHYROXINE 100 MCG TABLET PO SCH (05:45)
[2022-04-11] MEDS: cloNIDine 0.1 MG TABLET PO PRN ×2 (06:20→09:26)
[2022-04-11] MEDS: INSULIN REGULAR ** CONC 500 UNIT/ML ** 20 ML VIAL SUBCUT SCH ×3 (09:25→16:22)
[2022-04-11] MEDS: levETIRAcetam 500 MG TABLET PO SCH ×2 (09:26→20:39)
[2022-04-11] MEDS: Ferric Citrate [Auryxia] 210 mg iron Tablet PO SCH ×3 (09:26→16:22)
[2022-04-11] MEDS: PANTOPRAZOLE 40 MG TABLET PO SCH (09:27)
[2022-04-11] MEDS: rOPINIRole 1 MG TABLET PO SCH ×2 (09:27→20:38)
[2022-04-11] MEDS: ASPIRIN EC 81 MG TABLET PO SCH (09:27)
[2022-04-11] MEDS: TOPIRAMATE 25 MG TABLET PO SCH ×2 (09:27→20:39)
[2022-04-11] MEDS: DOCUSATE/SENNA 50-8.6 MG TABLET PO SCH (09:27)
[2022-04-11] MEDS: CLOPIDOGREL 75 MG TABLET PO SCH (09:27)
[2022-04-11] MEDS: DOCUSATE SODIUM 100 MG CAPSULE PO SCH ×2 (09:27→20:39)
[2022-04-11] MEDS: ZINC OXIDE PASTE 113 GM TUBE TOP SCH ×2 (09:28→20:40)
[2022-04-11] MEDS ORDERED: DEXTROSE 10% 250 ML IV ONE (15:31)
[2022-04-11] MEDS: DEXTROSE 10% 250 ML BAG IV PRN ×2 (16:09→16:10)
[2022-04-11] MEDS: ROSUVASTATIN 20 MG TABLET PO SCH (20:39)
[2022-04-11] MEDS: GABAPENTIN 300 MG CAPSULE PO SCH (20:39)
[2022-04-11] MEDS: traZODone 50 MG TABLET PO SCH (20:39)
[2022-04-11] MEDS: INSULIN GLARGINE 100 UNIT/ML SUBCUT SCH ×2 (20:39→22:11)
[2022-04-12] MEDS: cloNIDine 0.1 MG TABLET PO PRN ×2 (00:54→09:50)
[2022-04-12] MEDS: LEVOTHYROXINE 100 MCG TABLET PO SCH (05:44)
[2022-04-12] MEDS: Ferric Citrate [Auryxia] 210 mg iron Tablet PO SCH ×3 (07:47→16:38)
[2022-04-12] MEDS: INSULIN REGULAR ** CONC 500 UNIT/ML ** 20 ML VIAL SUBCUT SCH ×3 (08:57→17:23)
[2022-04-12] MEDS: PANTOPRAZOLE 40 MG TABLET PO SCH (09:48)
[2022-04-12] MEDS: rOPINIRole 1 MG TABLET PO SCH ×2 (09:49→20:29)
[2022-04-12] MEDS: ASPIRIN EC 81 MG TABLET PO SCH (09:49)
[2022-04-12] MEDS: TOPIRAMATE 25 MG TABLET PO SCH ×2 (09:49→20:29)
[2022-04-12] MEDS: DOCUSATE/SENNA 50-8.6 MG TABLET PO SCH (09:49)
[2022-04-12] MEDS: levETIRAcetam 500 MG TABLET PO SCH ×2 (09:49→20:30)
[2022-04-12] MEDS: DOCUSATE SODIUM 100 MG CAPSULE PO SCH ×2 (09:50→20:30)
[2022-04-12] MEDS: CLOPIDOGREL 75 MG TABLET PO SCH (09:50)
[2022-04-12] MEDS: ZINC OXIDE PASTE 113 GM TUBE TOP SCH ×2 (09:51→20:30)
[2022-04-12] MEDS ORDERED: HEPARIN 10,000 UNIT/10 ML VIAL IV PRN (16:30)
[2022-04-12] MEDS: traZODone 50 MG TABLET PO SCH (20:29)
[2022-04-12] MEDS: GABAPENTIN 300 MG CAPSULE PO SCH (20:30)
[2022-04-12] MEDS: ROSUVASTATIN 20 MG TABLET PO SCH (20:30)
[2022-04-12] MEDS: INSULIN GLARGINE 100 UNIT/ML SUBCUT SCH (20:31)
[2022-04-13 05:24] LABS: Basophils % 0.3 % (0.0-0.8); Eosinophils # 0.2 10*3/uL (0.0-0.87); Eosinophils % 3.4 % (0.00-10.9); Hematocrit 24.5 VOL% (35.7-47.0); Hemoglobin 7.7 GM/DL (12.0-16.0); Immature Granulocytes % 1.3 %; Immature Granulocytes Absolute 0.08 #; Lymphocytes # 1.4 10*3/uL (1.4-4.0); Lymphocytes % 23.4 % (21.3-54.2); Mean Corpuscular HGB Conc 31.4 GM/DL (32-36); Mean Corpuscular Volume 91.8 FL (87-102); Mean Platelet Volume 10.5 FL (9.6-12.0); Monocytes # 0.5 10*3/uL (0.11-0.8); Monocytes % 8.7 % (1.7-12.7); Neutrophils % 62.9 % (38.7-73.9); Platelet Count 201 T/CUMM (130-400); Red Blood Count 2.67 MC/CUMM (3.8-5.5); Red Cell Distribution Width 14.1 % (9.3-17.3); White Blood Count 6.1 T/CUMM (4-12)
[2022-04-13] MEDS: LEVOTHYROXINE 100 MCG TABLET PO SCH (05:32)
[2022-04-13 05:34] LABS: Calcium 8.6 MG/DL (8.5-10.1); Osmolality,Calculated 275.4 MOS/KG (273-304); Potassium 4.3 MMOL/L (3.5-5.1)
[2022-04-13] MEDS: DOCUSATE/SENNA 50-8.6 MG TABLET PO SCH (10:33)
[2022-04-13] MEDS: ASPIRIN EC 81 MG TABLET PO SCH (10:33)
[2022-04-13] MEDS: levETIRAcetam 500 MG TABLET PO SCH ×2 (10:33→21:52)
[2022-04-13] MEDS: DOCUSATE SODIUM 100 MG CAPSULE PO SCH ×2 (10:33→21:51)
[2022-04-13] MEDS: TOPIRAMATE 25 MG TABLET PO SCH ×2 (10:33→21:53)
[2022-04-13] MEDS: PANTOPRAZOLE 40 MG TABLET PO SCH (10:33)
[2022-04-13] MEDS: CLOPIDOGREL 75 MG TABLET PO SCH (10:33)
[2022-04-13] MEDS: rOPINIRole 1 MG TABLET PO SCH ×2 (10:33→21:51)
[2022-04-13] MEDS: Ferric Citrate [Auryxia] 210 mg iron Tablet PO SCH ×3 (10:34→17:18)
[2022-04-13] MEDS: INSULIN REGULAR ** CONC 500 UNIT/ML ** 20 ML VIAL SUBCUT SCH ×3 (10:35→17:17)
[2022-04-13] MEDS: ZINC OXIDE PASTE 113 GM TUBE TOP SCH ×2 (10:39→21:56)
[2022-04-13] MEDS: INSULIN GLARGINE 100 UNIT/ML SUBCUT SCH (21:49)
[2022-04-13] MEDS: traZODone 50 MG TABLET PO SCH (21:51)
[2022-04-13] MEDS: GABAPENTIN 300 MG CAPSULE PO SCH (21:53)
[2022-04-13] MEDS: ROSUVASTATIN 20 MG TABLET PO SCH (21:53)
[2022-04-14] MEDS: LEVOTHYROXINE 100 MCG TABLET PO SCH (05:58)
[2022-04-14] MEDS: PANTOPRAZOLE 40 MG TABLET PO SCH (12:05)
[2022-04-14] MEDS: CLOPIDOGREL 75 MG TABLET PO SCH (12:05)
[2022-04-14] MEDS: DOCUSATE/SENNA 50-8.6 MG TABLET PO SCH (12:05)
[2022-04-14] MEDS: TOPIRAMATE 25 MG TABLET PO SCH ×2 (12:05→21:50)
[2022-04-14] MEDS: Ferric Citrate [Auryxia] 210 mg iron Tablet PO SCH ×3 (12:06→17:46)
[2022-04-14] MEDS: rOPINIRole 1 MG TABLET PO SCH ×2 (12:06→22:53)
[2022-04-14] MEDS: DOCUSATE SODIUM 100 MG CAPSULE PO SCH ×2 (12:06→21:50)
[2022-04-14] MEDS: ASPIRIN EC 81 MG TABLET PO SCH (12:06)
[2022-04-14] MEDS: levETIRAcetam 500 MG TABLET PO SCH ×2 (12:06→21:49)
[2022-04-14] MEDS: INSULIN REGULAR ** CONC 500 UNIT/ML ** 20 ML VIAL SUBCUT SCH ×3 (12:07→17:46)
[2022-04-14] MEDS: ZINC OXIDE PASTE 113 GM TUBE TOP SCH (14:45)
[2022-04-14] MEDS: GABAPENTIN 300 MG CAPSULE PO SCH (21:49)
[2022-04-14] MEDS: ROSUVASTATIN 20 MG TABLET PO SCH (21:50)
[2022-04-14] MEDS: traZODone 50 MG TABLET PO SCH (21:50)
[2022-04-15] MEDS: INSULIN GLARGINE 100 UNIT/ML SUBCUT SCH (02:40)
[2022-04-15] MEDS: ZINC OXIDE PASTE 113 GM TUBE TOP SCH ×2 (02:40→13:09)
[2022-04-15] MEDS: DIPHENOXYLATE/ATROPINE 2.5-0.025 MG TABLET PO PRN (03:03)
[2022-04-15] MEDS: LEVOTHYROXINE 100 MCG TABLET PO SCH (06:27)
[2022-04-15] MEDS: Ferric Citrate [Auryxia] 210 mg iron Tablet PO SCH ×2 (10:03→13:08)
[2022-04-15] MEDS: levETIRAcetam 500 MG TABLET PO SCH (10:03)
[2022-04-15] MEDS: rOPINIRole 1 MG TABLET PO SCH (10:04)
[2022-04-15] MEDS: TOPIRAMATE 25 MG TABLET PO SCH (10:04)
[2022-04-15] MEDS: PANTOPRAZOLE 40 MG TABLET PO SCH (10:04)
[2022-04-15] MEDS: CLOPIDOGREL 75 MG TABLET PO SCH (10:04)
[2022-04-15] MEDS: ASPIRIN EC 81 MG TABLET PO SCH (10:04)
[2022-04-15] MEDS: INSULIN REGULAR ** CONC 500 UNIT/ML ** 20 ML VIAL SUBCUT SCH ×2 (10:07→13:08)
[2022-04-15] MEDS: DOCUSATE SODIUM 100 MG CAPSULE PO SCH (12:10)
[2022-04-15] MEDS: DOCUSATE/SENNA 50-8.6 MG TABLET PO SCH (12:10)
[2022-04-15 12:49] VITALS: BP 147/54
== END 2022-04-15 16:31 | DRG 64 ==
LOC: EDBD → EDUNIT# → N.ED 07:44 → N.EDINP 07:44 → N.TELEN 10:13
PROVIDERS: ADMIT Internal Medicine; ATTEND Internal Medicine

== ENCOUNTER 2022-07-19 09:42 | Inpatient (IN) ==
[2022-07-19] MEDS ORDERED: VANCOMYCIN INJ 1,000 MG in SODIUM CHLORIDE 0.9% 250 ML IV STA (10:18)
[2022-07-19] MEDS ORDERED: SODIUM CHLORIDE 0.9% 500 ML IV STA (10:18)
[2022-07-19] MEDS ORDERED: ONDANSETRON 4 MG/2 ML VIAL IV STA (10:18)
[2022-07-19 10:43] LABS: Basophils % 0.3 % (0.0-0.8); Eosinophils # 0.2 10*3/uL (0.0-0.87); Eosinophils % 2.2 % (0.00-10.9); Hematocrit 37.7 VOL% (35.7-47.0); Hemoglobin 12.1 GM/DL (12.0-16.0); Immature Granulocytes % 0.5 %; Immature Granulocytes Absolute 0.04 #; Lymphocytes % 25.8 % (21.3-54.2); Mean Corpuscular HGB Conc 32.1 GM/DL (32-36); Mean Corpuscular Volume 84.2 FL (87-102); Mean Platelet Volume 11.1 FL (9.6-12.0); Monocytes # 0.4 10*3/uL (0.11-0.8); Monocytes % 5.1 % (1.7-12.7); Neutrophils % 66.1 % (38.7-73.9); Platelet Count 175 T/CUMM (130-400); Red Blood Count 4.48 MC/CUMM (3.8-5.5); Red Cell Distribution Width 13.4 % (9.3-17.3); White Blood Count 7.7 T/CUMM (4-12)
[2022-07-19 11:02] LABS: Albumin 3.2 G/DL (3.4-5.0); Bilirubin,Total 0.4 MG/DL (0.20-1.00); Calcium 8.9 MG/DL (8.5-10.1); Osmolality,Calculated 280.8 MOS/KG (273-304); Potassium 3.7 MMOL/L (3.5-5.1); Total Protein 7.1 G/DL (6.4-8.2)
[2022-07-19] MEDS ORDERED: hydrALAZINE 20 MG/1 ML VIAL IV STA (13:18)
[2022-07-19] MEDS ORDERED: hydrALAZINE 20 MG/1 ML VIAL ONE (13:18)
[2022-07-19] MEDS ORDERED: ACETAMINOPHEN 325 MG TABLET PO PRN (13:28)
[2022-07-19] MEDS ORDERED: cloNIDine 0.1 MG TABLET PO PRN (15:01)
[2022-07-19] MEDS ORDERED: NITROGLYCERIN SL 0.4 MG TABLET SL PRN (15:01)
[2022-07-19] MEDS: INSULIN REGULAR 100 UNIT/ML SUBCUT SCH (16:26)
[2022-07-19] MEDS ORDERED: traZODone 50 MG TABLET PO SCH (21:00)
[2022-07-19] MEDS: ONDANSETRON 4 MG/2 ML VIAL IV PRN (21:06)
[2022-07-19] MEDS: DOCUSATE SODIUM 100 MG CAPSULE PO SCH (21:08)
[2022-07-19] MEDS: ROSUVASTATIN 20 MG TABLET PO SCH (21:08)
[2022-07-19] MEDS: GABAPENTIN 300 MG CAPSULE PO SCH (21:08)
[2022-07-19] MEDS: TOPIRAMATE 25 MG TABLET PO SCH (21:08)
[2022-07-19] MEDS: levETIRAcetam 500 MG TABLET PO SCH (21:09)
[2022-07-19] MEDS: rOPINIRole 1 MG TABLET PO SCH (21:15)
[2022-07-20] MEDS: ONDANSETRON 4 MG/2 ML VIAL IV PRN ×2 (05:47→14:58)
[2022-07-20] MEDS: LEVOTHYROXINE 100 MCG TABLET PO SCH (06:28)
[2022-07-20] MEDS: PANTOPRAZOLE 40 MG TABLET PO SCH (06:28)
[2022-07-20] MEDS: INSULIN REGULAR 100 UNIT/ML SUBCUT SCH ×3 (08:16→18:34)
[2022-07-20] MEDS ORDERED: VANCOMYCIN INJ 750 MG in SODIUM CHLORIDE 0.9% 250 ML IV PRN (08:58)
[2022-07-20] MEDS ORDERED: PANTOPRAZOLE 40 MG TABLET PO SCH (09:00)
[2022-07-20] MEDS ORDERED: BUPIVACAINE MPF 0.25% 10 ML VIAL ONE (09:46)
[2022-07-20] MEDS ORDERED: HEPARIN 5,000 UNIT/1 ML VIAL ONE (09:46)
[2022-07-20] MEDS ORDERED: LIDOCAINE 1%/EPI INJ 20 ML VIAL ONE (09:46)
[2022-07-20] MEDS ORDERED: MIDAZOLAM 2 MG/2 ML VIAL ONE (11:05)
[2022-07-20] MEDS ORDERED: LIDOCAINE 2% 5 ML VIAL ONE (11:05)
[2022-07-20] MEDS ORDERED: KETAMINE 500 MG/10 ML VIAL ONE (11:05)
[2022-07-20] MEDS ORDERED: propofoL 200 MG/20 ML VIAL IV ONE ×2 (11:05→11:07)
[2022-07-20] MEDS ORDERED: fentaNYL 100 MCG/2 ML VIAL ONE (11:05)
[2022-07-20] MEDS ORDERED: SODIUM CHLORIDE 0.9% 250 ML IV SCH (12:00)
[2022-07-20] MEDS ORDERED: ONDANSETRON 4 MG/2 ML VIAL IV PRN (13:11)
[2022-07-20] MEDS ORDERED: HYDROmorphone 1 MG/1 ML SYRINGE IV PRN (13:11)
[2022-07-20] MEDS ORDERED: HYDROmorphone 1 MG/1 ML SYRINGE ONE (13:12)
[2022-07-20] MEDS ORDERED: ZINC OXIDE PASTE 113 GM TUBE TOP PRN (14:00)
[2022-07-20] MEDS ORDERED: HEPARIN 10,000 UNIT/10 ML VIAL IV PRN (14:11)
[2022-07-20] MEDS: levETIRAcetam 500 MG TABLET PO SCH ×2 (14:30→21:15)
[2022-07-20] MEDS: DOCUSATE SODIUM 100 MG CAPSULE PO SCH ×2 (14:30→21:47)
[2022-07-20] MEDS: GABAPENTIN 300 MG CAPSULE PO SCH ×3 (14:30→21:47)
[2022-07-20] MEDS: CLOPIDOGREL 75 MG TABLET PO SCH (14:31)
[2022-07-20] MEDS: TOPIRAMATE 25 MG TABLET PO SCH ×2 (14:31→21:47)
[2022-07-20] MEDS: rOPINIRole 1 MG TABLET PO SCH ×2 (14:31→21:49)
[2022-07-20] MEDS: amLODIPine 5 MG TABLET PO SCH (14:31)
[2022-07-20] MEDS ORDERED: SERTRALINE 25 MG TABLET PO SCH (15:38)
[2022-07-20] MEDS ORDERED: VANCOMYCIN INJ 750 MG in SODIUM CHLORIDE 0.9% 250 ML IV ONE (17:00)
[2022-07-20] MEDS: ROSUVASTATIN 20 MG TABLET PO SCH (21:46)
[2022-07-21] MEDS: PANTOPRAZOLE 40 MG TABLET PO SCH (06:37)
[2022-07-21] MEDS: LEVOTHYROXINE 100 MCG TABLET PO SCH (06:38)
[2022-07-21] MEDS: ONDANSETRON 4 MG/2 ML VIAL IV PRN (08:33)
[2022-07-21] MEDS: TOPIRAMATE 25 MG TABLET PO SCH ×2 (08:36→20:45)
[2022-07-21] MEDS: amLODIPine 5 MG TABLET PO SCH (08:37)
[2022-07-21] MEDS: CLOPIDOGREL 75 MG TABLET PO SCH (08:39)
[2022-07-21] MEDS: rOPINIRole 1 MG TABLET PO SCH ×2 (08:40→20:45)
[2022-07-21] MEDS: DOCUSATE SODIUM 100 MG CAPSULE PO SCH ×2 (08:41→20:45)
[2022-07-21] MEDS: INSULIN REGULAR 100 UNIT/ML SUBCUT SCH ×3 (08:41→16:45)
[2022-07-21] MEDS: levETIRAcetam 500 MG TABLET PO SCH ×2 (08:41→20:45)
[2022-07-21] MEDS: GABAPENTIN 300 MG CAPSULE PO SCH ×3 (08:41→20:45)
[2022-07-21] MEDS ORDERED: hydrALAZINE 20 MG/1 ML VIAL IV PRN (10:39)
[2022-07-21 11:07] LABS: Basophils % 0.1 % (0.0-0.8); Eosinophils # 0.1 10*3/uL (0.0-0.87); Eosinophils % 1.7 % (0.00-10.9); Hematocrit 35.4 VOL% (35.7-47.0); Hemoglobin 10.7 GM/DL (12.0-16.0); Immature Granulocytes % 0.4 %; Immature Granulocytes Absolute 0.03 #; Lymphocytes # 1.9 10*3/uL (1.4-4.0); Lymphocytes % 24.6 % (21.3-54.2); Mean Corpuscular HGB Conc 30.2 GM/DL (32-36); Mean Corpuscular Volume 88.7 FL (87-102); Mean Platelet Volume 10.6 FL (9.6-12.0); Monocytes # 0.6 10*3/uL (0.11-0.8); Monocytes % 8.1 % (1.7-12.7); Neutrophils % 65.1 % (38.7-73.9); Platelet Count 159 T/CUMM (130-400); Red Blood Count 3.99 MC/CUMM (3.8-5.5); Red Cell Distribution Width 13.7 % (9.3-17.3); White Blood Count 7.5 T/CUMM (4-12)
[2022-07-21 11:30] LABS: Albumin 2.5 G/DL (3.4-5.0); Bilirubin,Total 0.4 MG/DL (0.20-1.00); Osmolality,Calculated 269.4 MOS/KG (273-304); Potassium 3.7 MMOL/L (3.5-5.1); Total Protein 6.4 G/DL (6.4-8.2)
[2022-07-21] MEDS: ROSUVASTATIN 20 MG TABLET PO SCH (20:45)
[2022-07-22 05:50] LABS: Basophils % 0.3 % (0.0-0.8); Eosinophils # 0.2 10*3/uL (0.0-0.87); Eosinophils % 2.4 % (0.00-10.9); Hematocrit 36.1 VOL% (35.7-47.0); Immature Granulocytes % 0.8 %; Immature Granulocytes Absolute 0.05 #; Lymphocytes # 2.1 10*3/uL (1.4-4.0); Lymphocytes % 34.4 % (21.3-54.2); Mean Corpuscular HGB Conc 30.5 GM/DL (32-36); Mean Corpuscular Volume 87.8 FL (87-102); Mean Platelet Volume 10.8 FL (9.6-12.0); Monocytes # 0.5 10*3/uL (0.11-0.8); Monocytes % 8.1 % (1.7-12.7); Platelet Count 158 T/CUMM (130-400); Red Blood Count 4.11 MC/CUMM (3.8-5.5); Red Cell Distribution Width 13.8 % (9.3-17.3); White Blood Count 6.2 T/CUMM (4-12)
[2022-07-22] MEDS: PANTOPRAZOLE 40 MG TABLET PO SCH (05:50)
[2022-07-22] MEDS: LEVOTHYROXINE 100 MCG TABLET PO SCH (05:50)
[2022-07-22 06:25] LABS: Albumin 2.5 G/DL (3.4-5.0); Bilirubin,Total 0.4 MG/DL (0.20-1.00); Calcium 8.8 MG/DL (8.5-10.1); Osmolality,Calculated 269.5 MOS/KG (273-304); Potassium 3.8 MMOL/L (3.5-5.1); Total Protein 6.4 G/DL (6.4-8.2)
[2022-07-22] MEDS: INSULIN REGULAR 100 UNIT/ML SUBCUT SCH ×3 (10:39→17:03)
[2022-07-22] MEDS: TOPIRAMATE 25 MG TABLET PO SCH ×2 (10:39→21:37)
[2022-07-22] MEDS: amLODIPine 5 MG TABLET PO SCH (10:39)
[2022-07-22] MEDS: rOPINIRole 1 MG TABLET PO SCH ×2 (10:39→21:37)
[2022-07-22] MEDS: GABAPENTIN 300 MG CAPSULE PO SCH ×4 (10:39→21:37)
[2022-07-22] MEDS: DOCUSATE SODIUM 100 MG CAPSULE PO SCH ×2 (10:39→21:34)
[2022-07-22] MEDS: CLOPIDOGREL 75 MG TABLET PO SCH (10:39)
[2022-07-22] MEDS: levETIRAcetam 500 MG TABLET PO SCH ×2 (10:39→21:34)
[2022-07-22] MEDS: ONDANSETRON 4 MG/2 ML VIAL IV PRN (18:11)
[2022-07-22] MEDS: ROSUVASTATIN 20 MG TABLET PO SCH (21:34)
[2022-07-23] MEDS: PANTOPRAZOLE 40 MG TABLET PO SCH (05:38)
[2022-07-23] MEDS: LEVOTHYROXINE 100 MCG TABLET PO SCH (05:38)
[2022-07-23] MEDS: rOPINIRole 1 MG TABLET PO SCH ×2 (08:11→21:37)
[2022-07-23] MEDS: DOCUSATE SODIUM 100 MG CAPSULE PO SCH ×2 (08:11→21:42)
[2022-07-23] MEDS: CLOPIDOGREL 75 MG TABLET PO SCH (08:13)
[2022-07-23] MEDS: levETIRAcetam 500 MG TABLET PO SCH ×2 (08:14→21:36)
[2022-07-23] MEDS: amLODIPine 5 MG TABLET PO SCH (08:14)
[2022-07-23] MEDS: GABAPENTIN 300 MG CAPSULE PO SCH ×3 (08:15→21:41)
[2022-07-23] MEDS: TOPIRAMATE 25 MG TABLET PO SCH ×2 (08:15→21:39)
[2022-07-23] MEDS: INSULIN REGULAR 100 UNIT/ML SUBCUT SCH ×3 (08:15→17:17)
[2022-07-23 12:49] LABS: Calcium 8.2 MG/DL (8.5-10.1); Osmolality,Calculated 270.1 MOS/KG (273-304)
[2022-07-23] MEDS: ONDANSETRON 4 MG/2 ML VIAL IV PRN (13:51)
[2022-07-23] MEDS ORDERED: POTASSIUM CHLORIDE 20 MEQ TABLET PO PRN (15:15)
[2022-07-23] MEDS ORDERED: POTASSIUM CHLORIDE RIDER 10 MEQ/100 ML PREMIX IV PRN (15:15)
[2022-07-23] MEDS ORDERED: VANCOMYCIN INJ 750 MG in SODIUM CHLORIDE 0.9% 250 ML IV ONE (18:00)
[2022-07-23] MEDS: ROSUVASTATIN 20 MG TABLET PO SCH (21:41)
[2022-07-24 05:23] LABS: Basophils % 0.3 % (0.0-0.8); Eosinophils # 0.2 10*3/uL (0.0-0.87); Eosinophils % 2.3 % (0.00-10.9); Hematocrit 34.5 VOL% (35.7-47.0); Hemoglobin 10.4 GM/DL (12.0-16.0); Immature Granulocytes % 0.9 %; Immature Granulocytes Absolute 0.06 #; Lymphocytes % 30.2 % (21.3-54.2); Mean Corpuscular HGB Conc 30.1 GM/DL (32-36); Mean Corpuscular Volume 89.6 FL (87-102); Mean Platelet Volume 11.3 FL (9.6-12.0); Monocytes # 0.5 10*3/uL (0.11-0.8); Monocytes % 6.9 % (1.7-12.7); Neutrophils % 59.4 % (38.7-73.9); Platelet Count 177 T/CUMM (130-400); Red Blood Count 3.85 MC/CUMM (3.8-5.5); Red Cell Distribution Width 13.8 % (9.3-17.3); White Blood Count 6.5 T/CUMM (4-12)
[2022-07-24] MEDS: PANTOPRAZOLE 40 MG TABLET PO SCH (05:42)
[2022-07-24 05:43] LABS: Calcium 8.3 MG/DL (8.5-10.1); Osmolality,Calculated 274.1 MOS/KG (273-304); Potassium 4.2 MMOL/L (3.5-5.1)
[2022-07-24] MEDS: LEVOTHYROXINE 100 MCG TABLET PO SCH (05:45)
[2022-07-24] MEDS ORDERED: HEPARIN LOCK FLUSH 500 UNIT/5 ML SYRINGE IV PRN (08:48)
[2022-07-24] MEDS ORDERED: HYDROmorphone 1 MG/1 ML SYRINGE IV ONE (09:29)
[2022-07-24] MEDS: rOPINIRole 1 MG TABLET PO SCH ×2 (10:06→20:24)
[2022-07-24] MEDS: amLODIPine 5 MG TABLET PO SCH (10:06)
[2022-07-24] MEDS: GABAPENTIN 300 MG CAPSULE PO SCH ×3 (10:06→20:24)
[2022-07-24] MEDS: levETIRAcetam 500 MG TABLET PO SCH ×2 (10:07→20:24)
[2022-07-24] MEDS: TOPIRAMATE 25 MG TABLET PO SCH ×2 (10:07→20:24)
[2022-07-24] MEDS: CLOPIDOGREL 75 MG TABLET PO SCH (10:07)
[2022-07-24] MEDS: DOCUSATE SODIUM 100 MG CAPSULE PO SCH ×2 (10:07→20:23)
[2022-07-24] MEDS: INSULIN REGULAR 100 UNIT/ML SUBCUT SCH ×3 (10:10→16:18)
[2022-07-24] MEDS: LACTULOSE 20 GM/30 ML UDCUP PO PRN (13:53)
[2022-07-24] MEDS: HEPARIN LOCK FLUSH 500 UNIT/5 ML SYRINGE IV SCH (20:24)
[2022-07-24] MEDS: ROSUVASTATIN 20 MG TABLET PO SCH (20:24)
[2022-07-25] MEDS: LEVOTHYROXINE 100 MCG TABLET PO SCH (06:00)
[2022-07-25] MEDS: PANTOPRAZOLE 40 MG TABLET PO SCH (06:00)
[2022-07-25] MEDS: INSULIN REGULAR 100 UNIT/ML SUBCUT SCH ×3 (09:33→17:18)
[2022-07-25] MEDS: amLODIPine 5 MG TABLET PO SCH (13:15)
[2022-07-25] MEDS: levETIRAcetam 500 MG TABLET PO SCH ×2 (13:15→21:10)
[2022-07-25] MEDS: TOPIRAMATE 25 MG TABLET PO SCH ×2 (13:15→21:10)
[2022-07-25] MEDS: DOCUSATE SODIUM 100 MG CAPSULE PO SCH ×2 (13:16→21:10)
[2022-07-25] MEDS: HEPARIN LOCK FLUSH 500 UNIT/5 ML SYRINGE IV SCH ×2 (13:16→21:16)
[2022-07-25] MEDS: GABAPENTIN 300 MG CAPSULE PO SCH ×3 (13:17→21:10)
[2022-07-25] MEDS: CLOPIDOGREL 75 MG TABLET PO SCH (13:18)
[2022-07-25] MEDS: rOPINIRole 1 MG TABLET PO SCH ×2 (13:30→21:33)
[2022-07-25] MEDS ORDERED: VANCOMYCIN INJ 750 MG in SODIUM CHLORIDE 0.9% 250 ML IV ONE (17:00)
[2022-07-25] MEDS ORDERED: LORazepam 2 MG/1 ML VIAL IV PRN (17:05)
[2022-07-25] MEDS ORDERED: TOPIRAMATE 25 MG TABLET PO ONE (17:05)
[2022-07-25] MEDS ORDERED: levETIRAcetam 500 MG TABLET PO ONE (17:07)
[2022-07-25] MEDS: ROSUVASTATIN 20 MG TABLET PO SCH (21:10)
[2022-07-26] MEDS: PANTOPRAZOLE 40 MG TABLET PO SCH ×2 (05:16→06:03)
[2022-07-26] MEDS: LEVOTHYROXINE 100 MCG TABLET PO SCH ×2 (05:16→06:03)
[2022-07-26] MEDS ORDERED: MIDAZOLAM 2 MG/2 ML VIAL ONE (09:17)
[2022-07-26] MEDS ORDERED: fentaNYL 100 MCG/2 ML VIAL ONE (09:17)
[2022-07-26] MEDS ORDERED: ETOMIDATE 40 MG/20 ML VIAL IV ONE (09:19)
[2022-07-26] MEDS ORDERED: ONDANSETRON 4 MG/2 ML VIAL ONE (09:19)
[2022-07-26] MEDS ORDERED: propofoL 200 MG/20 ML VIAL IV ONE (09:19)
[2022-07-26] MEDS ORDERED: SUCCINYLCHOLINE 200 MG/10 ML VIAL ONE (09:19)
[2022-07-26] MEDS ORDERED: ROCURONIUM 50 MG/5 ML VIAL IV ONE (09:19)
[2022-07-26] MEDS ORDERED: SODIUM CHLORIDE 0.9% 250 ML IV SCH (09:30)
[2022-07-26] MEDS ORDERED: ePHEDrine 50 MG/ML VIAL ONE (09:50)
[2022-07-26] MEDS: INSULIN REGULAR 100 UNIT/ML SUBCUT SCH ×3 (10:03→16:22)
[2022-07-26] MEDS: GABAPENTIN 300 MG CAPSULE PO SCH ×3 (10:04→21:13)
[2022-07-26] MEDS: DOCUSATE SODIUM 100 MG CAPSULE PO SCH ×3 (10:04→21:14)
[2022-07-26] MEDS: CLOPIDOGREL 75 MG TABLET PO SCH ×2 (10:04→12:14)
[2022-07-26] MEDS: amLODIPine 5 MG TABLET PO SCH ×2 (10:04→12:14)
[2022-07-26] MEDS: levETIRAcetam 500 MG TABLET PO SCH ×3 (10:04→21:12)
[2022-07-26] MEDS: rOPINIRole 1 MG TABLET PO SCH ×3 (10:05→21:09)
[2022-07-26] MEDS: TOPIRAMATE 25 MG TABLET PO SCH ×3 (10:05→21:13)
[2022-07-26] MEDS ORDERED: SEVOFLURANE 1 UNIT/15 MINUTE INH ONE (10:10)
[2022-07-26] MEDS: HEPARIN LOCK FLUSH 500 UNIT/5 ML SYRINGE IV SCH ×2 (12:15→21:15)
[2022-07-26] MEDS: ROSUVASTATIN 20 MG TABLET PO SCH (21:12)
[2022-07-27] MEDS: ONDANSETRON 4 MG/2 ML VIAL IV PRN ×3 (04:50→16:30)
[2022-07-27 05:33] LABS: Basophils % 0.4 % (0.0-0.8); Eosinophils # 0.2 10*3/uL (0.0-0.87); Eosinophils % 2.6 % (0.00-10.9); Hematocrit 33.4 VOL% (35.7-47.0); Hemoglobin 10.3 GM/DL (12.0-16.0); Immature Granulocytes % 1.5 %; Lymphocytes # 2.3 10*3/uL (1.4-4.0); Lymphocytes % 33.6 % (21.3-54.2); Mean Corpuscular HGB Conc 30.8 GM/DL (32-36); Mean Corpuscular Volume 89.1 FL (87-102); Monocytes # 0.4 10*3/uL (0.11-0.8); Neutrophils % 55.9 % (38.7-73.9); Platelet Count 211 T/CUMM (130-400); Red Blood Count 3.75 MC/CUMM (3.8-5.5); Red Cell Distribution Width 13.9 % (9.3-17.3); White Blood Count 6.9 T/CUMM (4-12)
[2022-07-27 05:48] LABS: Calcium 8.7 MG/DL (8.5-10.1); Osmolality,Calculated 266.7 MOS/KG (273-304); Potassium 4.3 MMOL/L (3.5-5.1)
[2022-07-27] MEDS: INSULIN REGULAR 100 UNIT/ML SUBCUT SCH ×3 (08:50→17:39)
[2022-07-27] MEDS: DOCUSATE SODIUM 100 MG CAPSULE PO SCH ×2 (08:51→22:55)
[2022-07-27] MEDS: TOPIRAMATE 25 MG TABLET PO SCH ×2 (08:52→22:57)
[2022-07-27] MEDS: CLOPIDOGREL 75 MG TABLET PO SCH (08:52)
[2022-07-27] MEDS: amLODIPine 5 MG TABLET PO SCH (08:53)
[2022-07-27] MEDS: LEVOTHYROXINE 100 MCG TABLET PO SCH (08:53)
[2022-07-27] MEDS: PANTOPRAZOLE 40 MG TABLET PO SCH (08:53)
[2022-07-27] MEDS: GABAPENTIN 300 MG CAPSULE PO SCH ×3 (08:53→22:56)
[2022-07-27] MEDS: levETIRAcetam 500 MG TABLET PO SCH ×2 (08:53→22:56)
[2022-07-27] MEDS: rOPINIRole 1 MG TABLET PO SCH ×2 (08:55→23:01)
[2022-07-27] MEDS: HEPARIN LOCK FLUSH 500 UNIT/5 ML SYRINGE IV SCH ×2 (09:00→22:58)
[2022-07-27] MEDS ORDERED: VANCOMYCIN INJ 750 MG in SODIUM CHLORIDE 0.9% 250 ML IV ONE (17:00)
[2022-07-27] MEDS: ROSUVASTATIN 20 MG TABLET PO SCH (22:56)
[2022-07-28] MEDS: PANTOPRAZOLE 40 MG TABLET PO SCH (06:20)
[2022-07-28] MEDS: LEVOTHYROXINE 100 MCG TABLET PO SCH (06:20)
[2022-07-28] MEDS: INSULIN REGULAR 100 UNIT/ML SUBCUT SCH ×3 (09:07→16:39)
[2022-07-28] MEDS: HEPARIN LOCK FLUSH 500 UNIT/5 ML SYRINGE IV SCH ×2 (09:13→22:21)
[2022-07-28] MEDS: TOPIRAMATE 25 MG TABLET PO SCH ×2 (09:13→22:10)
[2022-07-28] MEDS: rOPINIRole 1 MG TABLET PO SCH ×2 (09:14→22:22)
[2022-07-28] MEDS: levETIRAcetam 500 MG TABLET PO SCH ×2 (09:14→22:11)
[2022-07-28] MEDS: DOCUSATE SODIUM 100 MG CAPSULE PO SCH ×2 (09:14→22:06)
[2022-07-28] MEDS: CLOPIDOGREL 75 MG TABLET PO SCH (09:14)
[2022-07-28] MEDS: GABAPENTIN 300 MG CAPSULE PO SCH ×3 (09:14→22:06)
[2022-07-28] MEDS: amLODIPine 5 MG TABLET PO SCH (09:45)
[2022-07-28] MEDS: ROSUVASTATIN 20 MG TABLET PO SCH (22:08)
[2022-07-29] MEDS: LEVOTHYROXINE 100 MCG TABLET PO SCH (06:00)
[2022-07-29] MEDS: PANTOPRAZOLE 40 MG TABLET PO SCH (06:00)
[2022-07-29] MEDS: levETIRAcetam 500 MG TABLET PO SCH ×2 (08:38→20:04)
[2022-07-29] MEDS: HEPARIN LOCK FLUSH 500 UNIT/5 ML SYRINGE IV SCH ×2 (08:38→20:04)
[2022-07-29] MEDS: DOCUSATE SODIUM 100 MG CAPSULE PO SCH ×2 (08:38→20:01)
[2022-07-29] MEDS: GABAPENTIN 300 MG CAPSULE PO SCH ×3 (08:38→20:04)
[2022-07-29] MEDS: CLOPIDOGREL 75 MG TABLET PO SCH (08:38)
[2022-07-29] MEDS: INSULIN REGULAR 100 UNIT/ML SUBCUT SCH ×3 (08:38→18:07)
[2022-07-29] MEDS: amLODIPine 5 MG TABLET PO SCH (08:38)
[2022-07-29] MEDS: rOPINIRole 1 MG TABLET PO SCH ×2 (08:38→22:47)
[2022-07-29] MEDS: TOPIRAMATE 25 MG TABLET PO SCH ×2 (08:38→20:04)
[2022-07-29] MEDS ORDERED: BISACODYL 5 MG TABLET PO ONE (12:57)
[2022-07-29] MEDS: ROSUVASTATIN 20 MG TABLET PO SCH (20:01)
[2022-07-29] MEDS: ONDANSETRON 4 MG/2 ML VIAL IV PRN (20:05)
[2022-07-29] MEDS: BISACODYL 5 MG TABLET PO SCH (22:00)
[2022-07-30] MEDS: LEVOTHYROXINE 100 MCG TABLET PO SCH (05:37)
[2022-07-30] MEDS: PANTOPRAZOLE 40 MG TABLET PO SCH (05:37)
[2022-07-30 05:50] LABS: Basophils % 0.6 % (0.0-0.8); Eosinophils # 0.2 10*3/uL (0.0-0.87); Eosinophils % 2.2 % (0.00-10.9); Hematocrit 33.5 VOL% (35.7-47.0); Immature Granulocytes % 0.9 %; Immature Granulocytes Absolute 0.06 #; Lymphocytes # 2.3 10*3/uL (1.4-4.0); Lymphocytes % 33.4 % (21.3-54.2); Mean Corpuscular HGB Conc 29.9 GM/DL (32-36); Mean Corpuscular Volume 89.8 FL (87-102); Mean Platelet Volume 10.1 FL (9.6-12.0); Monocytes # 0.4 10*3/uL (0.11-0.8); Monocytes % 5.3 % (1.7-12.7); Neutrophils % 57.6 % (38.7-73.9); Platelet Count 210 T/CUMM (130-400); Red Blood Count 3.73 MC/CUMM (3.8-5.5); Red Cell Distribution Width 13.9 % (9.3-17.3); White Blood Count 6.8 T/CUMM (4-12)
[2022-07-30 06:11] LABS: Albumin 2.4 G/DL (3.4-5.0); Bilirubin,Total 0.4 MG/DL (0.20-1.00); Calcium 8.7 MG/DL (8.5-10.1); Osmolality,Calculated 274.2 MOS/KG (273-304); Phosphorous 4.6 MG/DL (2.5-4.9); Potassium 4.6 MMOL/L (3.5-5.1); Total Protein 5.8 G/DL (6.4-8.2)
[2022-07-30] MEDS: INSULIN REGULAR 100 UNIT/ML SUBCUT SCH ×3 (08:15→17:00)
[2022-07-30] MEDS: HEPARIN LOCK FLUSH 500 UNIT/5 ML SYRINGE IV SCH ×2 (08:33→21:33)
[2022-07-30] MEDS: TOPIRAMATE 25 MG TABLET PO SCH ×2 (08:34→21:30)
[2022-07-30] MEDS: GABAPENTIN 300 MG CAPSULE PO SCH ×3 (08:34→21:30)
[2022-07-30] MEDS: DOCUSATE SODIUM 100 MG CAPSULE PO SCH ×2 (08:34→21:29)
[2022-07-30] MEDS: CLOPIDOGREL 75 MG TABLET PO SCH (08:34)
[2022-07-30] MEDS: levETIRAcetam 500 MG TABLET PO SCH ×2 (08:35→21:30)
[2022-07-30] MEDS: rOPINIRole 1 MG TABLET PO SCH ×2 (08:35→21:29)
[2022-07-30] MEDS: BISACODYL 5 MG TABLET PO SCH ×5 (08:49→21:33)
[2022-07-30] MEDS ORDERED: VANCOMYCIN INJ 500 MG in SODIUM CHLORIDE 0.9% 100 ML IV PRN (09:30)
[2022-07-30] MEDS: amLODIPine 5 MG TABLET PO SCH (13:55)
[2022-07-30] MEDS ORDERED: VANCOMYCIN INJ 500 MG in SODIUM CHLORIDE 0.9% 100 ML IV ONE (17:00)
[2022-07-30] MEDS: ONDANSETRON 4 MG/2 ML VIAL IV PRN (19:19)
[2022-07-30] MEDS: ROSUVASTATIN 20 MG TABLET PO SCH (21:29)
[2022-07-30] MEDS: LACTULOSE 20 GM/30 ML UDCUP PO PRN (21:33)
[2022-07-31] MEDS: ONDANSETRON 4 MG/2 ML VIAL IV PRN ×2 (01:51→09:42)
[2022-07-31] MEDS: LEVOTHYROXINE 100 MCG TABLET PO SCH (06:25)
[2022-07-31] MEDS: PANTOPRAZOLE 40 MG TABLET PO SCH (06:25)
[2022-07-31] MEDS: BISACODYL 5 MG TABLET PO SCH ×3 (06:25→21:00)
[2022-07-31] MEDS: levETIRAcetam 500 MG TABLET PO SCH ×2 (08:48→20:53)
[2022-07-31] MEDS: CLOPIDOGREL 75 MG TABLET PO SCH (08:48)
[2022-07-31] MEDS: GABAPENTIN 300 MG CAPSULE PO SCH ×3 (08:48→20:54)
[2022-07-31] MEDS: rOPINIRole 1 MG TABLET PO SCH ×2 (08:49→20:54)
[2022-07-31] MEDS: amLODIPine 5 MG TABLET PO SCH (08:49)
[2022-07-31] MEDS: TOPIRAMATE 25 MG TABLET PO SCH ×2 (08:50→20:54)
[2022-07-31] MEDS: HEPARIN LOCK FLUSH 500 UNIT/5 ML SYRINGE IV SCH ×2 (08:50→20:53)
[2022-07-31] MEDS: DOCUSATE SODIUM 100 MG CAPSULE PO SCH ×3 (08:50→23:03)
[2022-07-31] MEDS: INSULIN REGULAR 100 UNIT/ML SUBCUT SCH ×3 (10:09→17:45)
[2022-07-31] MEDS: ROSUVASTATIN 20 MG TABLET PO SCH (20:53)
[2022-08-01] MEDS: BISACODYL 5 MG TABLET PO SCH ×3 (05:05→21:18)
[2022-08-01 05:14] LABS: Basophils % 0.2 % (0.0-0.8); Eosinophils # 0.1 10*3/uL (0.0-0.87); Eosinophils % 1.3 % (0.00-10.9); Hematocrit 31.1 VOL% (35.7-47.0); Hemoglobin 9.3 GM/DL (12.0-16.0); Immature Granulocytes % 0.4 %; Immature Granulocytes Absolute 0.04 #; Lymphocytes # 1.9 10*3/uL (1.4-4.0); Lymphocytes % 20.8 % (21.3-54.2); Mean Corpuscular HGB Conc 29.9 GM/DL (32-36); Mean Corpuscular Volume 90.1 FL (87-102); Mean Platelet Volume 10.9 FL (9.6-12.0); Monocytes # 0.5 10*3/uL (0.11-0.8); Monocytes % 5.5 % (1.7-12.7); Neutrophils % 71.8 % (38.7-73.9); Platelet Count 194 T/CUMM (130-400); Red Blood Count 3.45 MC/CUMM (3.8-5.5); Red Cell Distribution Width 14.3 % (9.3-17.3); White Blood Count 9.1 T/CUMM (4-12)
[2022-08-01 05:28] LABS: Calcium 8.3 MG/DL (8.5-10.1); Osmolality,Calculated 275.1 MOS/KG (273-304); Potassium 3.7 MMOL/L (3.5-5.1)
[2022-08-01] MEDS: LEVOTHYROXINE 100 MCG TABLET PO SCH (05:31)
[2022-08-01] MEDS: PANTOPRAZOLE 40 MG TABLET PO SCH (05:31)
[2022-08-01] MEDS: GABAPENTIN 300 MG CAPSULE PO SCH ×3 (09:28→21:06)
[2022-08-01] MEDS: TOPIRAMATE 25 MG TABLET PO SCH ×2 (09:28→21:08)
[2022-08-01] MEDS: levETIRAcetam 500 MG TABLET PO SCH ×2 (09:28→21:06)
[2022-08-01] MEDS: CLOPIDOGREL 75 MG TABLET PO SCH (09:28)
[2022-08-01] MEDS: rOPINIRole 1 MG TABLET PO SCH ×2 (09:29→21:09)
[2022-08-01] MEDS: DOCUSATE SODIUM 100 MG CAPSULE PO SCH ×2 (09:33→21:17)
[2022-08-01] MEDS: amLODIPine 5 MG TABLET PO SCH (09:34)
[2022-08-01] MEDS: HEPARIN LOCK FLUSH 500 UNIT/5 ML SYRINGE IV SCH ×2 (09:34→21:08)
[2022-08-01] MEDS: INSULIN REGULAR 100 UNIT/ML SUBCUT SCH ×3 (10:39→17:12)
[2022-08-01] MEDS: ONDANSETRON 4 MG/2 ML VIAL IV PRN (13:19)
[2022-08-01] MEDS ORDERED: VANCOMYCIN INJ 500 MG in SODIUM CHLORIDE 0.9% 100 ML IV ONE (17:00)
[2022-08-01] MEDS: ROSUVASTATIN 20 MG TABLET PO SCH (21:07)
[2022-08-02] MEDS: BISACODYL 5 MG TABLET PO SCH ×2 (05:59→15:05)
[2022-08-02] MEDS: LEVOTHYROXINE 100 MCG TABLET PO SCH (05:59)
[2022-08-02] MEDS: PANTOPRAZOLE 40 MG TABLET PO SCH (05:59)
[2022-08-02] MEDS: INSULIN REGULAR 100 UNIT/ML SUBCUT SCH ×3 (08:29→16:21)
[2022-08-02] MEDS: HEPARIN LOCK FLUSH 500 UNIT/5 ML SYRINGE IV SCH (10:14)
[2022-08-02] MEDS: CLOPIDOGREL 75 MG TABLET PO SCH (10:14)
[2022-08-02] MEDS: GABAPENTIN 300 MG CAPSULE PO SCH ×2 (10:14→17:05)
[2022-08-02] MEDS: rOPINIRole 1 MG TABLET PO SCH (10:14)
[2022-08-02] MEDS: TOPIRAMATE 25 MG TABLET PO SCH (10:14)
[2022-08-02] MEDS: levETIRAcetam 500 MG TABLET PO SCH (10:14)
[2022-08-02] MEDS: DOCUSATE SODIUM 100 MG CAPSULE PO SCH (10:14)
[2022-08-02] MEDS: amLODIPine 5 MG TABLET PO SCH (10:14)
[2022-08-02 16:24] VITALS: BP 176/74
[2022-08-18] MEDS ORDERED: CYANOCOBALAMIN 1000 MCG/1 ML VIAL IM SCH (09:00)
== END 2022-08-02 17:05 | DRG 252 ==
LOC: N.ED 09:42 → N.5E 13:22
PROVIDERS: ADMIT Internal Medicine; ATTEND Internal Medicine

== ENCOUNTER 2022-08-20 09:51 | Observation (INO) ==
[2022-08-20 10:49] LABS: Basophils % 0.5 % (0.0-0.8); Eosinophils # 0.2 10*3/uL (0.0-0.87); Eosinophils % 2.8 % (0.00-10.9); Hematocrit 32.6 VOL% (35.7-47.0); Immature Granulocytes % 0.5 %; Immature Granulocytes Absolute 0.04 #; Lymphocytes % 24.9 % (21.3-54.2); Mean Corpuscular HGB Conc 30.7 GM/DL (32-36); Mean Corpuscular Volume 88.6 FL (87-102); Mean Platelet Volume 11.6 FL (9.6-12.0); Monocytes # 0.4 10*3/uL (0.11-0.8); Monocytes % 4.7 % (1.7-12.7); Neutrophils % 66.6 % (38.7-73.9); Platelet Count 207 T/CUMM (130-400); Red Blood Count 3.68 MC/CUMM (3.8-5.5); Red Cell Distribution Width 14.1 % (9.3-17.3); White Blood Count 7.9 T/CUMM (4-12)
[2022-08-20 11:06] LABS: Alanine Aminotransferase 16 U/L (13-56); Albumin 3.5 G/DL (3.4-5.0); Alkaline Phosphatase 79 U/L (45-117); Aspartate Amino Transferase 18 U/L (0-37); Blood Urea Nitrogen 18 MG/DL (7-18); Carbon Dioxide 31 MMOL/L (21-32); Chloride 101 MMOL/L (98-107); Glucose 151 MG/DL (74-106); Osmolality,Calculated 281.5 MOS/KG (273-304); Potassium 3.2 MMOL/L (3.5-5.1); Sodium 139 MMOL/L (136-145); Total Protein 7.5 G/DL (6.4-8.2)
[2022-08-20 12:06] LABS: INR 0.9; PT Patient Result 10.5 SECS (10.1-12.1)
[2022-08-20] MEDS ORDERED: hydrALAZINE 20 MG/1 ML VIAL ONE (14:38)
[2022-08-20] MEDS ORDERED: GLUCAGON 1 MG VIAL IM PRN (15:00)
[2022-08-20] MEDS ORDERED: ONDANSETRON 4 MG/2 ML VIAL IV PRN (15:00)
[2022-08-20] MEDS ORDERED: DEXTROSE 10% 250 ML BAG IV PRN (15:01)
[2022-08-20] MEDS ORDERED: hydrALAZINE 20 MG/1 ML VIAL IV ONE (15:02)
[2022-08-20] MEDS ORDERED: cloNIDine 0.1 MG TABLET PO PRN (15:33)
[2022-08-20] MEDS ORDERED: POLYETHYLENE GLYCOL POWDER 17 GM PACK PO PRN (15:33)
[2022-08-20] MEDS ORDERED: NITROGLYCERIN SL 0.4 MG TABLET SL PRN (15:33)
[2022-08-20] MEDS: INSULIN LISPRO 100 UNIT/ML SUBCUT SCH ×2 (16:42→20:50)
[2022-08-20] MEDS: NON-FORMULARY MEDICATION (Ferric Citrate [Auryxia] 210 mg iron Tablet) PO SCH (16:42)
[2022-08-20] MEDS: ACETAMINOPHEN 325 MG TABLET PO PRN (16:49)
[2022-08-20] MEDS: DOCUSATE SODIUM 100 MG CAPSULE PO SCH (20:48)
[2022-08-20] MEDS: levETIRAcetam 500 MG TABLET PO SCH (20:48)
[2022-08-20] MEDS: GABAPENTIN 300 MG CAPSULE PO SCH (20:49)
[2022-08-20] MEDS: TOPIRAMATE 25 MG TABLET PO SCH (20:49)
[2022-08-20] MEDS: LOSARTAN 25 MG TABLET PO SCH (20:49)
[2022-08-20] MEDS ORDERED: traZODone 50 MG TABLET PO SCH (21:00)
[2022-08-20] MEDS ORDERED: ROSUVASTATIN 20 MG TABLET PO SCH (21:00)
[2022-08-20] MEDS ORDERED: ROPINIROLE 5 MG PO SCH (21:00)
[2022-08-21] MEDS ORDERED: LEVOTHYROXINE 100 MCG TABLET PO SCH (06:30)
[2022-08-21] MEDS: INSULIN LISPRO 100 UNIT/ML SUBCUT SCH ×2 (07:30→11:21)
[2022-08-21] MEDS: NON-FORMULARY MEDICATION (Ferric Citrate [Auryxia] 210 mg iron Tablet) PO SCH ×2 (07:31→11:21)
[2022-08-21] MEDS: DOCUSATE SODIUM 100 MG CAPSULE PO SCH (08:18)
[2022-08-21] MEDS: LOSARTAN 25 MG TABLET PO SCH (08:18)
[2022-08-21] MEDS: levETIRAcetam 500 MG TABLET PO SCH (08:18)
[2022-08-21] MEDS: ACETAMINOPHEN 325 MG TABLET PO PRN (08:19)
[2022-08-21] MEDS: TOPIRAMATE 25 MG TABLET PO SCH (08:19)
[2022-08-21] MEDS: GABAPENTIN 300 MG CAPSULE PO SCH (08:19)
[2022-08-21] MEDS ORDERED: ROPINIROLE 5 MG PO SCH (09:00)
[2022-08-21] MEDS ORDERED: SERTRALINE 25 MG TABLET PO SCH (09:00)
[2022-08-21] MEDS ORDERED: CLOPIDOGREL 75 MG TABLET PO SCH (09:00)
[2022-08-21] MEDS ORDERED: amLODIPine 10 MG TABLET PO SCH (09:00)
[2022-08-21] MEDS ORDERED: PANTOPRAZOLE 40 MG TABLET PO SCH ×2 (09:00)
[2022-08-21 11:48] VITALS: BP 150/57
[2022-09-02] MEDS ORDERED: CYANOCOBALAMIN 1000 MCG/1 ML VIAL IM SCH (09:00)
== END 2022-08-21 12:05 | disposition home health service (06) ==
LOC: N.ED 09:51 → N.EDINP 09:51 → N.3E 14:59
PROVIDERS: ADMIT Internal Medicine; ATTEND Internal Medicine

== ENCOUNTER 2022-12-26 07:34 | Inpatient (IN) ==
[2022-12-26] MEDS ORDERED: METOCLOPRAMIDE 10 MG/2 ML VIAL IV STA (08:22)
[2022-12-26 08:28] LABS: Basophils # 0.1 10*3/uL (0.0-0.2); Basophils % 0.4 % (0.0-0.8); Eosinophils # 0.1 10*3/uL (0.0-0.87); Eosinophils % 0.7 % (0.00-10.9); Hematocrit 40.6 VOL% (35.7-47.0); Hemoglobin 12.8 GM/DL (12.0-16.0); Immature Granulocytes % 0.5 %; Immature Granulocytes Absolute 0.06 #; Lymphocytes # 1.6 10*3/uL (1.4-4.0); Lymphocytes % 13.8 % (21.3-54.2); Mean Corpuscular HGB Conc 31.5 GM/DL (32-36); Mean Corpuscular Volume 88.1 FL (87-102); Mean Platelet Volume 10.9 FL (9.6-12.0); Monocytes # 0.5 10*3/uL (0.11-0.8); Monocytes % 4.3 % (1.7-12.7); Neutrophils % 80.3 % (38.7-73.9); Platelet Count 177 T/CUMM (130-400); Red Blood Count 4.61 MC/CUMM (3.8-5.5); Red Cell Distribution Width 14.2 % (9.3-17.3); White Blood Count 11.76 T/CUMM (4-12)
[2022-12-26 08:53] LABS: Bilirubin,Total 0.5 MG/DL (0.20-1.00); Calcium 8.4 MG/DL (8.5-10.1); Osmolality,Calculated 290.2 MOS/KG (273-304); Potassium 4.4 MMOL/L (3.5-5.1); Total Protein 6.9 G/DL (6.4-8.2)
[2022-12-26] MEDS ORDERED: cefTRIAXone 1,000 MG in SODIUM CHLORIDE 0.9% 100 ML IV STA (08:53)
[2022-12-26] MEDS ORDERED: PROMETHAZINE 25 MG TABLET PO PRN (10:22)
[2022-12-26] MEDS ORDERED: NITROGLYCERIN SL 0.4 MG TABLET SL PRN (10:22)
[2022-12-26] MEDS ORDERED: cloNIDine 0.1 MG TABLET PO PRN (10:22)
[2022-12-26] MEDS ORDERED: hydrALAZINE 20 MG/1 ML VIAL IV STA (10:36)
[2022-12-26] MEDS: levETIRAcetam 500 MG TABLET PO SCH ×2 (10:52→21:22)
[2022-12-26] MEDS: amLODIPine 10 MG TABLET PO SCH (10:52)
[2022-12-26] MEDS: ONDANSETRON 4 MG/2 ML VIAL IV PRN (15:18)
[2022-12-26] MEDS: INSULIN REGULAR 100 UNIT/ML SUBCUT SCH ×2 (15:23→18:22)
[2022-12-26] MEDS ORDERED: VANCOMYCIN INJ 1,000 MG in SODIUM CHLORIDE 0.9% 250 ML IV SCH (15:24)
[2022-12-26] MEDS: NON-FORMULARY MEDICATION (Ferric Citrate [Auryxia] 210 mg iron Tablet) PO SCH (18:22)
[2022-12-26] MEDS: GABAPENTIN 300 MG CAPSULE PO SCH ×2 (18:22→21:19)
[2022-12-26] MEDS: hydrALAZINE 25 MG TABLET PO SCH ×2 (18:22→21:19)
[2022-12-26] MEDS: ROSUVASTATIN 20 MG TABLET PO SCH (21:21)
[2022-12-26] MEDS: rOPINIRole 1 MG TABLET PO SCH (21:21)
[2022-12-26] MEDS: TOPIRAMATE 25 MG TABLET PO SCH (21:22)
[2022-12-26] MEDS: traZODone 50 MG TABLET PO SCH (21:22)
[2022-12-26] MEDS: DOCUSATE SODIUM 100 MG CAPSULE PO SCH (21:22)
[2022-12-27 04:56] LABS: Basophils # 0.1 10*3/uL (0.0-0.2); Basophils % 0.5 % (0.0-0.8); Eosinophils # 0.2 10*3/uL (0.0-0.87); Eosinophils % 1.5 % (0.00-10.9); Hematocrit 37.2 VOL% (35.7-47.0); Immature Granulocytes % 0.4 %; Immature Granulocytes Absolute 0.04 #; Lymphocytes # 2.5 10*3/uL (1.4-4.0); Lymphocytes % 24.3 % (21.3-54.2); Mean Corpuscular HGB Conc 32.3 GM/DL (32-36); Mean Corpuscular Volume 88.6 FL (87-102); Mean Platelet Volume 11.9 FL (9.6-12.0); Monocytes # 0.7 10*3/uL (0.11-0.8); Monocytes % 6.6 % (1.7-12.7); Neutrophils % 66.7 % (38.7-73.9); Platelet Count 157 T/CUMM (130-400); Red Cell Distribution Width 14.2 % (9.3-17.3); White Blood Count 10.18 T/CUMM (4-12)
[2022-12-27 05:14] LABS: Calcium 8.7 MG/DL (8.5-10.1); Osmolality,Calculated 279.8 MOS/KG (273-304); Potassium 4.2 MMOL/L (3.5-5.1)
[2022-12-27 05:36] LABS: % Iron Saturation 27.4 % (18-50); Ferritin 589.5 ng/mL (8-252)
[2022-12-27] MEDS: LEVOTHYROXINE 100 MCG TABLET PO SCH (06:32)
[2022-12-27] MEDS ORDERED: CYANOCOBALAMIN 1000 MCG/1 ML VIAL IM SCH (09:00)
[2022-12-27] MEDS ORDERED: PANTOPRAZOLE 40 MG TABLET PO SCH (09:00)
[2022-12-27] MEDS ORDERED: VANCOMYCIN INJ 750 MG in SODIUM CHLORIDE 0.9% 250 ML IV PRN (09:27)
[2022-12-27] MEDS ORDERED: VANCOMYCIN INJ 2,000 MG in SODIUM CHLORIDE 0.9% 500 ML IV ONE (09:30)
[2022-12-27] MEDS ORDERED: SODIUM CHLORIDE 0.9% 250 ML IV SCH (10:30)
[2022-12-27] MEDS ORDERED: LIDOCAINE 1%/EPI INJ 20 ML VIAL ONE (10:48)
[2022-12-27] MEDS ORDERED: BUPIVACAINE MPF 0.25% 10 ML VIAL ONE (10:48)
[2022-12-27] MEDS ORDERED: propofoL 200 MG/20 ML VIAL IV ONE (10:56)
[2022-12-27] MEDS ORDERED: LIDOCAINE 2% 5 ML VIAL ONE (10:56)
[2022-12-27] MEDS ORDERED: fentaNYL 100 MCG/2 ML VIAL ONE (10:57)
[2022-12-27] MEDS ORDERED: MIDAZOLAM 2 MG/2 ML VIAL ONE (10:57)
[2022-12-27] MEDS: INSULIN REGULAR 100 UNIT/ML SUBCUT SCH ×3 (12:31→16:47)
[2022-12-27] MEDS: GABAPENTIN 300 MG CAPSULE PO SCH ×3 (12:33→22:12)
[2022-12-27] MEDS: hydrALAZINE 25 MG TABLET PO SCH ×3 (12:33→22:11)
[2022-12-27] MEDS: rOPINIRole 1 MG TABLET PO SCH ×2 (12:54→22:12)
[2022-12-27] MEDS: TOPIRAMATE 25 MG TABLET PO SCH ×2 (12:54→22:12)
[2022-12-27] MEDS: ASPIRIN EC 81 MG TABLET PO SCH (12:54)
[2022-12-27] MEDS: DOCUSATE SODIUM 100 MG CAPSULE PO SCH ×2 (12:54→22:09)
[2022-12-27] MEDS: SERTRALINE 50 MG TABLET PO SCH (12:55)
[2022-12-27] MEDS: amLODIPine 10 MG TABLET PO SCH (12:55)
[2022-12-27] MEDS: NON-FORMULARY MEDICATION (Ferric Citrate [Auryxia] 210 mg iron Tablet) PO SCH ×3 (12:55→16:47)
[2022-12-27] MEDS: levETIRAcetam 500 MG TABLET PO SCH ×2 (12:55→22:11)
[2022-12-27] MEDS: PANTOPRAZOLE 40 MG TABLET PO SCH (12:55)
[2022-12-27] MEDS: DEXTROSE 5% NACL 0.45% 1,000 ML IV SCH (12:57)
[2022-12-27] MEDS: cefTRIAXone 1,000 MG in SODIUM CHLORIDE 0.9% 100 ML IV SCH (17:56)
[2022-12-27] MEDS: ROSUVASTATIN 20 MG TABLET PO SCH (22:09)
[2022-12-27] MEDS: traZODone 50 MG TABLET PO SCH (22:09)
[2022-12-28] MEDS: LEVOTHYROXINE 100 MCG TABLET PO SCH (06:33)
[2022-12-28] MEDS: ACETAMINOPHEN 325 MG TABLET PO PRN (07:37)
[2022-12-28] MEDS: amLODIPine 10 MG TABLET PO SCH (08:02)
[2022-12-28] MEDS: GABAPENTIN 300 MG CAPSULE PO SCH ×3 (08:02→21:15)
[2022-12-28] MEDS: ASPIRIN EC 81 MG TABLET PO SCH (08:02)
[2022-12-28] MEDS: hydrALAZINE 25 MG TABLET PO SCH ×3 (08:02→21:16)
[2022-12-28] MEDS: DOCUSATE SODIUM 100 MG CAPSULE PO SCH ×2 (08:02→21:15)
[2022-12-28] MEDS: levETIRAcetam 500 MG TABLET PO SCH ×2 (08:02→21:16)
[2022-12-28] MEDS: TOPIRAMATE 25 MG TABLET PO SCH ×2 (08:03→21:16)
[2022-12-28] MEDS: cefTRIAXone 1,000 MG in SODIUM CHLORIDE 0.9% 100 ML IV SCH (08:03)
[2022-12-28] MEDS: SERTRALINE 50 MG TABLET PO SCH (08:03)
[2022-12-28] MEDS: rOPINIRole 1 MG TABLET PO SCH ×2 (08:03→21:17)
[2022-12-28] MEDS: PANTOPRAZOLE 40 MG TABLET PO SCH (08:03)
[2022-12-28] MEDS: NON-FORMULARY MEDICATION (Ferric Citrate [Auryxia] 210 mg iron Tablet) PO SCH ×3 (08:35→16:32)
[2022-12-28] MEDS: INSULIN REGULAR 100 UNIT/ML SUBCUT SCH ×3 (08:35→16:33)
[2022-12-28] MEDS ORDERED: HEPARIN 10,000 UNIT/10 ML VIAL IV SCH (10:15)
[2022-12-28] MEDS: ZINC OXIDE 16% PASTE 57 GM TUBE TOP SCH ×2 (16:32→21:19)
[2022-12-28] MEDS ORDERED: VANCOMYCIN INJ 750 MG in SODIUM CHLORIDE 0.9% 250 ML IV ONE (17:00)
[2022-12-28] MEDS: traZODone 50 MG TABLET PO SCH (21:15)
[2022-12-28] MEDS: ROSUVASTATIN 20 MG TABLET PO SCH (21:15)
[2022-12-29] MEDS: LEVOTHYROXINE 100 MCG TABLET PO SCH (06:05)
[2022-12-29] MEDS: INSULIN REGULAR 100 UNIT/ML SUBCUT SCH ×3 (07:57→16:09)
[2022-12-29] MEDS: NON-FORMULARY MEDICATION (Ferric Citrate [Auryxia] 210 mg iron Tablet) PO SCH ×3 (07:57→16:09)
[2022-12-29] MEDS: GABAPENTIN 300 MG CAPSULE PO SCH ×3 (08:34→21:26)
[2022-12-29] MEDS: levETIRAcetam 500 MG TABLET PO SCH ×2 (08:34→21:26)
[2022-12-29] MEDS: cefTRIAXone 1,000 MG in SODIUM CHLORIDE 0.9% 100 ML IV SCH (08:34)
[2022-12-29] MEDS: ASPIRIN EC 81 MG TABLET PO SCH (08:35)
[2022-12-29] MEDS: DOCUSATE SODIUM 100 MG CAPSULE PO SCH ×2 (08:35→21:25)
[2022-12-29] MEDS: TOPIRAMATE 25 MG TABLET PO SCH ×2 (08:35→21:27)
[2022-12-29] MEDS: hydrALAZINE 25 MG TABLET PO SCH ×3 (08:35→21:26)
[2022-12-29] MEDS: PANTOPRAZOLE 40 MG TABLET PO SCH (08:35)
[2022-12-29] MEDS: rOPINIRole 1 MG TABLET PO SCH ×2 (08:35→21:29)
[2022-12-29] MEDS: amLODIPine 10 MG TABLET PO SCH (08:35)
[2022-12-29] MEDS: SERTRALINE 50 MG TABLET PO SCH (08:35)
[2022-12-29] MEDS: ZINC OXIDE 16% PASTE 57 GM TUBE TOP SCH ×2 (08:37→21:24)
[2022-12-29] MEDS: DEXTROSE 5% NACL 0.45% 1,000 ML IV SCH (09:48)
[2022-12-29] MEDS: FLUTICASONE 50 MCG NASAL SPRAY 16 GM BOTTLE BOTH NARES SCH ×2 (10:51→21:25)
[2022-12-29] MEDS: ACETAMINOPHEN 325 MG TABLET PO PRN (17:42)
[2022-12-29] MEDS: traZODone 50 MG TABLET PO SCH (21:27)
[2022-12-29] MEDS: ROSUVASTATIN 20 MG TABLET PO SCH (21:28)
[2022-12-30 05:09] LABS: Basophils % 0.5 % (0.0-0.8); Eosinophils # 0.2 10*3/uL (0.0-0.87); Eosinophils % 3.3 % (0.00-10.9); Hemoglobin 10.5 GM/DL (12.0-16.0); Immature Granulocytes % 0.3 %; Immature Granulocytes Absolute 0.02 #; Lymphocytes # 2.1 10*3/uL (1.4-4.0); Lymphocytes % 34.2 % (21.3-54.2); Mean Corpuscular HGB Conc 30.9 GM/DL (32-36); Mean Corpuscular Volume 92.4 FL (87-102); Mean Platelet Volume 10.8 FL (9.6-12.0); Monocytes # 0.4 10*3/uL (0.11-0.8); Neutrophils % 55.7 % (38.7-73.9); Platelet Count 146 T/CUMM (130-400); Red Blood Count 3.68 MC/CUMM (3.8-5.5); Red Cell Distribution Width 13.7 % (9.3-17.3); White Blood Count 5.99 T/CUMM (4-12)
[2022-12-30 05:32] LABS: Alanine Aminotransferase 11 U/L (13-56); Albumin 2.7 G/DL (3.4-5.0); Alkaline Phosphatase 55 U/L (45-117); Aspartate Amino Transferase 14 U/L (0-37); Bilirubin,Total < 0.39 MG/DL (0.20-1.00); Blood Urea Nitrogen 34 MG/DL (7-18); Calcium 7.9 MG/DL (8.5-10.1); Carbon Dioxide 25 MMOL/L (21-32); Chloride 102 MMOL/L (98-107); Glucose 158 MG/DL (74-106); Osmolality,Calculated 280.1 MOS/KG (273-304); Potassium 4.8 MMOL/L (3.5-5.1); Sodium 135 MMOL/L (136-145); Total Protein 5.5 G/DL (6.4-8.2)
[2022-12-30] MEDS: LEVOTHYROXINE 100 MCG TABLET PO SCH (05:56)
[2022-12-30] MEDS: NON-FORMULARY MEDICATION (Ferric Citrate [Auryxia] 210 mg iron Tablet) PO SCH ×3 (07:32→16:17)
[2022-12-30] MEDS: INSULIN REGULAR 100 UNIT/ML SUBCUT SCH ×3 (07:32→16:17)
[2022-12-30] MEDS: ACETAMINOPHEN 325 MG TABLET PO PRN (07:58)
[2022-12-30] MEDS ORDERED: MECLIZINE 25 MG TABLET PO PRN (08:04)
[2022-12-30] MEDS: DOCUSATE SODIUM 100 MG CAPSULE PO SCH ×2 (08:38→21:34)
[2022-12-30] MEDS: GABAPENTIN 300 MG CAPSULE PO SCH ×3 (08:38→21:35)
[2022-12-30] MEDS: rOPINIRole 1 MG TABLET PO SCH ×2 (08:38→21:35)
[2022-12-30] MEDS: PANTOPRAZOLE 40 MG TABLET PO SCH (08:39)
[2022-12-30] MEDS: levETIRAcetam 500 MG TABLET PO SCH (08:39)
[2022-12-30] MEDS: hydrALAZINE 25 MG TABLET PO SCH ×3 (08:39→21:34)
[2022-12-30] MEDS: cefTRIAXone 1,000 MG in SODIUM CHLORIDE 0.9% 100 ML IV SCH (08:39)
[2022-12-30] MEDS: ASPIRIN EC 81 MG TABLET PO SCH (08:39)
[2022-12-30] MEDS: SERTRALINE 50 MG TABLET PO SCH (08:39)
[2022-12-30] MEDS: TOPIRAMATE 25 MG TABLET PO SCH ×2 (08:39→21:35)
[2022-12-30] MEDS: FLUTICASONE 50 MCG NASAL SPRAY 16 GM BOTTLE BOTH NARES SCH ×2 (08:40→21:36)
[2022-12-30] MEDS: amLODIPine 10 MG TABLET PO SCH (08:40)
[2022-12-30] MEDS: ZINC OXIDE 16% PASTE 57 GM TUBE TOP SCH ×2 (08:42→21:36)
[2022-12-30 10:42] LABS: Risk Ratio 2.63; VLDL Cholesterol 28.8 MG/DL
[2022-12-30] MEDS ORDERED: LORazepam 2 MG/1 ML VIAL IV PRN (15:58)
[2022-12-30] MEDS: SODIUM CHLORIDE 0.9% 1,000 ML IV SCH (17:43)
[2022-12-30] MEDS: traZODone 50 MG TABLET PO SCH (21:35)
[2022-12-30] MEDS: ROSUVASTATIN 20 MG TABLET PO SCH (21:35)
[2022-12-31] MEDS: LEVOTHYROXINE 100 MCG TABLET PO SCH (06:30)
[2022-12-31 08:46] LABS: Basophils % 0.5 % (0.0-0.8); Eosinophils # 0.3 10*3/uL (0.0-0.87); Eosinophils % 3.9 % (0.00-10.9); Hematocrit 35.1 VOL% (35.7-47.0); Immature Granulocytes % 0.3 %; Immature Granulocytes Absolute 0.02 #; Lymphocytes # 1.9 10*3/uL (1.4-4.0); Lymphocytes % 30.2 % (21.3-54.2); Mean Corpuscular HGB Conc 31.3 GM/DL (32-36); Mean Corpuscular Volume 89.8 FL (87-102); Mean Platelet Volume 11.4 FL (9.6-12.0); Monocytes # 0.3 10*3/uL (0.11-0.8); Monocytes % 5.2 % (1.7-12.7); Neutrophils % 59.9 % (38.7-73.9); Platelet Count 175 T/CUMM (130-400); Red Blood Count 3.91 MC/CUMM (3.8-5.5); Red Cell Distribution Width 13.7 % (9.3-17.3); White Blood Count 6.33 T/CUMM (4-12)
[2022-12-31 09:01] LABS: Calcium 8.3 MG/DL (8.5-10.1); Potassium 4.4 MMOL/L (3.5-5.1)
[2022-12-31] MEDS: INSULIN REGULAR 100 UNIT/ML SUBCUT SCH ×3 (10:01→18:42)
[2022-12-31] MEDS: hydrALAZINE 25 MG TABLET PO SCH ×3 (10:02→21:38)
[2022-12-31] MEDS: SERTRALINE 50 MG TABLET PO SCH (10:02)
[2022-12-31] MEDS: ASPIRIN EC 81 MG TABLET PO SCH (10:02)
[2022-12-31] MEDS: NON-FORMULARY MEDICATION (Ferric Citrate [Auryxia] 210 mg iron Tablet) PO SCH ×3 (10:02→18:42)
[2022-12-31] MEDS: TOPIRAMATE 25 MG TABLET PO SCH ×2 (10:02→21:37)
[2022-12-31] MEDS: CLOPIDOGREL 75 MG TABLET PO SCH (10:03)
[2022-12-31] MEDS: rOPINIRole 1 MG TABLET PO SCH ×2 (10:03→21:37)
[2022-12-31] MEDS: DOCUSATE SODIUM 100 MG CAPSULE PO SCH ×2 (10:03→21:36)
[2022-12-31] MEDS: PANTOPRAZOLE 40 MG TABLET PO SCH (10:03)
[2022-12-31] MEDS: GABAPENTIN 300 MG CAPSULE PO SCH ×3 (10:03→21:38)
[2022-12-31] MEDS: amLODIPine 10 MG TABLET PO SCH (10:03)
[2022-12-31] MEDS: cefTRIAXone 1,000 MG in SODIUM CHLORIDE 0.9% 100 ML IV SCH (10:57)
[2022-12-31] MEDS: ZINC OXIDE 16% PASTE 57 GM TUBE TOP SCH ×2 (10:58→21:41)
[2022-12-31] MEDS: FLUTICASONE 50 MCG NASAL SPRAY 16 GM BOTTLE BOTH NARES SCH ×2 (10:58→21:41)
[2022-12-31 17:09] LABS: Hepatitis B Core IgM Quant 0.08 Index; Hepatitis B Surface Ag Quant < 0.10 Index; Hepatitis B Surface Ag Result Non-Reactive (NonReactive); Hepatitis C Virus Ab Quant < 0.02 Index; Hepatitis C Virus Ab Result Non-Reactive (NonReactive)
[2022-12-31] MEDS ORDERED: VANCOMYCIN INJ 750 MG in SODIUM CHLORIDE 0.9% 250 ML IV ONE (18:00)
[2022-12-31] MEDS: traZODone 50 MG TABLET PO SCH (21:37)
[2022-12-31] MEDS: ROSUVASTATIN 20 MG TABLET PO SCH (21:38)
[2022-12-31] MEDS: SODIUM CHLORIDE 0.9% 1,000 ML IV SCH (22:45)
[2023-01-01] MEDS: ACETAMINOPHEN 325 MG TABLET PO PRN (03:54)
[2023-01-01] MEDS: hydrALAZINE 20 MG/1 ML VIAL IV PRN (04:27)
[2023-01-01] MEDS: LEVOTHYROXINE 100 MCG TABLET PO SCH (05:46)
[2023-01-01] MEDS: TOPIRAMATE 25 MG TABLET PO SCH ×2 (09:04→21:38)
[2023-01-01] MEDS: amLODIPine 10 MG TABLET PO SCH (09:04)
[2023-01-01] MEDS: GABAPENTIN 300 MG CAPSULE PO SCH ×3 (09:04→21:38)
[2023-01-01] MEDS: ASPIRIN EC 81 MG TABLET PO SCH (09:04)
[2023-01-01] MEDS: CLOPIDOGREL 75 MG TABLET PO SCH (09:04)
[2023-01-01] MEDS: PANTOPRAZOLE 40 MG TABLET PO SCH (09:04)
[2023-01-01] MEDS: SERTRALINE 50 MG TABLET PO SCH (09:04)
[2023-01-01] MEDS: rOPINIRole 1 MG TABLET PO SCH ×2 (09:04→21:45)
[2023-01-01] MEDS: INSULIN REGULAR 100 UNIT/ML SUBCUT SCH ×3 (09:05→17:01)
[2023-01-01] MEDS: NON-FORMULARY MEDICATION (Ferric Citrate [Auryxia] 210 mg iron Tablet) PO SCH ×3 (09:05→16:59)
[2023-01-01] MEDS: hydrALAZINE 25 MG TABLET PO SCH ×2 (09:05→15:30)
[2023-01-01] MEDS: DOCUSATE SODIUM 100 MG CAPSULE PO SCH ×2 (09:05→21:38)
[2023-01-01] MEDS: ZINC OXIDE 16% PASTE 57 GM TUBE TOP SCH ×2 (12:40→21:44)
[2023-01-01] MEDS: FLUTICASONE 50 MCG NASAL SPRAY 16 GM BOTTLE BOTH NARES SCH ×2 (12:40→21:44)
[2023-01-01] MEDS: SODIUM CHLORIDE 0.9% 1,000 ML IV SCH (17:03)
[2023-01-01] MEDS: traZODone 50 MG TABLET PO SCH (21:37)
[2023-01-01] MEDS: ROSUVASTATIN 20 MG TABLET PO SCH (21:37)
[2023-01-02] MEDS: ONDANSETRON 4 MG/2 ML VIAL IV PRN (00:40)
[2023-01-02] MEDS: LEVOTHYROXINE 100 MCG TABLET PO SCH (06:30)
[2023-01-02] MEDS: INSULIN REGULAR 100 UNIT/ML SUBCUT SCH ×3 (07:34→16:03)
[2023-01-02] MEDS: NON-FORMULARY MEDICATION (Ferric Citrate [Auryxia] 210 mg iron Tablet) PO SCH ×3 (07:34→16:19)
[2023-01-02] MEDS: SODIUM CHLORIDE 0.9% 1,000 ML IV SCH (07:43)
[2023-01-02] MEDS: TOPIRAMATE 25 MG TABLET PO SCH ×2 (08:00→21:11)
[2023-01-02] MEDS: rOPINIRole 1 MG TABLET PO SCH ×2 (08:00→21:11)
[2023-01-02] MEDS: SERTRALINE 50 MG TABLET PO SCH (08:00)
[2023-01-02] MEDS: CLOPIDOGREL 75 MG TABLET PO SCH (08:00)
[2023-01-02] MEDS: amLODIPine 10 MG TABLET PO SCH (08:00)
[2023-01-02] MEDS: ASPIRIN EC 81 MG TABLET PO SCH (08:00)
[2023-01-02] MEDS: PANTOPRAZOLE 40 MG TABLET PO SCH (08:00)
[2023-01-02] MEDS: GABAPENTIN 300 MG CAPSULE PO SCH ×3 (08:00→21:11)
[2023-01-02] MEDS: DOCUSATE SODIUM 100 MG CAPSULE PO SCH ×2 (08:01→21:11)
[2023-01-02] MEDS: ZINC OXIDE 16% PASTE 57 GM TUBE TOP SCH ×2 (08:05→22:08)
[2023-01-02] MEDS: FLUTICASONE 50 MCG NASAL SPRAY 16 GM BOTTLE BOTH NARES SCH ×2 (08:06→22:08)
[2023-01-02] MEDS ORDERED: BISACODYL 5 MG TABLET PO ONE (09:00)
[2023-01-02] MEDS: POLYETHYLENE GLYCOL POWDER 17 GM PACK PO SCH (13:05)
[2023-01-02] MEDS: ROSUVASTATIN 20 MG TABLET PO SCH (21:11)
[2023-01-02] MEDS: traZODone 50 MG TABLET PO SCH (21:11)
[2023-01-03] MEDS: INSULIN REGULAR 100 UNIT/ML SUBCUT SCH ×2 (07:46→12:24)
[2023-01-03] MEDS: NON-FORMULARY MEDICATION (Ferric Citrate [Auryxia] 210 mg iron Tablet) PO SCH ×2 (07:46→11:31)
[2023-01-03] MEDS: hydrALAZINE 20 MG/1 ML VIAL IV PRN (08:00)
[2023-01-03] MEDS: LEVOTHYROXINE 100 MCG TABLET PO SCH (09:00)
[2023-01-03] MEDS: TOPIRAMATE 25 MG TABLET PO SCH (09:15)
[2023-01-03] MEDS: amLODIPine 10 MG TABLET PO SCH (09:15)
[2023-01-03] MEDS: ASPIRIN EC 81 MG TABLET PO SCH (09:15)
[2023-01-03] MEDS: SERTRALINE 50 MG TABLET PO SCH (09:15)
[2023-01-03] MEDS: CLOPIDOGREL 75 MG TABLET PO SCH (09:15)
[2023-01-03] MEDS: PANTOPRAZOLE 40 MG TABLET PO SCH (09:15)
[2023-01-03] MEDS: DOCUSATE SODIUM 100 MG CAPSULE PO SCH (09:15)
[2023-01-03] MEDS: rOPINIRole 1 MG TABLET PO SCH (09:15)
[2023-01-03] MEDS: GABAPENTIN 300 MG CAPSULE PO SCH ×2 (09:15→14:00)
[2023-01-03] MEDS: FLUTICASONE 50 MCG NASAL SPRAY 16 GM BOTTLE BOTH NARES SCH (09:19)
[2023-01-03] MEDS: ZINC OXIDE 16% PASTE 57 GM TUBE TOP SCH (09:20)
[2023-01-03] MEDS: POLYETHYLENE GLYCOL POWDER 17 GM PACK PO SCH (09:21)
[2023-01-03] MEDS: SODIUM CHLORIDE 0.9% 1,000 ML IV SCH (10:08)
[2023-01-03 13:55] VITALS: BP 156/56
[2023-01-03] MEDS: ONDANSETRON 4 MG/2 ML VIAL IV PRN (13:55)
== END 2023-01-03 15:00 | DRG 73 ==
LOC: N.ED 07:34 → N.EDINP 09:11 → N.3E 17:22
PROVIDERS: ADMIT Internal Medicine; ATTEND Internal Medicine